=== PATIENT | female | born 1935 | race Caucasian/White ===

== ENCOUNTER 2020-07-17 10:09 | Day surgery (SDC) | payer MEDICARE, SELFPAY ==
[2020-07-10 16:19] VITALS: BMI 30.5
--- NOTE | 2020-07-13 10:30 | MHC.SHP ---
Pre-Procedural Eval Section A The patient is an INPATIENT: No The History & Physical has been completed within 30 days and I have reviewed it.: Yes Section B Chief Complaint: Cataract Left Eye Allergies: Allergies Allergy/AdvReac Type Severity Reaction Status Date / Time No Known Allergies Allergy Verified 07/10/20 16:11 Plan Diagnosis/Plan: Unchanged I have reviewed the history and physical and performed a pertinent physical examination on my patient. No changes have occurred unless specified.
--- NOTE | 2020-07-14 09:07 | P.CONAN_ITS ---
Documented by User: Sophy Velazquez 07/14/20 09:09 HPI - Anesthesia Eval Consult details Narrative: 84yo F for Cataract Extraction IOL Insertion PCP cleared No prev cataract on record [facility] Past Medical History Medical History Diabetes mellitus Hx of breast cancer Hx of cardiac murmur Hypertension Hypothyroidism Numbness and tingling of both feet Osteoarthritis Surgical History Surgical History History of knee replacement Hx of colonoscopy Hx of hemorrhoidectomy S/P lumpectomy, right breast Social History Social History Alcohol intake: never Smoking Status: Former smoker Advance Directives: No Advance Directives Information Provided: No Advance Directives on File: No Meds Allergies Allergy/AdvReac Type Severity Reaction Status Date / Time No Known Allergies Allergy Verified 07/17/20 12:10 Home Medications Medication Instructions Recorded Confirmed Type anastrozole 1 mg PO DAILY 07/10/20 07/10/20 History levothyroxine 112 mcg PO DAILY 07/10/20 07/10/20 History losartan-hydrochlorothiazide 1 tab PO DAILY 07/10/20 07/10/20 History metformin 500 mg PO DAILY 07/10/20 07/10/20 History Exam Exam Date and Time: July 14, 2020 0907 Height,Weight and Vital Signs: Height 5 ft 2 in Weight 75.75 kg Assessment and Plan Assessment Anesthesia Assessment: Chart Reviewed Documented by User: Alize [place] 07/17/20 12:21 [facility] Past Medical History Medical History Diabetes mellitus Hx of breast cancer Hx of cardiac murmur Hypertension Hypothyroidism Numbness and tingling of both feet Osteoarthritis Surgical History Surgical History History of knee replacement Hx of colonoscopy Hx of hemorrhoidectomy S/P lumpectomy, right breast Social History Social History Alcohol intake: never Smoking Status: Former smoker Advance Directives: No Advance Directives Information Provided: No Advance Directives on File: No Meds Allergies Allergy/AdvReac Type Severity Reaction Status Date / Time No Known Allergies Allergy Verified 07/17/20 12:10 Home Medications Medication Instructions Recorded Confirmed Type anastrozole 1 mg PO DAILY 07/10/20 07/10/20 History levothyroxine 112 mcg PO DAILY 07/10/20 07/10/20 History losartan-hydrochlorothiazide 1 tab PO DAILY 07/10/20 07/10/20 History metformin 500 mg PO DAILY 07/10/20 07/10/20 History Exam Airway Mallampati Class: II TM Dist: >3cm Neck ROM: Full Heart: RRR Lungs: CTA Assessment and Plan Assessment Anesthesia Assessment: Anesthesia Plan Discussed and Chart Reviewed Final Anesthetic Review NPO: Yes ASA Class: II Final Preanesthetic Review: Meds/Allgs Chart Reviewed, Consent Obtained/Reviewed and Anes Risks/Benef Reviewed Patient Risk: Intermediate Procedure Risk: Low Anesthetic Plan Anesthetic Plan: MAC: Disposition: Standard PACU
[2020-07-17 12:13] VITALS: BP 182/82; PULSE 73; RESP 16; TEMP 36.3; O2SAT 97
[2020-07-17 12:13] LABS: Glucose, Whole Blood 117 mg/dL (60-115)
[2020-07-17] MEDS: Lactated Ringers 500 ML 50 ML IV (12:36)
[2020-07-17] MEDS: Tetracaine HCl/PF 0.5% Oph Sol 4 ML DROPS 1 DROP EYE-LEFT (12:36)
[2020-07-17] MEDS: Phenylephrine HCL 2.5% Oph SoL 2 ML BOTTLE 1 DROP EYE-LEFT ×3 (12:39→12:46)
[2020-07-17] MEDS: Tropicamide 1 % Ophth Sol 3 ML BTL 1 DROP EYE-LEFT ×3 (12:40→12:47)
--- NOTE | 2020-07-17 12:49 | HO.POSTANES ---
Post Anesthesia Evaluation Post Anesthesia Evaluation Vital Signs: Vital Signs Temp Pulse Resp BP Pulse Ox 07/17/20 12:13 97.3 F 73 16 182/82 H 97 Anesthesia: Monitored Mental Status: Awake Pain Control: Satisfactory Nausea/Vomiting: None Hydration: Adequate Anesthesia-Related Issues: No Anes. Related Issues
--- NOTE | 2020-07-17 12:49 | HO.PNOPHT ---
Ophthalmology Procedure Procedure Date of Service: 07/17/20 Ophthalmology Viscoelastic: Healon Duet Dual Pack Pro Ophthalmology Lenses: TECNIS [id number] (22.5) Procedure Notes: PREOPERATIVE DIAGNOSIS: Decreased visual acuity left eye secondary to cataract POSTOPERATIVE DIAGNOSIS: Same PROCEDURE: Left cataract extraction with intraocular lens insertion SURGEON: Madhu Miles M.D. ANESTHESIA: Topical/MAC ESTIMATED BLOOD LOSS: None COMPLICATIONS: None After obtaining informed consent, the patient was brought to the operation room suite and placed in the supine position. After adequate sedation per anesthesia, topical drops of Tetracaine were given to the left eye. The eye was then prepped and draped in the usual sterile fashion. The operating room microscope was then positioned over the operative eye and a lid speculum placed. A paracentesis was created. Viscoelastic was then instilled into the anterior chamber. A three plane incision was then created temporally, utilizing a 2.85 mm keratome. Capsulotomy forceps were then utilized to create a circular tear capsulotomy. Hydrodissection and hydrodelineation were carried out until adequate mobilization of the nucleus occurred. Phacoemulsification was then utilized to remove the dense central nucleus followed by removal of the cortical material utilizing the automated aspiration irrigation unit. Viscoat elastic was instilled into the posterior capsular bag followed by placement of a posterior chamber intraocular lens without difficulty. The residual Viscoat elastic was then removed utilizing the automated IA machine. The wound was check and found to be watertight. The patient tolerated the procedure well and the lid speculum was removed. Intracameral injection of Vigamox 0.1 mL followed by a subtenon injection of Kenalog-40 0.2 mL were administered. The patient will be seen in the a.m.
[2020-07-17 13:19] VITALS: BP 169/83; PULSE 69; RESP 16; TEMP 36.5; O2SAT 100
== END 2020-07-17 13:28 | disposition home or self-care (01) ==
PROVIDERS: PCP Internal Medicine; Visit Provider Ophthalmology
PROC: (CPT 66985; principal; 2020-07-17 13:40)
DX: H25.12 Age-related nuclear cataract, left eye (principal); H54.7 Unspecified visual loss; I10 Essential (primary) hypertension; E11.9 Type 2 diabetes mellitus without complications; E03.9 Hypothyroidism, unspecified; I49.1 Atrial premature depolarization; J45.909 Unspecified asthma, uncomplicated; C50.911 Malignant neoplasm of unspecified site of right female breast; Z79.811 Long term (current) use of aromatase inhibitors; Z79.84 Long term (current) use of oral hypoglycemic drugs; Z79.899 Other long term (current) drug therapy; Z87.891 Personal history of nicotine dependence
CPT/HCPCS: 66984; 82947; J2250; J3010; J3300; V2632

== ENCOUNTER 2020-07-31 08:53 | Day surgery (SDC) | payer MEDICARE, SELFPAY ==
[2020-07-10 16:21] VITALS: BMI 30.5
--- NOTE | 2020-07-27 14:49 | MHC.SHP ---
Pre-Procedural Eval Section A The patient is an INPATIENT: No The History & Physical has been completed within 30 days and I have reviewed it.: Yes Section B Chief Complaint: cataract Right Eye Allergies: Allergies Allergy/AdvReac Type Severity Reaction Status Date / Time No Known Allergies Allergy Verified 07/17/20 12:10 Plan Diagnosis/Plan: Unchanged I have reviewed the history and physical and performed a pertinent physical examination on my patient. No changes have occurred unless specified.
--- NOTE | 2020-07-28 08:39 | HO.ANESPROP2 ---
Documented by User: Sophy Velazquez 07/28/20 08:50 HPI - Anesthesia Eval Consult details Narrative: 84yo F for Cataract Extraction IOL Insertion, Right Left eye 07/17/20 with MAC: Neena 25, Midaz PCP cleared [facility] Past Medical History Medical History Diabetes mellitus Hx of breast cancer Hx of cardiac murmur Hypertension Hypothyroidism Numbness and tingling of both feet Osteoarthritis Surgical History Surgical History History of knee replacement Hx of colonoscopy Hx of hemorrhoidectomy S/P lumpectomy, right breast Social History Social History Alcohol intake: never Smoking Status: Former smoker Smoking Quit Date: 1983 Use of substances other than those prescribed or required for medical reasons: No Advance Directives: No Advance Directives Information Provided: No Advance Directives on File: No Meds Allergies Allergy/AdvReac Type Severity Reaction Status Date / Time No Known Allergies Allergy Verified 07/17/20 12:10 Home Medications Medication Instructions Recorded Confirmed Type anastrozole 1 mg PO DAILY 07/10/20 07/10/20 History levothyroxine 112 mcg PO DAILY 07/10/20 07/10/20 History losartan-hydrochlorothiazide 1 tab PO DAILY 07/10/20 07/10/20 History metformin 500 mg PO DAILY 07/10/20 07/10/20 History Exam Exam Date and Time: July 28, 2020 0839 Height,Weight and Vital Signs: Height 5 ft 2 in Weight 75.75 kg Assessment and Plan Assessment Anesthesia Assessment: Chart Reviewed Documented by User: Alize [place] 07/31/20 10:02 [facility] Past Medical History Medical History Diabetes mellitus Hx of breast cancer Hx of cardiac murmur Hypertension Hypothyroidism Numbness and tingling of both feet Osteoarthritis Surgical History Surgical History History of knee replacement Hx of colonoscopy Hx of hemorrhoidectomy S/P lumpectomy, right breast Social History Social History Alcohol intake: never Smoking Status: Former smoker Smoking Quit Date: 1983 Use of substances other than those prescribed or required for medical reasons: No Advance Directives: No Advance Directives Information Provided: No Advance Directives on File: No Meds Allergies Allergy/AdvReac Type Severity Reaction Status Date / Time No Known Allergies Allergy Verified 07/17/20 12:10 Home Medications Medication Instructions Recorded Confirmed Type anastrozole 1 mg PO DAILY 07/10/20 07/10/20 History levothyroxine 112 mcg PO DAILY 07/10/20 07/10/20 History losartan-hydrochlorothiazide 1 tab PO DAILY 07/10/20 07/10/20 History metformin 500 mg PO DAILY 07/10/20 07/10/20 History Exam Airway Mallampati Class: I TM Dist: >3cm Neck ROM: Full Loose/Missing/Broken Teeth: No Heart: RRR Lungs: CTA Assessment and Plan Assessment Anesthesia Assessment: Anesthesia Plan Discussed and Chart Reviewed Final Anesthetic Review NPO: Yes ASA Class: II Final Preanesthetic Review: Meds/Allgs Chart Reviewed, Consent Obtained/Reviewed and Anes Risks/Benef Reviewed Patient Risk: Intermediate Procedure Risk: Low Anesthetic Plan Anesthetic Plan: MAC: Disposition: Standard PACU
[2020-07-31] MEDS: Tropicamide 1 % Ophth Sol 3 ML BTL 1 DROP EYE-RIGHT ×3 (09:30→09:51)
[2020-07-31] MEDS: Phenylephrine HCL 2.5% Oph SoL 2 ML BOTTLE 1 DROP EYE-RIGHT ×3 (09:36→09:51)
[2020-07-31 09:40] LABS: Glucose, Whole Blood 116 mg/dL (60-115)
[2020-07-31 09:43] VITALS: BP 154/88; PULSE 74; RESP 18; TEMP 36.6; O2SAT 98
[2020-07-31] MEDS: Tetracaine HCl/PF 0.5% Oph Sol 4 ML DROPS 1 DROP EYE-RIGHT (09:44)
[2020-07-31] MEDS: Lactated Ringers 500 ML 50 ML IV (09:44)
[2020-07-31 10:40] VITALS: BP 174/88; PULSE 62; RESP 16; TEMP 36.4; O2SAT 99
--- NOTE | 2020-07-31 10:40 | HO.PNOPHT ---
Ophthalmology Procedure Procedure Date of Service: 07/31/20 Ophthalmology Viscoelastic: Healon Duet Dual Pack Pro Ophthalmology Lenses: TECNIS [id number] (22.5) Procedure Notes: PREOPERATIVE DIAGNOSIS: Decreased visual acuity right eye secondary to cataract POSTOPERATIVE DIAGNOSIS: Same PROCEDURE: Right cataract extraction with intraocular lens insertion SURGEON: Madhu Miles M.D. ANESTHESIA: Topical/MAC ESTIMATED BLOOD LOSS: None COMPLICATIONS: None After obtaining informed consent, the patient was brought to the operating room suite and placed in the supine position. After adequate sedation per anesthesia, topical drops of Tetracaine were given to the right eye. The eye was then prepped and draped in the usual sterile fashion. The operating room microscope was then positioned over the operative eye and a lid speculum placed. A paracentesis was created. Viscoelastic was then instilled into the anterior chamber. A three plane incision was then created temporally, utilizing a 2.85 mm keratome. Capsulotomy forceps were then utilized to create a circular tear capsulotomy. Hydrodissection and hydrodelineation were carried out until adequate mobilization of the nucleus occurred. Phacoemulsification was then utilized to remove the dense central nucleus followed by removal of the cortical material utilizing the automated aspiration irrigation unit. Viscoelastic was instilled into the posterior capsular bag followed by placement of a posterior chamber intraocular lens without difficulty. The residual Viscoelastic was then removed utilizing the automated IA machine. The wound was checked and found to be watertight. The patient tolerated the procedure well and the lid speculum was removed. Intracameral injection of Vigamox 0.1 mL followed by a subtenon injection of Kenalog-40 0.2 mL were administered. The patient will be seen in the a.m.
--- NOTE | 2020-07-31 10:42 | HO.POSTANES ---
Post Anesthesia Evaluation Post Anesthesia Evaluation Vital Signs: Vital Signs Temp Pulse Resp BP Pulse Ox 07/31/20 09:43 98 F 74 18 154/88 H 98 Anesthesia: Monitored Mental Status: Awake Pain Control: Satisfactory Nausea/Vomiting: None Hydration: Adequate Anesthesia-Related Issues: No Anes. Related Issues
[2020-07-31] MEDS: Acetaminophen 325 MG TABLET 650 MG PO (10:45)
== END 2020-07-31 11:39 | disposition home or self-care (01) ==
PROVIDERS: PCP Internal Medicine; Visit Provider Ophthalmology
PROC: (CPT 66985; principal; 2020-07-31 11:10)
DX: H25.11 Age-related nuclear cataract, right eye (principal); I10 Essential (primary) hypertension; E11.9 Type 2 diabetes mellitus without complications; Z79.84 Long term (current) use of oral hypoglycemic drugs
CPT/HCPCS: 66984; 82947; J2250; J3010; J3300; V2632

== ENCOUNTER 2025-02-18 15:04 | Inpatient (IN) | payer OTHER, SELFPAY ==
[2025-02-18] VITALS (10 sets, daily range): BP systolic 95–129; BP diastolic 41–79; PULSE 75–95; RESP 13–20; TEMP 36.1–37.2; O2SAT 92–100; BMI 30.2
--- NOTE | ~2025-02-18 | CT_ITS ---
CLINICAL HISTORY: fall CT CERVICAL SPINE WITHOUT CONTRAST Comparison: None provided Findings: Likely degenerative minimal grade 1 spondylolisthesis C4-5. Satisfactory alignment of the remaining vertebral bodies. Moderate disc degenerative changes. Advanced facet degenerative changes. No acute fractures or dislocations. Bilateral cervical ribs. Visualized intracranial contents are unremarkable. Unenhanced soft tissues of the neck appear unremarkable.. No apical pneumothorax. IMPRESSION: 1. Motion affected study. 2. No acute fracture in the cervical spine. This document has been electronically signed by: Maritza Sam DO on 02/18/2025 18:48:02
--- NOTE | ~2025-02-18 | XR_ITS ---
EXAMINATION: XR CHEST CLINICAL INFORMATION: fall COMPARISON: None available. TECHNIQUE: Frontal view of the chest was obtained. FINDINGS: Lungs are clear. There are low lung volumes. Aorta is tortuous. A subtle prominence is likely due to AP projection. There is a fracture of the right humerus at the surgical neck, see dictation of right humerus. XR/XR chest 1V IMPRESSION: Right humeral fracture. No acute disease in the chest. Electronically signed by: Giovanni Aguilar MD 02/18/2025 05:03 PM EDT
--- NOTE | ~2025-02-18 | CT_ITS ---
CLINICAL HISTORY: fall CT HEAD WITHOUT CONTRAST Comparison: None provided Findings: There is motion artifact. No acute intracranial hemorrhage, extra-axial fluid collection, hydrocephalus or midline shift. Age appropriate generalized parenchymal atrophy. There are periventricular and subcortical white matter hypodensities which are most likely related to microangiopathic gliosis. Intracranial arteriosclerosis. No sinus or mastoid fluid. Probable retention cyst in the left maxillary sinus. Mild mucosal thickening in the left sphenoid sinus. Visualized orbits: Bilateral aphakia. No skull fracture. IMPRESSION: 1. Motion affected study. 2. No acute intracranial hemorrhage. This document has been electronically signed by: Maritza Sam DO on 02/18/2025 18:42:59
--- NOTE | ~2025-02-18 | XR_ITS ---
EXAMINATION: XR CHEST CLINICAL INFORMATION: dyspnoea COMPARISON: 02/18/2025 TECHNIQUE: Frontal view of the chest was obtained. FINDINGS: The cardiac, hilar, and mediastinal contours are normal. Aortic mural calcification. The lungs are clear bilaterally. No pneumothorax or effusion. Comminuted displaced fracture of the surgical neck of the right proximal humerus. XR/XR chest 1V IMPRESSION: 1. No active pulmonary disease. 2. Comminuted displaced fracture of the surgical neck of the right proximal humerus. Electronically signed by: Daniel Engel MD 02/22/2025 01:45 PM EDT
--- NOTE | ~2025-02-18 | XR_ITS ---
EXAMINATION: XR HUMERUS, RIGHT CLINICAL INFORMATION: fall COMPARISON: None available. TECHNIQUE: AP and lateral views of the right humerus. FINDINGS: There is a displaced fracture of the surgical neck of the humerus with full shaft width medial displacement of the humerus. There is diffuse osteopenia. AC joint is intact. Humeral head does not appear grossly dislocated. XR/XR humerus RT IMPRESSION: There is a transverse fracture through the surgical neck of the humerus with full shaft width medial displacement of the humerus. Electronically signed by: Giovanni Aguilar MD 02/18/2025 05:01 PM EDT
--- NOTE | ~2025-02-18 | XR_ITS ---
EXAMINATION: XR PELVIS CLINICAL INFORMATION: fall COMPARISON: None available. TECHNIQUE: AP view of the pelvis. FINDINGS: Metallic wire lead terminates in the midline of the lower pelvis. No deformity or fracture is identified. There is degenerative sclerosis and osteophytes involving pubic symphysis joint. XR/XR pelvis 1-2V IMPRESSION: No acute abnormality of the pelvis. Electronically signed by: Giovanni Aguilar MD 02/18/2025 04:59 PM EDT
--- NOTE | ~2025-02-18 | XR_ITS ---
EXAMINATION: XR KNEE, RIGHT CLINICAL INFORMATION: fall COMPARISON: None available. TECHNIQUE: Four views of the right knee. FINDINGS: Total knee arthroplasty is noted. There is diffuse osteopenia. There is periprosthetic fracture in the distal femur with half shaft width lateral displacement and impaction. No other abnormalities noted. XR/XR knee RT 4V IMPRESSION: Low bone mineral density. Periprosthetic fracture involving the distal femur adjacent to the femoral component. There is half shaft width lateral displacement of the femoral condyles and impaction of the femur Electronically signed by: Giovanni Aguilar MD 02/18/2025 05:02 PM EDT
--- NOTE | ~2025-02-18 | FL_ITS ---
EXAMINATION: XR FLUOROSCOPY WITH IMAGES CLINICAL INFORMATION: Right knee ORIF of periprosthetic fracture. COMPARISON: 02/18/2025 TECHNIQUE: Fluoroscopy provided to: Dr. Lomeli Fluoroscopy time: 1.7 minutes DAP: 0.164 mGycm2 Images: 7 FINDINGS: 7 fluoroscopic spot images of the right knee obtained during ORIF. Please refer to the full operative report for details. FL/FL guidance in OR IMPRESSION: Fluoroscopic guidance. Electronically signed by: Daniel Engel MD 02/22/2025 12:31 PM EDT
--- NOTE | 2025-02-18 15:27 | ECG_ITS ---
Test Reason : FALL Blood Pressure : */* mmHG Vent. Rate : 81 BPM Atrial Rate : 81 BPM P-R Int : 174 ms QRS Dur : 76 ms QT Int : 430 ms P-R-T Axes : 60 -31 20 degrees QTcB Int : 499 ms Sinus rhythm with Premature atrial complexes Left axis deviation Low voltage QRS Nonspecific ST abnormality Abnormal ECG No previous ECGs available Referred By: Palak Ruiz Electronically Signed By: MAIKOL ALVARADO
--- NOTE | 2025-02-18 15:30 | PC.NURSE ---
Patient is a 89 yo female with a history of DM, HTn and thyroid disorder who presents from home after losing her balance and falling. Patient was on the ground from 7am to 2pm when she was able to reach her daughter. Placed on quality assurance monitor body and NSR noted. Rectal probe inserted and normothermic. Lungs clear bilat. Respirations even and non-labored. Abdomen soft, non-tender, distended with positive bowel sounds. Positive pedal pulses with trace edema. Swelling, ecchymosis and deformity noted to right upper arm with goo CSM. c/o right knee pain, s/p TKR in 2020 and patient unable to straighten leg. Provider at this bedside.
[2025-02-18 15:34] LABS: Hematocrit 31.9 % (37.0-47.0); Hemoglobin 10.3 g/dl (12.0-16.0); Imm Gran Abs Auto 0.16 X10*3/uL (0.00-0.03); Imm Gran Pct Auto 0.7 % (0.0-0.4); Lymphocytes Absolute Auto 0.9 X10*3/uL (1.2-4.9); MANUAL DIFF FLAG SCAN; Mean Corpuscular HGB Conc 32.3 g/dl (31.0-35.0); Mean Corpuscular Hemoglobin 27.8 pg (27.0-33.0); Mean Corpuscular Volume 86.2 fL (80.0-98.0); NRBC Abs Auto 0.000 X10*3/uL (0.0-0.012); NRBC Pct Auto 0.0 /100WBC (0.0-0.2); Platelet Count 395 X10*3/uL (160-400); Red Blood Count 3.70 X10*6/uL (4.20-5.50); SCAN SMEAR FLAG 1; White Blood Count 23.7 X10*3/uL (4.8-10.8)
--- OUTSIDE RECORDS SUMMARY | 2025-02-18 15:44 | XMS_ITS | Clinical Summary ---
Author Organization [facility], Address [address] [place] [address] Phone Care Team Providers Care Gm Mobile Name Role Phone Lizette Lovelace Primary Care Provider [phone] Allergies Active Allergy Reactions Criticality Noted Date Comments Oxycodone Nausea 11/11/2022 Medications amLODIPine (NORVASC) 5 MG tablet Take 5 mg by mouth 1 (one) time each day Active anastrozole (ARIMIDEX) 1 MG chemo tablet Take 1 mg by mouth 1 (one) time each day Swallow whole with a drink of water. Active Ashwagandha 500 MG capsule Take by mouth Active diphenhydrAMINE (Benadryl Allergy) 25 MG capsule Take 25 mg by mouth every 6 (six) hours if needed for itching Active Biotin 5000 MCG chewable tablet Chew Acti ve Cinnamon 500 MG tablet Take by mouth Active levothyroxine sodium (TIROSINT) 112 MCG capsule Take 112 mcg by mouth 1 (one) time each day Active losartan-hydroC HLOROthiazide (HYZAAR) 100-12.5 MG per tablet Take 1 tablet by mouth 1 (one) time each day Active Lutein 40 MG capsule Take by mouth Active Magnesium Oxide 500 MG capsule Take by mouth Active Cholecalciferol (Vitamin D-3) 125 MCG (5000 UT) tablet Take by mouth Active gabapentin (NEURONTIN) 300 MG capsule Take 300 mg by mouth at bed time 12/18/2022 Active Active Problems Problem Noted Date Diagnosed Date Diabetes mellitus 11/11/2022 Hypertension 11/11/2022 Social History Tobacco Use Types Packs/Day Years Used Date Smoking Tobacco: Never Assessed Comments Unknown Sex and Gender Information Value Date Recorded Sex Assigned at Not on file Legal Sex Female 12:00 PM EDT Gender Identity Not on file Sexual Orientation Not on file Plan of Treatment Health Maintenance Due Date Last Done Comments Pneumococcal Vaccine: 50+ Ye ars (1 of 2 - PCV) 11/19/1954 Diabetes: Ophthalmology Exam 10/16/2022 Diabetes: Pedal Pulse Checked 10/16/2022 Diabetes: Sensory Foot Exam 10/16/2022 Diabetes: Visual Foot Exam 10/16/2022 Diabetes: Hemoglobin A1C 02/11/2023 11/11/2022 Influenza Vaccine (#1) 2025 Hepatitis B Vaccine Aged Out No longe r eligible based on patient's age to complete this topic Procedures Procedure Name Priority Date/Time Associated Diagnosis Comments HEMOGLOBIN A1C Routine 11/11/2022 3:54 PM EDT 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 DIAGNOSTIC USE: The [place] Diabetes Association (ADA) and the World Health Organization (WHO) recommend the use of HbA1c to diagnose diabetes using a threshold of 6.5%. Patients who have an HbA1c between 5.7% and 6.4% are considered at increased risk for developing diabetes in the future. CAUTION: Falsely low HbA1c results may be observed in patients with hemolytic anemia, homozygous forms of abnormal hemoglobin (e.g. SS, CC, SC), , recent blood loss or hemoglobin F greater than 7%. Fructosamine may be used as an alternate test in these cases. REFERENCE: ADA: Standards of Medical Care in Diabetes 2020, The Journal of Clinical and Applied Research and Education Volume 43, Supplement 1 Testing performed or reported by [facility], a Service of [facility], [address] [place] [id number] Gabriel Albrecht MD, Independent Trader [facility]# [id number] Blood specimen (specimen) Venous blood / Unknown 11/11/2022 3:54 PM EDT 11/11/2022 3:58 PM EDT us Panda Moe MD LAB BLOOD ORDERABLES Final Res ult [facility] from Last 3 Months or Most Recently Relevant to Health Maintenance Insurance [facility] Medicare [facility] Medicaid [place] Care Teams Gm Mobile Relationship Specialty Start Date End Date Lizette Lovelace PA [address] [place], [place] PCP - General Physician Orthopaedic Nurse 10/16/22
--- OUTSIDE RECORDS SUMMARY | 2025-02-18 15:44 | XMS_ITS | Encounter Summary ---
Author Organization [facility] Address [address] [place] [address] Phone Care Team Providers Care State Inspector Name Role Phone Lizette Lovelace Primary Care Provider [phone] Encounter Details Date Type Department Care Team (Late st Contact Info) Description 10/30/2022 Documentation Only [facility] [place], [address] [place] [address] Lizette Lovelace PA [address] [place] [id number] Social History Tobacco Use Types Packs/Day Years Used Date Smoking Tobacco: Never Assessed Comments Unknown Sex and Gender Information Value Date Recorded Sex Assigned at Not on file Legal Sex Female 12:00 PM EDT Gender Identity Not on file Sexual Orientation Not on file documented as of this encounter Plan of Treatment Not on file documented as of this encounter Visit Diagnoses Not on filedocumented in this encounter Care Teams State Inspector Relationship Specialty Start Date End Date Lizette Lovelace PA [address] [facility] [address] [place], [place] PCP - General Physician Leasing Representative 10/16/22 documented as of this encounter
--- OUTSIDE RECORDS SUMMARY | 2025-02-18 15:44 | XMS_ITS | Encounter Summary ---
Author Organization [facility] Address [address] [place] [address] Phone Care Team Providers Care Seed Technician Name Role Phone Lizette Lovelace Primary Care Provider [phone] Encounter Details Date Type Department Care Team (Late st Contact Info) Description 10/30/2022 Documentation Only [facility] [place], [address] [place] [address] Lizette Lovelace PA [address] [place] [phone] Social History Tobacco Use Types Packs/Day Years [...] on filedocumented in this encounter Care Teams Seed Technician Relationship Specialty Start Date End Date Lizette Lovelace PA [address] [facility] [address] [place], [place] PCP - General Physician Agriculture Engineer 10/16/22 documented as of this encounter
[2025-02-18 15:48] LABS: Alanine Aminotransferase 9 U/L (0-31); Albumin Level 3.0 g/dL (3.5-5.0); Alkaline Phosphatase 62 U/L (39-117); Anion Gap 16 (12-20); Aspartate Amino Transferase 30 U/L (5-31); Blood Urea Nitrogen 20 mg/dL (9-16); Calcium 8.0 mg/dL (8.4-10.2); Carbon Dioxide 22 mmol/L (22-29); Chloride 109 mmol/L (96-108); Creatinine Clr Calc Pharmacy 31.6; Estimated Glomerular Filt Rate 45; Potassium 3.5 mmol/L (3.3-5.1); Sodium 143 mmol/L (135-145); Total Protein 5.2 g/dL (6.5-8.0)
[2025-02-18 15:54] LABS: Troponin-I High Sensitivity 22.1 ng/L (<3.5-17.0)
[2025-02-18] MEDS: Lactated Ringers 1,000 ML 999 ML IV ×2 (16:20→17:55)
--- NOTE | 2025-02-18 16:25 | ED_ITS ---
HPI - Fall General Chief Complaint: Fall Stated Complaint: fall Time Seen by Provider: 02/18/25 15:20 Source: patient, family, EMS and old records reviewed Mode of arrival: EMS Limitations: no limitations History of Present Illness ED Provider: ELZBIETA GARCIA Narrative: 89 yo female with PMH of hypothyroidism, breast cancer on oral medications, HTN, DM, bilateral knee replacements, arthritis, not on thinners here with c/o trying to bend down to pet her cat will and falling landing on R arm and R knee around 7am. She was not able to get off the floor and was finally able to call her daughter at 2pm. She denies LOC. She states she just lost her balance. She denies any recent CP/SOB, GIB symptoms, n/v/d, infections prior to todays episode. She was given IV fentanyl by EMS for her R arm and R knee pain. She denies any other injuries. Daughter is at bedside and we both note how pale she is but she adamantly denies any anemia or recent black or bloody stools. She has no abdominal pain (has nontender chronic hernia). MD complaint: fall Onset (ago): hour(s) (7am today) Fall from: standing Fall witnessed: no Place fall occurred: home Loss of consciousness: none Prolonged down time: yes and hour(s) (7) Symptoms prior to fall: none Context: tripped/slipped Location of injury - extremities: right: arm and knee Severity: severe Quality: throbbing Associated symptoms (after fall): unable to walk Related Data Home Medications ?Medication ?Instructions ?Recorded ?Confirmed amlodipine 5 mg tablet 5 mg PO DAILY 02/18/25 anastrozole 1 mg tablet 1 mg PO DAILY 02/18/25 empagliflozin 25 mg tablet 25 mg PO QAM 02/18/25 (Jardiance) levothyroxine 112 mcg tablet 112 mcg PO DAILY 02/18/25 losartan 100 1 tab PO DAILY 02/18/25 mg-hydrochlorothiazide 12.5 mg tablet metformin 500 mg tablet,extended 500 mg PO DAILY 02/18 release 24 hr Allergies Allergy/AdvReac Type Severity Reaction Status Date / Time No Known Allergies Allergy Verified 02/18/25 15:15 Review of Systems 2 Review of Systems: Constitutional : No Fever, No Chills Eyes: No Eye Pain, No Swelling, No Redness, No Foreign Body Cardiovascular : No Chest Pain, No SOB Respiratory : No Cough, No Dyspnea Gastrointestinal : No Nausea, No Vomiting, No Diarrhea, No abdominal Pain Genitourinary : No Dysuria, No Hematuria Musculoskeletal : positive joint pain, No Myalgias, No Joint Swelling Skin : No Skin lacerations, No rash Neuro : No Weakness, No Numbness, No Loss of Consciousness, No Dizziness, No Headache All other systems reviewed and are negative [facility] Past Medical History Attestation statement: The following information was validated with the patient. Source: old records reviewed Medical History Osteoarthritis Numbness and tingling of both feet Hx of cardiac murmur Hypothyroidism Hypertension Diabetes mellitus Hx of breast cancer Surgical History Hx of hemorrhoidectomy History of knee replacement S/P lumpectomy, right breast Hx of colonoscopy Social History Social History Alcohol intake: never Comment: Tylenol 650 mg PO given at 10:45 Smoked in Last 30 Days: No Use of substances other than those prescribed or required for medical reasons: No Advance Directives: No Advance Directives Information Provided: No Physical Exam 2 Vital Signs: Vital Signs: Last Vital Signs Temp 98.1 F 02/18/25 19:33 Pulse 78 02/18/25 19:33 Resp 13 02/18/25 19:33 BP 126/51 L 02/18/25 19:33 Pulse Ox 99 02/18/25 19:33 O2 Del Method Nasal Cannula 02/18/25 19:33 O2 Flow Rate 4 02/18/25 19:33 BMI result Body Mass Index 30.2 Appearance: Alert. Oriented X3. in pain acute distress. Eyes: Pupils equal, round and reactive to light. ENT: Pharynx normal. atraumatic Neck: Normal inspection. Neck supple. CVS: Normal heart rate and rhythm. Pulses normal. Respiratory: No respiratory distress. Breath sounds normal. Abdomen: Soft and nontender. has soft hernia but no ttp Skin: Skin warm and dry. Normal skin color. Normal skin turgor. Extremities: No lower extremity edema. R knee joint effusion and leg is ext rotated some swelling at distal femur as well, NV intact, R arm hematoma around bicep but no pain on elbow, shoulder, wrist - distal NV intact, all compartments are soft and compressible. Neuro: Oriented X 3. No motor deficit. No sensory deficit. CN2-12 intact Course Course Course Narrative: recheck after IV narcotics her O2 drops I did reassess her RUE and RLE no expanding hematoma and compartments are soft and compressible still plan to obtain repeat CBC at 530pm Palak Ruiz, 02/18/25 1651 given wbc count 1620 - cultures lactic acid IV ceftriaxone ordered, infection suspected 1620 02/18/25 Reevaluation(s) Reevaluation #1: no obvious source of infection at this time she did have SIRS criteria and hypotension focused exam for sepsis performed at 755pm Medications Administered Discontinued Medications Generic Name Dose Route Start Last Admin Trade Name Freq PRN Reason Stop Dose Admin Ceftriaxone Sodium 1 gm 02/18/25 15:57 02/18/25 16:20 Ceftriaxone Sodium 1 Gm Vial IVPUSH 02/18/25 15:58 1 gm ONCE ONE Administration Hydromorphone HCl 0.5 mg 02/18/25 15:38 02/18/25 16:25 Hydromorphone Hcl 0.5 Mg/0.5 Ml Syringe IVPUSH 02/18/25 15:39 0.5 mg ONCE ONE Administration Protocol Acetaminophen 1,000 mg in 100 mls @ 400 mls/hr 02/18/25 15:38 02/18/25 16:25 Ofirmev IV 02/18/25 15:52 Infused ONCE ONE Infusion Lactated Ringer's 1,000 mls @ 999 mls/hr 02/18/25 15:57 02/18/25 17:15 Lr IV 02/18/25 16:57 Infused .Q1H1M ONE Infusion Lactated Ringer's 1,000 mls @ 999 mls/hr 02/18/25 16:45 02/18/25 19:00 Lr IV 02/18/25 17:45 Infused .Q1H1M ONE Infusion Lactated Ringer's 500 mls @ 500 mls/hr 02/18/25 16:46 02/18/25 17:53 Lr IV 02/18/25 17:45 Infused .Q1H ONE Infusion Ondansetron HCl 4 mg 02/18/25 15:38 02/18/25 15:51 Ondansetron Hcl 4 Mg/2 Ml Vial IVPUSH 02/18/25 15:39 4 mg ONCE ONE Administration Procedures Orthopedic Splinting/Casting Injury #1: Side: right Upper Extremity Injury Location: upper arm Upper Extremity Immobilizer: sling/shoulder immobilizer Additional Comments: NV intact Injury #2: Side: right Lower Extremity Injury Location: knee Lower Extremity Immobilizer: knee immobilizer Additional Comments: NV intact Medical Decision Making Medical Decision Making [facility] Narrative: 89yo female with PMH of hypothyroidism, breast cancer on oral medications, HTN, DM, bilateral knee replacements, arthritis, not on thinners here with c/o trip and fall after petting cat she is very pale on exam so I have done repeat checks of arm and R thigh but no sig swelling occuring while here. I am going to obtain gonzalez labs and start of fluids for likely rhabdo she will need xrays along with CT scans for trauma. She denies being ill prior to event. I have ordered IV dilaudid for pain as well. Differential Diagnosis Differential Diagnoses: The differential diagnosis associated with the presentation includes anemia, fracture, head injury contusion, rhabdo Admission/Observation Consideration of admission/observation: Escalation of care including admission/observation considered needs admission unlikely surgery until Friday daughter has been aware Consult Healthcare Provider Management of the patient was discussed with: Hospitalist (will admit) and Senior Loss Control Specialist ortho aware surgery likely Friday unless she can be cleared by tomorrow - sling and knee immobilizer Lab Data [facility] Lab Attestation statement: I reviewed the patient's lab results. 02/18/25 17:42 02/18/25 15:26 Labs: Lab Results 02/18/25 02/18/25 02/18/25 Range/Units 15:26 15:45 16:14 WBC 23.7 H (4.8-10.8) X10*3/uL RBC 3.70 L (4.20-5.50) X10*6/uL Hgb 10.3 L (12.0-16.0) g/dl Hct 31.9 L (37.0-47.0) % MCV 86.2 (80.0-98.0) fL MCH 27.8 (27.0-33.0) pg MCHC 32.3 (31.0-35.0) g/dl RDW 15.8 (11.0-16.0) % Plt Count 395 (160-400) X10*3/uL MPV 9.6 (9.4-12.3) fL Immature Gran % (Auto) 0.7 H (0.0-0.4) % Neut % (Auto) 87.3 H (45-73) % Lymph % (Auto) 3.6 L (20-40) % [place] % (Auto) 8.2 (2-11) % Eos % (Auto) 0.0 (0-4) % Baso % (Auto) 0.2 (0-2) % Lymph # (Auto) 0.9 L (1.2-4.9) X10*3/uL [facility] # (Auto) 2.0 H (0.1-1.2) X10*3/uL Eos # (Auto) 0.0 (0.0-0.4) X10*3/uL Baso # (Auto) 0.1 (0.0-0.2) X10*3/uL Abs Immat Gran (auto) 0.16 H (0.00-0.03) X10*3/uL Absolute Neuts (auto) 20.7 H (2.0-8.3) x10*3/uL Absolute Nucleated RBC 0.000 (0.0-0.012) X10*3/uL Nucleated RBC % (auto) 0.0 (0.0-0.2) /100WBC Smear Tech's Comments VERIFIED Sodium 143 (135-145) mmol/L Potassium 3.5 (3.3-5.1) mmol/L Chloride 109 H (96-108) mmol/L Carbon Dioxide 22 (22-29) mmol/L Anion Gap 16 (12-20) BUN 20 H (9-16) mg/dL Creatinine 1.14 (0.5-1.4) mg/dL Estim Creat Clear Calc 31.6 Estimated GFR 45 Random Glucose 287 H (60-115) mg/dL Lactic Acid 4.2 H* (0.5-2.0) mmol/L Lactic Acid F/U @ 2Hr (0.5-2.0) mmol/L Calcium 8.0 L (8.4-10.2) mg/dL Total Bilirubin 0.8 (0.0-1.0) mg/dL AST 30 (5-31) U/L ALT 9 (0-31) U/L Alkaline Phosphatase 62 (39-117) U/L Total Creatine Kinase 793 H 924 H (26-140) U/L Troponin I High Sens 22.1 H (<3.5-17.0) ng/L B-Natriuretic Peptide 87 (<100) pg/mL Total Protein 5.2 L (6.5-8.0) g/dL Albumin 3.0 L (3.5-5.0) g/dL Urine Color Urine Appearance Urine pH (5.0-9.0) Ur Specific [place] (1.005-1.025) Urine Protein (Neg-Trace) mg/dL Urine Glucose (UA) (Negative) mg/dL Urine Ketones (Negative) mg/dL Urine Blood (Negative) Urine Nitrite (Negative) Ur Leukocyte Esterase (Negative) Urine RBC (0-2) /HPF Urine WBC (0-5) /HPF Ur Squamous Epith Cells (0-2) /HPF Urine Bacteria (None Seen) Hyaline Casts (0-2) /LPF Blood Type O Positive Antibody Screen NEGATIVE 02/18/25 02/18/25 02/18/25 Range/Units 17:23 17:42 18:35 WBC 20.8 H (4.8-10.8) X10*3/uL RBC 3.37 L (4.20-5.50) X10*6/uL Hgb 9.5 L (12.0-16.0) g/dl Hct 29.1 L (37.0-47.0) % MCV 86.4 (80.0-98.0) fL MCH 28.2 (27.0-33.0) pg MCHC 32.6 (31.0-35.0) g/dl RDW 15.8 (11.0-16.0) % Plt Count 360 (160-400) X10*3/uL MPV 9.8 (9.4-12.3) fL Immature Gran % (Auto) 0.5 H (0.0-0.4) % Neut % (Auto) 85.7 H (45-73) % Lymph % (Auto) 3.8 L (20-40) % [facility] % (Auto) 9.8 (2-11) % Eos % (Auto) 0.0 (0-4) % Baso % (Auto) 0.2 (0-2) % Lymph # (Auto) 0.8 L (1.2-4.9) X10*3/uL [facility] # (Auto) 2.0 H (0.1-1.2) X10*3/uL Eos # (Auto) 0.0 (0.0-0.4) X10*3/uL Baso # (Auto) 0.0 (0.0-0.2) X10*3/uL Abs Immat Gran (auto) 0.11 H (0.00-0.03) X10*3/uL Absolute Neuts (auto) 17.8 H (2.0-8.3) x10*3/uL Absolute Nucleated RBC 0.000 (0.0-0.012) X10*3/uL Nucleated RBC % (auto) 0.0 (0.0-0.2) /100WBC Smear Tech's Comments Sodium (135-145) mmol/L Potassium (3.3-5.1) mmol/L Chloride (96-108) mmol/L Carbon Dioxide (22-29) mmol/L Anion Gap (12-20) BUN (9-16) mg/dL Creatinine (0.5-1.4) mg/dL Estim Creat Clear Calc Estimated GFR Random Glucose (60-115) mg/dL Lactic Acid (0.5-2.0) mmol/L Lactic Acid F/U @ 2Hr 3.9 H* (0.5-2.0) mmol/L Calcium (8.4-10.2) mg/dL Total Bilirubin (0.0-1.0) mg/dL AST (5-31) U/L ALT (0-31) U/L Alkaline Phosphatase (39-117) U/L Total Creatine Kinase (26-140) U/L Troponin I High Sens 24.0 H (<3.5-17.0) ng/L B-Natriuretic Peptide (<100) pg/mL Total Protein (6.5-8.0) g/dL Albumin (3.5-5.0) g/dL Urine Color Yellow Urine Appearance Clear Urine pH 6.5 (5.0-9.0) Ur Specific [place] 1.010 (1.005-1.025) Urine Protein Negative (Neg-Trace) mg/dL Urine Glucose (UA) >=1000 H (Negative) mg/dL Urine Ketones Negative (Negative) mg/dL Urine Blood Negative (Negative) Urine Nitrite Negative (Negative) Ur Leukocyte Esterase Negative (Negative) Urine RBC 0-2 (0-2) /HPF Urine WBC 0-5 (0-5) /HPF Ur Squamous Epith Cells 0-2 (0-2) /HPF Urine Bacteria None Seen (None Seen) Hyaline Casts 0-2 (0-2) /LPF Blood Type Antibody Screen Independent Interpretation I performed an independent interpretation of an: EKG, Plain X-Ray (R humerus and R periprosthetic fracture) and CT Scan Interpretation: Rate: 81 Rhythm: NSR [place]: left Normal P waves. Normal ELOISA. Normal QRS complex. Low voltage ST T wave : no ARA, flat t waves inf lead qTC: 499 prior studies: no prior The study has been interpreted contemporaneously by me. . Radiology Impression Discussion of test interpretation with radiology: I have reviewed the radiologist's reading. Independent Historian Clinical information obtained from an independent historian. History obtained from or confirmed by: EMS and Other (daughter) External Record Review External record reviewed: Outpatient record Critical Care Time Critical Care Time Critical Care Time: Yes Total Critical Care Time: 45 Attestation: Time is exclusive of separately billable procedures. Time includes: direct patient care, patient reassessment, coordination of patient care, interpretation of data (laboratory data, pulse oximetry, chest xrays), review of patient's medical records, medical consultation and documentation of patient care. IVF resuscitation, repeat IV pain medications with good effect, family discussions. Procedures excluded from critical care time: central intravenous line placement and electrocardiography. I attest to this time spent taking care of the patient Discharge Plan Discharge Clinical Impression: Acidosis, lactic, Periprosthetic fracture around internal prosthetic knee joint Fall from slip, trip, or stumble Qualifiers: Encounter type: initial encounter Qualified Code(s): W01.0XXA - Fall on same level from slipping, tripping and stumbling without subsequent striking against object, initial encounter Elevated WBC count Qualifiers: Leukocytosis type: unspecified Qualified Code(s): D72.829 - Elevated white blood cell count, unspecified Rhabdomyolysis Qualifiers: Rhabdomyolysis type: non-traumatic Qualified Code(s): M62.82 - Rhabdomyolysis Fracture, humerus Qualifiers: Encounter type: initial encounter Humerus Location: surgical neck Fracture type: closed Fracture morphology: unspecified fracture morphology Fracture alignment: displaced Laterality: right Qualified Code(s): S42.211A - Unspecified displaced fracture of surgical neck of right humerus, initial encounter for closed fracture Patient Disposition: Admitted As Inpatient
[2025-02-18 16:30] LABS: B Type Natriuretic Peptide 87 pg/mL (<100)
[2025-02-18] MEDS: Lactated Ringers 500 ML IV (17:14)
[2025-02-18 17:48] LABS: Appearance Urine Clear; Glucose Urine UA >=1000 mg/dL (Negative); PH 6.5 (5.0-9.0); Specific Gravity - Urine 1.010 (1.005-1.025); UMIC TRIGGER UACC YES
[2025-02-18 18:09] LABS: Troponin-I High Sensitivity 24.0 ng/L (<3.5-17.0)
[2025-02-18 18:18] LABS: Hematocrit 29.1 % (37.0-47.0); Hemoglobin 9.5 g/dl (12.0-16.0); Imm Gran Abs Auto 0.11 X10*3/uL (0.00-0.03); Imm Gran Pct Auto 0.5 % (0.0-0.4); Lymphocytes Absolute Auto 0.8 X10*3/uL (1.2-4.9); MANUAL DIFF FLAG SCAN; Mean Corpuscular HGB Conc 32.6 g/dl (31.0-35.0); Mean Corpuscular Hemoglobin 28.2 pg (27.0-33.0); Mean Corpuscular Volume 86.4 fL (80.0-98.0); NRBC Abs Auto 0.000 X10*3/uL (0.0-0.012); NRBC Pct Auto 0.0 /100WBC (0.0-0.2); Platelet Count 360 X10*3/uL (160-400); Red Blood Count 3.37 X10*6/uL (4.20-5.50); SCAN SMEAR FLAG 1; White Blood Count 20.8 X10*3/uL (4.8-10.8)
[2025-02-18 18:20] LABS: Reflex Lactate? Lactic Acid Added
[2025-02-18 19:06] LABS: ~Lactic Acid-LAB USE ONLY 3.9 mmol/L (0.5-2.0)
--- NOTE | 2025-02-18 19:16 | MHC.EDTECH ---
pt transferred to hospital bed
--- NOTE | 2025-02-18 19:19 | PC.NURSE ---
pt is axox4. transferred to hospital bed with ease. pt states she prefers to lay supine. vitals as documented. warm blankets given. ivf infused. daughter at bedside. mario draining dark yellow urine. call jansen within reach.
--- NOTE | 2025-02-18 19:34 | MHC.EDTECH ---
knee immobilizer applied to right knee with orders from DO Ruiz
--- NOTE | 2025-02-18 20:08 | PC.NURSE ---
pt medicated per mar with prn for pain. daughter was at bedside at time of completing med rec with daughter pt and med list they provided. daughter left to home at this time. med rec completed and md notified. awaiting bed assignment call jansen within reach.
--- NOTE | 2025-02-18 20:10 | PHA.MEDREC ---
Pharmacy Consult ? Medication Reconciliation Pharmacy has completed the medication reconciliation. MED REC DONE BY NURSING CHECKED WITH CLAIM HISTORY
--- NOTE | 2025-02-18 20:11 | P.HPHOSP_ITS ---
History of Present Illness Date of Service: 02/18/25 Attending physician on admission: Silvino Wynn Chief Complaint: fall Patient is a 89-year-old female with a past medical history significant for hypothyroidism, breast cancer on anastrozole, HTN, type 2 diabetes, history of bilateral TKR, class 1 obesity and arthritis, who presented to the ED due to a fall earlier today. The patient reports that she fell around 07:00 onto her right arm and right hip after bending over trying to grab her cat. She was unable to call her daughter until around 14:00 and ultimately called EMS. She denies any head strike or loss of consciousness. This was a mechanical fall and she denies any symptoms prior including chest pain, shortness of breath or dizziness. She denies any hematochezia or melena. No urinary symptoms including frequency, urgency or dysuria. Review of Systems 2 Constitutional: Constitutional: Denies chills, Denies fatigue, Denies fever(s) and Denies headache(s) Eyes: Eyes: Denies change in vision ENT: Denies headache(s), Denies nasal discharge and Denies sore throat Cardiovascular: Cardiovascular: Denies chest pain, Denies rapid heart rate, Denies lightheadedness and Denies dyspnea Respiratory: Respiratory: Denies chest congestion, Denies cough, Denies dyspnea and Denies wheezing Gastrointestinal: Gastrointestinal: Denies abdominal pain, Denies nausea and Denies vomiting Genitourinary: Genitourinary: Denies dysuria and Denies urinary urgency Musculoskeletal: Musculoskeletal: Reports as per HPI Integumentary/Breasts: Skin/Breast: Denies rash Neurologic: Denies confusion and Denies headache(s) Psychiatric: Psychiatric: Denies confusion Endocrine: Endocrine: Denies fatigue Hematologic/Lymphatic: Hematologic/Lymphatic: Denies easy bleeding and Denies easy bruising Allergic/Immunologic: Allergic/Immunologic: Denies wheezing [facility] Medical History Osteoarthritis Numbness and tingling of both feet Hx of cardiac murmur Hypothyroidism Hypertension Diabetes mellitus Hx of breast cancer Functional capacity: independent ambulation Surgical History Hx of hemorrhoidectomy History of knee replacement S/P lumpectomy, right breast Hx of colonoscopy Social History Alcohol intake: never Comment: Tylenol 650 mg PO given at 10:45 Patient Tobacco Use Status: Never used Tobacco Smoked in Last 30 Days: No Use of substances other than those prescribed or required for medical reasons: No Advance Directives: No Advance Directives Information Provided: No Nutrition Risks: No Nutritional Risk Narrative: No smoking, alcohol or drug use Meds Allergies Allergy/AdvReac Type Severity Reaction Status Date / Time No Known Allergies Allergy Verified 02/18/25 15:15 Active Medications: Current Medications Acetaminophen (Acetaminophen 325 Mg Tablet) 650 mg PO Q6H PRN PRN Reason: Pain, Mild 1-3,fever,headache Calcium Carbonate (Calcium Carbonate 750 Mg Tab.Chew) 750 mg PO Q4H PRN PRN Reason: Heartburn Dextrose (Dextrose 50 % 25 Gm/50 Ml Syringe) 25 gm IVPUSH Q15M PRN; Protocol PRN Reason: per Hypoglycemia Standing Ord. Glucose (Glucose Gel 15 Gm Gel..Gram.) 15 gm PO Q15M PRN; Protocol PRN Reason: per Hypoglycemia Standing Ord. Magnesium Hydroxide (Milk Of Magnesia 30 Ml Oral.Susp) 30 ml PO DAILY PRN PRN Reason: Constipation Melatonin (Melatonin 3 Mg Tablet) 6 mg PO BEDTIME PRN PRN Reason: Insomnia Morphine Sulfate (Morphine Sulfate 4 Mg/Ml Cartridge) 2 mg IVPUSH Q4H PRN; Protocol PRN Reason: Pain, Severe (Pain Scale 7-10) Last Admin: 02/18/25 19:56 Dose: 2 mg Ondansetron HCl (Ondansetron Hcl 4 Mg/2 Ml Vial) 4 mg IVPUSH Q8H PRN PRN Reason: Nausea and Vomiting Sodium Chloride (0.9 % Sodium Chloride Flush 3 Ml Syringe) [facility] Medications ?Medication ?Instructions ?Recorded ?Confirmed ?Last Taken ?Type anastrozole 1 mg tablet 1 mg PO DAILY 02/18/2502/18 Unknown History empagliflozin 25 mg tablet 25 mg PO QAM 02/18/2502/18 Unknown History (Jardiance) levothyroxine 112 mcg tablet 112 mcg PO DAILY 02/18/25 02/18/25 Unknown History losartan 100 1 tab PO DAILY 02/18/2501/22 Unknown History mg-hydrochlorothiazide 12.5 mg tablet Physical Exam 2 Vital Signs and Narrative: Vital Signs: Last Vital Signs Temp 98.1 F 02/18/25 19:33 Pulse 78 02/18/25 19:33 Resp 13 02/18/25 19:33 BP 126/51 L 02/18/25 19:33 Pulse Ox 99 02/18/25 19:33 O2 Del Method Nasal Cannula 02/18/25 19:33 O2 Flow Rate 4 02/18/25 19:33 BMI result Body Mass Index 30.2 General: AOx3, no acute distress Resp: CTA bilaterally CVS: S1, S2, RRR GI: +BS, NT, no distention Skin: Warm, dry Neuro: Cranial nerves II-XII grossly intact bilaterally. Motor grossly intact bilaterally Extremities: No pitting edema. edema and mild ecchymosis R knee immobilizer in place. unable to visualize RUE as it is in cast but capillary refill, motor and sensation are intact in hand. compartments soft. Psych: Appropriate affect Const: General: No confusion Orientation/consciousness: No confusion Neuro: General: No confusion Results Labs 02/18/25 17:42 02/18/25 15:26 Labs: Laboratory Results - last 24 hr 02/18/25 02/18/25 02/18/25 15:26 15:45 16:14 MCV 86.2 MCH 27.8 MCHC 32.3 RDW 15.8 Plt Count 395 MPV 9.6 Immature Gran % (Auto) 0.7 H Neut % (Auto) 87.3 H Lymph % (Auto) 3.6 L [place] % (Auto) 8.2 Eos % (Auto) 0.0 Baso % (Auto) 0.2 Lymph # (Auto) 0.9 L [place] # (Auto) 2.0 H Eos # (Auto) 0.0 Baso # (Auto) 0.1 Abs Immat Gran (auto) 0.16 H Absolute Neuts (auto) 20.7 H Absolute Nucleated RBC 0.000 Nucleated RBC % (auto) 0.0 Smear Tech's Comments VERIFIED Anion Gap 16 Estim Creat Clear Calc 31.6 Estimated GFR 45 Random Glucose 287 H Lactic Acid 4.2 H* Lactic Acid F/U @ 2Hr Calcium 8.0 L Total Bilirubin 0.8 AST 30 ALT 9 Alkaline Phosphatase 62 Total Creatine Kinase 793 H 924 H B-Natriuretic Peptide 87 Total Protein 5.2 L Albumin 3.0 L Urine Color Urine Appearance Urine pH Ur Specific [place] Urine Protein Urine Glucose (UA) Urine Ketones Urine Blood Urine Nitrite Ur Leukocyte Esterase Urine RBC Urine WBC Ur Squamous Epith Cells Urine Bacteria Hyaline Casts Blood Type O Positive Antibody Screen NEGATIVE 02/18/25 02/18/25 02/18/25 17:23 17:42 18:35 MCV 86.4 MCH 28.2 MCHC 32.6 RDW 15.8 Plt Count 360 MPV 9.8 Immature Gran % (Auto) 0.5 H Neut % (Auto) 85.7 H Lymph % (Auto) 3.8 L [place] % (Auto) 9.8 Eos % (Auto) 0.0 Baso % (Auto) 0.2 Lymph # (Auto) 0.8 L [place] # (Auto) 2.0 H Eos # (Auto) 0.0 Baso # (Auto) 0.0 Abs Immat Gran (auto) 0.11 H Absolute Neuts (auto) 17.8 H Absolute Nucleated RBC 0.000 Nucleated RBC % (auto) 0.0 Smear Tech's Comments Anion Gap Estim Creat Clear Calc Estimated GFR Random Glucose Lactic Acid Lactic Acid F/U @ 2Hr 3.9 H* Calcium Total Bilirubin AST ALT Alkaline Phosphatase Total Creatine Kinase B-Natriuretic Peptide Total Protein Albumin Urine Color Yellow Urine Appearance Clear Urine pH 6.5 Ur Specific [place] 1.010 Urine Protein Negative Urine Glucose (UA) >=1000 H Urine Ketones Negative Urine Blood Negative Urine Nitrite Negative Ur Leukocyte Esterase Negative Urine RBC 0-2 Urine WBC 0-5 Ur Squamous Epith Cells 0-2 Urine Bacteria None Seen Hyaline Casts 0-2 Blood Type Antibody Screen Imaging Radiologist's Impressions: Impressions Chest X-Ray 02/18/25 15:46 IMPRESSION: Right humeral fracture. No acute disease in the chest. Electronically signed by: Giovanni Aguilar MD 02/18/2025 05:03 PM EDT RP Pelvis X-Ray 02/18/25 15:49 IMPRESSION: No acute abnormality of the pelvis. Electronically signed by: Giovanni Aguilar MD 02/18/2025 04:59 PM EDT RP Knee X-Ray 02/18/25 15:51 IMPRESSION: Low bone mineral density. Periprosthetic fracture involving the distal femur adjacent to the femoral component. There is half shaft width lateral displacement of the femoral condyles and impaction of the femur Electronically signed by: Giovanni Aguilar MD 02/18/2025 05:02 PM EDT RP Humerus X-Ray 02/18/25 15:55 IMPRESSION: There is a transverse fracture through the surgical neck of the humerus with full shaft width medial displacement of the humerus. Electronically signed by: Giovanni Aguilar MD 02/18/2025 05:01 PM EDT RP Assessment and Plan (1) Fall from slip, trip, or stumble: Qualifiers: Encounter type: initial encounter Qualified Code(s): W01.0XXA - Fall on same level from slipping, tripping and stumbling without subsequent striking against object, initial encounter Status: Acute (2) Periprosthetic fracture around internal prosthetic knee joint: Status: Acute (3) Fracture, humerus: Qualifiers: Encounter type: initial encounter Fracture alignment: displaced F racture morphology: unspecified fracture morphology Fracture type: closed H umerus Location: surgical neck Laterality: right Qualified Code(s): S42.211A - Unspecified displaced fracture of surgical neck of right humerus, initial encounter for closed fracture Status: Acute (4) Rhabdomyolysis: Qualifiers: Rhabdomyolysis type: non-traumatic Qualified Code(s): M62.82 - Rhabdomyolysis Status: Acute (5) Acidosis, lactic: Status: Acute (6) Elevated WBC count: Qualifiers: Leukocytosis type: unspecified Qualified Code(s): D72.829 - Elevated white blood cell count, unspecified Status: Acute (7) CKD stage 3a, GFR 45-59 ml/min: Status: Acute (8) Prolonged QT interval: Status: Acute Plan Patient is a 89-year-old female with a past medical history significant for hypothyroidism, breast cancer on anastrozole, HTN, type 2 diabetes, history of bilateral TKR, class 1 obesity and arthritis, who presented to the ED due to a fall earlier today. Fall with subsequent periprosthetic fracture right knee and humerus fracture - mechanical fall earlier today - head CT/C-spine CT negative - right knee x-ray: Periprosthetic fracture involving the distal femur adjacent to the femoral component. There is half shaft width lateral displacement of the femoral condyles and impaction of the femur - pelvis x-ray negative - right humerus x-ray: There is a transverse fracture through the surgical neck of the humerus with full shaft width medial displacement of the humerus. - chest x-ray: Right humeral fracture - ortho aware, plan for possible surgery tomorrow - cardiology consult for clearance due to prolonged QTc on EKG, lytes normal, no previous hx - patient placed in sling and immobilizer - pain management - pulse checks and compartment checks Q4H - Vicente catheter placed Rhabdo secondary to fall - CPK elevated at 924 - patient received 2.5 L LR - gentle maintence fluids - follow CPK Acute lactic acidosis secondary to rhabdo - leukocytosis on CBC however likely reactive. No tachycardia, tachypnea or fever, no infection identified. - lactic acid initially 4.2, 3.9 on repeat - patient received 2.5 L LR - blood pressure stable - UA/chest x-ray negative - follow CBC anemia - hgb 10.3,9.5 on repeat - no obvious bleeding sources - no significant bruising on exam - iron levels ok - check B12, folate, FOBT - monitor CBC prolonged QTc - lytes ok, mag 2.3 - tele - cardiology consult - avoid QT prolonging medications CKD 3A - no baseline creatinine to compare however likely at baseline - follow BMP elevated troponin - trop 22.1, 24.0 on repeat - EKG nonischemic - patient not experiencing chest pain - likely elevated due to rhabdo Hypothyroid - continue levothyroxine Breast cancer - continue anastrozole Hypertension - hold losartan/hydrochlorothiazide due to low normal blood pressures, resume when appropriate Type 2 diabetes - currently NPO, POC q.6h - sliding scale insulin as needed - hold Jardiance Class 1 obesity - BMI 30.2 - weight loss encouraged DNR/DNI VTE prophylaxis: Pneumoboots Patient with fall with subsequent periprosthetic fracture of right knee and right humerus as well as rhabdomyolysis, requiring admission for at least 2 midnight stay for orthopedic consultation, likely surgery and monitoring. Quality Stroke Does the patient have a stroke diagnosis?: No VTE Prior VTE?: No VTE Risk Level:: Medical - moderate - high VTE Device Contraindication: N/A - Device Ordered VTE Drug Contraindication: Treatment Not Indicated
[2025-02-18 20:23] LABS: Glucose, Whole Blood 190 mg/dL (60-115)
[2025-02-18 20:39] LABS: Reflex Lactate? 2 Y
[2025-02-18 20:57] LABS: Iron 52 mcg/dL (30-160); Percent Iron Saturation 20 % (15-50); Total Iron Binding Capacity 265 mcg/dL (228-428); Unsaturated Iron Binding 213 ug/dL
[2025-02-18 21:23] LABS: ~Lactic Acid-LAB USE ONLY 2.6 mmol/L (0.5-2.0)
[2025-02-18 21:30] LABS: Magnesium 2.3 mg/dL (1.6-2.6)
[2025-02-19] VITALS (12 sets, daily range): BP systolic 114–159; BP diastolic 42–69; PULSE 69–83; RESP 11–20; TEMP 36.3–37.7; O2SAT 95–97; BMI 33.2
--- NOTE | 2025-02-19 | ECG_ITS ---
Test Reason : stat Blood Pressure : */* mmHG Vent. Rate : 84 BPM Atrial Rate : 84 BPM P-R Int : 176 ms QRS Dur : 80 ms QT Int : 412 ms P-R-T Axes : 31 -21 4 degrees QTcB Int : 486 ms Normal sinus rhythm Low voltage QRS Borderline ECG When compared with ECG of 18-Feb-2025 15:34, No significant changes seen Referred By: [facility] Electronically Signed By: MAIKOL ALVARADO
--- NOTE | 2025-02-19 00:43 | PC.NURSE ---
pt was 98% on RA. after receiving iv morphine for 7/10 pain sats noted to be 89-91% on RA. pt currently on 1L NC with sats 95-96%. + pulses BUE & BLE.
[2025-02-19 02:10] LABS: Glucose, Whole Blood 181 mg/dL (60-115)
--- NOTE | 2025-02-19 07:15 | P.PNIM_ITS ---
Subjective Subjective Date of Service: 02/19/25 Interval History: f/u on fall with periprosthetic fracture right knee and humerus fracture c/o pain Physical Exam 2 Vital Signs: Vital Signs: Last Vital Signs Temp 97.4 F 02/19/25 03:18 Pulse 74 02/19/25 03:18 Resp 18 02/19/25 03:18 BP 127/57 L 02/19/25 03:18 Pulse Ox 95 02/19/25 03:18 O2 Del Method Nasal Cannula 02/19/25 03:18 O2 Flow Rate 2 02/19/25 03:18 BMI result Body Mass Index 33.2 Const: Other: General: AOx3, no acute distress Resp: CTA bilaterally CVS: S1, S2, RRR GI: +BS, NT, no distention Skin: Warm, dry Neuro: Cranial nerves II-XII grossly intact bilaterally. Motor grossly intact bilaterally Extremities: No pitting edema. edema and mild ecchymosis R knee immobilizer in place. unable to visualize RUE as it is in cast but capillary refill, motor and sensation are intact in hand. compartments soft. Psych: Appropriate affect Objective Data Active Medications Acetaminophen (Acetaminophen 325 Mg Tablet) 650 mg PO Q6H PRN PRN Reason: Pain, Mild 1-3,fever,headache Anastrozole (Anastrozole 1 Mg Tablet) 1 mg PO DAILY MANPREET Calcium Carbonate (Calcium Carbonate 750 Mg Tab.Chew) 750 mg PO Q4H PRN PRN Reason: Heartburn Dextrose (Dextrose 50 % 25 Gm/50 Ml Syringe) 25 gm IVPUSH Q15M PRN; Protocol PRN Reason: per Hypoglycemia Standing Ord. Glucose (Glucose Gel 15 Gm Gel..Gram.) 15 gm PO Q15M PRN; Protocol PRN Reason: per Hypoglycemia Standing Ord. Levothyroxine Sodium (Levothyroxine Sodium 112 Mcg Tablet) 112 mcg PO DAILY MANPREET Magnesium Hydroxide (Milk Of Magnesia 30 Ml Oral.Susp) 30 ml PO DAILY PRN PRN Reason: Constipation Melatonin (Melatonin 3 Mg Tablet) 6 mg PO BEDTIME PRN PRN Reason: Insomnia Morphine Sulfate (Morphine Sulfate 4 Mg/Ml Cartridge) 2 mg IVPUSH Q4H PRN; Protocol PRN Reason: Pain, Severe (Pain Scale 7-10) Last Admin: 02/19/25 00:42 Dose: 2 mg Documented By: HO.KARAARI Ondansetron HCl (Ondansetron Hcl 4 Mg/2 Ml Vial) 4 mg IVPUSH Q8H PRN On Hold: 02/18/25 20:32 PRN Reason: Nausea and Vomiting Sodium Chloride (0.9 % Sodium Chloride Flush 3 Ml Syringe) 3 ml IVFLUSH QSHIFT [facility] Last Admin: 02/19/25 01:27 Dose: Not Given Documented By: MICKY Non-Admin Reason: Off unit ED Labs 02/18/25 17:42 02/19/25 06:15 Labs: Laboratory Results - last 24 hr 02/18/25 02/18/25 02/18/25 15:26 15:45 16:14 MCV 86.2 MCH 27.8 MCHC 32.3 RDW 15.8 Plt Count 395 MPV 9.6 Immature Gran % (Auto) 0.7 H Neut % (Auto) 87.3 H Lymph % (Auto) 3.6 L Gordon % (Auto) 8.2 Eos % (Auto) 0.0 Baso % (Auto) 0.2 Lymph # (Auto) 0.9 L Gordon # (Auto) 2.0 H Eos # (Auto) 0.0 Baso # (Auto) 0.1 Abs Immat Gran (auto) 0.16 H Absolute Neuts (auto) 20.7 H Absolute Nucleated RBC 0.000 Nucleated RBC % (auto) 0.0 Smear Tech's Comments VERIFIED Hold Purple Top Anion Gap 16 Estim Creat Clear Calc 31.6 Estimated GFR 45 POC Glucose Random Glucose 287 H Lactic Acid 4.2 H* Lactic Acid F/U @ 2Hr Lactic Acid F/U @ 4Hr Calcium 8.0 L Magnesium 2.3 Iron 52 TIBC 265 % Saturation 20 Unsat Iron Binding 213 Total Bilirubin 0.8 AST 30 ALT 9 Alkaline Phosphatase 62 Total Creatine Kinase 793 H 924 H B-Natriuretic Peptide 87 Total Protein 5.2 L Albumin 3.0 L Urine Color Urine Appearance Urine pH Ur Specific [place] Urine Protein Urine Glucose (UA) Urine Ketones Urine Blood Urine Nitrite Ur Leukocyte Esterase Urine RBC Urine WBC Ur Squamous Epith Cells Urine Bacteria Hyaline Casts Blood Type O Positive Antibody Screen NEGATIVE 02/18/25 02/18/25 02/18/25 17:23 17:42 18:35 MCV 86.4 MCH 28.2 MCHC 32.6 RDW 15.8 Plt Count 360 MPV 9.8 Immature Gran % (Auto) 0.5 H Neut % (Auto) 85.7 H Lymph % (Auto) 3.8 L Gordon % (Auto) 9.8 Eos % (Auto) 0.0 Baso % (Auto) 0.2 Lymph # (Auto) 0.8 L Gordon # (Auto) 2.0 H Eos # (Auto) 0.0 Baso # (Auto) 0.0 Abs Immat Gran (auto) 0.11 H Absolute Neuts (auto) 17.8 H Absolute Nucleated RBC 0.000 Nucleated RBC % (auto) 0.0 Smear Tech's Comments Hold Purple Top Anion Gap Estim Creat Clear Calc Estimated GFR POC Glucose Random Glucose Lactic Acid Lactic Acid F/U @ 2Hr 3.9 H* Lactic Acid F/U @ 4Hr Calcium Magnesium Iron TIBC % Saturation Unsat Iron Binding Total Bilirubin AST ALT Alkaline Phosphatase Total Creatine Kinase B-Natriuretic Peptide Total Protein Albumin Urine Color Yellow Urine Appearance Clear Urine pH 6.5 Ur Specific [place] 1.010 Urine Protein Negative Urine Glucose (UA) >=1000 H Urine Ketones Negative Urine Blood Negative Urine Nitrite Negative Ur Leukocyte Esterase Negative Urine RBC 0-2 Urine WBC 0-5 Ur Squamous Epith Cells 0-2 Urine Bacteria None Seen Hyaline Casts 0-2 Blood Type Antibody Screen 02/18/25 02/18/25 02/19/25 20:20 21:00 02:06 MCV MCH MCHC RDW Plt Count MPV Immature Gran % (Auto) Neut % (Auto) Lymph % (Auto) Gordon % (Auto) Eos % (Auto) Baso % (Auto) Lymph # (Auto) Gordon # (Auto) Eos # (Auto) Baso # (Auto) Abs Immat Gran (auto) Absolute Neuts (auto) Absolute Nucleated RBC Nucleated RBC % (auto) Smear Tech's Comments Hold Purple Top Anion Gap Estim Creat Clear Calc Estimated GFR POC Glucose 190 H 181 H Random Glucose Lactic Acid Lactic Acid F/U @ 2Hr Lactic Acid F/U @ 4Hr 2.6 H* Calcium Magnesium Iron TIBC % Saturation Unsat Iron Binding Total Bilirubin AST ALT Alkaline Phosphatase Total Creatine Kinase B-Natriuretic Peptide Total Protein Albumin Urine Color Urine Appearance Urine pH Ur Specific [place] Urine Protein Urine Glucose (UA) Urine Ketones Urine Blood Urine Nitrite Ur Leukocyte Esterase Urine RBC Urine WBC Ur Squamous Epith Cells Urine Bacteria Hyaline Casts Blood Type Antibody Screen 02/19/25 06:15 MCV MCH MCHC RDW Plt Count MPV Immature Gran % (Auto) Neut % (Auto) Lymph % (Auto) Gordon % (Auto) Eos % (Auto) Baso % (Auto) Lymph # (Auto) Gordon # (Auto) Eos # (Auto) Baso # (Auto) Abs Immat Gran (auto) Absolute Neuts (auto) Absolute Nucleated RBC Nucleated RBC % (auto) Smear Tech's Comments Hold Purple Top SEE NOTE Anion Gap Estim Creat Clear Calc Estimated GFR POC Glucose Random Glucose Lactic Acid Lactic Acid F/U @ 2Hr Lactic Acid F/U @ 4Hr Calcium Magnesium Iron TIBC % Saturation Unsat Iron Binding Total Bilirubin AST ALT Alkaline Phosphatase Total Creatine Kinase B-Natriuretic Peptide Total Protein Albumin Urine Color Urine Appearance Urine pH Ur Specific [place] Urine Protein Urine Glucose (UA) Urine Ketones Urine Blood Urine Nitrite Ur Leukocyte Esterase Urine RBC Urine WBC Ur Squamous Epith Cells Urine Bacteria Hyaline Casts Blood Type Antibody Screen Assessment and Plan (1) Prolonged QT interval: Status: Acute (2) Periprosthetic fracture around internal prosthetic knee joint: Status: Acute (3) Fracture, humerus: Status: Acute Plan Patient is a 89-year-old female with a past medical history significant for hypothyroidism, breast cancer on anastrozole, HTN, type 2 diabetes, history of bilateral TKR, class 1 obesity and arthritis, who presented to the ED due to a a mechanical fall resulting in fracture as below periprosthetic fracture right knee and humerus fracture Ortho consult for repair pain control with morphine cardiology ask to assess pt for surgery in light of prolonged Qtc, most recent QTc is 467, K and mag ok, I don't believe additional testing is indicated at this time, avoid Qt prolonging agents other can proceed with surgery and will discuss with cardiology Early Rhabdo secondary to fall CPK elevated at 924, repat 871 Acute lactic acidosis secondary to rhabdo, not sepsis LA has trended down with IVF, no repeat indicated at this time anemia hgb 10.3,9.5 on repeat Iron nl B12 and folate pending Leukocytosis, likely reactive no evidence of infection, UA is negative, monitor, trending down CKD 3A no baseline creatinine to compare however likely at baseline follow BMP elevated troponin trop 22.1, 24.0 on repeat EKG nonischemic patient not experiencing chest pain likely elevated due to rhabdo Hypothyroid continue levothyroxine Breast cancer continue anastrozole Hypertension hold losartan/hydrochlorothiazide due to low normal blood pressures, resume when appropriate Type 2 diabetes currently NPO, POC q.6h sliding scale insulin as needed hold Jardiance Class 1 obesity BMI 30.2 weight loss encouraged DNR/DNI VTE prophylaxis: Pneumoboots for now, probably lovenox after surgery Patient with fall with subsequent periprosthetic fracture of right knee and right humerus as well as rhabdomyolysis, requiring admission for at least 2 midnight stay for orthopedic consultation, likely surgery and monitoring. Quality Stroke Does the patient have a stroke diagnosis?: No VTE Prior VTE?: No VTE Risk Level:: Medical - moderate - high VTE Device Contraindication: N/A - Device Ordered VTE Drug Contraindication: Treatment Not Indicated
[2025-02-19 07:27] LABS: Glucose, Whole Blood 163 mg/dL (60-115)
[2025-02-19 07:31] LABS: Alanine Aminotransferase 15 U/L (0-31); Albumin Level 2.8 g/dL (3.5-5.0); Alkaline Phosphatase 58 U/L (39-117); Aspartate Amino Transferase 42 U/L (5-31); Blood Urea Nitrogen 26 mg/dL (9-16); Calcium 8.3 mg/dL (8.4-10.2); Creatinine Clr Calc Pharmacy 29.6; Estimated Glomerular Filt Rate 39; Total Protein 5.0 g/dL (6.5-8.0)
[2025-02-19] MEDS: 0.9 % Sodium Chloride Flush 3 ML SYRINGE IVFLUSH ×2 (07:35→16:28)
[2025-02-19 07:41] LABS: Anion Gap 12 (12-20); Carbon Dioxide 26 mmol/L (22-29); Chloride 109 mmol/L (96-108); Potassium 4.4 mmol/L (3.3-5.1); Sodium 143 mmol/L (135-145)
--- NOTE | 2025-02-19 07:46 | PM.CNOR ---
History of Present Illness HPI Consult date: 02/19/25 <Peng Haskins PA-C - Last Filed: 02/19/25 11:31> Chief complaint: broken r humrus and r femur fracture <Peng Haskins PA-C - Last Filed: 02/19/25 11:31> Narrative: 89 yo female with PMH of hypothyroidism, breast cancer on oral medications, HTN, DM, bilateral knee replacements, arthritis admitted to the medical service after a fall at home. She was trying to bend down to pet her cat when she fell landing on R arm and R knee around 7am yesterday. She was not able to get off the floor and was finally able to call her daughter at 2pm. While in the ED her Lactic acid was 4.2. Xrays revealed a right periprosthetic fx and a right prox humerus fx. Orthopedics was consulted for surgical recommendations. Patients lives alone at home. <Peng Haskins PA-C - Last Filed: 02/19/25 11:31> Review of Systems Constitutional: Constitutional: Reports as per HPI <Peng Haskins PA-C - Last Filed: 02/19/25 11:31> PMFSH Past Medical History Medical History: Medical History Osteoarthritis Numbness and tingling of both feet Hx of cardiac murmur Hypothyroidism Hypertension Diabetes mellitus Hx of breast cancer <Peng Haskins PA-C - Last Filed: 02/19/25 11:31> Surgical History Surgical History: Surgical History Hx of hemorrhoidectomy History of knee replacement S/P lumpectomy, right breast Hx of colonoscopy <Peng Haskins PA-C - Last Filed: 02/19/25 11:31> Social History Social History: Social History Household Members: None Housing: House Do you presently have visiting nurse or other home services: No Alcohol intake: never Comment: Tylenol 650 mg PO given at 10:45 Patient Tobacco Use Status: Never used Tobacco Smoked in Last 30 Days: No Use of substances other than those prescribed or required for medical reasons: No Currently Displaying Signs/Symptoms of Drug Intoxication Withdrawal: No Have you been hit, kicked, punched, or otherwise hurt by someone within the past year? If so, by whom?: No Do you feel safe in your current relationship?: No Current Relationship Is there a partner from a previous relationship who is making you feel unsafe now?: No Are you made to feel afraid or neglected: No Advance Directives: No Advance Directives Information Provided: No Do you have a plan to hurt others: No Plan Recently lost weight without trying: No How much weight loss: Not applicable Eating poorly because of decreased appetite: No Nutrition screen score: 0 Nutrition Risks: No Nutritional Risk Patient : No <Peng Haskins PA-C - Last Filed: 02/19/25 11:31> Meds Allergies/Adverse reactions: Allergies Allergy/AdvReac Type Severity Reaction Status Date / Time No Known Allergies Allergy Verified 02/18/25 15:15 <CHELSIE Roger Last Filed: 02/19/25 11:31> Active Medications: Current Medications Acetaminophen (Acetaminophen 325 Mg Tablet) 650 mg PO Q6H PRN PRN Reason: Pain, Mild 1-3,fever,headache Anastrozole (Anastrozole 1 Mg Tablet) 1 mg PO DAILY MANPREET Calcium Carbonate (Calcium Carbonate 750 Mg Tab.Chew) 750 mg PO Q4H PRN PRN Reason: Heartburn Dextrose (Dextrose 50 % 25 Gm/50 Ml Syringe) 25 gm IVPUSH Q15M PRN; Protocol PRN Reason: per Hypoglycemia Standing Ord. Glucose (Glucose Gel 15 Gm Gel..Gram.) 15 gm PO Q15M PRN; Protocol PRN Reason: per Hypoglycemia Standing Ord. Levothyroxine Sodium (Levothyroxine Sodium 112 Mcg Tablet) 112 mcg PO DAILY MANPREET Magnesium Hydroxide (Milk Of Magnesia 30 Ml Oral.Susp) 30 ml PO DAILY PRN PRN Reason: Constipation Melatonin (Melatonin 3 Mg Tablet) 6 mg PO BEDTIME PRN PRN Reason: Insomnia Morphine Sulfate (Morphine Sulfate 4 Mg/Ml Cartridge) 2 mg IVPUSH Q4H PRN; Protocol PRN Reason: Pain, Severe (Pain Scale 7-10) Last Admin: 02/19/25 07:33 Dose: 2 mg Ondansetron HCl (Ondansetron Hcl 4 Mg/2 Ml Vial) 4 mg IVPUSH Q8H PRN On Hold: 02/18/25 20:32 PRN Reason: Nausea and Vomiting Sodium Chloride (0.9 % Sodium Chloride Flush 3 Ml Syringe) 3 ml IVFLUSH QSHIFT [facility] Last Admin: 02/19/25 07:35 Dose: 3 ml <CHELSIE Roger Last Filed: 02/19/25 11:31> Home medications: Home Medications ?Medication ?Instructions ?Recorded ?Confirmed ?Last Taken ?Type anastrozole 1 mg tablet 1 mg PO DAILY 02/18/25 02/18/25 Unknown History empagliflozin 25 mg tablet 25 mg PO QAM 02/18/25 02/18/25 Unknown History (Jardiance) levothyroxine 112 mcg tablet 112 mcg PO DAILY 02/18/25 02/18/25 Unknown History losartan 100 1 tab PO DAILY 02/18/25 02/18/25 Unknown History mg-hydrochlorothiazide 12.5 mg tablet <CHELSIE Roger Last Filed: 02/19/25 11:31> Physical Exam Vital Signs: Vital Signs: Last Vital Signs Temp 97.4 F 02/19/25 03:18 Pulse 74 02/19/25 03:18 Resp 18 02/19/25 03:18 BP 127/57 L 02/19/25 03:18 Pulse Ox 95 02/19/25 03:18 O2 Del Method Nasal Cannula 02/19/25 03:18 O2 Flow Rate 2 02/19/25 03:18 BMI result Body Mass Index 33.2 <CHELSIE Roger Last Filed: 02/19/25 11:31> Const: General: cooperative, healthy appearing, comfortable and no acute distress <CHELSIE Roger Last Filed: 02/19/25 11:31> Extrem: Other: Right shoulder swelling with ecchymosis, pain over the prox humerus. Elbow ROm intact. NVI. Right femur: knee immobilizer intact, no open wounds. Surgical scar present. Knee effusion present. NVi. <CHELSIE Roger Last Filed: 02/19/25 11:31> Results Labs Result Diagrams: 02/18/25 17:42 02/19/25 06:15 <Ta-Darlene Haskins PA-C - Last Filed: 02/19/25 11:31> Labs: Abnormal lab results 02/18/25 02/18/25 02/18/25 Range/Units 15:26 15:45 16:14 WBC 23.7 H (4.8-10.8) X10*3/uL RBC 3.70 L (4.20-5.50) X10*6/uL Hgb 10.3 L (12.0-16.0) g/dl Hct 31.9 L (37.0-47.0) % Immature Gran % (Auto) 0.7 H (0.0-0.4) % Neut % (Auto) 87.3 H (45-73) % Lymph % (Auto) 3.6 L (20-40) % Lymph # (Auto) 0.9 L (1.2-4.9) X10*3/uL Marinette # (Auto) 2.0 H (0.1-1.2) X10*3/uL Abs Immat Gran (auto) 0.16 H (0.00-0.03) X10*3/uL Absolute Neuts (auto) 20.7 H (2.0-8.3) x10*3/uL Chloride 109 H (96-108) mmol/L BUN 20 H (9-16) mg/dL POC Glucose (60-115) mg/dL Random Glucose 287 H (60-115) mg/dL Lactic Acid 4.2 H* (0.5-2.0) mmol/L Lactic Acid F/U @ 2Hr (0.5-2.0) mmol/L Lactic Acid F/U @ 4Hr (0.5-2.0) mmol/L Calcium 8.0 L (8.4-10.2) mg/dL AST (5-31) U/L Total Creatine Kinase 793 H 924 H (26-140) U/L Troponin I High Sens 22.1 H (<3.5-17.0) ng/L Total Protein 5.2 L (6.5-8.0) g/dL Albumin 3.0 L (3.5-5.0) g/dL Urine Glucose (UA) (Negative) mg/dL 02/18/25 02/18/25 02/18/25 Range/Units 17:23 17:42 18:35 WBC 20.8 H (4.8-10.8) X10*3/uL RBC 3.37 L (4.20-5.50) X10*6/uL Hgb 9.5 L (12.0-16.0) g/dl Hct 29.1 L (37.0-47.0) % Immature Gran % (Auto) 0.5 H (0.0-0.4) % Neut % (Auto) 85.7 H (45-73) % Lymph % (Auto) 3.8 L (20-40) % Lymph # (Auto) 0.8 L (1.2-4.9) X10*3/uL [place] # (Auto) 2.0 H (0.1-1.2) X10*3/uL Abs Immat Gran (auto) 0.11 H (0.00-0.03) X10*3/uL Absolute Neuts (auto) 17.8 H (2.0-8.3) x10*3/uL Chloride (96-108) mmol/L BUN (9-16) mg/dL POC Glucose (60-115) mg/dL Random Glucose (60-115) mg/dL Lactic Acid (0.5-2.0) mmol/L Lactic Acid F/U @ 2Hr 3.9 H* (0.5-2.0) mmol/L Lactic Acid F/U @ 4Hr (0.5-2.0) mmol/L Calcium (8.4-10.2) mg/dL AST (5-31) U/L Total Creatine Kinase (26-140) U/L Troponin I High Sens 24.0 H (<3.5-17.0) ng/L Total Protein (6.5-8.0) g/dL Albumin (3.5-5.0) g/dL Urine Glucose (UA) >=1000 H (Negative) mg/dL 02/18/25 02/18/25 02/19/25 Range/Units 20:20 21:00 02:06 WBC (4.8-10.8) X10*3/uL RBC (4.20-5.50) X10*6/uL Hgb (12.0-16.0) g/dl Hct (37.0-47.0) % Immature Gran % (Auto) (0.0-0.4) % Neut % (Auto) (45-73) % Lymph % (Auto) (20-40) % Lymph # (Auto) (1.2-4.9) X10*3/uL [place] # (Auto) (0.1-1.2) X10*3/uL Abs Immat Gran (auto) (0.00-0.03) X10*3/uL Absolute Neuts (auto) (2.0-8.3) x10*3/uL Chloride (96-108) mmol/L BUN (9-16) mg/dL POC Glucose 190 H 181 H (60-115) mg/dL Random Glucose (60-115) mg/dL Lactic Acid (0.5-2.0) mmol/L Lactic Acid F/U @ 2Hr (0.5-2.0) mmol/L Lactic Acid F/U @ 4Hr 2.6 H* (0.5-2.0) mmol/L Calcium (8.4-10.2) mg/dL AST (5-31) U/L Total Creatine Kinase (26-140) U/L Troponin I High Sens (<3.5-17.0) ng/L Total Protein (6.5-8.0) g/dL Albumin (3.5-5.0) g/dL Urine Glucose (UA) (Negative) mg/dL 02/19/25 02/19/25 Range/Units 06:15 07:24 WBC (4.8-10.8) X10*3/uL RBC (4.20-5.50) X10*6/uL Hgb (12.0-16.0) g/dl Hct (37.0-47.0) % Immature Gran % (Auto) (0.0-0.4) % Neut % (Auto) (45-73) % Lymph % (Auto) (20-40) % Lymph # (Auto) (1.2-4.9) X10*3/uL [place] # (Auto) (0.1-1.2) X10*3/uL Abs Immat Gran (auto) (0.00-0.03) X10*3/uL Absolute Neuts (auto) (2.0-8.3) x10*3/uL Chloride 109 H (96-108) mmol/L BUN 26 H (9-16) mg/dL POC Glucose 163 H (60-115) mg/dL Random Glucose 181 H (60-115) mg/dL Lactic Acid (0.5-2.0) mmol/L Lactic Acid F/U @ 2Hr (0.5-2.0) mmol/L Lactic Acid F/U @ 4Hr (0.5-2.0) mmol/L Calcium 8.3 L (8.4-10.2) mg/dL AST 42 H (5-31) U/L Total Creatine Kinase 871 H (26-140) U/L Troponin I High Sens (<3.5-17.0) ng/L Total Protein 5.0 L (6.5-8.0) g/dL Albumin 2.8 L (3.5-5.0) g/dL Urine Glucose (UA) (Negative) mg/dL H & H 02/18/25 02/18/25 Range/Units 15:26 17:42 Hgb 10.3 L 9.5 L (12.0-16.0) g/dl Hct 31.9 L 29.1 L (37.0-47.0) % All other labs normal. <Peng Haskins PA-C - Last Filed: 02/19/25 11:31> Assessment and Plan (1) Fracture, humerus: Qualifiers: Encounter type: initial encounter Fracture alignment: displaced Fracture morphology: unspecified fracture morphology Fracture type: closed Humerus Location: surgical neck Laterality: right Qualified Code(s): S42.211A - Unspecified displaced fracture of surgical neck of right humerus, initial encounter for closed fracture <Peng Haskins PA-C - Last Filed: 02/19/25 11:31> Status: Acute <Peng Haskins PA-C - Last Filed: 02/19/25 11:31> Non operative sling for comfort, elbow and wrist ROM non weight bearing <Peng Haskins PA-C - Last Filed: 02/19/25 11:31> (2) Periprosthetic fracture around internal prosthetic knee joint: Status: Acute <Peng Haskins PA-C - Last Filed: 02/19/25 11:31> I explained to the patient and her daughter at bedside the extent of his injury which would benefit from surgical intervention for optimal functioning. The patient does understand nonsurgical intervention would result in significantly limited function including bed bound for anywhere from 8-12 weeks at least. Given the patient's activity level and he is independent with ADL's, it would be recommended to pursue surgical intervention. We discussed the procedure in detail along with the risks benefits and alternatives. Risks including but not limited to infection, injury to surrounding nerves and tissue and bone, small and large vessels, stiffness,need for further surgery, DVT/PE along with intraoperative complications including but not limited to . We discussed postoperative recovery which includes Home with VNA vs STR along with potential WB status. The patient does express understanding and would like to proceed with Operative fixation of the right femur with Dr. Lomeli. The patient will be booked accordingly. NPO after 1200 , medical clearance obtained . <Peng Haskins PA-C - Last Filed: 02/19/25 11:31> Procedures Date of Service Date of Service: 02/19/25 <Peng Haskins PA-C - Last Filed: 02/19/25 11:31> 02/19/25 <Italo Lomeli MD - Last Filed: 02/19/25 20:34>
[2025-02-19 07:59] LABS: Folate 15.1 ng/mL (> or = 4.0); Vitamin B12 1950 pg/mL (200-900)
[2025-02-19 14:06] LABS: Glucose, Whole Blood 149 mg/dL (60-115)
--- NOTE | 2025-02-19 14:15 | P.CONAN_ITS ---
HPI - Anesthesia Eval Consult details Narrative: Periprosthetic femur fracture PMFSH Active Problems Active Problems: All Active Problems Prolonged QT interval (Acute) CKD stage 3a, GFR 45-59 ml/min (Acute) Periprosthetic fracture around internal prosthetic knee joint (Acute) Fracture, humerus (Acute) Acidosis, lactic (Acute) Rhabdomyolysis (Acute) Elevated WBC count (Acute) Fall from slip, trip, or stumble (Acute) Past Medical History Medical History Osteoarthritis Numbness and tingling of both feet Hx of cardiac murmur Hypothyroidism Hypertension Diabetes mellitus Hx of breast cancer Functional capacity: independent ambulation Family History Family history of problems with anesthesia: No Surgical History Surgical History Hx of hemorrhoidectomy History of knee replacement S/P lumpectomy, right breast Hx of colonoscopy History of Problems with Anesthesia: No Social History Social History Household Members: None Housing: House Do you presently have visiting nurse or other home services: No Alcohol intake: never Comment: Tylenol 650 mg PO given at 10:45 Patient Tobacco Use Status: Never used Tobacco Smoked in Last 30 Days: No Use of substances other than those prescribed or required for medical reasons: No Currently Displaying Signs/Symptoms of Drug Intoxication Withdrawal: No Have you been hit, kicked, punched, or otherwise hurt by someone within the past year? If so, by whom?: No Do you feel safe in your current relationship?: No Current Relationship Is there a partner from a previous relationship who is making you feel unsafe now?: No Are you made to feel afraid or neglected: No Advance Directives: No Advance Directives Information Provided: No Do you have a plan to hurt others: No Plan Recently lost weight without trying: No How much weight loss: Not applicable Eating poorly because of decreased appetite: No Nutrition screen score: 0 Nutrition Risks: No Nutritional Risk Patient : No Meds Allergies Allergy/AdvReac Type Severity Reaction Status Date / Time No Known Allergies Allergy Verified 02/18/25 15:15 Active Medications: Current Medications Acetaminophen (Acetaminophen 325 Mg Tablet) 650 mg PO Q6H PRN PRN Reason: Pain, Mild 1-3,fever,headache Anastrozole (Anastrozole 1 Mg Tablet) 1 mg PO DAILY [facility] Last Admin: 02/19/25 10:09 Dose: Not Given Calcium Carbonate (Calcium Carbonate 750 Mg Tab.Chew) 750 mg PO Q4H PRN PRN Reason: Heartburn Dextrose (Dextrose 50 % 25 Gm/50 Ml Syringe) 25 gm IVPUSH Q15M PRN; Protocol PRN Reason: per Hypoglycemia Standing Ord. Glucose (Glucose Gel 15 Gm Gel..Gram.) 15 gm PO Q15M PRN; Protocol PRN Reason: per Hypoglycemia Standing Ord. Cefazolin Sodium/Dextrose (Ancef) 2 gm in 50 mls @ 100 mls/hr IV PREOP ONE Stop: 02/19/25 21:29 Acetaminophen (Ofirmev) 1,000 mg in 100 mls @ 400 mls/hr IV Q6H [facility] Stop: 02/20/25 05:59 Last Infusion: 02/19/25 12:24 Dose: Infused Levothyroxine Sodium (Levothyroxine Sodium 112 Mcg Tablet) 112 mcg PO DAILY [facility] Last Admin: 02/19/25 08:31 Dose: 112 mcg Magnesium Hydroxide (Milk Of Magnesia 30 Ml Oral.Susp) 30 ml PO DAILY PRN PRN Reason: Constipation Melatonin (Melatonin 3 Mg Tablet) 6 mg PO BEDTIME PRN PRN Reason: Insomnia Morphine Sulfate (Morphine Sulfate 4 Mg/Ml Cartridge) 2 mg IVPUSH Q4H PRN; Protocol PRN Reason: Pain, Severe (Pain Scale 7-10) Last Admin: 02/19/25 11:35 Dose: 2 mg Ondansetron HCl (Ondansetron Hcl 4 Mg/2 Ml Vial) 4 mg IVPUSH Q8H PRN On Hold: 02/18/25 20:32 PRN Reason: Nausea and Vomiting Oxycodone HCl (Oxycodone Hcl Immed Release 5 Mg Tablet) 5 mg PO Q4H PRN PRN Reason: Pain, Moderate(Pain Scale 4-6) Promethazine HCl (Promethazine Hcl 25 Mg Tablet) 25 mg PO Q4H PRN PRN Reason: Nausea and Vomiting Sodium Chloride (0.9 % Sodium Chloride Flush 3 Ml Syringe) [facility] Admin: 02/19/25 07:35 Dose: 3 ml Home Medications ?Medication ?Instructions ?Recorded ?Confirmed ?Last Taken ?Type anastrozole 1 mg tablet 1 mg PO DAILY 02/18/2502/18 Unknown History empagliflozin 25 mg tablet 25 mg PO QAM 02/18/2502/18 Unknown History (Jardiance) levothyroxine 112 mcg tablet 112 mcg PO DAILY 02/18/25 02/18/25 Unknown History losartan 100 1 tab PO DAILY 02/18/2501/22 Unknown History mg-hydrochlorothiazide 12.5 mg tablet Exam Height,Weight and Vital Signs: Height 5 ft 2 in Weight 82.3 kg Last Vital Signs Temp 98.3 F 02/19/25 13:59 Pulse 79 02/19/25 07:49 Resp 16 02/19/25 07:49 BP 119/58 L 02/19/25 07:49 Pulse Ox 95 02/19/25 07:49 O2 Del Method Nasal Cannula 02/19/25 07:49 O2 Flow Rate 1 02/19/25 07:49 Pertinent Lab Results Pertinent Lab Results: Laboratory Tests 02/18/25 02/18/25 02/18/25 15:26 15:45 16:14 WBC 23.7 H RBC 3.70 L Hgb 10.3 L Hct 31.9 L MCV 86.2 MCH 27.8 MCHC 32.3 RDW 15.8 Plt Count 395 MPV 9.6 Immature Gran % (Auto) 0.7 H Neut % (Auto) 87.3 H Lymph % (Auto) 3.6 L [place] % (Auto) 8.2 Eos % (Auto) 0.0 Baso % (Auto) 0.2 Lymph # (Auto) 0.9 L [place] # (Auto) 2.0 H Eos # (Auto) 0.0 Baso # (Auto) 0.1 Abs Immat Gran (auto) 0.16 H Absolute Neuts (auto) 20.7 H Absolute Nucleated RBC 0.000 Nucleated RBC % (auto) 0.0 Smear Tech's Comments VERIFIED Hold Purple Top Sodium 143 Potassium 3.5 Chloride 109 H Carbon Dioxide 22 Anion Gap 16 BUN 20 H Creatinine 1.14 Estim Creat Clear Calc 31.6 Estimated GFR 45 POC Glucose Random Glucose 287 H Lactic Acid 4.2 H* Lactic Acid F/U @ 2Hr Lactic Acid F/U @ 4Hr Calcium 8.0 L Magnesium 2.3 Iron 52 TIBC 265 % Saturation 20 Unsat Iron Binding 213 Total Bilirubin 0.8 AST 30 ALT 9 Alkaline Phosphatase 62 Total Creatine Kinase 793 H 924 H Troponin I High Sens 22.1 H B-Natriuretic Peptide 87 Total Protein 5.2 L Albumin 3.0 L Vitamin B12 Folate Urine Color Urine Appearance Urine pH Ur Specific [place] Urine Protein Urine Glucose (UA) Urine Ketones Urine Blood Urine Nitrite Ur Leukocyte Esterase Urine RBC Urine WBC Ur Squamous Epith Cells Urine Bacteria Hyaline Casts Blood Type O Positive Antibody Screen NEGATIVE 02/18/25 02/18/25 02/18/25 17:23 17:42 18:35 WBC 20.8 H RBC 3.37 L Hgb 9.5 L Hct 29.1 L MCV 86.4 MCH 28.2 MCHC 32.6 RDW 15.8 Plt Count 360 MPV 9.8 Immature Gran % (Auto) 0.5 H Neut % (Auto) 85.7 H Lymph % (Auto) 3.8 L [place] % (Auto) 9.8 Eos % (Auto) 0.0 Baso % (Auto) 0.2 Lymph # (Auto) 0.8 L [place] # (Auto) 2.0 H Eos # (Auto) 0.0 Baso # (Auto) 0.0 Abs Immat Gran (auto) 0.11 H Absolute Neuts (auto) 17.8 H Absolute Nucleated RBC 0.000 Nucleated RBC % (auto) 0.0 Smear Tech's Comments Hold Purple Top Sodium Potassium Chloride Carbon Dioxide Anion Gap BUN Creatinine Estim Creat Clear Calc Estimated GFR POC Glucose Random Glucose Lactic Acid Lactic Acid F/U @ 2Hr 3.9 H* Lactic Acid F/U @ 4Hr Calcium Magnesium Iron TIBC % Saturation Unsat Iron Binding Total Bilirubin AST ALT Alkaline Phosphatase Total Creatine Kinase Troponin I High Sens 24.0 H B-Natriuretic Peptide Total Protein Albumin Vitamin B12 Folate Urine Color Yellow Urine Appearance Clear Urine pH 6.5 Ur Specific [place] 1.010 Urine Protein Negative Urine Glucose (UA) >=1000 H Urine Ketones Negative Urine Blood Negative Urine Nitrite Negative Ur Leukocyte Esterase Negative Urine RBC 0-2 Urine WBC 0-5 Ur Squamous Epith Cells 0-2 Urine Bacteria None Seen Hyaline Casts 0-2 Blood Type Antibody Screen 02/18/25 02/18/25 02/19/25 20:20 21:00 02:06 WBC RBC Hgb Hct MCV MCH MCHC RDW Plt Count MPV Immature Gran % (Auto) Neut % (Auto) Lymph % (Auto) [place] % (Auto) Eos % (Auto) Baso % (Auto) Lymph # (Auto) [place] # (Auto) Eos # (Auto) Baso # (Auto) Abs Immat Gran (auto) Absolute Neuts (auto) Absolute Nucleated RBC Nucleated RBC % (auto) Smear Tech's Comments Hold Purple Top Sodium Potassium Chloride Carbon Dioxide Anion Gap BUN Creatinine Estim Creat Clear Calc Estimated GFR POC Glucose 190 H 181 H Random Glucose Lactic Acid Lactic Acid F/U @ 2Hr Lactic Acid F/U @ 4Hr 2.6 H* Calcium Magnesium Iron TIBC % Saturation Unsat Iron Binding Total Bilirubin AST ALT Alkaline Phosphatase Total Creatine Kinase Troponin I High Sens B-Natriuretic Peptide Total Protein Albumin Vitamin B12 Folate Urine Color Urine Appearance Urine pH Ur Specific [place] Urine Protein Urine Glucose (UA) Urine Ketones Urine Blood Urine Nitrite Ur Leukocyte Esterase Urine RBC Urine WBC Ur Squamous Epith Cells Urine Bacteria Hyaline Casts Blood Type Antibody Screen 02/19/25 02/19/25 02/19/25 06:15 07:24 14:02 WBC RBC Hgb Hct MCV MCH MCHC RDW Plt Count MPV Immature Gran % (Auto) Neut % (Auto) Lymph % (Auto) [place] % (Auto) Eos % (Auto) Baso % (Auto) Lymph # (Auto) [place] # (Auto) Eos # (Auto) Baso # (Auto) Abs Immat Gran (auto) Absolute Neuts (auto) Absolute Nucleated RBC Nucleated RBC % (auto) Smear Tech's Comments Hold Purple Top SEE NOTE Sodium 143 Potassium 4.4 D Chloride 109 H Carbon Dioxide 26 Anion Gap 12 BUN 26 H Creatinine 1.28 Estim Creat Clear Calc 29.6 Estimated GFR 39 POC Glucose 163 H 149 H Random Glucose 181 H Lactic Acid Lactic Acid F/U @ 2Hr Lactic Acid F/U @ 4Hr Calcium 8.3 L Magnesium Iron TIBC % Saturation Unsat Iron Binding Total Bilirubin 0.6 AST 42 H ALT 15 Alkaline Phosphatase 58 Total Creatine Kinase 871 H Troponin I High Sens B-Natriuretic Peptide Total Protein 5.0 L Albumin 2.8 L Vitamin B12 1950 H Folate 15.1 Urine Color Urine Appearance Urine pH Ur Specific [place] Urine Protein Urine Glucose (UA) Urine Ketones Urine Blood Urine Nitrite Ur Leukocyte Esterase Urine RBC Urine WBC Ur Squamous Epith Cells Urine Bacteria Hyaline Casts Blood Type Antibody Screen Airway Mallampati Class: I TM Dist: >3cm Neck ROM: Full Loose/Missing/Broken Teeth: No Heart: RRR Lungs: CTA Assessment and Plan Assessment Anesthesia Assessment: Anesthesia Plan Discussed and Chart Reviewed Final Anesthetic Review Family History of Problems with Anesthesia: No History of Problems with Anesthesia: No NPO: Yes ASA Class: III and Emergency Final Preanesthetic Review: No Changes in Pt Med Stat, Meds/Allgs Chart Reviewed, Consent Obtained/Reviewed and Anes Risks/Benef Reviewed Patient Risk: High Procedure Risk: Intermediate Anesthetic Plan Anesthetic Plan: GA Disposition: Standard PACU
--- NOTE | 2025-02-19 16:39 | MHC.CM.PN ---
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
--- NOTE | 2025-02-19 20:33 | MHC.SHP ---
Pre-Procedural Eval Section A - 24 Hr Update-Section A only Date of Service: 02/19/25 The patient is an INPATIENT: Yes Changes since office visit: No Cold of Flu in the past 2 weeks, No New Medical Problems, No Changes in Medication and No Patient answered all questions The patient has been examined within 24 hours of the surgical procedure. The History & Physical has been completed within 30 days and I have reviewed it.: Yes Section B - Complete if H&P > 30 days Chief Complaint: broken r humrus and r femur fracture Allergies: Allergies Allergy/AdvReac Type Severity Reaction Status Date / Time No Known Allergies Allergy Verified 02/18/25 15:15 Plan I have reviewed the history and physical and performed a pertinent physical examination on my patient. No changes have occurred unless specified. Time Spent With Patient Time: Total time managing care of this patient today ____ minutes.
--- NOTE | 2025-02-19 22:07 | P.BOP_ITS ---
Brief Operative Note Date of Service: 02/19/25 Pre-op diagnosis: Right distal femoral periprosthetic fracture Post-op diagnosis: same Procedure: Right femur retrograde nail Implants: Alph 2 [place] [id number] retrograde femoral nail Surgeon: Italo Lomeli MD Anesthesia: GLMA and local Was an Special Collections Librarian used for this Procedure?: Yes Special Collections Librarian: Peng Haskins Estimated blood loss (mL): 150 IV fluids (mL): 200 Pathology: none sent Condition: stable Disposition: PACU
[2025-02-19 22:57] LABS: Glucose, Whole Blood 174 mg/dL (60-115)
[2025-02-20] VITALS (8 sets, daily range): BP systolic 124–159; BP diastolic 57–77; PULSE 76–89; RESP 14–18; TEMP 36.4–37.3; O2SAT 94–99
[2025-02-20] MEDS: 0.9 % Sodium Chloride Flush 3 ML SYRINGE IVFLUSH ×4 (00:03→20:33)
[2025-02-20 03:38] LABS: Glucose, Whole Blood 164 mg/dL (60-115)
[2025-02-20 06:41] LABS: Hematocrit 23.6 % (37.0-47.0); Hemoglobin 7.4 g/dl (12.0-16.0); Mean Corpuscular HGB Conc 31.4 g/dl (31.0-35.0); Mean Corpuscular Hemoglobin 27.7 pg (27.0-33.0); Mean Corpuscular Volume 88.4 fL (80.0-98.0); NRBC Abs Auto 0.000 X10*3/uL (0.0-0.012); NRBC Pct Auto 0.0 /100WBC (0.0-0.2); Platelet Count 262 X10*3/uL (160-400); Red Blood Count 2.67 X10*6/uL (4.20-5.50); White Blood Count 12.9 X10*3/uL (4.8-10.8)
[2025-02-20 06:55] LABS: Anion Gap 15 (12-20); Blood Urea Nitrogen 32 mg/dL (9-16); Calcium 8.1 mg/dL (8.4-10.2); Carbon Dioxide 23 mmol/L (22-29); Chloride 107 mmol/L (96-108); Creatinine Clr Calc Pharmacy 31.3; Estimated Glomerular Filt Rate 42; Potassium 4.2 mmol/L (3.3-5.1); Sodium 141 mmol/L (135-145)
[2025-02-20 07:30] LABS: Glucose, Whole Blood 135 mg/dL (60-115)
[2025-02-20] MEDS: oxyCODONE HCl Immed Release 5 MG TABLET PO ×3 (07:58→22:47)
--- NOTE | 2025-02-20 08:24 | HO.PM.IMPN ---
Subjective Subjective Date of Service: 02/20/25 Interval History: f/u on fall with periprosthetic fracture right knee and humerus fracture s/p Right femur retrograde nail on 02/19, has some ongoing pain Physical Exam Vital Signs: Vital Signs: Last Vital Signs Temp 97.5 F 02/20/25 07:25 Pulse 78 02/20/25 07:25 Resp 16 02/20/25 07:25 BP 124/59 L 02/20/25 07:25 Pulse Ox 99 02/20/25 07:25 O2 Del Method Nasal Cannula 02/20/25 07:25 O2 Flow Rate 2 02/20/25 07:25 BMI result Body Mass Index 33.2 Const: Other: General: AO X 2, no acute distress Resp: CTA bilateral CVS: S1,S2,RRR GI: +BS, NT, no distention Skin: No rash, surgical site d/c/ MSK; right arm sling in place Neuro: motor grossly intact Psych: appropriate affect Objective Data Active Medications Acetaminophen (Acetaminophen 325 Mg Tablet) 650 mg PO Q6H PRN PRN Reason: Pain, Mild 1-3,fever,headache Anastrozole (Anastrozole 1 Mg Tablet) 1 mg PO DAILY [facility] Last Admin: 02/20/25 07:59 Dose: 1 mg Documented By: KRYS Aspirin (Aspirin 325 Mg Tablet) 325 mg PO DAILY [facility] Calcium Carbonate (Calcium Carbonate 750 Mg Tab.Chew) 750 mg PO Q4H PRN PRN Reason: Heartburn Dextrose (Dextrose 50 % 25 Gm/50 Ml Syringe) 25 gm IVPUSH Q15M PRN; Protocol PRN Reason: per Hypoglycemia Standing Ord. Glucose (Glucose Gel 15 Gm Gel..Gram.) 15 gm PO Q15M PRN; Protocol PRN Reason: per Hypoglycemia Standing Ord. Cefazolin Sodium/Dextrose (Ancef) 2 gm in 50 mls @ 100 mls/hr IV POSTOP [facility] Levothyroxine Sodium (Levothyroxine Sodium 112 Mcg Tablet) 112 mcg PO DAILY [facility] Last Admin: 02/20/25 07:59 Dose: 112 mcg Documented By: KRYS Magnesium Hydroxide (Milk Of Magnesia 30 Ml Oral.Susp) 30 ml PO DAILY PRN PRN Reason: Constipation Melatonin (Melatonin 3 Mg Tablet) 6 mg PO BEDTIME PRN PRN Reason: Insomnia Morphine Sulfate (Morphine Sulfate 4 Mg/Ml Cartridge) 2 mg IVPUSH Q4H PRN; Protocol PRN Reason: Pain, Severe (Pain Scale 7-10) Last Admin: 02/20/25 04:11 Dose: 2 mg Documented By: CARLOS Ondansetron HCl (Ondansetron Hcl 4 Mg/2 Ml Vial) 4 mg IVPUSH Q8H PRN On Hold: 02/18/25 20:32 PRN Reason: Nausea and Vomiting Oxycodone HCl (Oxycodone Hcl Immed Release 5 Mg Tablet) 5 mg PO Q4H PRN PRN Reason: Pain, Moderate(Pain Scale 4-6) Last Admin: 02/20/25 07:58 Dose: 5 mg Documented By: LEFHEDY Promethazine HCl (Promethazine Hcl 25 Mg Tablet) 25 mg PO Q4H PRN PRN Reason: Nausea and Vomiting Last Admin: 02/20/25 07:58 Dose: 25 mg Documented By: KRYS Sodium Chloride (0.9 % Sodium Chloride Flush 3 Ml Syringe) 3 ml IVFLUSH [facility] Last Admin: 02/20/25 07:59 Dose: 3 ml Documented By: KRYS Labs 02/20/25 05:52 02/20/25 05:52 Labs: Laboratory Results - last 24 hr 02/19/25 02/19/25 02/20/25 14:02 22:53 03:33 MCV MCH MCHC RDW Plt Count MPV Absolute Nucleated RBC Nucleated RBC % (auto) Anion Gap Estim Creat Clear Calc Estimated GFR POC Glucose 149 H 174 H 164 H Random Glucose Calcium 02/20/25 02/20/25 05:52 07:23 MCV 88.4 MCH 27.7 MCHC 31.4 RDW 16.1 H Plt Count 262 D MPV 10.3 Absolute Nucleated RBC 0.000 Nucleated RBC % (auto) 0.0 Anion Gap 15 Estim Creat Clear Calc 31.3 Estimated GFR 42 POC Glucose 135 H Random Glucose 157 H Calcium 8.1 L Microbiology Microbiology Results: Microbiology 02/18/25 16:14 Blood Culture - Preliminary Blood - Venous No growth after 24 hours. 02/18/25 16:14 Blood Culture - Preliminary Blood - Venous No growth after 24 hours. Assessment and Plan (1) Prolonged QT interval: Status: Acute (2) Periprosthetic fracture around internal prosthetic knee joint: Status: Acute (3) Fracture, humerus: Status: Acute Plan Patient is a 89-year-old female with a past medical history significant for hypothyroidism, breast cancer on anastrozole, HTN, type 2 diabetes, history of bilateral TKR, class 1 obesity and arthritis, who presented to the ED due to a a mechanical fall resulting in fracture as below periprosthetic fracture right knee and humerus fracture s/p Right femur retrograde nail on 02/19 Post of care including PT/OT when available Pain control with morphine and oxycodone DVT prophylaxis with ASA Early Rhabdo secondary to fall CPK elevated at 924, repat 871 Acute lactic acidosis secondary to rhabdo, not sepsis LA has trended down with IVF, no repeat indicated at this time anemia, Hct down to 7.4 from 9.5 prior day, close monitorin, transfuse if Hct < 7 B12 > normal, [place] normal Leukocytosis, likely reactive no evidence of infection, UA is negative, monitor, trending down Renal failure, likely CKD 3, stable. elevated troponin trop 22.1, 24.0 on repeat EKG nonischemic patient not experiencing chest pain likely elevated due to rhabdo Hypothyroid continue levothyroxine h/o Breast cancer continue anastrozole Hypertension hold losartan/hydrochlorothiazide due to low norml bp Type 2 diabetes Sliding scale hold jardiance for now follow blood sugars Class 1 obesity BMI 30.2 weight loss encouraged DNR/DNI VTE prophylaxis: Pneumoboots for now, probably lovenox after surgery Patient with fall with subsequent periprosthetic fracture of right knee and right humerus as well as rhabdomyolysis, requiring admission for at least 2 midnight stay for orthopedic consultation, likely surgery and monitoring. Quality Stroke Does the patient have a stroke diagnosis?: No VTE Prior VTE?: No VTE Risk Level:: Medical - moderate - high VTE Device Contraindication: N/A - Device Ordered VTE Drug Contraindication: Treatment Not Indicated
--- NOTE | 2025-02-20 08:25 | PM.PNORT ---
Subjective Subjective Date of Service: 02/20/25 Interval history: POD 1 s/p Retrograde nail Right femur no overnight events resting in bed with immobilizer intact denies sob, cp, palpitations Physical Exam Vital Signs: Vital Signs: Last Vital Signs Temp 97.5 F 02/20/25 07:25 Pulse 78 02/20/25 07:25 Resp 16 02/20/25 07:25 BP 124/59 L 02/20/25 07:25 Pulse Ox 99 02/20/25 07:25 O2 Del Method Nasal Cannula 02/20/25 07:25 O2 Flow Rate 2 02/20/25 07:25 BMI result Body Mass Index 33.2 Const: General: cooperative, healthy appearing, comfortable and no acute distress Extrem: Other: Right shoulder swelling with ecchymosis, pain over the prox humerus. Elbow ROm intact. NVI. Right femur: knee immobilizer intact, bandage clean dry and intact. NVI Procedures Date of Service Date of Service: 02/20/25 Progress Note: A&P Assessment and plan (1) Periprosthetic fracture around internal prosthetic knee joint: Status: Acute Assessment and Plan: pain control begin ASA for dvt ppx begin PT/OT: TTWB RLE with walker for transfers only. Ok to perform NWB ROM of the right knee. dispo-pt eval and med clearance (2) Fracture, humerus: Status: Acute Assessment and Plan: Non operative sling for comfort, elbow and wrist ROM non weight bearing Time Spent With Patient Time: Total time managing care of this patient today ____ minutes. Quality Stroke Does the patient have a stroke diagnosis?: No VTE Prior VTE?: No VTE Risk Level:: Medical - moderate - high VTE Device Contraindication: N/A - Device Ordered VTE Drug Contraindication: Treatment Not Indicated
--- NOTE | 2025-02-20 09:29 | HO.POSTANES ---
Post Anesthesia Evaluation Post Anesthesia Evaluation Date of Service: 02/20/25 Vital Signs: Vital Signs Temp Pulse Resp BP Pulse Ox O2 Del Method O2 Flow Rate 02/20/25 07:25 97.5 F 78 16 124/59 L 99 Nasal Cannula 2 02/20/25 03:55 97.6 F 81 16 124/57 L 99 Nasal Cannula 2 02/20/25 00:19 97.8 F 80 16 137/64 99 Nasal Cannula 2 02/19/25 23:06 97.5 F 80 16 159/69 H 97 Nasal Cannula 2 02/19/25 22:40 98 F 81 14 144/58 H 96 Nasal Cannula 3 02/19/25 22:35 80 12 141/57 H 97 Nasal Cannula 3 02/19/25 22:30 79 11 L 143/56 H 95 Nasal Cannula 3 02/19/25 22:25 99.8 F 80 17 142/51 H 97 Simple Mask 6 Anesthesia: General LMA Mental Status: Awake Pain Control: Satisfactory Nausea/Vomiting: None Hydration: Adequate Anesthesia-Related Issues: No Anes. Related Issues
[2025-02-20 11:35] LABS: Glucose, Whole Blood 136 mg/dL (60-115)
[2025-02-20 16:42] LABS: Glucose, Whole Blood 141 mg/dL (60-115)
[2025-02-20 20:27] LABS: Glucose, Whole Blood 186 mg/dL (60-115)
[2025-02-21 03:53] VITALS: BP 135/62; PULSE 75; RESP 20; TEMP 36.9; O2SAT 98
[2025-02-21] MEDS: oxyCODONE HCl Immed Release 5 MG TABLET PO ×4 (05:02→19:25)
[2025-02-21 06:44] LABS: Hematocrit 27.6 % (37.0-47.0); Hemoglobin 8.9 g/dl (12.0-16.0); Mean Corpuscular HGB Conc 32.2 g/dl (31.0-35.0); Mean Corpuscular Hemoglobin 29.4 pg (27.0-33.0); Mean Corpuscular Volume 91.1 fL (80.0-98.0); NRBC Abs Auto 0.000 X10*3/uL (0.0-0.012); NRBC Pct Auto 0.0 /100WBC (0.0-0.2); Platelet Count 234 X10*3/uL (160-400); Red Blood Count 3.03 X10*6/uL (4.20-5.50); White Blood Count 11.8 X10*3/uL (4.8-10.8)
[2025-02-21 07:06] LABS: Anion Gap 15 (12-20); Blood Urea Nitrogen 26 mg/dL (9-16); Calcium 8.3 mg/dL (8.4-10.2); Carbon Dioxide 23 mmol/L (22-29); Chloride 107 mmol/L (96-108); Creatinine Clr Calc Pharmacy 49.2; Estimated Glomerular Filt Rate > 60; Potassium 3.8 mmol/L (3.3-5.1); Sodium 141 mmol/L (135-145)
[2025-02-21 07:59] LABS: Glucose, Whole Blood 125 mg/dL (60-115)
[2025-02-21 08:00] VITALS: BP 167/70; PULSE 82; RESP 16; TEMP 36.5; O2SAT 97
[2025-02-21] MEDS: 0.9 % Sodium Chloride Flush 3 ML SYRINGE IVFLUSH ×3 (08:02→23:07)
--- NOTE | 2025-02-21 08:33 | P.PNIM_ITS ---
Subjective Subjective Date of Service: 02/21/25 Interval History: f/u on fall with periprosthetic fracture right knee and humerus fracture s/p Right femur retrograde nail on 02/19, has some ongoing pain in the right should transfused 1 unit or RBC yesterday, H/H is better Physical Exam 2 Vital Signs: Vital Signs: Last Vital Signs Temp 97.7 F 02/21/25 08:00 Pulse 82 02/21/25 08:00 Resp 16 02/21/25 08:00 BP 167/70 H 02/21/25 08:00 Pulse Ox 97 02/21/25 08:00 O2 Del Method Nasal Cannula 02/21/25 08:00 O2 Flow Rate 2 02/21/25 08:00 BMI result Body Mass Index 33.2 Const: Other: General: AO X 2, no acute distress Resp: CTA bilateral CVS: S1,S2,RRR GI: +BS, NT, no distention Skin: No rash, surgical site d/c/ MSK; right arm sling in place Neuro: motor grossly intact Psych: appropriate affect Objective Data Active Medications Acetaminophen (Acetaminophen 325 Mg Tablet) 650 mg PO Q6H PRN PRN Reason: Pain, Mild 1-3,fever,headache Last Admin: 02/20/25 18:51 Dose: 650 mg Documented By: NANCY Anastrozole (Anastrozole 1 Mg Tablet) 1 mg PO DAILY [facility] Last Admin: 02/21/25 08:02 Dose: 1 mg Documented By: MAO Aspirin (Aspirin 325 Mg Tablet) 325 mg PO DAILY [facility] Last Admin: 02/21/25 08:01 Dose: 325 mg Documented By: MAO Calcium Carbonate (Calcium Carbonate 750 Mg Tab.Chew) 750 mg PO Q4H PRN PRN Reason: Heartburn Dextrose (Dextrose 50 % 25 Gm/50 Ml Syringe) 25 gm IVPUSH Q15M PRN; Protocol PRN Reason: per Hypoglycemia Standing Ord. Glucose (Glucose Gel 15 Gm Gel..Gram.) 15 gm PO Q15M PRN; Protocol PRN Reason: per Hypoglycemia Standing Ord. Cefazolin Sodium/Dextrose (Ancef) 2 gm in 50 mls @ 100 mls/hr IV POSTOP [facility] Insulin Human Lispro (Insulin Lispro 100 Unit/Ml 3 Ml Vial) 0 unit SUBCUT QIDACHS [facility]; Protocol Last Admin: 02/21/25 08:02 Dose: Not Given Documented By: MAO Non-Admin Reason: No Insulin Coverage Levothyroxine Sodium (Levothyroxine Sodium 112 Mcg Tablet) 112 mcg PO DAILY [facility] Last Admin: 02/21/25 08:01 Dose: 112 mcg Documented By: MAO Magnesium Hydroxide (Milk Of Magnesia 30 Ml Oral.Susp) 30 ml PO DAILY PRN PRN Reason: Constipation Melatonin (Melatonin 3 Mg Tablet) 6 mg PO BEDTIME PRN PRN Reason: Insomnia Last Admin: 02/20/25 20:33 Dose: 6 mg Documented By: MARY Morphine Sulfate (Morphine Sulfate 4 Mg/Ml Cartridge) 2 mg IVPUSH Q4H PRN; Protocol PRN Reason: Pain, Severe (Pain Scale 7-10) Last Admin: 02/21/25 07:56 Dose: 2 mg Documented By: MAO Ondansetron HCl (Ondansetron Hcl 4 Mg/2 Ml Vial) 4 mg IVPUSH Q8H PRN On Hold: 02/18/25 20:32 PRN Reason: Nausea and Vomiting Oxycodone HCl (Oxycodone Hcl Immed Release 5 Mg Tablet) 5 mg PO Q4H PRN PRN Reason: Pain, Moderate(Pain Scale 4-6) Last Admin: 02/21/25 05:02 Dose: 5 mg Documented By: NANCY Promethazine HCl (Promethazine Hcl 25 Mg Tablet) 25 mg PO Q4H PRN PRN Reason: Nausea and Vomiting Last Admin: 02/21/25 08:01 Dose: 25 mg Documented By: MAO Sodium Chloride (0.9 % Sodium Chloride Flush 3 Ml Syringe) [facility] Last Admin: 02/21/25 08:02 Dose: 3 ml Documented By: MAO Labs 02/21/25 06:02 02/21/25 06:02 Labs: Laboratory Results - last 24 hr 02/18/25 02/20/25 02/20/25 15:45 11:31 16:34 MCV MCH MCHC RDW Plt Count MPV Absolute Nucleated RBC Nucleated RBC % (auto) Anion Gap Estim Creat Clear Calc Estimated GFR POC Glucose 136 H 141 H Random Glucose Calcium Blood Type O Positive Antibody Screen NEGATIVE Crossmatch See Detail 08/3102/21/25 02/21/25 20:19 06:02 07:52 MCV 91.1 MCH 29.4 MCHC 32.2 RDW 16.2 H Plt Count 234 MPV 9.8 Absolute Nucleated RBC 0.000 Nucleated RBC % (auto) 0.0 Anion Gap 15 Estim Creat Clear Calc 49.2 Estimated GFR > 60 POC Glucose 186 H 125 H Random Glucose 129 H Calcium 8.3 L Blood Type Antibody Screen Crossmatch Microbiology Microbiology Results: Microbiology 02/18/25 16:14 Blood Culture - Preliminary Blood - Venous No growth after 48 hours. 02/18/25 16:14 Blood Culture - Preliminary Blood - Venous No growth after 48 hours. Assessment and Plan (1) Prolonged QT interval: Status: Acute (2) Periprosthetic fracture around internal prosthetic knee joint: Status: Acute (3) Fracture, humerus: Status: Acute Plan Patient is a 89-year-old female with a past medical history significant for hypothyroidism, breast cancer on anastrozole, HTN, type 2 diabetes, history of bilateral TKR, class 1 obesity and arthritis, who presented to the ED due to a a mechanical fall resulting in fracture as below periprosthetic fracture right knee and humerus fracture s/p Right femur retrograde nail on 02/19 Post of care including PT/OT Pain control with morphine and oxycodone DVT prophylaxis with ASA STR when bed available Early Rhabdo secondary to fall CPK elevated at 924, repat 871 Acute lactic acidosis secondary to rhabdo, not sepsis LA has trended down with IVF, no repeat indicated at this time anemia, Hct down to 7.4 from 9.5 s/p 1 unit or RBC on 02/20, Hgb now 8.9. Transfuse if Hgb <7.5 B12 > normal, Foalte normal Leukocytosis, likely reactive no evidence of infection, UA is negative, monitor, trending down Renal failure, likely CKD 3, stable. elevated troponin trop 22.1, 24.0 on repeat EKG nonischemic patient not experiencing chest pain likely elevated due to rhabdo and stress Hypothyroid continue levothyroxine h/o Breast cancer continue anastrozole Hypertension hold losartan/hydrochlorothiazide due to low norml bp Type 2 diabetes Sliding scale hold jardiance for now follow blood sugars QTc prolongation on initial presentation, has normalized..K and mag ok Class 1 obesity BMI 30.2 weight loss encouraged DNR/DNI VTE prophylaxis: Pneumoboots, ASA per Ortho Dispo: STR when bed available. Quality Stroke Does the patient have a stroke diagnosis?: No VTE Prior VTE?: No VTE Risk Level:: Medical - moderate - high VTE Device Contraindication: N/A - Device Ordered VTE Drug Contraindication: Treatment Not Indicated
--- NOTE | 2025-02-21 10:41 | PM.PNORT ---
Subjective Subjective Date of Service: 02/21/25 Interval history: Patient postop day 2 status post right retrograde femoral IM nail for periprosthetic fracture about the knee. Nurses say that she is requiring oxycodone and some morphine for pain control Patient says that she has trouble getting comfortable, but feels she is a little bit better than yesterday. Physical Exam Vital Signs: Vital Signs: Last Vital Signs Temp 97.7 F 02/21/25 08:00 Pulse 82 02/21/25 08:00 Resp 16 02/21/25 08:00 BP 167/70 H 02/21/25 08:00 Pulse Ox 97 02/21/25 08:00 O2 Del Method Nasal Cannula 02/21/25 08:00 O2 Flow Rate 2 02/21/25 08:00 BMI result Body Mass Index 33.2 Extrem: Other: Patient alert oriented and in no acute distress She has an ice pack on her right proximal humerus which is in a sling. She can make a fist and extend all of her digits and says she has normal sensation to the right hand She is in a right knee immobilizer and had me adjust her position for improved comfort in her bed. The immobilizer and dressing are all clean dry and intact. She can actively flex and extend her toes and her ankle without pain. Sensation intact to the foot. Procedures Date of Service Date of Service: 02/21/25 Progress Note: A&P Assessment and plan (1) Periprosthetic fracture around internal prosthetic knee joint: Status: Acute (2) Fracture, humerus: Status: Acute Plan Assessment and plan She appears to be doing well today (1) Periprosthetic fracture around internal prosthetic knee joint: Status: Acute Assessment and Plan: pain control begin ASA for dvt ppx begin PT/OT: TTWB RLE with walker for transfers only. Ok to perform NWB ROM of the right knee. dispo-pt eval and med clearance (2) Fracture, humerus: Status: Acute Assessment and Plan: Non operative sling for comfort, elbow and wrist ROM non weight bearing Time Spent With Patient Time: Total time managing care of this patient today ____ minutes. Quality Stroke Does the patient have a stroke diagnosis?: No VTE Prior VTE?: No VTE Risk Level:: Medical - moderate - high VTE Device Contraindication: N/A - Device Ordered VTE Drug Contraindication: Treatment Not Indicated
[2025-02-21 12:01] LABS: Glucose, Whole Blood 137 mg/dL (60-115)
[2025-02-21 15:08] VITALS: BP 153/67; PULSE 87; RESP 18; TEMP 36.2; O2SAT 98
[2025-02-21 15:36] LABS: Glucose, Whole Blood 129 mg/dL (60-115)
[2025-02-21 19:44] VITALS: BP 145/64; PULSE 89; RESP 20; TEMP 36.9; O2SAT 97
[2025-02-21 20:24] LABS: Glucose, Whole Blood 141 mg/dL (60-115)
[2025-02-22] VITALS (7 sets, daily range): BP systolic 88–166; BP diastolic 44–74; PULSE 73–137; RESP 16; TEMP 36.2–36.7; O2SAT 91–98
--- NOTE | 2025-02-22 | ECG_ITS ---
Test Reason : Tachycardia Blood Pressure : */* mmHG Vent. Rate : 146 BPM Atrial Rate : * BPM P-R Int : * ms QRS Dur : 122 ms QT Int : 330 ms P-R-T Axes : * -21 -28 degrees QTcB Int : 514 ms Atrial flutter with rapid ventricular response Right bundle branch block Abnormal ECG When compared with ECG of 19-Feb-2025 08:04, Atrial flutter present Vent. rate has increased by 62 bpm Referred By: Cheryl Huerta Electronically Signed By: Hi Larson
--- NOTE | 2025-02-22 03:41 | PC.NURSE ---
Pt's HR was at 150, manual BP 100/52, oral temp 98.1, O2 93%, RR 18. Pt denied chest pain, SOB. MD Trinh notified. EKG ordered: Afib w/ rapid ventricular response. ordered IV Metoprolol & tele.
--- NOTE | 2025-02-22 03:48 | PM.EVENT ---
Event Note Date of Service: 02/22/25 Event Note: 3:51 pm - Patient has developed rapid a-fib with RVR, new onset. Other VS are stable. Patient asymptomatic. ECG showed heart rate of 146 beats per minute and right bundle branch block. Will start therapy with metoprolol 5 mg IV. Patient already on full-dose aspirin for DVT prophylaxis after orthopedic procedure. I hesitated to start anticoagulation due to recent history of falls and surgery. We will obtain routine labs to assess for electrolyte imbalances, acidosis, anemia or ischemia; as well as TTE; and telemetry. We will also obtain consultation with Cardiology. Time Spent With Patient Time: Total time managing care of this patient today ____ minutes.
[2025-02-22] MEDS: oxyCODONE HCl Immed Release 5 MG TABLET PO ×4 (04:16→22:48)
[2025-02-22] MEDS: Metoprolol Tartrate 12.5 MG HALFTAB PO ×2 (04:16→15:18)
--- NOTE | 2025-02-22 04:20 | PC.NURSE ---
Continuos cardiac monitoring initiated. Pt's HR decreased to <105 bpm. Per MD, IV Metoprolol held, changed to PO.
[2025-02-22 04:45] LABS: MANUAL DIFF FLAG NO
[2025-02-22 04:46] LABS: Hematocrit 28.8 % (37.0-47.0); Hemoglobin 9.1 g/dl (12.0-16.0); Imm Gran Abs Auto 0.28 X10*3/uL (0.00-0.03); Imm Gran Pct Auto 2.3 % (0.0-0.4); Lymphocytes Absolute Auto 1.1 X10*3/uL (1.2-4.9); Mean Corpuscular HGB Conc 31.6 g/dl (31.0-35.0); Mean Corpuscular Hemoglobin 28.3 pg (27.0-33.0); Mean Corpuscular Volume 89.7 fL (80.0-98.0); NRBC Abs Auto 0.000 X10*3/uL (0.0-0.012); NRBC Pct Auto 0.0 /100WBC (0.0-0.2); Platelet Count 281 X10*3/uL (160-400); Red Blood Count 3.21 X10*6/uL (4.20-5.50); White Blood Count 11.9 X10*3/uL (4.8-10.8)
[2025-02-22 05:02] LABS: Anion Gap 17 (12-20); Blood Urea Nitrogen 22 mg/dL (9-16); Calcium 8.3 mg/dL (8.4-10.2); Carbon Dioxide 22 mmol/L (22-29); Chloride 105 mmol/L (96-108); Creatinine Clr Calc Pharmacy 49.2; Estimated Glomerular Filt Rate > 60; Magnesium 1.9 mg/dL (1.6-2.6); Potassium 4.0 mmol/L (3.3-5.1); Sodium 140 mmol/L (135-145)
[2025-02-22 05:10] LABS: Troponin-I High Sensitivity 9.0 ng/L (<3.5-17.0)
--- NOTE | 2025-02-22 05:24 | PC.NURSE ---
Pt's HR improved, 76 bpm, but BP recheck was 88/44 manually. Pt says I feel fine, asymptomatic. MD Trinh notified, LR bolus ordered.
[2025-02-22] MEDS: Lactated Ringers 1,000 ML 999 ML IV (05:49)
--- NOTE | 2025-02-22 07:00 | CA_ITS ---
Transthoracic Echocardiogram Patient (Last, First, Middle): Mavis Wilder V Gender: F Date of : 1935 Age: 89 Procedure Date: 02/22/2025 Procedure Type: Transthoracic Echocardiogram Location: S3E Height: 157.48 cm Weight: 82.1 kg BSA: 1.83 m2 Heart Rate: 80 bpm BP: 110 / 50 mmHg Bird Trapper: GRACIELA Referring MD: Cheryl Huerta MD Symptoms: rapid a-fb, new onset Study Quality: Fair. Limited/couldn't tolerate ECG Rhythm: Sinus Conclusions: - Normal left ventricular size, thickness, and systolic function. The visually estimated ejection fraction is between 60-65%. - E - Normal right ventricular cavity size and systolic function. Findings Procedure Information The study quality is limited by the patients inability to tolerate the test. Left Ventricle Normal left ventricular size, thickness, and systolic function. The visually estimated ejection fraction is between 60-65%. Regional wall motion abnormalities can not be excluded due to suboptimal endocardial definition. Abnormal diastolic function is noted. Spectral Doppler is indicative of an impaired relaxation filling pattern. E/E prime ratio is >15, consistent with elevated filling pressures. Right Ventricle Normal right ventricular cavity size and systolic function. Atria The left atrium is normal in size. The right atrium was not well visualized. Aortic Valve There is a normal trileaflet aortic valve. There is no aortic valve stenosis. There is no aortic valve regurgitation. Mitral Valve Normal mitral valve structure and function. There is no mitral valve regurgitation. There is no mitral valve stenosis. Pulmonic Valve The pulmonic valve is likely normal. Tricuspid Valve Normal tricuspid valve structure. There is no tricuspid valve regurgitation. Tricuspid regurgitation envelope is inadequate for calculation of right ventricular systolic pressure. Normal right atrial pressure. Great Vessels All visible segments of the aorta are normal in size. Venous The inferior vena cava is normal in size and collapses greater than 50% with inspiration. Pericardium/Pleural There is no evidence of pericardial effusion. Prior Study Comparison No prior study available for comparison. Measurements 2D Linear Measurements IVSd: 0.81 0.6-0.9/0.6-1.0 cm LVIDd: 4.45 3.9-5.3/4.2-5.9 cm LVIDd Index: 2.43 2.4-3.2/2.2-3.1 cm/m2 LVIDs: 2.73 2.0-3.6 cm LVPWd: 0.86 0.7-1.1 cm LA Diam: 3.70 2.7-3.8/3.0-4.0 cm LAIDs Index: 2.02 1.5-2.3 cm/m2 LV Mass: 146.63 67-162/88-224 g LV Mass Index: 80.12 43-95/49-115 g/m2 LVOT Diam: 2.20 3.0+(-)1.3 cm Mitral Valve MV Pk E: 1.08 MV PK A: 1.29 MV Decel Time: 193.00 E/A: 0.80 E'Lateral: 6.74 E'Medial: 6.20 E/E' Med: 17.40 E/E' Lat: 16.00 PHT: 57.00 MVA PHT: 3.86 Decel Hopkins: 5.58 Aortic Valve AoV Pk Puneet: 1.93 AoV Mn Puneet: 1.19 AoV VTI: 0.34 AoV Pk Grad: 15.00 Aov Mn Grad: 7.00 LITO Cont.VTI: 2.60 LVOT LVOT Pk Puneet: 1.33 LVOT Mn Puneet: 0.80 LVOT VTI: 0.23 LVOT Pk Grad: 7.00 LVOT Mn Grad: 3.00 LVOT Diam: 2.20 LVOT Area: 3.80 Diastolic Function MV Pk E: 1.08 MV Pk A: 1.29 E/A: 0.80 E'Medial: 6.20 E/E' Med: 17.40 E' Laterial: 6.74 E/E' Lat: 16.00 Right Ventricle TAPSE (mm): 21.90 TVS' Puneet: 16.60 Great Vessels Aorta Sinus of Valsalva: 3.70 2.0-3.5 cm Ao Asc: 3.20 2.1-3.4 cm Ao Arch: 2.90 Pulmonary Valve PV Pk Puneet: 1.06 Peak PV Grad: 4.00 Updated in Other Vendor System with Status of Final Hi Larson MD electronically signed on 02/22/2025 7:58:38 PM with status of Final
[2025-02-22 07:47] LABS: Glucose, Whole Blood 129 mg/dL (60-115)
--- NOTE | 2025-02-22 07:54 | PM.PNORT ---
Subjective Subjective Date of Service: 02/22/25 Interval history: POD 3 s/p Retrograde nail Right femur no overnight events resting in recliner with immobilizer intact sling intact for rt shoulder denies sob, cp, palpitations Physical Exam Vital Signs: Vital Signs: Last Vital Signs Temp 97.8 F 02/22/25 07:35 Pulse 80 02/22/25 07:35 Resp 16 02/22/25 07:35 BP 126/61 02/22/25 07:35 Pulse Ox 91 L 02/22/25 07:35 O2 Del Method Nasal Cannula 02/22/25 07:35 O2 Flow Rate 2 02/22/25 07:35 BMI result Body Mass Index 33.2 Const: General: cooperative, healthy appearing, comfortable and no acute distress Extrem: Other: Right shoulder swelling with ecchymosis, pain over the prox humerus. Elbow ROm intact. NVI. Right femur: knee immobilizer intact, bandage clean dry and intact. She can plantar and dorsi flex the foot and ankle. NVI Procedures Date of Service Date of Service: 02/22/25 Progress Note: A&P Assessment and plan (1) Periprosthetic fracture around internal prosthetic knee joint: Status: Acute Assessment and Plan: pain control ASA for dvt ppx PT/OT: TTWB RLE with walker for transfers only. Ok to perform NWB ROM of the right knee. dispo-rehab placement (2) Fracture, humerus: Status: Acute Assessment and Plan: Non operative sling for comfort, elbow and wrist ROM non weight bearing Time Spent With Patient Time: Total time managing care of this patient today ____ minutes. Quality Stroke Does the patient have a stroke diagnosis?: No VTE Prior VTE?: No VTE Risk Level:: Medical - moderate - high VTE Device Contraindication: N/A - Device Ordered VTE Drug Contraindication: Treatment Not Indicated
[2025-02-22] MEDS: Milk of Magnesia 30 ML ORAL.SUSP PO (08:39)
[2025-02-22 11:02] LABS: Glucose, Whole Blood 167 mg/dL (60-115)
--- NOTE | 2025-02-22 11:12 | MHC.CM.PN ---
PER MD ROUNDS, PT WILL REMAIN 1-2 MORE DAYS DUE TO AFIB W/RVR DCP: STR, PT HAD NO SNF PREFERENCES, REFERRALS BASED ON INSURANCE
--- NOTE | 2025-02-22 12:26 | P.PNIM_ITS ---
Subjective Subjective Date of Service: 02/22/25 Interval History: Events from last night reviewed. Patient in AFib RVR requiring LR 1 L bolus and IV metoprolol. The patient appears uncomfortable on evaluation, complaining of pain around the right humerus. She reports some tachypnea as well. Review of Systems Review of Systems: Yes all other systems are reviewed and are negative Physical Exam 2 Exam: Exam: General: A&O x3, oriented to time place person and situation. Appears uncomfortable and in pain. Cardiac: S1, S2 auscultated with no S3/4, no MRG. Well perfused. Irregularly irregular, normal rate. Respiratory: Normal breath sounds auscultated throughout all lung zones, without wheezing, rales. Mild tachypnea, and shallow breathing. GI/ : No abdominal pain on palpation, no masses or distentions. MSK: Right humeral fracture in sling; ecchymosis noted. Right lower extremity in brace; ecchymosis noted. Neurological: Normal neurological examination on overview, without obvious CN II-XII abnormalities. Vital Signs: Vital Signs: Last Vital Signs Temp 97.8 F 02/22/25 07:35 Pulse 80 02/22/25 07:35 Resp 16 02/22/25 07:35 BP 126/61 02/22/25 07:35 Pulse Ox 91 L 02/22/25 07:35 O2 Del Method Nasal Cannula 02/22/25 07:35 O2 Flow Rate 2 02/22/25 07:35 BMI result Body Mass Index 33.2 Objective Data Active Medications Acetaminophen (Acetaminophen 325 Mg Tablet) 650 mg PO Q6H PRN PRN Reason: Pain, Mild 1-3,fever,headache Last Admin: 02/22/25 08:23 Dose: 650 mg Documented By: CLINTON Anastrozole (Anastrozole 1 Mg Tablet) 1 mg PO DAILY [facility] Last Admin: 02/22/25 08:23 Dose: 1 mg Documented By: CLINTON Aspirin (Aspirin 325 Mg Tablet) 325 mg PO DAILY [facility] Last Admin: 02/22/25 08:23 Dose: 325 mg Documented By: CLINTON Calcium Carbonate (Calcium Carbonate 750 Mg Tab.Chew) 750 mg PO Q4H PRN PRN Reason: Heartburn Dextrose (Dextrose 50 % 25 Gm/50 Ml Syringe) 25 gm IVPUSH Q15M PRN; Protocol PRN Reason: per Hypoglycemia Standing Ord. Docusate Sodium (Docusate Sodium 100 Mg Capsule) 100 mg PO BEDTIME [facility] Glucose (Glucose Gel 15 Gm Gel..Gram.) 15 gm PO Q15M PRN; Protocol PRN Reason: per Hypoglycemia Standing Ord. Cefazolin Sodium/Dextrose (Ancef) 2 gm in 50 mls @ 100 mls/hr IV POSTOP [facility] Insulin Human Lispro (Insulin Lispro 100 Unit/Ml 3 Ml Vial) 0 unit SUBCUT QIDACHS [facility]; Protocol Last Admin: 02/22/25 11:11 Dose: 2 unit Documented By: CLINTON Levothyroxine Sodium (Levothyroxine Sodium 112 Mcg Tablet) 112 mcg PO DAILY@0600 [facility] Magnesium Hydroxide (Milk Of Magnesia 30 Ml Oral.Susp) 30 ml PO DAILY PRN PRN Reason: Constipation Last Admin: 02/22/25 08:39 Dose: 30 ml Documented By: CLINTON Melatonin (Melatonin 3 Mg Tablet) 6 mg PO BEDTIME PRN PRN Reason: Insomnia Last Admin: 02/20/25 20:33 Dose: 6 mg Documented By: MARY Metoprolol Tartrate (Metoprolol Tartrate 5 Mg/5 Ml Vial) 5 mg IVPUSH Q15M PRN; Protocol PRN Reason: HR > 105 bpm Metoprolol Tartrate (Metoprolol Tartrate 12.5 Mg Halftab) 12.5 mg PO Q12H [facility]; Protocol Last Admin: 02/22/25 04:16 Dose: 12.5 mg Documented By: MATT Morphine Sulfate (Morphine Sulfate 4 Mg/Ml Cartridge) 2 mg IVPUSH Q4H PRN; Protocol PRN Reason: Pain, Severe (Pain Scale 7-10) Last Admin: 02/22/25 09:44 Dose: 2 mg Documented By: CLINTON Ondansetron HCl (Ondansetron Hcl 4 Mg/2 Ml Vial) 4 mg IVPUSH Q8H PRN On Hold: 02/18/25 20:32 PRN Reason: Nausea and Vomiting Oxycodone HCl (Oxycodone Hcl Immed Release 5 Mg Tablet) 5 mg PO Q4H PRN PRN Reason: Pain, Moderate(Pain Scale 4-6) Last Admin: 02/22/25 08:23 Dose: 5 mg Documented By: CLINTON Polyethylene Glycol (Polyethylene Glycol 3350 17 Gm Powd.Pack) 17 gm PO DAILY [facility] Last Admin: 02/22/25 10:21 Dose: 17 gm Documented By: CLINTON Promethazine HCl (Promethazine Hcl 25 Mg Tablet) 25 mg PO Q4H PRN PRN Reason: Nausea and Vomiting Last Admin: 02/21/25 19:25 Dose: 25 mg Documented By: MATT Sodium Chloride (0.9 % Sodium Chloride Flush 3 Ml Syringe) 3 ml IVFLUSH QSHIFT [facility] Last Admin: 02/22/25 07:12 Dose: Not Given Documented By: CLINTON Non-Admin Reason: Previously Administered Labs 02/22/25 04:28 02/22/25 04:28 Labs: Laboratory Results - last 24 hr 02/18/25 02/21/25 02/21/25 15:45 15:33 20:02 MCV MCH MCHC RDW Plt Count MPV Immature Gran % (Auto) Neut % (Auto) Lymph % (Auto) [place] % (Auto) Eos % (Auto) Baso % (Auto) Lymph # (Auto) [place] # (Auto) Eos # (Auto) Baso # (Auto) Abs Immat Gran (auto) Absolute Neuts (auto) Absolute Nucleated RBC Nucleated RBC % (auto) Anion Gap Estim Creat Clear Calc Estimated GFR POC Glucose 129 H 141 H Random Glucose Calcium Magnesium Crossmatch See Detail 02/22/25 02/22/25 02/22/25 04:28 07:40 10:59 MCV 89.7 MCH 28.3 MCHC 31.6 RDW 15.9 Plt Count 281 MPV 9.5 Immature Gran % (Auto) 2.3 H Neut % (Auto) 79.3 H Lymph % (Auto) 9.1 L [place] % (Auto) 8.0 Eos % (Auto) 0.9 Baso % (Auto) 0.4 Lymph # (Auto) 1.1 L [place] # (Auto) 1.0 Eos # (Auto) 0.1 Baso # (Auto) 0.1 Abs Immat Gran (auto) 0.28 H Absolute Neuts (auto) 9.4 H Absolute Nucleated RBC 0.000 Nucleated RBC % (auto) 0.0 Anion Gap 17 Estim Creat Clear Calc 49.2 Estimated GFR > 60 POC Glucose 129 H 167 H Random Glucose 147 H Calcium 8.3 L Magnesium 1.9 Crossmatch Assessment and Plan (1) CKD stage 3a, GFR 45-59 ml/min: Status: Acute (2) Acidosis, lactic: Status: Acute (3) Elevated WBC count: Status: Acute (4) Fracture, humerus: Status: Acute (5) Periprosthetic fracture around internal prosthetic knee joint: Status: Acute (6) Rhabdomyolysis: Status: Acute (7) Atrial fibrillation with RVR: Status: Acute Plan Patient is a 89-year-old female with a past medical history significant for hypothyroidism, breast cancer on anastrozole, HTN, type 2 diabetes, history of bilateral TKR, class 1 obesity and arthritis, who presented to the ED due to a mechanical fall, admitted for a right humeral fracture and right knee fracture, c/b traumatic rhabdomyolysis, s/p right femoral retrograde nail 02/19. Admission complicated by acute blood loss anemia s/p 1u PRBC & atrial fibrillation with RVR. Afib RVR Episode of AFib RVR with hypotension 02/21/2025. Likely secondary to hypovolemia. Received 1 L LR and IV metoprolol - with resolution of RVR. [id number] Score: 4 - needs AC once cleared by ortho. Continue metoprolol Pending ECHO Periprosthetic fracture right femoral and right humeral fracture s/p Right femur retrograde nail on 02/19 Post of care including PT/OT Pain control with morphine and oxycodone DVT prophylaxis with ASA STR when bed available Traumatic rhabdomyolysis 2/2 fall CK trending downward. Resolved with IVF. Blood loss anemia S/p 1 unit PRBC 02/20 Hemoglobin stable >8mg/dl Reactive leukocytosis No evidence of infectious nidus. Likely secondary to fractures Type 2 demand NSTEMI Mildly elevated troponin 22.1 and 24 on repeat. ECG is nonischemic Asymptomatic patient Likely secondary to rhabdomyolysis and lactic acidosis. Gerontology Aide of underlying perfusion defect Acute lactic acidosis Secondary to rhabdomyolysis. No evidence of sepsis Type 2 diabetes mellitus Insulin sliding scale hold jardiance for now follow blood sugars CHRONIC MEDICAL ISSUES CKD stage 3a: Stable monitor Hypertension: Hold losartan/hydrochlorothiazide Breast cancer: Continue anastrozole [employer]ALITY [employer] - VTE: Pneumo boots & aspirin as per Orthopedics - CODE STATUS: DNR/DNI - DIET: Regular Total time managing care of this patient today: 35 minutes. Quality Stroke Does the patient have a stroke diagnosis?: No VTE Prior VTE?: No VTE Risk Level:: Medical - moderate - high VTE Device Contraindication: N/A - Device Ordered VTE Drug Contraindication: Treatment Not Indicated
--- NOTE | 2025-02-22 12:35 | P.CONCA_ITS ---
History of Present Illness History of Present Illness Date of Service: 02/22/25 Requesting physician: Micheline Castillo Chief complaint: broken r humrus and r femur fracture Narrative: [age] year female presenting with mechanical fall and periprosthetic fracture of the knee and humerus fracture. She is status post surgical management at this point. She had EKG performed which showed atrial flutter with variable block and QT interval was prolonged more than 500 milliseconds. She has no symptoms currently. In particular no shortness of breath or chest discomfort. Blood pressure is stable currently. Telemetry showing sinus rhythm and her QT interval measured on telemetry is normal. As mentioned she is not in atrial flutter anymore. [facility] Past Medical History Medical History Osteoarthritis Numbness and tingling of both feet Hx of cardiac murmur Hypothyroidism Hypertension Diabetes mellitus Hx of breast cancer Surgical History Surgical History Hx of hemorrhoidectomy History of knee replacement S/P lumpectomy, right breast Hx of colonoscopy Social History Social History Household Members: None Housing: House Do you presently have visiting nurse or other home services: No Alcohol intake: never Comment: Tylenol 650 mg PO given at 10:45 Patient Tobacco Use Status: Never used Tobacco service: No Meds Allergies Allergy/AdvReac Type Severity Reaction Status Date / Time No Known Allergies Allergy Verified 02/18/25 15:15 Active Medications: Current Medications Acetaminophen (Acetaminophen 325 Mg Tablet) 650 mg PO Q6H PRN PRN Reason: Pain, Mild 1-3,fever,headache Last Admin: 02/22/25 08:23 Dose: 650 mg Anastrozole (Anastrozole 1 Mg Tablet) 1 mg PO DAILY [facility] Last Admin: 02/22/25 08:23 Dose: 1 mg Aspirin (Aspirin 325 Mg Tablet) 325 mg PO DAILY [facility] Last Admin: 02/22/25 08:23 Dose: 325 mg Calcium Carbonate (Calcium Carbonate 750 Mg Tab.Chew) 750 mg PO Q4H PRN PRN Reason: Heartburn Dextrose (Dextrose 50 % 25 Gm/50 Ml Syringe) 25 gm IVPUSH Q15M PRN; Protocol PRN Reason: per Hypoglycemia Standing Ord. Docusate Sodium (Docusate Sodium 100 Mg Capsule) 100 mg PO BEDTIME [facility] Glucose (Glucose Gel 15 Gm Gel..Gram.) 15 gm PO Q15M PRN; Protocol PRN Reason: per Hypoglycemia Standing Ord. Cefazolin Sodium/Dextrose (Ancef) 2 gm in 50 mls @ 100 mls/hr IV POSTOP [facility] Insulin Human Lispro (Insulin Lispro 100 Unit/Ml 3 Ml Vial) 0 unit SUBCUT QIDACHS [facility]; Protocol Last Admin: 02/22/25 11:11 Dose: 2 unit Levothyroxine Sodium (Levothyroxine Sodium 112 Mcg Tablet) 112 mcg PO DAILY@0600 [facility] Magnesium Hydroxide (Milk Of Magnesia 30 Ml Oral.Susp) 30 ml PO DAILY PRN PRN Reason: Constipation Last Admin: 02/22/25 08:39 Dose: 30 ml Melatonin (Melatonin 3 Mg Tablet) 6 mg PO BEDTIME PRN PRN Reason: Insomnia Last Admin: 02/20/25 20:33 Dose: 6 mg Metoprolol Tartrate (Metoprolol Tartrate 5 Mg/5 Ml Vial) 5 mg IVPUSH Q15M PRN; Protocol PRN Reason: HR > 105 bpm Metoprolol Tartrate (Metoprolol Tartrate 12.5 Mg Halftab) 12.5 mg PO Q12H [facility]; Protocol Last Admin: 02/22/25 04:16 Dose: 12.5 mg Morphine Sulfate (Morphine Sulfate 4 Mg/Ml Cartridge) 2 mg IVPUSH Q4H PRN; Protocol PRN Reason: Pain, Severe (Pain Scale 7-10) Last Admin: 02/22/25 09:44 Dose: 2 mg Ondansetron HCl (Ondansetron Hcl 4 Mg/2 Ml Vial) 4 mg IVPUSH Q8H PRN On Hold: 02/18/25 20:32 PRN Reason: Nausea and Vomiting Oxycodone HCl (Oxycodone Hcl Immed Release 5 Mg Tablet) 5 mg PO Q4H PRN PRN Reason: Pain, Moderate(Pain Scale 4-6) Last Admin: 02/22/25 08:23 Dose: 5 mg Polyethylene Glycol (Polyethylene Glycol 3350 17 Gm Powd.Pack) 17 gm PO DAILY [facility] Last Admin: 02/22/25 10:21 Dose: 17 gm Promethazine HCl (Promethazine Hcl 25 Mg Tablet) 25 mg PO Q4H PRN PRN Reason: Nausea and Vomiting Last Admin: 02/21/25 19:25 Dose: 25 mg Sodium Chloride (0.9 % Sodium Chloride Flush 3 Ml Syringe) 3 ml IVFLUSH QSHIFT [facility] Last Admin: 02/22/25 07:12 Dose: Not Given Home Medications ?Medication ?Instructions ?Recorded ?Confirmed ?Last Taken ?Type anastrozole 1 mg tablet 1 mg PO DAILY 02/18/2502/18 Unknown History empagliflozin 25 mg tablet 25 mg PO QAM 02/18/2502/18 Unknown History (Jardiance) levothyroxine 112 mcg tablet 112 mcg PO DAILY 02/18/25 02/18/25 Unknown History losartan 100 1 tab PO DAILY 02/18/2501/22 Unknown History mg-hydrochlorothiazide 12.5 mg tablet Physical Exam 2 Vital Signs: Vital Signs: Last Vital Signs Temp 97.8 F 02/22/25 07:35 Pulse 80 02/22/25 07:35 Resp 16 02/22/25 07:35 BP 126/61 02/22/25 07:35 Pulse Ox 91 L 02/22/25 07:35 O2 Del Method Nasal Cannula 02/22/25 07:35 O2 Flow Rate 2 02/22/25 07:35 BMI result Body Mass Index 33.2 GENERAL APPEARANCE: in no acute distress, pleasant. NECK: no carotid bruit, no jugular venous distention. SKIN: no suspicious lesions, warm and dry. HEART: no murmurs, regular rate and rhythm. LUNGS: clear to auscultation bilaterally. ABDOMEN: soft, nontender. EXTREMITIES: no edema. Right arm in sling. PERIPHERAL PULSES: equal. NEUROLOGIC: No gross deficits, AAO X 3 Objective Labs and Meds 02/22/25 04:28 02/22/25 04:28 Lab results: Laboratory Results - last 24 hr 02/18/25 02/21/25 02/21/25 15:45 15:33 20:02 WBC RBC Hgb Hct MCV MCH MCHC RDW Plt Count MPV Immature Gran % (Auto) Neut % (Auto) Lymph % (Auto) [place] % (Auto) Eos % (Auto) Baso % (Auto) Lymph # (Auto) [place] # (Auto) Eos # (Auto) Baso # (Auto) Abs Immat Gran (auto) Absolute Neuts (auto) Absolute Nucleated RBC Nucleated RBC % (auto) Sodium Potassium Chloride Carbon Dioxide Anion Gap BUN Creatinine Estim Creat Clear Calc Estimated GFR POC Glucose 129 H 141 H Random Glucose Calcium Magnesium Troponin I High Sens Crossmatch See Detail 02/22/25 02/22/25 02/22/25 04:28 04:29 07:40 WBC 11.9 H RBC 3.21 L Hgb 9.1 L Hct 28.8 L MCV 89.7 MCH 28.3 MCHC 31.6 RDW 15.9 Plt Count 281 MPV 9.5 Immature Gran % (Auto) 2.3 H Neut % (Auto) 79.3 H Lymph % (Auto) 9.1 L [place] % (Auto) 8.0 Eos % (Auto) 0.9 Baso % (Auto) 0.4 Lymph # (Auto) 1.1 L [place] # (Auto) 1.0 Eos # (Auto) 0.1 Baso # (Auto) 0.1 Abs Immat Gran (auto) 0.28 H Absolute Neuts (auto) 9.4 H Absolute Nucleated RBC 0.000 Nucleated RBC % (auto) 0.0 Sodium 140 Potassium 4.0 Chloride 105 Carbon Dioxide 22 Anion Gap 17 BUN 22 H Creatinine 0.77 Estim Creat Clear Calc 49.2 Estimated GFR > 60 POC Glucose 129 H Random Glucose 147 H Calcium 8.3 L Magnesium 1.9 Troponin I High Sens 9.0 D Crossmatch 02/22/25 10:59 WBC RBC Hgb Hct MCV MCH MCHC RDW Plt Count MPV Immature Gran % (Auto) Neut % (Auto) Lymph % (Auto) [place] % (Auto) Eos % (Auto) Baso % (Auto) Lymph # (Auto) [place] # (Auto) Eos # (Auto) Baso # (Auto) Abs Immat Gran (auto) Absolute Neuts (auto) Absolute Nucleated RBC Nucleated RBC % (auto) Sodium Potassium Chloride Carbon Dioxide Anion Gap BUN Creatinine Estim Creat Clear Calc Estimated GFR POC Glucose 167 H Random Glucose Calcium Magnesium Troponin I High Sens Crossmatch Imaging Radiologist's impression: Impressions Guidance Fluoroscopy 02/19/25 20:30 IMPRESSION: Fluoroscopic guidance. Electronically signed by: Daniel Engel MD 02/22/2025 12:31 PM EDT Assessment and Plan (1) Prolonged QT interval: Status: Acute Plan Pleasant 89 year female presenting with mechanical fall and humerus and knee fracture. She is status post surgery at this point. She was getting Zofran. She had atrial flutter on 1 of the EKGs and QT interval was prolonged. He is back in sinus rhythm at this point and QT interval appear to be stable. If she is nauseous and needs Zofran then monitor QT interval with daily EKGs. Monitor potassium and magnesium and replete as needed. Overall does not appear to be a significant issue currently. She had episode of atrial flutter on 1 of the EKGs difficult to say how long she was in atrial flutter. In any case she is currently in sinus rhythm. We will monitor her closely and see if she has recurrent episodes and we will discuss about anticoagulation. Thank you for allowing me to participate in the care of your patient. Please feel free to contact me if you have any questions. Procedures Date of Service Date of Service: 02/22/25
[2025-02-22 16:18] LABS: Glucose, Whole Blood 142 mg/dL (60-115)
[2025-02-22] MEDS: 0.9 % Sodium Chloride Flush 3 ML SYRINGE IVFLUSH (19:40)
[2025-02-22 20:17] LABS: Glucose, Whole Blood 161 mg/dL (60-115)
[2025-02-23 03:32] VITALS: BP 146/67; PULSE 83; RESP 16; TEMP 36.2; O2SAT 91
[2025-02-23] MEDS: Metoprolol Tartrate 12.5 MG HALFTAB PO ×2 (03:41→16:20)
[2025-02-23] MEDS: oxyCODONE HCl Immed Release 5 MG TABLET PO ×3 (07:06→16:20)
[2025-02-23 07:45] VITALS: BP 140/63; PULSE 81; RESP 16; TEMP 36.1; O2SAT 96
[2025-02-23 07:59] LABS: Glucose, Whole Blood 143 mg/dL (60-115)
--- NOTE | 2025-02-23 08:29 | PM.PNORT ---
Subjective Subjective Date of Service: 02/23/25 Interval history: POD 4 s/p Retrograde nail Right femur no overnight events resting inbed with immobilizer intact sling intact for rt shoulder denies sob, cp, palpitations Physical Exam Vital Signs: Vital Signs: Last Vital Signs Temp 97.0 F 02/23/25 07:45 Pulse 81 02/23/25 07:45 Resp 16 02/23/25 07:45 BP 140/63 H 02/23/25 07:45 Pulse Ox 96 02/23/25 07:45 O2 Del Method Nasal Cannula 02/23/25 07:45 O2 Flow Rate 2 02/23/25 07:45 BMI result Body Mass Index 33.2 Const: General: cooperative, healthy appearing, comfortable and no acute distress Extrem: Other: Right shoulder swelling with ecchymosis, pain over the prox humerus. Elbow ROm intact. NVI. Right femur: knee immobilizer intact, bandage clean dry and intact. She can plantar and dorsi flex the foot and ankle. NVI Procedures Date of Service Date of Service: 02/23/25 Progress Note: A&P Assessment and plan (1) Periprosthetic fracture around internal prosthetic knee joint: Status: Acute Assessment and Plan: pain control ASA for dvt ppx PT/OT: TTWB RLE with walker for transfers only. Ok to perform NWB ROM of the right knee. dispo-rehab placement (2) Fracture, humerus: Status: Acute Assessment and Plan: Non operative sling for comfort, elbow and wrist ROM non weight bearing Time Spent With Patient Time: Total time managing care of this patient today ____ minutes. Quality Stroke Does the patient have a stroke diagnosis?: No VTE Prior VTE?: No VTE Risk Level:: Medical - moderate - high VTE Device Contraindication: N/A - Device Ordered VTE Drug Contraindication: Treatment Not Indicated
[2025-02-23 10:45] LABS: OBS Int Ctl Valid YES; OBS1 NEGATIVE (NEGATIVE)
--- NOTE | 2025-02-23 11:01 | PC.NURSE ---
Addendum entered by Richardson Allen RN 02/23/25 14:56: pt bladder scanned for 174ml Original Note: informed MD of pt's pain. informed PA of pt's dressing and immobilizer being soiled with stool. per PA ok for RN to perform dressing change and immobilizer does not need to be in place while pt in bed. PA will attempt to locate new immobilizer for pt.
[2025-02-23 11:32] LABS: Glucose, Whole Blood 182 mg/dL (60-115)
--- NOTE | 2025-02-23 13:20 | HO.PM.IMPN ---
Subjective Subjective Date of Service: 02/23/25 Interval History: Patient is in significant pain around the right shoulder, not so much at the right leg. No significant swelling at the right shoulder, able to move her fingers. Able to move elbow. No episodes of RVR overnight Review of Systems Review of Systems: Yes all other systems are reviewed and are negative Physical Exam Exam: Exam: General: A&O x3, oriented to time place person and situation. Appears uncomfortable and in pain. Cardiac: S1, S2 auscultated with no S3/4, no MRG. Well perfused. Irregularly irregular, normal rate. Respiratory: Normal breath sounds auscultated throughout all lung zones, without wheezing, rales. Mild tachypnea, and shallow breathing. GI/ : No abdominal pain on palpation, no masses or distentions. MSK: Right humeral fracture in sling; ecchymosis noted. Right lower extremity in brace; ecchymosis noted. Neurological: Normal neurological examination on overview, without obvious CN II-XII abnormalities. Vital Signs: Vital Signs: Last Vital Signs Temp 97.0 F 02/23/25 07:45 Pulse 81 02/23/25 07:45 Resp 16 02/23/25 07:45 BP 140/63 H 02/23/25 07:45 Pulse Ox 96 02/23/25 07:45 O2 Del Method Nasal Cannula 02/23/25 07:45 O2 Flow Rate 2 02/23/25 07:45 BMI result Body Mass Index 33.2 Objective Data Active Medications Acetaminophen (Acetaminophen 325 Mg Tablet) 650 mg PO Q6H PRN PRN Reason: Pain, Mild 1-3,fever,headache Last Admin: 02/23/25 09:32 Dose: 650 mg Documented By: [facility] Anastrozole (Anastrozole 1 Mg Tablet) 1 mg PO DAILY [facility] Last Admin: 02/23/25 07:06 Dose: 1 mg Documented By: NANCY Aspirin (Aspirin 325 Mg Tablet) 325 mg PO DAILY [facility] Last Admin: 02/23/25 07:06 Dose: 325 mg Documented By: NANCY Calcium Carbonate (Calcium Carbonate 750 Mg Tab.Chew) 750 mg PO Q4H PRN PRN Reason: Heartburn Dextrose (Dextrose 50 % 25 Gm/50 Ml Syringe) 25 gm IVPUSH Q15M PRN; Protocol PRN Reason: per Hypoglycemia Standing Ord. Docusate Sodium (Docusate Sodium 100 Mg Capsule) 100 mg PO BEDTIME [facility] Last Admin: 02/22/25 20:26 Dose: Not Given Documented By: MATT Non-Admin Reason: loose stool Glucose (Glucose Gel 15 Gm Gel..Gram.) 15 gm PO Q15M PRN; Protocol PRN Reason: per Hypoglycemia Standing Ord. Hydromorphone HCl (Hydromorphone Hcl 0.5 Mg/0.5 Ml Syringe) 0.5 mg IVPUSH Q2H PRN; Protocol PRN Reason: Pain, Severe (Pain Scale 7-10) Last Admin: 02/23/25 13:15 Dose: 0.5 mg Documented By: [facility] Cefazolin Sodium/Dextrose (Ancef) 2 gm in 50 mls @ 100 mls/hr IV POSTOP [facility] Insulin Human Lispro (Insulin Lispro 100 Unit/Ml 3 Ml Vial) 0 unit SUBCUT QIDACHS [facility]; Protocol Last Admin: 02/23/25 11:38 Dose: 5 unit Documented By: [facility] Levothyroxine Sodium (Levothyroxine Sodium 112 Mcg Tablet) 112 mcg PO DAILY@0600 [facility] Last Admin: 02/23/25 05:21 Dose: 112 mcg Documented By: MATT Magnesium Hydroxide (Milk Of Magnesia 30 Ml Oral.Susp) 30 ml PO DAILY PRN PRN Reason: Constipation Last Admin: 02/22/25 08:39 Dose: 30 ml Documented By: [facility] Melatonin (Melatonin 3 Mg Tablet) 6 mg PO BEDTIME PRN PRN Reason: Insomnia Last Admin: 02/20/25 20:33 Dose: 6 mg Documented By: MARY Metoprolol Tartrate (Metoprolol Tartrate 5 Mg/5 Ml Vial) 5 mg IVPUSH Q15M PRN; Protocol PRN Reason: HR > 105 bpm Metoprolol Tartrate (Metoprolol Tartrate 12.5 Mg Halftab) 12.5 mg PO Q12H [facility]; Protocol Last Admin: 02/23/25 03:41 Dose: 12.5 mg Documented By: MATT Morphine Sulfate (Morphine Sulfate 4 Mg/Ml Cartridge) 2 mg IVPUSH Q4H PRN; Protocol PRN Reason: Pain, Severe (Pain Scale 7-10) Last Admin: 02/23/25 09:32 Dose: 2 mg Documented By: [facility] Ondansetron HCl (Ondansetron Hcl 4 Mg/2 Ml Vial) 4 mg IVPUSH Q8H PRN On Hold: 02/18/25 20:32 PRN Reason: Nausea and Vomiting Oxycodone HCl (Oxycodone Hcl Immed Release 5 Mg Tablet) 5 mg PO Q4H PRN PRN Reason: Pain, Moderate(Pain Scale 4-6) Last Admin: 02/23/25 11:38 Dose: 5 mg Documented By: [facility] Polyethylene Glycol (Polyethylene Glycol 3350 17 Gm Powd.Pack) 17 gm PO DAILY [facility] Last Admin: 02/23/25 07:14 Dose: Not Given Documented By: CL[place]ON Non-Admin Reason: Patient Refused Promethazine HCl (Promethazine Hcl 25 Mg Tablet) 25 mg PO Q4H PRN PRN Reason: Nausea and Vomiting Last Admin: 02/21/25 19:25 Dose: 25 mg Documented By: MATT Sodium Chloride (0.9 % Sodium Chloride Flush 3 Ml Syringe) 3 ml IVFLUSH QSHIFT [facility] Last Admin: 02/23/25 12:13 Dose: Not Given Documented By: CL[place] Non-Admin Reason: Previously Administered Labs 02/22/25 04:28 02/22/25 04:28 Labs: Laboratory Results - last 24 hr 02/22/25 02/22/25 02/23/25 16:14 20:14 07:56 POC Glucose 142 H 161 H 143 H Stool Occult Blood 02/23/25 02/23/25 08:15 11:28 POC Glucose 182 H Stool Occult Blood NEGATIVE Assessment and Plan (1) Prolonged QT interval: Status: Acute (2) Atrial fibrillation with RVR: Status: Acute (3) CKD stage 3a, GFR 45-59 ml/min: Status: Acute (4) Acidosis, lactic: Status: Acute (5) Rhabdomyolysis: Status: Acute (6) Fall from slip, trip, or stumble: Status: Acute (7) Fracture, humerus: Status: Acute (8) Periprosthetic fracture around internal prosthetic knee joint: Status: Acute Plan Patient is a 89-year-old female with a past medical history significant for hypothyroidism, breast cancer on anastrozole, HTN, type 2 diabetes, history of bilateral TKR, class 1 obesity and arthritis, who presented to the ED due to a mechanical fall, admitted for a right humeral fracture and right knee fracture, c/b traumatic rhabdomyolysis, s/p right femoral retrograde nail 02/19. Admission complicated by acute blood loss anemia s/p 1u PRBC & atrial fibrillation with RVR. Periprosthetic fracture right femoral and right humeral fracture s/p Right femur retrograde nail on 02/19 Post of care including PT/OT Pain control with morphine and oxycodone DVT prophylaxis with ASA STR when bed available Pain management has been at forefront of issues; currently tylenol, morphine. oxycodone & dilaudid. bowel regimen prescribed Afib RVR Episode of AFib RVR with hypotension 02/21/2025. Likely secondary to hypovolemia. Received 1 L LR and IV metoprolol - with resolution of RVR. [id number] Score: 4 - needs AC once cleared by ortho. Continue metoprolol Pending ECHO Traumatic rhabdomyolysis 2/2 fall CK trending downward. Resolved with IVF. Blood loss anemia S/p 1 unit PRBC 02/20 Hemoglobin stable >8mg/dl Reactive leukocytosis No evidence of infectious nidus. Likely secondary to fractures Type 2 demand NSTEMI Mildly elevated troponin 22.1 and 24 on repeat. ECG is nonischemic Asymptomatic patient Likely secondary to rhabdomyolysis and lactic acidosis. Environmental Coordinator of underlying perfusion defect Acute lactic acidosis Secondary to rhabdomyolysis. No evidence of sepsis Type 2 diabetes mellitus Insulin sliding scale hold jardiance for now follow blood sugars CHRONIC MEDICAL ISSUES CKD stage 3a: Stable monitor Hypertension: Hold losartan/hydrochlorothiazide Breast cancer: Continue anastrozole [employer] - VTE: Pneumo boots & aspirin as per Orthopedics - CODE STATUS: DNR/DNI - DIET: Regular Total time managing care of this patient today: 35 minutes. Quality Stroke Does the patient have a stroke diagnosis?: No VTE Prior VTE?: No VTE Risk Level:: Medical - moderate - high VTE Device Contraindication: N/A - Device Ordered VTE Drug Contraindication: Treatment Not Indicated
[2025-02-23 15:44] VITALS: BP 140/68; PULSE 90; RESP 18; TEMP 36.3; O2SAT 93
[2025-02-23 16:05] LABS: Glucose, Whole Blood 123 mg/dL (60-115)
[2025-02-23 19:47] VITALS: BP 160/70; PULSE 86; RESP 16; TEMP 36.4; O2SAT 94
[2025-02-23 20:02] LABS: Glucose, Whole Blood 187 mg/dL (60-115)
[2025-02-23] MEDS: 0.9 % Sodium Chloride Flush 3 ML SYRINGE IVFLUSH (21:06)
[2025-02-24 03:23] VITALS: BP 159/72; PULSE 87; RESP 14; TEMP 36; O2SAT 93
[2025-02-24] MEDS: Metoprolol Tartrate 12.5 MG HALFTAB PO ×2 (04:23→17:15)
--- NOTE | 2025-02-24 04:34 | PC.NURSE ---
Pt's bladder scan at 23:00 was 374ml. Pt was unable to void prior to being bladder scan. Pt's Vicente was discontinued on 02/23 at 11:00. MD Trinh was notified of the situation. Per MD to allow more time for pt to void on her own. At 03:35, pt was bladder scan again for 608ml. MD Trinh was updated with the bladder scan amount. Straight cath was ordered per . Pt was straight cath for 500ml of straw color urine at 04:00. Pt is due to void at 10:00. Will continue to monitor pt's output.
[2025-02-24 07:12] VITALS: BP 161/72; PULSE 76; RESP 16; TEMP 36.4; O2SAT 95
[2025-02-24 07:17] LABS: Glucose, Whole Blood 148 mg/dL (60-115)
--- NOTE | 2025-02-24 07:29 | PM.PNORT ---
Subjective Subjective Date of Service: 02/24/25 Interval history: POD 5 s/p Retrograde nail Right femur no overnight events resting inbed with immobilizer intact sling intact for rt shoulder Patient reportspain in the right shoulder, minimal discomfort in the right knee denies sob, cp, palpitations Physical Exam Vital Signs: Vital Signs: Last Vital Signs Temp 97.6 F 02/24/25 07:12 Pulse 76 02/24/25 07:12 Resp 16 02/24/25 07:12 BP 161/72 H 02/24/25 07:12 Pulse Ox 95 02/24/25 07:12 O2 Del Method Room Air 02/24/25 07:12 O2 Flow Rate 2 02/23/25 07:45 BMI result Body Mass Index 33.2 Const: General: cooperative, healthy appearing, comfortable and no acute distress Extrem: Other: Right shoulder swelling with ecchymosis, pain over the prox humerus. Elbow ROm intact. NVI. Right femur: knee brace intact, bandage clean dry and intact. She can plantar and dorsi flex the foot and ankle. NVI Procedures Date of Service Date of Service: 02/24/25 Progress Note: A&P Assessment and plan (1) Periprosthetic fracture around internal prosthetic knee joint: Status: Acute Assessment and Plan: pain control Patient states she would like to leave the brace on at this time ASA for dvt ppx PT/OT: TTWB RLE with walker for transfers only. Ok to perform NWB ROM of the right knee. dispo-rehab placement (2) Fracture, humerus: Status: Acute Assessment and Plan: Non operative sling for comfort, elbow and wrist ROM non weight bearing Time Spent With Patient Time: Total time managing care of this patient today ____ minutes. Quality Stroke Does the patient have a stroke diagnosis?: No VTE Prior VTE?: No VTE Risk Level:: Medical - moderate - high VTE Device Contraindication: N/A - Device Ordered VTE Drug Contraindication: Treatment Not Indicated
[2025-02-24] MEDS: 0.9 % Sodium Chloride Flush 3 ML SYRINGE IVFLUSH ×3 (07:45→21:43)
[2025-02-24] MEDS: oxyCODONE HCl Immed Release 5 MG TABLET PO (09:18)
[2025-02-24 11:21] LABS: Glucose, Whole Blood 160 mg/dL (60-115)
[2025-02-24 16:00] VITALS: BP 169/80; PULSE 74; RESP 16; TEMP 36.6; O2SAT 95
--- NOTE | 2025-02-24 16:37 | HO.PM.IMPN ---
Subjective Subjective Date of Service: 02/24/25 Interval History: So suffering with significant pain around the right shoulder. No evidence of swelling or the right shoulder, able to mobilize fingers and elbows at the joint. No reports of neuropathy at the fingertips. The patient has been passing stool, urinating well, eating and drinking well. Pain control still an active issue and attempting to control Review of Systems Review of Systems: Yes all other systems are reviewed and are negative Physical Exam Exam: Exam: General: A&O x3, oriented to time place person and situation. Appears uncomfortable and in pain. Cardiac: S1, S2 auscultated with no S3/4, no MRG. Well perfused. Irregularly irregular, normal rate. Respiratory: Normal breath sounds auscultated throughout all lung zones, without wheezing, rales. Mild tachypnea, and shallow breathing. GI/ : No abdominal pain on palpation, no masses or distentions. MSK: Right humeral fracture in sling; ecchymosis noted. Right lower extremity in brace; ecchymosis noted. Neurological: Normal neurological examination on overview, without obvious CN II-XII abnormalities. Vital Signs: Vital Signs: Last Vital Signs Temp 97.8 F 02/24/25 16:00 Pulse 74 02/24/25 16:00 Resp 16 02/24/25 16:00 BP 169/80 H 02/24/25 16:00 Pulse Ox 95 02/24/25 16:00 O2 Del Method Room Air 02/24/25 16:00 O2 Flow Rate 2 02/23/25 07:45 BMI result Body Mass Index 33.2 Objective Data Active Medications Acetaminophen (Acetaminophen 325 Mg Tablet) 650 mg PO Q6H PRN PRN Reason: Pain, Mild 1-3,fever,headache Last Admin: 02/24/25 09:18 Dose: 650 mg Documented By: JACK Anastrozole (Anastrozole 1 Mg Tablet) 1 mg PO DAILY [facility] Last Admin: 02/24/25 07:45 Dose: 1 mg Documented By: JACK Aspirin (Aspirin 325 Mg Tablet) 325 mg PO DAILY [facility] Last Admin: 02/24/25 07:45 Dose: 325 mg Documented By: JACK Calcium Carbonate (Calcium Carbonate 750 Mg Tab.Chew) 750 mg PO Q4H PRN PRN Reason: Heartburn Dextrose (Dextrose 50 % 25 Gm/50 Ml Syringe) 25 gm IVPUSH Q15M PRN; Protocol PRN Reason: per Hypoglycemia Standing Ord. Docusate Sodium (Docusate Sodium 100 Mg Capsule) 100 mg PO BEDTIME [facility] Last Admin: 02/23/25 20:57 Dose: Not Given Documented By: NIRAJ Non-Admin Reason: loose stool Glucose (Glucose Gel 15 Gm Gel..Gram.) 15 gm PO Q15M PRN; Protocol PRN Reason: per Hypoglycemia Standing Ord. Hydromorphone HCl (Hydromorphone Hcl 0.5 Mg/0.5 Ml Syringe) 0.5 mg IVPUSH Q2H PRN; Protocol PRN Reason: Pain, Severe (Pain Scale 7-10) Last Admin: 02/24/25 16:06 Dose: 0.5 mg Documented By: JACK Cefazolin Sodium/Dextrose (Ancef) 2 gm in 50 mls @ 100 mls/hr IV POSTOP [facility] Insulin Human Lispro (Insulin Lispro 100 Unit/Ml 3 Ml Vial) 0 unit SUBCUT QIDACHS [facility]; Protocol Last Admin: 02/24/25 12:00 Dose: 2 unit Documented By: JACK Levothyroxine Sodium (Levothyroxine Sodium 112 Mcg Tablet) 112 mcg PO DAILY@0600 [facility] Last Admin: 02/24/25 04:23 Dose: 112 mcg Documented By: NIRAJ Lidocaine (Lidocaine 5 % Ointment 35 Gm) 1 appl TOPICAL Q6H PRN; Protocol PRN Reason: Pain, Mild 1-3,fever,headache Magnesium Hydroxide (Milk Of Magnesia 30 Ml Oral.Susp) 30 ml PO DAILY PRN PRN Reason: Constipation Last Admin: 02/22/25 08:39 Dose: 30 ml Documented By: CLINTON Melatonin (Melatonin 3 Mg Tablet) 6 mg PO BEDTIME PRN PRN Reason: Insomnia Last Admin: 02/20/25 20:33 Dose: 6 mg Documented By: MARY Metoprolol Tartrate (Metoprolol Tartrate 5 Mg/5 Ml Vial) 5 mg IVPUSH Q15M PRN; Protocol PRN Reason: HR > 105 bpm Metoprolol Tartrate (Metoprolol Tartrate 12.5 Mg Halftab) 12.5 mg PO Q12H [facility]; Protocol Last Admin: 02/24/25 04:23 Dose: 12.5 mg Documented By: NIRAJ Ondansetron HCl (Ondansetron Hcl 4 Mg/2 Ml Vial) 4 mg IVPUSH Q8H PRN On Hold: 02/18/25 20:32 PRN Reason: Nausea and Vomiting Polyethylene Glycol (Polyethylene Glycol 3350 17 Gm Powd.Pack) 17 gm PO DAILY [facility] Last Admin: 02/24/25 07:45 Dose: 17 gm Documented By: JACK Promethazine HCl (Promethazine Hcl 25 Mg Tablet) 25 mg PO Q4H PRN PRN Reason: Nausea and Vomiting Last Admin: 02/21/25 19:25 Dose: 25 mg Documented By: MATT Sodium Chloride (0.9 % Sodium Chloride Flush 3 Ml Syringe) 3 ml IVFLUSH QSHIFT [facility] Last Admin: 02/24/25 16:06 Dose: 3 ml Documented By: JACK Labs 02/22/25 04:28 02/22/25 04:28 Labs: Laboratory Results - last 24 hr 02/23/25 02/24/25 02/24/25 19:58 07:11 11:17 POC Glucose 187 H 148 H 160 H Microbiology Microbiology Results: Microbiology 02/18/25 16:14 Blood Culture - Final Blood - Venous No growth after 5 days. 02/18/25 16:14 Blood Culture - Final Blood - Venous No growth after 5 days. Assessment and Plan (1) Atrial fibrillation with RVR: Status: Acute (2) CKD stage 3a, GFR 45-59 ml/min: Status: Acute (3) Fracture, humerus: Status: Acute (4) Periprosthetic fracture around internal prosthetic knee joint: Status: Acute (5) Rhabdomyolysis: Status: Acute (6) Fall from slip, trip, or stumble: Status: Acute Plan Patient is a 89-year-old female with a past medical history significant for hypothyroidism, breast cancer on anastrozole, HTN, type 2 diabetes, history of bilateral TKR, class 1 obesity and arthritis, who presented to the ED due to a mechanical fall, admitted for a right humeral fracture and right knee fracture, c/b traumatic rhabdomyolysis, s/p right femoral retrograde nail 02/19. Admission complicated by acute blood loss anemia s/p 1u PRBC & atrial fibrillation with RVR. Periprosthetic fracture right femoral and right humeral fracture s/p Right femur retrograde nail on 02/19 Post of care including PT/OT Pain control with morphine and oxycodone DVT prophylaxis with ASA STR when bed available Pain management has been at forefront of issues; currently tylenol, morphine. oxycodone & dilaudid. bowel regimen prescribed Afib RVR Episode of AFib RVR with hypotension 02/21/2025. Likely secondary to hypovolemia. Received 1 L LR and IV metoprolol - with resolution of RVR. [id number] Score: 4 - needs AC once cleared by ortho. Continue metoprolol Pending ECHO Traumatic rhabdomyolysis / fall CK trending downward. Resolved with IVF. Blood loss anemia S/p 1 unit PRBC 02/20 Hemoglobin stable >8mg/dl Reactive leukocytosis No evidence of infectious nidus. Likely secondary to fractures Type 2 demand NSTEMI Mildly elevated troponin 22.1 and 24 on repeat. ECG is nonischemic Asymptomatic patient Likely secondary to rhabdomyolysis and lactic acidosis. [place] Supervisor of underlying perfusion defect Acute lactic acidosis Secondary to rhabdomyolysis. No evidence of sepsis Type 2 diabetes mellitus Insulin sliding scale hold jardiance for now follow blood sugars CHRONIC MEDICAL ISSUES CKD stage 3a: Stable monitor Hypertension: Hold losartan/hydrochlorothiazide Breast cancer: Continue anastrozole QUALITY METRICS - VTE: Pneumo boots & aspirin as per Orthopedics - CODE STATUS: DNR/DNI - DIET: Regular Total time managing care of this patient today: 35 minutes. Quality Stroke Does the patient have a stroke diagnosis?: No VTE Prior VTE?: No VTE Risk Level:: Medical - moderate - high VTE Device Contraindication: N/A - Device Ordered VTE Drug Contraindication: Treatment Not Indicated
[2025-02-24 16:42] LABS: Glucose, Whole Blood 164 mg/dL (60-115)
[2025-02-24 20:00] VITALS: BP 174/74; PULSE 87; RESP 16; TEMP 36.6; O2SAT 97
[2025-02-24 21:05] LABS: Glucose, Whole Blood 160 mg/dL (60-115)
[2025-02-25] MEDS: oxyCODONE HCl Immed Release 5 MG TABLET PO ×3 (01:36→08:46)
--- NOTE | 2025-02-25 02:53 | PM.EVENT ---
Event Note Date of Service: 02/25/25 Event Note: Contacted by nursing and multiple occasion over the last few nights to notify the patient has been having ongoing urinary retention. She had had multiple straight caths. As this issue has been ongoing we will place of indwelling urinary catheter. Time Spent With Patient Time: Total time managing care of this patient today ____ minutes.
[2025-02-25 03:46] VITALS: BP 141/67; PULSE 85; RESP 18; TEMP 36.4; O2SAT 94
[2025-02-25] MEDS: Metoprolol Tartrate 12.5 MG HALFTAB PO ×2 (04:58→16:44)
--- NOTE | 2025-02-25 06:09 | PC.NURSE ---
Pt was bladder scan throughout the shift, difficultly w/ voiding, had a few episodes of incontinence of urine. Pt last bladder scan was for 740mls. Pt has been straight cath twice in the last two nights, pt had previous Vicente cath d/t R femur repair. MD Trinh was notified and placed an order for Vicente cath for urinary retention. 16g American Vicente cath was inserted at 03;15, pt tolerated it well. Will continue to monitor p[t's output.
[2025-02-25 07:54] LABS: Glucose, Whole Blood 157 mg/dL (60-115)
[2025-02-25 08:00] VITALS: BP 153/70; PULSE 84; RESP 16; TEMP 36.6; O2SAT 94
[2025-02-25] MEDS: 0.9 % Sodium Chloride Flush 3 ML SYRINGE IVFLUSH ×2 (08:07→15:34)
[2025-02-25 08:49] VITALS: BP 153/70; PULSE 84; O2SAT 94
--- NOTE | 2025-02-25 10:50 | MHC.CM.PN ---
Per MD rounds patient is not medically clear to discharge today. Pain Management continues. [facility] has offered a bed. They will initiate insurance authorization today. The facility is aware that the patient may be ready to discharge over the weekend. The liason stated that she would send notification once auth has been received. DP to [facility] once medically clear. Transport will be arranged by CM via BLS.
[2025-02-25 11:39] LABS: Glucose, Whole Blood 164 mg/dL (60-115)
--- NOTE | 2025-02-25 12:24 | P.PNIM_ITS ---
Subjective Subjective Date of Service: 02/25/25 Interval History: The patient reports that her pain levels have improved since surgery but are still significant. She rates her current pain as 7-8 out of 10, down from an initial post-surgical level of 10 out of 10. The shoulder pain is described as persistent, while the right leg pain comes in waves and spasms. Cold seems to help alleviate the leg pain. Urinary retention has become a significant issue, with bladder scans showing volumes over 600-700 ml. The patient has had episodes of urinary incontinence, making it difficult to measure output accurately. A catheter has been placed to manage this problem. The patient's pain management regimen includes oxycodone, which she reports as possibly being the most helpful medication. She is also receiving Dilaudid. Morphine was part of her treatment but may have been discontinued. Xylocaine was ordered but not yet administered. She denies any adverse reactions to the oxycodone. These ongoing pain and urinary issues are currently the main barriers to the patient's discharge from the hospital. The medical team is actively adjusting her medication regimen to optimize pain control while managing side effects. Review of Systems General: Positive for pain. Genitourinary: Positive for urinary retention and incontinence. Musculoskeletal: Positive for right leg pain described as spasms and waves. Positive for shoulder pain described as persistent. Review of Systems: Yes all other systems are reviewed and are negative Physical Exam 2 Exam: Exam: General: A&O x3, oriented to time place person and situation. Appears uncomfortable and in pain. Cardiac: S1, S2 auscultated with no S3/4, no MRG. Well perfused. Irregularly irregular, normal rate. Respiratory: Normal breath sounds auscultated throughout all lung zones, without wheezing, rales. Mild tachypnea, and shallow breathing. GI/ : No abdominal pain on palpation, no masses or distentions. MSK: Right humeral fracture in sling; ecchymosis noted. Right lower extremity in brace; ecchymosis noted. Neurological: Normal neurological examination on overview, without obvious CN II-XII abnormalities. Vital Signs: Vital Signs: Last Vital Signs Temp 98 F 02/25/25 08:00 Pulse 84 02/25/25 08:49 Resp 16 02/25/25 08:00 BP 153/70 H 02/25/25 08:49 Pulse Ox 94 02/25/25 08:49 O2 Del Method Room Air 02/25/25 08:00 O2 Flow Rate 2 02/23/25 07:45 BMI result Body Mass Index 33.2 Objective Data Active Medications Acetaminophen (Acetaminophen 325 Mg Tablet) 650 mg PO Q6H PRN PRN Reason: Pain, Mild 1-3,fever,headache Last Admin: 02/24/25 21:41 Dose: 650 mg Documented By: MARY Anastrozole (Anastrozole 1 Mg Tablet) 1 mg PO DAILY [facility] Last Admin: 02/25/25 08:07 Dose: 1 mg Documented By: JACK Aspirin (Aspirin 325 Mg Tablet) 325 mg PO DAILY [facility] Last Admin: 02/25/25 08:07 Dose: 325 mg Documented By: JACK Calcium Carbonate (Calcium Carbonate 750 Mg Tab.Chew) 750 mg PO Q4H PRN PRN Reason: Heartburn Dextrose (Dextrose 50 % 25 Gm/50 Ml Syringe) 25 gm IVPUSH Q15M PRN; Protocol PRN Reason: per Hypoglycemia Standing Ord. Docusate Sodium (Docusate Sodium 100 Mg Capsule) 100 mg PO BEDTIME [facility] Last Admin: 02/24/25 21:43 Dose: 100 mg Documented By: MARY Glucose (Glucose Gel 15 Gm Gel..Gram.) 15 gm PO Q15M PRN; Protocol PRN Reason: per Hypoglycemia Standing Ord. Hydromorphone HCl (Hydromorphone Hcl 0.5 Mg/0.5 Ml Syringe) 0.5 mg IVPUSH Q2H PRN; Protocol PRN Reason: Pain, Severe (Pain Scale 7-10) Last Admin: 02/25/25 05:08 Dose: 0.5 mg Documented By: NIRAJ Cefazolin Sodium/Dextrose (Ancef) 2 gm in 50 mls @ 100 mls/hr IV POSTOP [facility] Insulin Human Lispro (Insulin Lispro 100 Unit/Ml 3 Ml Vial) 0 unit SUBCUT QIDACHS [facility]; Protocol Last Admin: 02/25/25 12:04 Dose: 2 unit Documented By: JACK Levothyroxine Sodium (Levothyroxine Sodium 112 Mcg Tablet) 112 mcg PO DAILY@0600 [facility] Last Admin: 02/25/25 04:58 Dose: 112 mcg Documented By: NIRAJ Lidocaine (Lidocaine 5 % Ointment 35 Gm) 1 appl TOPICAL Q6H PRN; Protocol PRN Reason: Pain, Mild 1-3,fever,headache Last Admin: 02/25/25 12:04 Dose: 1 appl Documented By: JACK Magnesium Hydroxide (Milk Of Magnesia 30 Ml Oral.Susp) 30 ml PO DAILY PRN PRN Reason: Constipation Last Admin: 02/22/25 08:39 Dose: 30 ml Documented By: CLINTON Melatonin (Melatonin 3 Mg Tablet) 6 mg PO BEDTIME PRN PRN Reason: Insomnia Last Admin: 02/24/25 21:42 Dose: 6 mg Documented By: MARY Metoprolol Tartrate (Metoprolol Tartrate 5 Mg/5 Ml Vial) 5 mg IVPUSH Q15M PRN; Protocol PRN Reason: HR > 105 bpm Metoprolol Tartrate (Metoprolol Tartrate 12.5 Mg Halftab) 12.5 mg PO Q12H [facility]; Protocol Last Admin: 02/25/25 04:58 Dose: 12.5 mg Documented By: NIRAJ Ondansetron HCl (Ondansetron Hcl 4 Mg/2 Ml Vial) 4 mg IVPUSH Q8H PRN On Hold: 02/18/25 20:32 PRN Reason: Nausea and Vomiting Oxycodone HCl (Oxycodone Hcl Immed Release 5 Mg Tablet) 5 mg PO Q6H PRN PRN Reason: Pain, Moderate(Pain Scale 4-6) Last Admin: 02/25/25 07:13 Dose: 5 mg Documented By: NANCY Polyethylene Glycol (Polyethylene Glycol 3350 17 Gm Powd.Pack) 17 gm PO DAILY [facility] Last Admin: 02/25/25 08:07 Dose: 17 gm Documented By: JACK Promethazine HCl (Promethazine Hcl 25 Mg Tablet) 25 mg PO Q4H PRN PRN Reason: Nausea and Vomiting Last Admin: 02/21/25 19:25 Dose: 25 mg Documented By: MATT Sodium Chloride (0.9 % Sodium Chloride Flush 3 Ml Syringe) 3 ml IVFLUSH QSHIFT [facility] Last Admin: 02/25/25 08:07 Dose: 3 ml Documented By: JACK Labs 02/22/25 04:28 02/22/25 04:28 Labs: Laboratory Results - last 24 hr 02/24/25 02/24/25 02/25/25 16:25 20:58 07:47 POC Glucose 164 H 160 H 157 H 02/25/25 11:34 POC Glucose 164 H Assessment and Plan (1) Atrial fibrillation with RVR: Status: Acute (2) CKD stage 3a, GFR 45-59 ml/min: Status: Acute (3) Periprosthetic fracture around internal prosthetic knee joint: Status: Acute (4) Rhabdomyolysis: Status: Acute (5) Fall from slip, trip, or stumble: Status: Acute (6) Fracture, humerus: Status: Acute Plan Patient is a 89-year-old female with a past medical history significant for hypothyroidism, breast cancer on anastrozole, HTN, type 2 diabetes, history of bilateral TKR, class 1 obesity and arthritis, who presented to the ED due to a mechanical fall, admitted for a right humeral fracture and right knee fracture, c/b traumatic rhabdomyolysis, s/p right femoral retrograde nail 02/19. Admission complicated by acute blood loss anemia s/p 1u PRBC & atrial fibrillation with RVR. Post-operative pain management Assessment: Patient reports pain levels of 7-8/10, improved from 10/10 immediately post-surgery. Pain is described as persistent in the shoulder and spasmodic in the right leg. Oxycodone has been identified as the most helpful medication. Current pain management regimen includes oxycodone 5 mg every 6 hours, Dilaudid 0.5 mg, and potentially morphine 2 mg (though there is uncertainty about whether morphine has been discontinued). Cold therapy appears to provide some relief for leg pain. Plan: - Increase oxycodone from 5 mg to 10 mg every 6 hours - Consider increasing Dilaudid to 1 mg - Potentially decrease morphine to 1 mg (if still active) - Apply Xylocaine (topical anesthetic) as ordered - Consider adding ibuprofen or diclofenac cream for additional pain relief - Monitor for side effects, particularly nausea and vomiting with oxycodone - Continue to assess pain levels and adjust medications as needed - Apply cold therapy to right leg as needed for pain relief Urinary retention Assessment: Patient experiencing urinary retention, likely secondary to opioid medications. Bladder scans showed volumes over 600 mL and 700 mL. Patient has had episodes of urinary incontinence, making accurate measurement of output challenging. A catheter has been placed to manage retention. Plan: - Continue catheter management - Monitor urine output - Reassess need for catheter as pain medication regimen is adjusted - Voiding trial tomorrow Periprosthetic fracture right femoral and right humeral fracture s/p Right femur retrograde nail on 02/19 Post of care including PT/OT Pain control with morphine and oxycodone DVT prophylaxis with ASA STR when bed available Pain management has been at forefront of issues; currently tylenol, morphine. oxycodone & dilaudid. bowel regimen prescribed Afib RVR Episode of AFib RVR with hypotension 02/21/2025. Likely secondary to hypovolemia. Received 1 L LR and IV metoprolol - with resolution of RVR. [id number] Score: 4 - needs AC once cleared by ortho. Continue metoprolol Pending ECHO Traumatic rhabdomyolysis / fall CK trending downward. Resolved with IVF. Blood loss anemia S/p 1 unit PRBC 02/20 Hemoglobin stable >8mg/dl Reactive leukocytosis No evidence of infectious nidus. Likely secondary to fractures Type 2 demand NSTEMI Mildly elevated troponin 22.1 and 24 on repeat. ECG is nonischemic Asymptomatic patient Likely secondary to rhabdomyolysis and lactic acidosis. Med Specialist of underlying perfusion defect Acute lactic acidosis Secondary to rhabdomyolysis. No evidence of sepsis Type 2 diabetes mellitus Insulin sliding scale hold jardiance for now follow blood sugars CHRONIC MEDICAL ISSUES CKD stage 3a: Stable monitor Hypertension: Hold losartan/hydrochlorothiazide Breast cancer: Continue anastrozole QUALITY METRICS - VTE: Pneumo boots & aspirin as per Orthopedics - CODE STATUS: DNR/DNI - DIET: Regular Total time managing care of this patient today: 45 minutes. Quality Stroke Does the patient have a stroke diagnosis?: No VTE Prior VTE?: No VTE Risk Level:: Medical - moderate - high VTE Device Contraindication: N/A - Device Ordered VTE Drug Contraindication: Treatment Not Indicated
[2025-02-25] MEDS: oxyCODONE HCl Immed Release 5 MG TABLET 10 MG PO ×2 (12:51→20:40)
[2025-02-25 15:31] VITALS: BP 171/74; PULSE 85; RESP 20; TEMP 36.9; O2SAT 95
[2025-02-25 16:24] LABS: Glucose, Whole Blood 161 mg/dL (60-115)
[2025-02-25 18:20] VITALS: BP 142/67
[2025-02-25 19:55] VITALS: BP 144/68; PULSE 82; RESP 18; TEMP 37.4; O2SAT 95
[2025-02-25 20:05] LABS: Glucose, Whole Blood 170 mg/dL (60-115)
[2025-02-26] MEDS: 0.9 % Sodium Chloride Flush 3 ML SYRINGE IVFLUSH ×4 (01:40→20:14)
[2025-02-26] MEDS: oxyCODONE HCl Immed Release 5 MG TABLET 10 MG PO ×3 (02:54→20:11)
[2025-02-26 03:38] VITALS: BP 116/58; PULSE 76; RESP 18; TEMP 36.3; O2SAT 95
[2025-02-26] MEDS: Metoprolol Tartrate 12.5 MG HALFTAB PO ×2 (05:15→17:02)
[2025-02-26 07:40] LABS: Glucose, Whole Blood 130 mg/dL (60-115)
[2025-02-26 07:49] VITALS: BP 173/77; PULSE 65; RESP 18; TEMP 36; O2SAT 98
--- NOTE | 2025-02-26 09:44 | PM.PNORT ---
Subjective Subjective Date of Service: 02/26/25 Interval history: POD 7 s/p Retrograde nail Right femur no overnight events resting inbed with immobilizer intact sling intact for rt shoulder Patient reportspain in the right shoulder, minimal discomfort in the right knee Brace is in place at this time in the right knee denies sob, cp, palpitations Physical Exam Vital Signs: Vital Signs: Last Vital Signs Temp 96.8 F 02/26/25 07:49 Pulse 65 02/26/25 07:49 Resp 18 02/26/25 07:49 BP 173/77 H 02/26/25 07:49 Pulse Ox 98 02/26/25 07:49 O2 Del Method Room Air 02/26/25 07:49 O2 Flow Rate 2 02/23/25 07:45 BMI result Body Mass Index 33.2 Const: General: cooperative, healthy appearing, comfortable and no acute distress Extrem: Other: Right shoulder swelling with ecchymosis, pain over the prox humerus. Elbow ROm intact. NVI. Right femur: knee brace intact, bandage clean dry and intact. She can plantar and dorsi flex the foot and ankle. NVI Procedures Date of Service Date of Service: 02/26/25 Progress Note: A&P Assessment and plan (1) Periprosthetic fracture around internal prosthetic knee joint: Status: Acute Assessment and Plan: pain control Brace should only be on for transfers, can remove while resting in bed to work on nonweightbearing range of motion ASA for dvt ppx PT/OT: TTWB RLE with walker for transfers only. Ok to perform NWB ROM of the right knee. dispo-rehab placement (2) Fracture, humerus: Status: Acute Assessment and Plan: Non operative sling for comfort, elbow and wrist ROM non weight bearing Time Spent With Patient Time: Total time managing care of this patient today ____ minutes. Quality Stroke Does the patient have a stroke diagnosis?: No VTE Prior VTE?: No VTE Risk Level:: Medical - moderate - high VTE Device Contraindication: N/A - Device Ordered VTE Drug Contraindication: Treatment Not Indicated
--- NOTE | 2025-02-26 10:32 | HO.PM.IMPN ---
Subjective Subjective Date of Service: 02/26/25 Interval History: Still has Vicente catheter in place. We will attempt voiding trial today. Continues complaining of pain around the right shoulder primarily. Updated analgesic regimen has given her more respite, however still complains of significant pain around the shoulder. No concerning or red flag features on evaluation of the shoulder, or joints below/digits of the right arm. Review of Systems Review of Systems: Yes all other systems are reviewed and are negative Physical Exam Exam: Exam: General: A&O x3, oriented to time place person and situation. Appears uncomfortable and in pain. Cardiac: S1, S2 auscultated with no S3/4, no MRG. Well perfused. Irregularly irregular, normal rate. Respiratory: Normal breath sounds auscultated throughout all lung zones, without wheezing, rales. Mild tachypnea, and shallow breathing. GI/ : No abdominal pain on palpation, no masses or distentions. MSK: Right humeral fracture in sling; ecchymosis noted. Right lower extremity in brace; ecchymosis noted. ABLE TO MOBILIZE DIGITS OF THE RIGHT HAND. No evidence of neuropathy, lost sensation, discoloration. ROM of the wrist, digits and elbow are within normal limits. No significant swelling at the right shoulder or arm. Neurological: Normal neurological examination on overview, without obvious CN II-XII abnormalities. Vital Signs: Vital Signs: Last Vital Signs Temp 96.8 F 02/26/25 07:49 Pulse 65 02/26/25 07:49 Resp 18 02/26/25 07:49 BP 173/77 H 02/26/25 07:49 Pulse Ox 98 02/26/25 07:49 O2 Del Method Room Air 02/26/25 07:49 O2 Flow Rate 2 02/23/25 07:45 BMI result Body Mass Index 33.2 Objective Data Active Medications Acetaminophen (Acetaminophen 325 Mg Tablet) 650 mg PO Q6H PRN PRN Reason: Pain, Mild 1-3,fever,headache Last Admin: 02/26/25 02:55 Dose: 650 mg Documented By: SOLA Comments: per pt request to take tylenol with oxycodone for 6/10 pain Anastrozole (Anastrozole 1 Mg Tablet) 1 mg PO DAILY [facility] Last Admin: 02/26/25 08:34 Dose: 1 mg Documented By: MARIN Aspirin (Aspirin 325 Mg Tablet) 325 mg PO DAILY [facility] Last Admin: 02/26/25 08:33 Dose: 325 mg Documented By: MARIN Calcium Carbonate (Calcium Carbonate 750 Mg Tab.Chew) 750 mg PO Q4H PRN PRN Reason: Heartburn Dextrose (Dextrose 50 % 25 Gm/50 Ml Syringe) 25 gm IVPUSH Q15M PRN; Protocol PRN Reason: per Hypoglycemia Standing Ord. Docusate Sodium (Docusate Sodium 100 Mg Capsule) 100 mg PO BEDTIME [facility] Last Admin: 02/25/25 20:41 Dose: 100 mg Documented By: ARUN Glucose (Glucose Gel 15 Gm Gel..Gram.) 15 gm PO Q15M PRN; Protocol PRN Reason: per Hypoglycemia Standing Ord. Hydromorphone HCl (Hydromorphone Hcl 0.5 Mg/0.5 Ml Syringe) 1 mg IVPUSH Q2H PRN; Protocol PRN Reason: Pain, Severe (Pain Scale 7-10) Last Admin: 02/26/25 08:44 Dose: 1 mg Documented By: MARIN Cefazolin Sodium/Dextrose (Ancef) 2 gm in 50 mls @ 100 mls/hr IV POSTOP [facility] Insulin Human Lispro (Insulin Lispro 100 Unit/Ml 3 Ml Vial) 0 unit SUBCUT QIDACHS [facility]; Protocol Last Admin: 02/26/25 07:53 Dose: Not Given Documented By: MARIN Non-Admin Reason: No Insulin Coverage Levothyroxine Sodium (Levothyroxine Sodium 112 Mcg Tablet) 112 mcg PO DAILY@0600 [facility] Last Admin: 02/26/25 05:40 Dose: 112 mcg Documented By: SOLA Lidocaine (Lidocaine 5 % Ointment 35 Gm) 1 appl TOPICAL Q6H PRN; Protocol PRN Reason: Pain, Mild 1-3,fever,headache Last Admin: 02/25/25 12:04 Dose: 1 appl Documented By: JACK Magnesium Hydroxide (Milk Of Magnesia 30 Ml Oral.Susp) 30 ml PO DAILY PRN PRN Reason: Constipation Last Admin: 02/22/25 08:39 Dose: 30 ml Documented By: CLINTON Melatonin (Melatonin 3 Mg Tablet) 6 mg PO BEDTIME PRN PRN Reason: Insomnia Last Admin: 02/25/25 20:51 Dose: 6 mg Documented By: ARUN Metoprolol Tartrate (Metoprolol Tartrate 5 Mg/5 Ml Vial) 5 mg IVPUSH Q15M PRN; Protocol PRN Reason: HR > 105 bpm Metoprolol Tartrate (Metoprolol Tartrate 12.5 Mg Halftab) 12.5 mg PO Q12H [facility]; Protocol Last Admin: 02/26/25 05:15 Dose: 12.5 mg Documented By: SOLA Ondansetron HCl (Ondansetron Hcl 4 Mg/2 Ml Vial) 4 mg IVPUSH Q8H PRN On Hold: 02/18/25 20:32 PRN Reason: Nausea and Vomiting Oxycodone HCl (Oxycodone Hcl Immed Release 5 Mg Tablet) 10 mg PO Q6H PRN PRN Reason: Pain, Moderate(Pain Scale 4-6) Last Admin: 02/26/25 02:54 Dose: 10 mg Documented By: SOLA Polyethylene Glycol (Polyethylene Glycol 3350 17 Gm Powd.Pack) 17 gm PO DAILY [facility] Last Admin: 02/26/25 08:34 Dose: 17 gm Documented By: MARIN Promethazine HCl (Promethazine Hcl 25 Mg Tablet) 25 mg PO Q4H PRN PRN Reason: Nausea and Vomiting Last Admin: 02/21/25 19:25 Dose: 25 mg Documented By: MATT Sodium Chloride (0.9 % Sodium Chloride Flush 3 Ml Syringe) [facility] Last Admin: 02/26/25 08:34 Dose: 3 ml Documented By: MARIN Labs 02/22/25 04:28 02/22/25 04:28 Labs: Laboratory Results - last 24 hr 02/25/25 02/25/25 02/25/25 11:34 15:59 20:01 POC Glucose 164 H 161 H 170 H 02/26/25 07:29 POC Glucose 130 H Assessment and Plan (1) Fall from slip, trip, or stumble: Status: Acute (2) Rhabdomyolysis: Status: Acute (3) Periprosthetic fracture around internal prosthetic knee joint: Status: Acute (4) Fracture, humerus: Status: Acute (5) CKD stage 3a, GFR 45-59 ml/min: Status: Acute (6) Atrial fibrillation with RVR: Status: Acute (7) Urinary retention: Status: Acute Plan Patient is a 89-year-old female with a past medical history significant for hypothyroidism, breast cancer on anastrozole, HTN, type 2 diabetes, history of bilateral TKR, class 1 obesity and arthritis, who presented to the ED due to a mechanical fall, admitted for a right humeral fracture and right knee fracture, c/b traumatic rhabdomyolysis, s/p right femoral retrograde nail 02/19. Admission complicated by acute blood loss anemia s/p 1u PRBC & atrial fibrillation with RVR. Post-operative pain management Assessment: Patient reports pain levels of 7-8/10, improved from 10/10 immediately post-surgery. Pain is described as persistent in the shoulder and spasmodic in the right leg. Oxycodone has been identified as the most helpful medication. Current pain management regimen includes oxycodone 5 mg every 6 hours, Dilaudid 0.5 mg, and potentially morphine 2 mg (though there is uncertainty about whether morphine has been discontinued). Cold therapy appears to provide some relief for leg pain. Plan: - continue oxycodone 10 mg q.6 hourly - Utilize acetaminophen 650 q.6 hourly with oxycodone - continue Dilaudid to 1 mg - Apply Xylocaine (topical anesthetic) as ordered - Consider adding ibuprofen or diclofenac cream for additional pain relief - Monitor for side effects, particularly nausea and vomiting with oxycodone - Continue to assess pain levels and adjust medications as needed - Apply cold therapy to right leg as needed for pain relief Urinary retention 02/25: Patient experiencing urinary retention, likely secondary to opioid medications. Bladder scans showed volumes over 600 mL and 700 mL. Patient has had episodes of urinary incontinence, making accurate measurement of output challenging. A catheter has been placed to manage retention. 02/26: Voiding trial today Plan: - Voiding trial - Remove Vicente catheter - Monitor urine output Periprosthetic fracture right femoral and right humeral fracture s/p Right femur retrograde nail on 02/19 Post of care including PT/OT Pain control with morphine and oxycodone DVT prophylaxis with ASA STR when bed available Pain management has been at forefront of issues; currently tylenol, morphine. oxycodone & dilaudid. bowel regimen prescribed Afib RVR Episode of AFib RVR with hypotension 02/21/2025. Likely secondary to hypovolemia. Received 1 L LR and IV metoprolol - with resolution of RVR. [id number] Score: 4 - needs AC once cleared by ortho. Continue metoprolol Pending ECHO Traumatic rhabdomyolysis 2/2 fall CK trending downward. Resolved with IVF. Blood loss anemia S/p 1 unit PRBC 02/20 Hemoglobin stable >8mg/dl Reactive leukocytosis No evidence of infectious nidus. Likely secondary to fractures Type 2 demand NSTEMI Mildly elevated troponin 22.1 and 24 on repeat. ECG is nonischemic Asymptomatic patient Likely secondary to rhabdomyolysis and lactic acidosis. 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 No evidence of sepsis Type 2 diabetes mellitus Insulin sliding scale hold jardiance for now follow blood sugars CHRONIC MEDICAL ISSUES CKD stage 3a: Stable monitor Hypertension: Hold losartan/hydrochlorothiazide Breast cancer: Continue anastrozole QUALITY METRICS - VTE: Pneumo boots & aspirin as per Orthopedics - CODE STATUS: DNR/DNI - DIET: Regular Quality Stroke Does the patient have a stroke diagnosis?: No VTE Prior VTE?: No VTE Risk Level:: Medical - moderate - high VTE Device Contraindication: N/A - Device Ordered VTE Drug Contraindication: Treatment Not Indicated
[2025-02-26 11:40] LABS: Glucose, Whole Blood 250 mg/dL (60-115)
[2025-02-26 11:41] LABS: Glucose, Whole Blood 223 mg/dL (60-115)
[2025-02-26 15:18] VITALS: RESP 18
[2025-02-26 15:20] VITALS: BP 168/69; PULSE 78; RESP 16; TEMP 36.2; O2SAT 96
[2025-02-26 16:08] LABS: Glucose, Whole Blood 140 mg/dL (60-115)
[2025-02-26 19:21] VITALS: BP 164/72; PULSE 77; RESP 18; TEMP 37; O2SAT 95
[2025-02-26 20:03] LABS: Glucose, Whole Blood 171 mg/dL (60-115)
[2025-02-27 03:06] VITALS: BP 145/62; PULSE 72; RESP 18; TEMP 36.9; O2SAT 96
[2025-02-27] MEDS: Metoprolol Tartrate 12.5 MG HALFTAB PO ×2 (04:37→15:42)
[2025-02-27 07:37] LABS: Glucose, Whole Blood 152 mg/dL (60-115)
[2025-02-27 07:42] VITALS: BP 150/66; PULSE 67; RESP 18; TEMP 36.4; O2SAT 97
[2025-02-27] MEDS: oxyCODONE HCl Immed Release 5 MG TABLET 10 MG PO ×3 (07:53→22:12)
[2025-02-27] MEDS: 0.9 % Sodium Chloride Flush 3 ML SYRINGE IVFLUSH ×3 (07:54→21:22)
[2025-02-27 11:57] LABS: Glucose, Whole Blood 162 mg/dL (60-115)
--- NOTE | 2025-02-27 15:05 | P.PNIM_ITS ---
Subjective Subjective Date of Service: 02/27/25 Interval History: Patient drowsy and sleepy for majority of visit and evaluation; attempted to return, but asleep once more. No collaborative reports or changes in status Seems more comfortable with analgesic regimen prescribed. Still having urinary retention; straight cath performed. Review of Systems Review of Systems: Yes all other systems are reviewed and are negative Physical Exam 2 Exam: Exam: General: A&O x3, oriented to time place person and situation. Appears comfortable. Cardiac: S1, S2 auscultated with no S3/4, no MRG. Well perfused. Irregularly irregular, normal rate. Respiratory: Normal breath sounds auscultated throughout all lung zones, without wheezing, rales. Mild tachypnea, and shallow breathing. GI/ : No abdominal pain on palpation, no masses or distentions. MSK: Right humeral fracture in sling; ecchymosis noted. Right lower extremity in brace; ecchymosis noted. ABLE TO MOBILIZE DIGITS OF THE RIGHT HAND. No evidence of neuropathy, lost sensation, discoloration. ROM of the wrist, digits and elbow are within normal limits. No significant swelling at the right shoulder or arm. Neurological: Normal neurological examination on overview, without obvious CN II-XII abnormalities. Vital Signs: Vital Signs: Last Vital Signs Temp 97.5 F 02/27/25 07:42 Pulse 67 02/27/25 07:42 Resp 18 02/27/25 07:42 BP 150/66 H 02/27/25 07:42 Pulse Ox 97 02/27/25 07:42 O2 Del Method Room Air 02/27/25 07:42 O2 Flow Rate 2 02/23/25 07:45 BMI result Body Mass Index 33.2 Objective Data Active Medications Acetaminophen (Acetaminophen 325 Mg Tablet) 650 mg PO Q6H PRN PRN Reason: Pain, Mild 1-3,fever,headache Last Admin: 02/27/25 07:53 Dose: 650 mg Documented By: MARIN Anastrozole (Anastrozole 1 Mg Tablet) 1 mg PO DAILY [facility] Last Admin: 02/27/25 07:53 Dose: 1 mg Documented By: MARIN Aspirin (Aspirin 325 Mg Tablet) 325 mg PO DAILY [facility] Last Admin: 02/27/25 07:53 Dose: 325 mg Documented By: MARIN Calcium Carbonate (Calcium Carbonate 750 Mg Tab.Chew) 750 mg PO Q4H PRN PRN Reason: Heartburn Dextrose (Dextrose 50 % 25 Gm/50 Ml Syringe) 25 gm IVPUSH Q15M PRN; Protocol PRN Reason: per Hypoglycemia Standing Ord. Docusate Sodium (Docusate Sodium 100 Mg Capsule) 100 mg PO BEDTIME [facility] Last Admin: 02/26/25 20:13 Dose: 100 mg Documented By: SOLA Glucose (Glucose Gel 15 Gm Gel..Gram.) 15 gm PO Q15M PRN; Protocol PRN Reason: per Hypoglycemia Standing Ord. Hydromorphone HCl (Hydromorphone Hcl 0.5 Mg/0.5 Ml Syringe) 1 mg IVPUSH Q2H PRN; Protocol PRN Reason: Pain, Severe (Pain Scale 7-10) Last Admin: 02/27/25 09:37 Dose: 1 mg Documented By: MARIN Cefazolin Sodium/Dextrose (Ancef) 2 gm in 50 mls @ 100 mls/hr IV POSTOP [facility] Insulin Human Lispro (Insulin Lispro 100 Unit/Ml 3 Ml Vial) 0 unit SUBCUT QIDACHS ON [facility] OF [facility]; Protocol Last Admin: 02/27/25 12:43 Dose: 2 unit Documented By: MARIN Levothyroxine Sodium (Levothyroxine Sodium 112 Mcg Tablet) 112 mcg PO DAILY@0600 [facility] Last Admin: 02/27/25 06:26 Dose: 112 mcg Documented By: SOLA Lidocaine (Lidocaine 5 % Ointment 35 Gm) 1 appl TOPICAL Q6H PRN; Protocol PRN Reason: Pain, Mild 1-3,fever,headache Last Admin: 02/25/25 12:04 Dose: 1 appl Documented By: JACK Magnesium Hydroxide (Milk Of Magnesia 30 Ml Oral.Susp) 30 ml PO DAILY PRN PRN Reason: Constipation Last Admin: 02/22/25 08:39 Dose: 30 ml Documented By: CLINTON Melatonin (Melatonin 3 Mg Tablet) 6 mg PO BEDTIME PRN PRN Reason: Insomnia Last Admin: 02/25/25 20:51 Dose: 6 mg Documented By: ARUN Metoprolol Tartrate (Metoprolol Tartrate 5 Mg/5 Ml Vial) 5 mg IVPUSH Q15M PRN; Protocol PRN Reason: HR > 105 bpm Metoprolol Tartrate (Metoprolol Tartrate 12.5 Mg Halftab) 12.5 mg PO Q12H [facility]; Protocol Last Admin: 02/27/25 04:37 Dose: 12.5 mg Documented By: MICKY Ondansetron HCl (Ondansetron Hcl 4 Mg/2 Ml Vial) 4 mg IVPUSH Q8H PRN On Hold: 02/18/25 20:32 PRN Reason: Nausea and Vomiting Oxycodone HCl (Oxycodone Hcl Immed Release 5 Mg Tablet) 10 mg PO Q6H PRN PRN Reason: Pain, Moderate(Pain Scale 4-6) Last Admin: 02/27/25 07:53 Dose: 10 mg Documented By: MARIN Polyethylene Glycol (Polyethylene Glycol 3350 17 Gm Powd.Pack) 17 gm PO DAILY [facility] Last Admin: 02/27/25 07:53 Dose: 17 gm Documented By: MARIN Promethazine HCl (Promethazine Hcl 25 Mg Tablet) 25 mg PO Q4H PRN PRN Reason: Nausea and Vomiting Last Admin: 02/21/25 19:25 Dose: 25 mg Documented By: MATT Sodium Chloride (0.9 % Sodium Chloride Flush 3 Ml Syringe) [facility] Last Admin: 02/27/25 07:54 Dose: 3 ml Documented By: MARIN Labs 02/22/25 04:28 02/22/25 04:28 Labs: Laboratory Results - last 24 hr 02/26/25 02/26/25 02/27/25 16:05 19:36 07:33 POC Glucose 140 H 171 H 152 H 02/27/25 11:54 POC Glucose 162 H Assessment and Plan (1) Atrial fibrillation with RVR: Status: Acute (2) CKD stage 3a, GFR 45-59 ml/min: Status: Acute (3) Fracture, humerus: Status: Acute (4) Periprosthetic fracture around internal prosthetic knee joint: Status: Acute (5) Rhabdomyolysis: Status: Acute (6) Fall from slip, trip, or stumble: Status: Acute (7) Urinary retention: Status: Acute Plan Patient is a 89-year-old female with a past medical history significant for hypothyroidism, breast cancer on anastrozole, HTN, type 2 diabetes, history of bilateral TKR, class 1 obesity and arthritis, who presented to the ED due to a mechanical fall, admitted for a right humeral fracture and right knee fracture, c/b traumatic rhabdomyolysis, s/p right femoral retrograde nail 02/19. Admission complicated by acute blood loss anemia s/p 1u PRBC & atrial fibrillation with RVR. Post-operative pain management Assessment: Patient reports pain levels of 7-8/10, improved from 10/10 immediately post-surgery. Pain is described as persistent in the shoulder and spasmodic in the right leg. Oxycodone has been identified as the most helpful medication. Current pain management regimen includes oxycodone 5 mg every 6 hours, Dilaudid 0.5 mg, and potentially morphine 2 mg (though there is uncertainty about whether morphine has been discontinued). Cold therapy appears to provide some relief for leg pain. Plan: - continue oxycodone 10 mg q.6 hourly - administer acetaminophen 650 q.6 hourly with oxycodone - continue Dilaudid to 1 mg - Apply Xylocaine (topical anesthetic) as ordered - Consider adding ibuprofen or diclofenac cream for additional pain relief - Monitor for side effects, particularly nausea and vomiting with oxycodone - Continue to assess pain levels and adjust medications as needed - Apply cold therapy to right leg as needed for pain relief Urinary retention 02/25: Patient experiencing urinary retention, likely secondary to opioid medications. Bladder scans showed volumes over 600 mL and 700 mL. Patient has had episodes of urinary incontinence, making accurate measurement of output challenging. A catheter has been placed to manage retention. 02/26: Voiding trial today Plan: - Voiding trial - Remove Vicente catheter - Monitor urine output Periprosthetic fracture right femoral and right humeral fracture s/p Right femur retrograde nail on 02/19 Post of care including PT/OT Pain control with morphine and oxycodone DVT prophylaxis with ASA STR when bed available Pain management has been at forefront of issues; currently tylenol, morphine. oxycodone & dilaudid. bowel regimen prescribed Afib RVR Episode of AFib RVR with hypotension 02/21/2025. Likely secondary to hypovolemia. Received 1 L LR and IV metoprolol - with resolution of RVR. [id number] Score: 4 - needs AC once cleared by ortho. Continue metoprolol Pending ECHO Traumatic rhabdomyolysis 2/2 fall CK trending downward. Resolved with IVF. Blood loss anemia S/p 1 unit PRBC 02/20 Hemoglobin stable >8mg/dl Reactive leukocytosis No evidence of infectious nidus. Likely secondary to fractures Type 2 demand NSTEMI Mildly elevated troponin 22.1 and 24 on repeat. ECG is nonischemic Asymptomatic patient Likely secondary to rhabdomyolysis and lactic acidosis. 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 No evidence of sepsis Type 2 diabetes mellitus Insulin sliding scale hold jardiance for now follow blood sugars CHRONIC MEDICAL ISSUES CKD stage 3a: Stable monitor Hypertension: Hold losartan/hydrochlorothiazide Breast cancer: Continue anastrozole QUALITY METRICS - VTE: Pneumo boots & aspirin as per Orthopedics - CODE STATUS: DNR/DNI - DIET: Regular Quality Stroke Does the patient have a stroke diagnosis?: No VTE Prior VTE?: No VTE Risk Level:: Medical - moderate - high VTE Device Contraindication: N/A - Device Ordered VTE Drug Contraindication: Treatment Not Indicated
[2025-02-27 15:15] VITALS: BP 132/61; PULSE 74; RESP 18; TEMP 36.4; O2SAT 94
[2025-02-27 15:57] LABS: Glucose, Whole Blood 159 mg/dL (60-115)
[2025-02-27] MEDS: Milk of Magnesia 30 ML ORAL.SUSP PO (16:43)
--- NOTE | 2025-02-27 17:24 | PC.NURSE ---
patient with no void since straight cath at 1045. Bladder scanned for 358cc. Dr. Castillo notified. Order to straight cath q6h prn bladder scan >350, but hold off on straight cath now and give pt more time to void. Straight cath if bladder scan >500. Pt has no urge to void and has no pelvic discomfort at present.
[2025-02-27 18:54] VITALS: BP 141/67; PULSE 73; RESP 18; TEMP 36.3; O2SAT 99
[2025-02-27 20:23] LABS: Glucose, Whole Blood 193 mg/dL (60-115)
[2025-02-28 04:00] VITALS: BP 142/60; PULSE 83; RESP 18; TEMP 36.2; O2SAT 92
[2025-02-28] MEDS: Metoprolol Tartrate 12.5 MG HALFTAB PO ×2 (04:12→16:08)
[2025-02-28 07:39] LABS: Glucose, Whole Blood 153 mg/dL (60-115)
[2025-02-28] MEDS: 0.9 % Sodium Chloride Flush 3 ML SYRINGE IVFLUSH ×3 (07:42→21:19)
[2025-02-28] MEDS: oxyCODONE HCl Immed Release 5 MG TABLET 10 MG PO ×2 (07:42→14:19)
[2025-02-28 07:54] VITALS: BP 148/70; PULSE 75; RESP 18; TEMP 36.8; O2SAT 95
[2025-02-28 11:33] LABS: Glucose, Whole Blood 184 mg/dL (60-115)
--- NOTE | 2025-02-28 13:32 | MHC.CM.PN ---
pt to be dcd tomorrow at 11 to [facility] [id number]
--- NOTE | 2025-02-28 13:57 | HO.PM.IMPN ---
Subjective Subjective Date of Service: 02/28/25 Interval History: Still has persistent pain around the right shoulder, however seems to be significantly improved as compared to prior. She is able to sleep comfortably. She has had no episodes of urinary retention for the past 12 hours. Patient reports that she is urinating normally and reliably-this is reassuring. She has been stooling eating and drinking well Review of Systems Review of Systems: Yes all other systems are reviewed and are negative Physical Exam Exam: Exam: General: A&O x3, oriented to time place person and situation. Appears comfortable. Cardiac: S1, S2 auscultated with no S3/4, no MRG. Well perfused. Irregularly irregular, normal rate. Respiratory: Normal breath sounds auscultated throughout all lung zones, without wheezing, rales. Mild tachypnea, and shallow breathing. GI/ : No abdominal pain on palpation, no masses or distentions. MSK: Right humeral fracture in sling; ecchymosis noted. Right lower extremity in brace; ecchymosis noted. ABLE TO MOBILIZE DIGITS OF THE RIGHT HAND. No evidence of neuropathy, lost sensation, discoloration. ROM of the wrist, digits and elbow are within normal limits. No significant swelling at the right shoulder or arm. Neurological: Normal neurological examination on overview, without obvious CN II-XII abnormalities. Vital Signs: Vital Signs: Last Vital Signs Temp 98.2 F 02/28/25 07:54 Pulse 75 02/28/25 07:54 Resp 18 02/28/25 07:54 BP 148/70 H 02/28/25 07:54 Pulse Ox 95 02/28/25 07:54 O2 Del Method Room Air 02/28/25 07:54 O2 Flow Rate 2 02/23/25 07:45 BMI result Body Mass Index 33.2 Objective Data Active Medications Acetaminophen (Acetaminophen 325 Mg Tablet) 650 mg PO Q6H PRN PRN Reason: Pain, Mild 1-3,fever,headache Last Admin: 02/28/25 07:42 Dose: 650 mg Documented By: NANCY Anastrozole (Anastrozole 1 Mg Tablet) 1 mg PO DAILY FORMERLY [facility], [facility] Last Admin: 02/28/25 07:43 Dose: 1 mg Documented By: NANCY Aspirin (Aspirin 325 Mg Tablet) 325 mg PO DAILY FOR[facility]LY [facility], [facility]1983 Last Admin: 02/28/25 07:42 Dose: 325 mg Documented By: NANCY Calcium Carbonate (Calcium Carbonate 750 Mg Tab.Chew) 750 mg PO Q4H PRN PRN Reason: Heartburn Dextrose (Dextrose 50 % 25 Gm/50 Ml Syringe) 25 gm IVPUSH Q15M PRN; Protocol PRN Reason: per Hypoglycemia Standing Ord. Docusate Sodium (Docusate Sodium 100 Mg Capsule) 100 mg PO BEDTIME FOR[facility]LY [facility], [facility] Last Admin: 02/27/25 21:22 Dose: 100 mg Documented By: MATT Glucose (Glucose Gel 15 Gm Gel..Gram.) 15 gm PO Q15M PRN; Protocol PRN Reason: per Hypoglycemia Standing Ord. Hydromorphone HCl (Hydromorphone Hcl 0.5 Mg/0.5 Ml Syringe) 1 mg IVPUSH Q2H PRN; Protocol PRN Reason: Pain, Severe (Pain Scale 7-10) Last Admin: 02/28/25 12:29 Dose: 1 mg Documented By: RIAZ Cefazolin Sodium/Dextrose (Ancef) 2 gm in 50 mls @ 100 mls/hr IV POSTOP FOR[facility], [facility]–1983 Insulin Human Lispro (Insulin Lispro 100 Unit/Ml 3 Ml Vial) 0 unit SUBCUT QIDACHS FOR[facility]LY [facility], [facility]; Protocol Last Admin: 02/28/25 11:47 Dose: 2 unit Documented By: RIAZ Comments: Levothyroxine Sodium (Levothyroxine Sodium 112 Mcg Tablet) 112 mcg PO DAILY@0600 [facility], [facility] Last Admin: 02/28/25 05:12 Dose: 112 mcg Documented By: MATT Lidocaine (Lidocaine 5 % Ointment 35 Gm) 1 appl TOPICAL Q6H PRN; Protocol PRN Reason: Pain, Mild 1-3,fever,headache Last Admin: 02/25/25 12:04 Dose: 1 appl Documented By: JACK Magnesium Hydroxide (Milk Of Magnesia 30 Ml Oral.Susp) 30 ml PO DAILY PRN PRN Reason: Constipation Last Admin: 02/27/25 16:43 Dose: 30 ml Documented By: MARIN Melatonin (Melatonin 3 Mg Tablet) 6 mg PO BEDTIME PRN PRN Reason: Insomnia Last Admin: 02/25/25 20:51 Dose: 6 mg Documented By: ARUN Metoprolol Tartrate (Metoprolol Tartrate 5 Mg/5 Ml Vial) 5 mg IVPUSH Q15M PRN; Protocol PRN Reason: HR > 105 bpm Metoprolol Tartrate (Metoprolol Tartrate 12.5 Mg Halftab) 12.5 mg PO Q12H MANPREET; Protocol Last Admin: 02/28/25 04:12 Dose: 12.5 mg Documented By: MATT Ondansetron HCl (Ondansetron Hcl 4 Mg/2 Ml Vial) 4 mg IVPUSH Q8H PRN On Hold: 02/18/25 20:32 PRN Reason: Nausea and Vomiting Oxycodone HCl (Oxycodone Hcl Immed Release 5 Mg Tablet) 10 mg PO Q6H PRN PRN Reason: Pain, Moderate(Pain Scale 4-6) Last Admin: 02/28/25 07:42 Dose: 10 mg Documented By: NANCY Polyethylene Glycol (Polyethylene Glycol 3350 17 Gm Powd.Pack) 17 gm PO DAILY FOR[facility]LY [facility], [facility] Last Admin: 02/28/25 07:43 Dose: 17 gm Documented By: NANCY Promethazine HCl (Promethazine Hcl 25 Mg Tablet) 25 mg PO Q4H PRN PRN Reason: Nausea and Vomiting Last Admin: 02/21/25 19:25 Dose: 25 mg Documented By: MATT Sodium Chloride (0.9 % Sodium Chloride Flush 3 Ml Syringe) 3 ml IVFLUSH QSHIFT [facility], [facility] Last Admin: 02/28/25 07:42 Dose: 3 ml Documented By: NANCY Labs 02/22/25 04:28 02/22/25 04:28 Labs: Laboratory Results - last 24 hr 02/27/25 02/27/25 02/28/25 15:49 20:10 07:29 POC Glucose 159 H 193 H 153 H 02/28/25 11:29 POC Glucose 184 H Assessment and Plan (1) Atrial fibrillation with RVR: Status: Acute (2) CKD stage 3a, GFR 45-59 ml/min: Status: Acute (3) Urinary retention: Status: Acute (4) Fracture, humerus: Status: Acute (5) 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 Admission complicated by acute blood loss anemia s/p 1u PRBC & atrial fibrillation with RVR. Ongoing admission for postoperative analgesia; pending placement to STR. Post-operative pain management Assessment: Patient reports pain levels of 7-8/10, improved from 10/10 immediately post-surgery. Pain is described as persistent in the shoulder and spasmodic in the right leg. Oxycodone has been identified as the most helpful medication. Current pain management regimen includes oxycodone 5 mg every 6 hours, Dilaudid 0.5 mg, and potentially morphine 2 mg (though there is uncertainty about whether morphine has been discontinued). Cold therapy appears to provide some relief for leg pain. Plan: - continue oxycodone 10 mg q.6 hourly - administer acetaminophen 650 q.6 hourly with oxycodone - continue Dilaudid to 1 mg - Apply Xylocaine (topical anesthetic) as ordered - Consider adding ibuprofen or diclofenac cream for additional pain relief - Monitor for side effects, particularly nausea and vomiting with oxycodone - Continue to assess pain levels and adjust medications as needed - Apply cold therapy to right leg as needed for pain relief Urinary retention 02/25: Patient experiencing urinary retention, likely secondary to opioid medications. Bladder scans showed volumes over 600 mL and 700 mL. Patient has had episodes of urinary incontinence, making accurate measurement of output challenging. A catheter has been placed to manage retention. 02/26: Voiding trial today Plan: - Voiding trial - Remove Vicente catheter - Monitor urine output Periprosthetic fracture right femoral and right humeral fracture s/p Right femur retrograde nail on 02/19 Post of care including PT/OT Pain control with morphine and oxycodone DVT prophylaxis with ASA STR when bed available Pain management has been at forefront of issues; currently tylenol, morphine. oxycodone & dilaudid. bowel regimen prescribed Afib RVR Episode of AFib RVR with hypotension 02/21/2025. Likely secondary to hypovolemia. Received 1 L LR and IV metoprolol - with resolution of RVR. [id number] Score: 4 - needs AC once cleared by ortho. Continue metoprolol Pending ECHO Traumatic rhabdomyolysis 2/2 fall CK trending downward. Resolved with IVF. Blood loss anemia S/p 1 unit PRBC 02/20 Hemoglobin stable >8mg/dl Reactive leukocytosis No evidence of infectious nidus. Likely secondary to fractures Type 2 demand NSTEMI Mildly elevated troponin 22.1 and 24 on repeat. ECG is nonischemic Asymptomatic patient Likely secondary to rhabdomyolysis and lactic acidosis. 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 No evidence of sepsis Type 2 diabetes mellitus Insulin sliding scale hold jardiance for now follow blood sugars CHRONIC MEDICAL ISSUES CKD stage 3a: Stable monitor Hypertension: Hold losartan/hydrochlorothiazide Breast cancer: Continue anastrozole QUALITY METRICS - VTE: Pneumo boots & aspirin as per Orthopedics - CODE STATUS: DNR/DNI - DIET: Regular Total time managing care of this patient today: 35 minutes. Quality Stroke Does the patient have a stroke diagnosis?: No VTE Prior VTE?: No VTE Risk Level:: Medical - moderate - high VTE Device Contraindication: N/A - Device Ordered VTE Drug Contraindication: Treatment Not Indicated
[2025-02-28 15:30] VITALS: BP 127/59; PULSE 82; RESP 18; TEMP 36.3; O2SAT 99
[2025-02-28 16:31] LABS: Glucose, Whole Blood 153 mg/dL (60-115)
[2025-02-28 19:55] VITALS: BP 126/59; PULSE 84; RESP 18; TEMP 36.9; O2SAT 96
[2025-02-28 20:34] LABS: Glucose, Whole Blood 192 mg/dL (60-115)
[2025-03-01] MEDS: oxyCODONE HCl Immed Release 5 MG TABLET 10 MG PO ×3 (00:26→13:38)
[2025-03-01 03:15] VITALS: BP 135/63; PULSE 87; RESP 14; TEMP 37; O2SAT 96
[2025-03-01 05:00] VITALS: BP 132/60; PULSE 95
[2025-03-01] MEDS: Metoprolol Tartrate 12.5 MG HALFTAB PO ×2 (05:34→15:55)
[2025-03-01 07:39] LABS: Glucose, Whole Blood 177 mg/dL (60-115)
[2025-03-01 07:48] VITALS: BP 115/56; PULSE 85; RESP 12; TEMP 36.9; O2SAT 94
[2025-03-01] MEDS: 0.9 % Sodium Chloride Flush 3 ML SYRINGE IVFLUSH (08:03)
--- NOTE | 2025-03-01 10:17 | P.DS_ITS ---
DS: Providers Provider Date of Service: 03/01/25 Date of admission: 02/18/25 19:02 Date of discharge: 03/01/25 Primary care physician: Yoseph Villa NP Consults: 02/18/25 19:04 Consult to Orthopedics Routine Consulting Provider: [facility] Reason for consultation: broken R humerus and R femur fracture 02/22/25 03:46 Consult to Cardiology Routine Consulting Provider: [facility] Reason for consultation: new onset rapid a-fib Has provider been notified: No DS: Diagnosis Discharge Diagnosis (1) Atrial fibrillation with RVR: Status: Acute (2) CKD stage 3a, GFR 45-59 ml/min: Status: Acute (3) Urinary retention: Status: Acute (4) Fracture, humerus: Status: Acute (5) 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 The patient reports that she fell around 07:00 onto her right arm and right hip after bending over trying to grab her cat. She was unable to call her daughter until around 14:00 and ultimately called EMS. She denies any head strike or loss of consciousness. This was a mechanical fall and she denies any symptoms prior including chest pain, shortness of breath or dizziness. She denies any hematochezia or melena. No urinary symptoms including frequency, urgency or dysuria. Hospital course: Patient is a 89-year-old female with a past medical history significant for hypothyroidism, breast cancer on anastrozole, HTN, type 2 diabetes, history of bilateral TKR, class 1 obesity and arthritis, who presented to the ED due to a mechanical fall, admitted for a right humeral fracture and right knee fracture, c/b traumatic rhabdomyolysis, s/p right femoral retrograde nail 02/19. Admission complicated by acute blood loss anemia s/p 1u PRBC & atrial fibrillation with RVR. Ongoing admission for postoperative analgesia; pending placement to STR. Periprosthetic fracture right femoral and right humeral fracture complicated by traumatic rhabdomyolysis, s/p right femoral retrograde nail 02/19. Post operative pain now managed with oxycodone and Tylenol, xylocain. PT and OT. Ortho recommend ASA 325 bid for 6 week for DVT prophylaxis. Acute blood loss anemia post op s/p 1 unit of RBC transfusion as stated above, H/H has been ok. Urinary retention 02/25: Patient experiencing urinary retention, likely secondary to opioid medications. Bladder scans showed volumes over 600 mL and 700 mL. Patient has had episodes of urinary incontinence, making accurate measurement of output challenging. A catheter has been placed to manage retention. She has had sucesful voiding trial with mario removed. Aflutter with RVR, new Episode of AFib RVR with hypotension 02/21/2025. Likely secondary to hypovolemia. Received 1 L LR and IV metoprolol - with resolution of RVR. [id number] Score: 4 - Seen by cardiology and advises discussing anticoagulation with recurance, so far no recurance and will continue ASA as above Echo Traumatic rhabdomyolysis 2/ fall, CPK was less than Resolved with IVF. Reactive leukocytosis No evidence of infectious nidus. Likely secondary to fractures, resolved Type 2 demand NSTEMI Mildly elevated troponin 22.1 and 24 on repeat. ECG is nonischemic Asymptomatic patient Likely secondary to rhabdomyolysis and lactic acidosis. 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 No evidence of sepsis Type 2 diabetes mellitus Insulin sliding scale changing from 25 to 10 mg daily follow blood sugars CHRONIC MEDICAL ISSUES CKD stage 3a: Stable monitor Hypertension: Hold losartan/hydrochlorothiazide, on metoprolol.. Hypothyroidism--continue Levothyroxin4 Breast cancer: Continue anastrozole Time Attestation Discharge Coordination Time (in mins): 45 Quality: Safe Use of Opioids Does Pt have an Active Cancer Diagnosis on the Problem List?: No Quality: Stroke Does the patient have a stroke diagnosis?: No Physical Exam Vital Signs: Vital Signs: Last Vital Signs Temp 98.5 F 03/01/25 07:48 Pulse 85 03/01/25 07:48 Resp 12 03/01/25 07:48 BP 115/56 L 03/01/25 07:48 Pulse Ox 94 03/01/25 07:48 O2 Del Method Room Air 03/01/25 07:48 O2 Flow Rate 2 02/23/25 07:45 BMI result Body Mass Index 33.2 DS: Data Data Completed and Pending Labs on day of discharge: Laboratory Results - last 24 hr 02/28/25 02/28/25 02/28/25 11:29 16:26 20:31 POC Glucose 184 H 153 H 192 H 03/01/25 07:22 POC Glucose 177 H Discharge Plan Discharge Anticipated Discharge Date/Time: 03/01/25 10:23 Patient Disposition: Xfer SNF Discharge Diagnosis: Periprosthetic fracture right femoral and right humeral fracture, acute blood loss anemia Referrals: [facility] [Other] - 1 Week Sowmya Parker PA-C [Physician Electric[employer], Orthopedics] - 1 Week Referral Note: 03/10/25 11:30 [facility] Sowmya Parker PA-C Leger, Andrea, NP [Primary Care Provider, Medical] - 1 Week Discharge Medications: New oxycodone 5 mg Tablet 10 mg PO Q6H PRN (Reason: Pain, Moderate(Pain Scale 4-6)) Qty: 30 0RF Rx Instructions: Partial Fill upon patient request. magnesium hydroxide [Milk of Magnesia] 400 mg/5 mL Suspension 30 ml PO DAILY PRN (Reason: Constipation) Qty: 355 0RF aspirin 325 mg Tablet 325 mg PO DAILY Qty: 33 0RF polyethylene glycol 3350 17 gram Powder In Packet 17 g PO DAILY Qty: 30 0RF lidocaine 5 % Ointment 1 appl topical Q6H PRN (Reason: Pain, Mild 1-3,Fever,Headache) Qty: 30 0RF Protocol: Apply to: Apply to: RIGHT SHOULDER Jardiance 10 mg tablet 10 mg PO DAILY Qty: 30 0RF acetaminophen 325 mg Tablet 650 mg PO Q6H PRN (Reason: Pain, Mild 1-3,Fever,Headache) Qty: 20 0RF insulin lispro [Admelog U-100 Insulin lispro] 100 unit/mL Solution See Protocol subcut QIDACHS Qty: 10 0RF Protocol: Insulin Correction Scale Less than or equal to 110 ---- Give (units): 0 111 to 150 Give (units): 0 151 to 200 Give (units): 2 201 to 250 Give (units): 4 251 to 300 Give (units): 6 301 to 350 Give (units): 8 Greater than 350 Give (units): 10 Call MD if Blood Glucose > : 350 Rx Instructions: BG <111 0 units, 111-150 - 0 units, 151-200 2 units, 201-250 4 units, 251-300 6 units, 301-350 8 units, >350 10 units metoprolol tartrate 25 mg tablet 12.5 mg PO Q12H Qty: 30 0RF metoprolol tartrate 25 mg tablet 12.5 mg PO Q12H Qty: 30 0RF Continued anastrozole 1 mg tablet 1 mg PO DAILY levothyroxine 112 mcg tablet 112 mcg PO DAILY Discontinued losartan-hydrochlorothiazide 100-12.5 mg tablet 1 tab PO DAILY Jardiance 25 mg tablet 25 mg PO QAM Discharge Orders: Discharge Order (Routine); Ordered 03/01/25 Ordered By: Jatinder Quintanilla Diet: Advance to usual diet Activity on Discharge: As tolerated Stand Alone Forms: Patient Portal Discharge page Print Language: Maori Activity Restrictions/Additional Instructions: (1) 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 Ok to perform NWB ROM of the right knee. -Ok to remove brace while in bed and sitting in chair-ok to bend knee (2) Fracture, humerus: Non operative sling for comfort, elbow and wrist ROM non weight bearing Care Plan Goals: recovery from Periprosthetic fracture right femoral and right humeral fracture Health Concerns: Periprosthetic fracture right femoral and right humeral fracture acute blood loss anemia, AFIB with RVR Plan of Treatment: To short term rehab ASA for DVT prophylaxis Take metoprolol instead of losartan and hydrocholothiazide Follow up with cardiology for afib with RVR Assessment: See above
[2025-03-01 11:43] LABS: Glucose, Whole Blood 153 mg/dL (60-115)
--- NOTE | 2025-03-01 11:45 | MHC.CM.PN ---
DP: PT HAS BEEN MEDICALLY CLEARED FOR DC TO STR AT [facility] BLS TRANSPORT RE-BOOKED FOR 5 PM [facility] UNABLE TO ACCEPT UNTIL THEN DUE TO BED MANAGEMENT. RN/PROVIDER AWARE. DAUGHTER TG UPDATED.
[2025-03-01 15:37] VITALS: BP 138/60; PULSE 82; RESP 18; TEMP 36.8; O2SAT 94
--- NOTE | 2025-03-01 16:22 | PC.NURSE ---
late entry - gave pt 5 mg oxycodone on 02/25/25 at 0136 for 10 pain, she requested oxycodone for pain at this time.
[2025-03-01 16:24] LABS: Glucose, Whole Blood 148 mg/dL (60-115)
[2025-03-01 18:41] VITALS: BP 130/59; PULSE 84; RESP 18; TEMP 36.9; O2SAT 94
--- NOTE | 2025-03-07 08:30 | W.PM.OPN ---
Operative Note Operative Note Date of Service: 02/19/25 Narrative: Date of Service: 02/19/25 Pre-op diagnosis: Right distal femoral periprosthetic fracture Post-op diagnosis: same Procedure: Right femur retrograde nail Implants: Alph 2 [place] [id number] retrograde femoral nail Surgeon: Italo Lomeli MD Anesthesia: GLMA and local Was an Service Member used for this Procedure?: Yes Service Member: Peng Haskins Estimated blood loss (mL): 150 IV fluids (mL): 200 Pathology: none sent Condition: stable Disposition: PACU Patient was brought to the operating room and placed supine on the fracture table. She was prepped and draped in standard sterile fashion and a time out was called to identify proper site, proper procedure and IV antibiotics per weight were administered. I began by flexing the knee up and making a small 1 cm incision between the distal pole of the patella and the tibial tubercle directly midline. Using lateral and AP fluoro I placed the guidewire into the femur through the open box of the femoral prosthesis. I then made a larger incision transpatellar tendon. A tissue retractor was placed and I over-reamed with a 12.5 opening reamer. A ball tipped guidewire was ten placed across the fracture. This was a distal comminuted and impacted fracture and his bone quality was extremely poor. With the fracture in a reduced position, I was able to pass a 13 reamer up the femoral canal to the level of the lesser without resistance. I then measured and placed a 320x10 mm nail. The nail was inserted. Using the targeting guide, 3 screws in the distal metaphysis and one proximal into the distal shaft were placed using standard AO technique. Using perfect asa'[place] technique 2 proximal interlocking screws were placed. Final radiographs showed acceptable positioning of the hardware and fracture alignement. I irrigated copiously and then closed with absorbable sutures and skin luis e. Patient was then placed in sterile dressing and extubated. He was brought to the recovery room in stable condition. There were no known complications.
== END 2025-03-01 18:53 | disposition skilled nursing facility (03) | DRG 956 ==
LOC: HO.ED 19:01 → HO.EDOVER 19:11 → HO.S3 23:45
PROVIDERS: Hospitalist; Internal Medicine; Orthopaedic Surgery; Physician Assistant; Admitting Provider Internal Medicine; Emergency Provider Emergency Medicine; PCP Nurse Practitioner; Visit Provider Internal Medicine
PROC: 0QSB36Z Reposition Right Lower Femur with Intramedullary Internal Fixation Device, Percutaneous Approach (ICD-10-PCS; principal; 2025-02-19 20:00)
DX: S72.411A Displaced unspecified condyle fracture of lower end of right femur, initial encounter for closed fracture (principal); T79.6XXA Traumatic ischemia of muscle, initial encounter; I21.A1 Myocardial infarction type 2; E87.21 Acute metabolic acidosis; S42.211A Unspecified displaced fracture of surgical neck of right humerus, initial encounter for closed fracture; M97.11XA Periprosthetic fracture around internal prosthetic right knee joint, initial encounter; I48.92 Unspecified atrial flutter; D62 Acute posthemorrhagic anemia; I12.9 Hypertensive chronic kidney disease with stage 1 through stage 4 chronic kidney disease, or unspecified chronic kidney disease; Z66 Do not resuscitate; N18.31 Chronic kidney disease, stage 3a; E11.22 Type 2 diabetes mellitus with diabetic chronic kidney disease; R94.31 Abnormal electrocardiogram [ECG] [EKG]; E66.811 Obesity, class 1; I95.2 Hypotension due to drugs; T40.2X5A Adverse effect of other opioids, initial encounter; T44.7X5A Adverse effect of beta-adrenoreceptor antagonists, initial encounter; I45.10 Unspecified right bundle-branch block; E86.0 Dehydration; E86.1 Hypovolemia; R33.9 Retention of urine, unspecified; C50.919 Malignant neoplasm of unspecified site of unspecified female breast; Z71.3 Dietary counseling and surveillance; Z68.33 Body mass index [BMI] 33.0-33.9, adult; W19.XXXA Unspecified fall, initial encounter; E03.9 Hypothyroidism, unspecified; Z79.4 Long term (current) use of insulin; Z79.82 Long term (current) use of aspirin; Z79.811 Long term (current) use of aromatase inhibitors; Z79.890 Hormone replacement therapy; Z79.899 Other long term (current) drug therapy
CPT/HCPCS: 36415; 70450; 71045; 72125; 72170; 73060; 73564; 80048; 80053; 81001; 82272; 82550; 82607; 82746; 82947; 83540; 83605; 83735; 83880; 84484; 85025; 85027; 86850; 86900; 86901; 86923; 87040; 93005; 93306; 97110; 97162; 97166; 97530; 99285; C1713; J0131; J0690; J0696; J1171; J2003; J2270; J2405; J2704; J2795; J3010; J7120; P9016; Q9957

== ENCOUNTER → 2025-02-18 15:27 | Outpatient (BNV) | payer MEDICARE, OTHER, SELFPAY | PROVIDERS: Admitting Provider Internal Medicine; Emergency Provider Emergency Medicine; PCP Nurse Practitioner; Visit Provider Internal Medicine | DX: I49.1 Atrial premature depolarization (principal) | CPT/HCPCS: 93010 ==

== ENCOUNTER → 2025-02-18 15:27 | Outpatient (BNV) | payer MEDICARE, OTHER, SELFPAY | PROVIDERS: Emergency Provider Emergency Medicine; PCP Nurse Practitioner; Visit Provider Radiology Diagnostic Radiology | DX: M47.812 Spondylosis without myelopathy or radiculopathy, cervical region (principal); R90.82 White matter disease, unspecified | CPT/HCPCS: 70450; 72125 ==

== ENCOUNTER 2025-02-18 19:02 | Outpatient (BNV) | payer OTHER, SELFPAY | END 2025-02-22 03:36 | PROVIDERS: Admitting Provider Internal Medicine; Emergency Provider Emergency Medicine; PCP Nurse Practitioner; Visit Provider Internal Medicine Cardiovascular Disease | DX: I48.92 Unspecified atrial flutter (principal); I45.10 Unspecified right bundle-branch block; I48.91 Unspecified atrial fibrillation | CPT/HCPCS: 93010; 93306 ==

== ENCOUNTER 2025-02-18 19:02 | Outpatient (BNV) | payer MEDICARE, OTHER, SELFPAY | END 2025-02-19 08:04 | PROVIDERS: Admitting Provider Internal Medicine; Emergency Provider Emergency Medicine; PCP Nurse Practitioner; Visit Provider Internal Medicine | DX: Z13.6 Encounter for screening for cardiovascular disorders (principal) | CPT/HCPCS: 93010 ==

== ENCOUNTER 2025-02-18 19:02 | Outpatient (BNV) | payer OTHER, SELFPAY | END 2025-02-22 11:52 | PROVIDERS: Admitting Provider Internal Medicine; Emergency Provider Emergency Medicine; PCP Nurse Practitioner; Visit Provider Radiology Diagnostic Radiology | DX: R06.00 Dyspnea, unspecified (principal); S42.211A Unspecified displaced fracture of surgical neck of right humerus, initial encounter for closed fracture | CPT/HCPCS: 71045 ==

== ENCOUNTER → 2025-02-18 19:02 | Outpatient (BNV) | payer MEDICARE, OTHER, SELFPAY | PROVIDERS: Admitting Provider Internal Medicine; Emergency Provider Emergency Medicine; PCP Nurse Practitioner; Visit Provider Internal Medicine | DX: I48.91 Unspecified atrial fibrillation (principal); N18.31 Chronic kidney disease, stage 3a; R33.9 Retention of urine, unspecified; S42.211A Unspecified displaced fracture of surgical neck of right humerus, initial encounter for closed fracture; M97.8XXA Periprosthetic fracture around other internal prosthetic joint, initial encounter; Z96.659 Presence of unspecified artificial knee joint; M62.82 Rhabdomyolysis; W01.0XXA Fall on same level from slipping, tripping and stumbling without subsequent striking against object, initial encounter | CPT/HCPCS: 99223; 99232; 99239 ==

== ENCOUNTER → 2025-02-18 19:02 | Outpatient (BNV) | payer MEDICARE, OTHER, SELFPAY | PROVIDERS: Admitting Provider Internal Medicine; Emergency Provider Emergency Medicine; PCP Nurse Practitioner; Visit Provider Orthopaedic Surgery | DX: M97.8XXA Periprosthetic fracture around other internal prosthetic joint, initial encounter (principal); Z96.659 Presence of unspecified artificial knee joint; S42.211A Unspecified displaced fracture of surgical neck of right humerus, initial encounter for closed fracture | CPT/HCPCS: 27506; 99024; 99223 ==

== ENCOUNTER → 2025-02-18 19:02 | Outpatient (BNV) | payer OTHER, SELFPAY | PROVIDERS: Admitting Provider Internal Medicine; Emergency Provider Emergency Medicine; PCP Nurse Practitioner; Visit Provider Internal Medicine Cardiovascular Disease | DX: R94.31 Abnormal electrocardiogram [ECG] [EKG] (principal) | CPT/HCPCS: 99223 ==

== ENCOUNTER 2025-03-10 11:00 | Outpatient (AMB) | payer OTHER, SELFPAY ==
--- NOTE | 2025-03-10 12:35 | MHC.OFFVIS ---
Intake Visit Reasons: PO - right femur retrograde nail 02/19/25 NE Intake Note: Mavis is a 89 year old female who presents today for a post op appointment status post right femur retrograde nail 02/19/25 NE. Patient reports she is in a lot of pain in her shoulder and her right knee. Allergies No Known Allergies Allergy (Verified 03/10/25 12:35) HPI HPI PO - right femur retrograde nail 02/19/25 NE: Details: Ms. Wilder is an 89-year-old female who presents to the office today status post right femur retrograde IM nail performed on 02/19/[address] Lomeli and a follow up of a right proximal humerus fracture in which she sustained a both injuries on 02/18/2025. Patient has been in a rehab facility recovering. She reports she has significant pain in the right lower extremity as well as a right upper extremity. She has been nonweightbearing on the right lower and upper extremities. She was instructed that she could TT WB for transfers only. [facility] Medical History Osteoarthritis Numbness and tingling of both feet Hx of cardiac murmur Hypothyroidism Hypertension Diabetes mellitus Hx of breast cancer Surgical History Hx of hemorrhoidectomy History of knee replacement S/P lumpectomy, right breast Hx of colonoscopy Social History Household Members: None Housing: House Do you presently have visiting nurse or other home services: No Alcohol intake: never Comment: Tylenol 650 mg PO given at 10:45 Patient Tobacco Use Status: Never used Tobacco service: No Review of Systems Const All systems reviewed & are unremarkable except as noted in HPI and below Physical Exam Const General: cooperative, healthy appearing and no acute distress Resp Effort & Inspection: normal respiratory effort and able to speak in complete sentences Extrem Other: Right upper extremity in a sling. Able to flex and extend at the wrist. Sensation intact. Radial pulse intact. Right lower extremity luis e intact no surrounding erythema or drainage. No signs of infection. Able to perform passive range of motion 0-20 degrees. To dorsiflex and plantar flex. NVI. Psych Appearance: grossly normal Mental Status: mental status grossly normal Attitude: cooperative Assessment & Plan Assessment & Plan (1) Periprosthetic fracture around internal prosthetic knee joint: Code(s): M97.8XXA - Periprosthetic fracture around other internal prosthetic joint, initial encounter; Z96.659 - Presence of unspecified artificial knee joint Category: Medical (2) Fracture, humerus: Code(s): S42.309A - Unspecified fracture of shaft of humerus, unspecified arm, initial encounter for closed fracture Category: Medical Qualifiers: Encounter type: initial encounter Fracture alignment: displaced Fracture morphology: unspecified fracture morphology Fracture type: closed Humerus Location: surgical neck Laterality: right Qualified Code(s): S42.211A - Unspecified displaced fracture of surgical neck of right humerus, initial encounter for closed fracture Plan Ms. Wilder is an 89-year-old female who presents to the office today status post right femur retrograde IM nail performed on 02/19/[address] Lomeli and a follow up of a right proximal humerus fracture in which she sustained a both injuries on 02/18/2025. Patient has been in a rehab facility recovering. She reports she has significant pain in the right lower extremity as well as a right upper extremity. She has been nonweightbearing on the right lower and upper extremities. She was instructed that she could TTWB for transfers only. While in the office today, Dr. Lomeli was available to see the patient with me in a collaborative treatment plan was created. For the right upper extremity proximal humerus fracture patient will use a sling for comfort only. Encouraged the patient to come out to work on elbow hand and wrist range of motion and to let the arm hang. This was also placed in the consult form for the physical therapist at the rehab facility. In regards to the right lower extremity. She will wear the brace at all times. She will continue TTWB for transfers only otherwise she will remain nonweightbearing. Physical therapy may work on gentle knee 0 to 30 degrees. She will follow up in 2 weeks with repeat x-rays, sooner if needed. X-rays of the right femur which were obtained while in the office today and were reviewed by me, Sowmya Parker PA-C, revealed redemonstration comminuted distal femur fracture with orthopedic hardware in place. Orders: Orders XR femur RT 2V Today M97.8XXA - Periprosthetic fracture around other internal prosthetic joint, initial encounter, Z96.659 - Presence of unspecified artificial knee joint Coding Level of Care Code Global (48283) Diagnoses Periprosthetic fracture around internal prosthetic knee joint M97.8XXA; Z96.659 Fracture, humerus S42.211A Encounter type: initial encounter Fracture alignment: displaced Fracture morphology: unspecified fracture morphology Fracture type: closed Humerus Location: surgical neck Laterality: right
--- OUTSIDE RECORDS SUMMARY | 2025-03-10 13:09 | XMS_ITS | Encounter Summary ---
Author Organization [facility] Address [address] [place] [address] Care Team Providers Care Software Educator Name Role Phone Tomer Jackson MD Primary Care Provider [phone] [phone] Encounter Details Date Type Department Care Team (Late st Contact Info) Description 03/02/2025 Lab Requisition [facility] - Main Lab [address] [facility] [place] [address] Paula Sanches MD [address] [id number] Essential (primary) hypertension; Hypothyroidism, unspecified; Type 2 diabetes mellitus without complications (CMS/HCC V24, CMS/HCC V28) Social History Tobacco Use Types Packs/Day Years Used Date Smoking Tobacco: Never Assessed Comments Unknown Sex and Gender Information Value Date Recorded Sex Assigned at Not on file Legal Sex Female 11:59 AM EST Gender Identity Not on file Sexual Orientation Not on file documented as of this encounter Plan of Treatment Not on file documented as of this encounter Procedures Procedure Name Priority Date/Time Associated Diagnosis Comments COMPLETE BLOOD COUNT Routine 03/02/2025 5:09 AM EDT Essential (primary) hypertension Hypothyroidism, unspecified Type 2 diabetes mellitus without complications (CMS/HCC V24, CMS/HCC V28) THYROID STIMULATING HORMONE Routine 03/02/2025 5:09 AM EDT Essential (primary) hypertension Hypothyroidism, unspecified Type 2 diabetes mellitus without complications (CMS/HCC V24, CMS/HCC V28) HEMOGLOBIN A1C Routine 03/02/2025 5:09 AM EDT Essential (primary) hypertension Hypothyroidism, unspecified Type 2 diabetes mellitus without complications (CMS/HCC V24, CMS/HCC V28) BASIC METABOLIC PANEL Routine 03/02/2025 5:09 AM EDT Essential (primary) hypertension Hypothyroidism, unspecified Type 2 diabetes mellitus without complications ([facility] V24, [facility] V28) documented in this encounter Results * (ABNORMAL) Thyroid stimulating hormone (03/02/2025 5:09 AM EDT) [facility] TSH 15.76(H) 0.40 - 4.00 mcIU/mL LAB CHEMISTRY METHOD 03/02/2025 9:11 AM EDT [facility] Blood Venous blood specimen / Unknown Venipuncture / Unknown 03/02/2025 5:09 AM EDT 03/02/2025 7:30 AM EDT Paula Sanches MD LAB BLOOD ORDERABLES Fin al Result Performing Organization Address [facility]/ZIP Co de Phone Number [facility] [address] [place] [address], [place] [phone] * Hemoglobin A1c (03/02/2025 5:09 AM EDT) [facility] Hemoglobin A1C 6.2 <6.5 % LAB CHEMISTRY METHOD 03/02/2025 2:03 PM EDT [facility] Mean Bld Glu Estim. 131 mg/dL LAB CHEMISTRY METHOD 03/02/2025 2:03 PM EDT [facility] Blood Venous blood specimen / Unknown Venipuncture / Unknown 03/02/2025 5:09 AM EDT 03/02/2025 7:30 AM EDT Paula Sanches MD LAB BLOOD ORDERABLES Fin al Result Performing Organization Address City/[facility]/ZIP Co de Phone Number [facility] [address] [place] [address], [place] [phone] * (ABNORMAL) Basic metabolic panel (03/02/2025 5:09 AM EDT) Sodium 135 133 - 145 mmol/L LAB CHEMISTRY METHOD 03/02/2025 8:27 AM [facility] Potassium 4.5 3.5 - 5.5 mmol/L LAB CHEMISTRY METHOD 03/02/2025 8:27 AM [facility] Chloride 99 96 - 110 mmol/L LAB CHEMISTRY METHOD 03/02/2025 8:27 AM [facility] CO2 30 21 - 32 mmol/L LAB CHEMISTRY METHOD 03/02/2025 8:27 AM [facility] Anion Gap 6 3 - 11 LAB CHEMISTRY METHOD 03/02/2025 8:27 AM [facility] Glucose 146(H) 70 - 100 mg/dL LAB CHEMISTRY METHOD 03/02/2025 8:27 AM [facility] BUN 19 5 - 25 mg/dL LAB CHEMISTRY METHOD 03/02/2025 8:27 AM [facility] Creatinine 0.81 0.50 - 1.10 mg/dL LAB CHEMISTRY METHOD 03/02/2025 8:27 AM [facility] eGFR 69 >=60 mL/min/1. 73m2 LAB CHEMISTRY METHOD 03/02/2025 8:27 AM [facility] Comment:Calculation based on the Chronic Kidney Disease Epidemiology Collaboration (CKD-EPI) equation refit without adjustment for race. BUN/Creatinine Ratio 23.5 LAB CHEMISTRY METHOD 03/02/2025 8:27 AM [facility] Calcium 8.7 8.5 - 10.5 mg/dL LAB CHEMISTRY METHOD 03/02/2025 8:27 AM [facility] Blood Venous blood specimen / Unknown Venipuncture / Unknown 03/02/2025 5:09 AM EDT 03/02/2025 7:30 AM EDT Paula Sanches MD LAB BLOOD ORDERABLES Fin al Result [facility] [address] [place] [address], * (ABNORMAL) Complete blood count (03/02/2025 5:09 AM EDT) WBC 16.1(H) 4.8 - 10.8 K/mcL LAB HEMETOLOGY METHOD 03/02/2025 7:51 AM EDT [facility] RBC 3.20(L) 3.80 - 4.80 M/mcL LAB HEMETOLOGY METHOD 03/02/2025 7[facility] Hemoglobin 9.4(L) 11.5 - 16.0 g/dL LAB HEMETOLOGY METHOD 03/02/2025 7:51 AM [facility] Hematocrit 30.6(L) 35.0 - 47.0 % LAB HEMETOLOGY METHOD 03/02/2025 7:51 AM [facility] MCV 96.8 79.0 - 98.0 FL LAB HEMETOLOGY METHOD 03/02/2025 7:51 AM [facility] MCH 29.7 27.0 - 32.0 pcg LAB HEMETOLOGY METHOD 03/02/2025 7:51 AM [facility] MCHC 30.7(L) 32.0 - 37.0 g/dL LAB HEMETOLOGY METHOD 03/02/2025 7:51 AM [facility] RDW 20.6(H) 11.0 - 15.0 % LAB HEMETOLOGY METHOD 03/02/2025 7:51 AM [facility] Platelets 406(H) 130 - 400 K/mcL LAB HEMETOLOGY METHOD 03/02/2025 7:51 AM [facility] MPV 9.6 7.0 - 11.0 FL LAB HEMETOLOGY METHOD 03/02/2025 7:51 AM EDT [facility] NRBC 0.0 <1.0 % LAB HEMETOLOGY METHOD 03/02/2025 7:51 AM EDT [facility] NRBC Absolute 0.00 <0.10 K/mcL LAB HEMETOLOGY METHOD 03/02/2025 7:51 AM EDT [facility] Blood Venous blood specimen / Unknown Venipuncture / Unknown 03/02/2025 5:09 AM EDT 03/02/2025 7:30 AM EDT us Paula Sanches MD LAB BLOOD ORDERABLES Fin al Result [facility] [address] [place] [address], documented in this encounter Visit Diagnoses Diagnosis Essential (primary) hypertension Unspecified essential hypertension Hypothyroidism, unspecified Type 2 diabetes mellitus without complications (CMS/HCC V24, CMS/HCC V28) documented in this encounter Care Teams Software Educator Relationship Specialty Start Date End Date Tomer Jackson MD [address] [place] [address] PCP - General 02/18/23 documented as of this encounter
--- OUTSIDE RECORDS SUMMARY | 2025-03-10 13:09 | XMS_ITS | Encounter Summary ---
Author Organization [facility] Address [address] [place] [address] Care Team Providers Care Customer Care Coordinator Name Role Phone Tomer Jackson MD Primary Care Provider [phone] [phone] Encounter Details Date Type Department Care Team (Late st Contact Info) Description 03/08/2025 Lab Requisition [facility] - Main Lab 299 [facility] [place] [address] Paula Sanches MD [address] [phone] Hyperkalemia Social History Tobacco Use Types Packs/Day Years [...] Procedure Name Priority Date/Time Associated Diagnosis Comments BASIC METABOLIC PANEL Routine 03/09/2025 6:52 AM EDT Hyperkalemia documented in this encounter Results * (ABNORMAL) Basic metabolic panel (03/09/2025 6:52 AM EDT) Sodium 128(L) 133 - 145 mmol/L LAB CHEMISTRY METHOD 03/09/2025 11:05 AM EDT [facility] Potassium 6.2(HH) 3.5 - 5.5 mmol/L LAB CHEMISTRY METHOD 03/09/2025 11:05 AM T [facility] Chloride 93(L) 96 - 110 mmol/L LAB CHEMISTRY METHOD 03/09/2025 11:05 AM [facility] CO2 27 21 - 32 mmol/L LAB CHEMISTRY METHOD 03/09/2025 11:05 AM [facility] Anion Gap 8 3 - 11 LAB CHEMISTRY METHOD 03/09/2025 11:05 AM [facility] Glucose 105(H) 70 - 100 mg/dL LAB CHEMISTRY METHOD 03/09/2025 11:05 AM [facility] BUN 61(H) 5 - 25 mg/dL LAB CHEMISTRY METHOD 03/09/2025 11:05 AM [facility] Creatinine 2.01(H) 0.50 - 1.10 mg/dL LAB CHEMISTRY METHOD 03/09/2025 11:05 AM [facility] eGFR 23(L) >=60 mL/min/1. 73m2 LAB CHEMISTRY METHOD 03/09/2025 11:05 AM [facility] Comment:Calculation based on the Chronic Kidney Disease Epidemiology Collaboration (CKD-EPI) equation refit without adjustment for race. BUN/Creatinine Ratio 30.3 LAB CHEMISTRY METHOD 03/09/2025 11:05 AM [facility] Calcium 8.4(L) 8.5 - 10.5 mg/dL LAB CHEMISTRY METHOD 03/09/2025 11:05 AM [facility] Blood Venous blood specimen / Unknown Venipuncture / Unknown 03/09/2025 6:52 AM EDT 03/09/2025 9:14 AM EDT us Paula Sanches MD LAB BLOOD ORDERABLES Fin al Result [facility] [address] [place] [address], documented in this encounter Visit Diagnoses Diagnosis Hyperkalemia Hyperpotassemia documented in this encounter Care Teams Customer Care Coordinator Relationship Specialty Start Date End Date Tomer Jackson MD [facility] [address] [place] [address] PCP - General 02/18/23 documented as of this encounter
--- OUTSIDE RECORDS SUMMARY | 2025-03-10 13:09 | XMS_ITS | Encounter Summary ---
Author Organization [facility] Address [address] [place] [address] Care Team Providers Care Development Planner Name Role Phone Tomer Jackson MD Primary Care Provider [phone] [phone] Encounter Details Date Type Department Care Team (Late st Contact Info) Description 03/04/2025 Lab Requisition [facility] - Main Lab [address] [facility] [place] [address] Paula Sanches MD [address] [phone] Essential (primary) hypertension Social History Tobacco Use Types Packs/Day Years [...] Associated Diagnosis Comments COMPLETE BLOOD COUNT Routine 03/07/2025 5:28 AM EDT Essential (primary) hypertension BASIC METABOLIC PANEL Routine 03/07/2025 5:28 AM EDT Essential (primary) hypertension documented in this encounter Results * (ABNORMAL) Basic metabolic panel (03/07/2025 5:28 AM EDT) Sodium 130(L) 133 - 145 mmol/L LAB CHEMISTRY METHOD 03/07/2025 11:08 AM EDT [facility] Potassium 5.9(H) 3.5 - 5.5 mmol/L LAB CHEMISTRY METHOD 03/07/2025 11:08 AM [facility] Chloride 93(L) 96 - 110 mmol/L LAB CHEMISTRY METHOD 03/07/2025 11:08 AM [facility] CO2 29 21 - 32 mmol/L LAB CHEMISTRY METHOD 03/07/2025 11:08 AM [facility] Anion Gap 8 3 - 11 LAB CHEMISTRY METHOD 03/07/2025 11:08 AM [facility] Glucose 105(H) 70 - 100 mg/dL LAB CHEMISTRY METHOD 03/07/2025 11:08 AM [facility] BUN 54(H) 5 - 25 mg/dL LAB CHEMISTRY METHOD 03/07/2025 11:08 AM [facility] Comment:Results verified by repeat testing Creatinine 1.63(H) 0.50 - 1.10 mg/dL LAB CHEMISTRY METHOD 03/07/2025 11:08 AM [facility] Comment:Results verified by repeat testing eGFR 30(L) >=60 mL/min/1. 73m2 LAB CHEMISTRY METHOD 03/07/2025 11:08 AM [facility] Comment:Calculation based on the Chronic Kidney Disease Epidemiology Collaboration (CKD-EPI) equation refit without adjustment for race. BUN/Creatinine Ratio 33.1 LAB CHEMISTRY METHOD 03/07/2025 11:08 AM [facility] Calcium 9.0 8.5 - 10.5 mg/dL LAB CHEMISTRY METHOD 03/07/2025 11:08 AM [facility] Blood Venous blood specimen / Unknown Venipuncture / Unknown 03/07/2025 5:28 AM EDT 03/07/2025 9:49 AM EDT us Paula Sanches MD LAB BLOOD ORDERABLES Fin al Result [facility] [address] [place] [address], * (ABNORMAL) Complete blood count (03/07/2025 5:28 AM EDT) [facility] WBC 14.5(H) 4.8 - 10.8 K/mcL LAB HEMETOLOGY METHOD 03/07/2025 10:26 AM [facility] RBC 3.30(L) 3.80 - 4.80 M/mcL LAB HEMETOLOGY METHOD 03/07/2025 10:26 AM [facility] Hemoglobin 9.7(L) 11.5 - 16.0 g/dL LAB HEMETOLOGY METHOD 03/07/2025 10:26 AM [facility] Hematocrit 31.9(L) 35.0 - 47.0 % LAB HEMETOLOGY METHOD 03/07/2025 10:26 AM [facility] MCV 97.0 79.0 - 98.0 FL LAB HEMETOLOGY METHOD 03/07/2025 10:26 AM [facility] MCH 29.5 27.0 - 32.0 pcg LAB HEMETOLOGY METHOD 03/07/2025 10:26 AM [facility] MCHC 30.4(L) 32.0 - 37.0 g/dL LAB HEMETOLOGY METHOD 03/07/2025 10:26 AM [facility] RDW 19.1(H) 11.0 - 15.0 % LAB HEMETOLOGY METHOD 03/07/2025 10:26 AM [facility] Platelets 587(H) 130 - 400 K/mcL LAB HEMETOLOGY METHOD 03/07/2025 10:26 AM [facility] MPV 9.4 7.0 - 11.0 FL LAB HEMETOLOGY METHOD 03/07/2025 10:26 AM [facility] NRBC 0.0 <1.0 % LAB HEMETOLOGY METHOD 03/07/2025 10:26 AM EDT [facility] NRBC Absolute 0.00 <0.10 K/mcL LAB HEMETOLOGY METHOD 03/07/2025 10:26 AM EDT [facility] Blood Venous blood specimen / Unknown Venipuncture / Unknown 03/07/2025 5:28 AM EDT 03/07/2025 9:49 AM EDT us Paula Sanches MD LAB BLOOD ORDERABLES Fin al Result [facility] [address] [place] [address], documented in this encounter Visit Diagnoses Diagnosis Essential (primary) hypertension Unspecified essential hypertension documented in this encounter Care Teams Development Planner Relationship Specialty Start Date End Date Tomer Jackson MD [address] [place] [address] PCP - General 02/18/23 documented as of this encounter
--- OUTSIDE RECORDS SUMMARY | 2025-03-10 13:09 | XMS_ITS | Clinical Summary ---
Author Organization [facility], Address [address] [place] [address] Phone Care Team Providers Care Workforce Specialist Name Role Phone Lizette Lovelace Primary Care Provider +1 [phone] Allergies Active Allergy Reactions Criticality Noted Date [...] PM EDT) Hemoglobin A1C 6.7(H) (4.0-5.6) % [facility] Comment: MONITORING: In known diabetic patients, hemoglobin A1c targets should be discussed with health care provider. DIAGNOSTIC USE: The [place] Diabetes Association (ADA) and the World Health [...] Supplement 1 Testing performed or reported by [facility], a Service of [facility], [address] [place] [address] Gabriel Albrecht MD, Orthopedic Physician Assistant [facility]# [id number] Blood specimen (specimen) Venous blood / Unknown 11/11/2022 3:54 PM EDT 11/11/2022 3:58 PM EDT us Panda Moe MD LAB BLOOD ORDERABLES Final Res ult [facility] from Last 3 Months or Most Recently Relevant to Health Maintenance Insurance [facility] Medicare [facility] Medicaid [place] Care Teams Workforce Specialist Relationship Specialty Start Date End Date Lizette Lovelace PA [address] [place], [place] PCP - General Physician Rn Disease Management 10/16/22
--- OUTSIDE RECORDS SUMMARY | 2025-03-10 13:09 | XMS_ITS | Encounter Summary ---
Author Organization [facility] [employer] Address [address] [place] [address] Phone Care Team Providers Care Head Mixer Name Role Phone Lizette Lovelace Primary Care Provider +1 -[phone] Encounter Details Date Type Department Care Team (Late st Contact Info) Description 10/30/2022 Documentation Only [facility], [address] [place] [address] Lizette Lovelace PA [address] [place] [phone] Social History Tobacco Use Types Packs/Day Years [...] on filedocumented in this encounter Care Teams Head Mixer Relationship Specialty Start Date End Date Lizette Lovelace PA [address] [facility] [address] [place], [place] PCP - General Physician Django Developer 10/16/22 documented as of this encounter
--- OUTSIDE RECORDS SUMMARY | 2025-03-10 13:09 | XMS_ITS | Encounter Summary ---
Author Organization [facility] Address [address] [place] [address] Care Team Providers Care Salon Sales Consultant Name Role Phone Tomer Jackson MD Primary Care Provider [phone] [phone] Encounter Details Date Type Department Care Team (Late st Contact Info) Description 03/03/[address] [facility] - Main Lab [address] [place] [address] Paula Sanches MD [address] [phone] Elevated white blood cell count, unspecified Social History Tobacco Use Types Packs/Day Years [...] Procedure Name Priority Date/Time Associated Diagnosis Comments CULTURE BLOOD Routine 03/03/2025 5:12 AM EDT Elevated white blood cell count, unspecified documented in this encounter Results * Culture blood (03/03/2025 5:12 AM EDT) Culture, Blood No growth at 5 days LAB MICROBIOLOGY METHOD 03/08/2025 11:[address] [facility] Blood Venipuncture / Unknown 03/03/2025 5:12 AM EDT 03/03/2025 9:00 AM EDT us Paula Sanches MD LAB MICROBIOLOGY - GENER AL ORDERABLES Final Result [facility] [address] [place] [address], documented in this encounter Visit Diagnoses Diagnosis Elevated white blood cell count, unspecified documented in this encounter Care Teams Salon Sales Consultant Relationship Specialty Start Date End Date Tomer Jackson MD [address] [place] [address] PCP - General 02/18/23 documented as of this encounter
--- OUTSIDE RECORDS SUMMARY | 2025-03-10 13:09 | XMS_ITS | Encounter Summary ---
Author Organization [facility] Address [address] [place] [address] Care Team Providers Care Link Machine Operator Name Role Phone Tomer Jackson MD Primary Care Provider [phone] [phone] Encounter Details Date Type Department Care Team (Late st Contact Info) Description 03/03/2025 Lab Requisition [facility] - Main Lab 299 [facility] [place] [address] Paula Sanches MD [address] [phone] Elevated white blood cell count, unspecified; Urinary tract infection, site not specified Social History Tobacco Use Types Packs/Day Years [...] Procedure Name Priority Date/Time Associated Diagnosis Comments URINALYSIS WITH REFLEX MICROSCOPIC Routine 03/02/2025 2:02 PM EDT Elevated white blood cell count, unspecified Urinary tract infection, site not specified URINALYSIS WITH REFLEX MICROSCOPIC Routine 03/02/2025 2:02 PM EDT Elevated white blood cell count, unspecified Urinary tract infection, site not specified CULTURE URINE Routine 03/02/2025 2:02 PM EDT Elevated white blood cell count, unspecified Urinary tract infection, site not specified documented in this encounter Results * (ABNORMAL) Urinalysis with reflex microscopic (03/02/2025 2:02 PM EDT) [facility] Specific [place] Urine 1.013 1.003 - 1.030 LAB URINALYSIS - AUTOMATED METHOD 03/03/2025 10:36 AM [facility] pH, Urine 6.0 5.0 - 8.0 pH LAB URINALYSIS - AUTOMATED METHOD 03/03/2025 10:36 AM [facility] Leukocytes, Urine Large(A) Negative LAB URINALYSIS - AUTOMATED METHOD 03/03/2025 10:36 AM [facility] Nitrite, Urine Negative Negative LAB URINALYSIS - AUTOMATED METHOD 03/03/2025 10:36 AM [facility] Protein, Urine 100(A) <=Trace mg/dL LAB URINALYSIS - AUTOMATED METHOD 03/03/2025 10:36 AM [facility] Glucose, Urine 100(A) Negative mg/dL LAB URINALYSIS - AUTOMATED METHOD 03/03/2025 10:36 AM [facility] Ketones, Urine Trace(A) Negative mg/dL LAB URINALYSIS - AUTOMATED METHOD 03/03/2025 10:36 AM [facility] Urobilinogen , Urine 0.2 0.2 - 1.0 mg/dL LAB URINALYSIS - AUTOMATED METHOD 03/03/2025 10:36 AM [facility] Bilirubin, Urine Negative Negative LAB URINALYSIS - AUTOMATED METHOD 03/03/2025 10:36 AM [facility] Blood, Urine Large(A) Negative LAB URINALYSIS - AUTOMATED METHOD 03/03/2025 10:36 AM [facility] RBC, Urine 5(H) 0 - 4 /HPF LAB URINALYSIS - AUTOMATED METHOD 03/03/2025 10:36 AM [facility] WBC, Urine >4,000(H) 0 - 4 /HPF LAB URINALYSIS - AUTOMATED METHOD 03/03/2025 10:36 AM [facility] Squamous Epithelial, Urine 73(H) 0 - 60 /LPF LAB URINALYSIS - AUTOMATED METHOD 03/03/2025 10:36 AM EDT [facility] Bacteria, Urine Many(A) Negative /HPF LAB URINALYSIS - AUTOMATED METHOD 03/03/2025 10:36 AM EDT [facility] Hyaline Casts, Urine 0.0 0 - 3 /LPF LAB URINALYSIS - AUTOMATED METHOD 03/03/2025 10:36 AM EDT [facility] Urine Urine specimen obtained by clean catch procedure / Unknown Non-blood Collection / Unknown 03/02/2025 2:02 PM EDT 03/03/2025 9:05 AM EDT us Paula Sanches MD LAB URINE ORDERABLES Fin al Result [facility] [address] [place] [address], * (ABNORMAL) Culture urine (03/02/2025 2:02 PM EDT) Culture, Urine >=100,000 CFU/mL Citrobacter werkmanii(A) MIRIAM 03/05/2025 10:20 AM EDT [facility] Comment: This is an edited result. Previous organism was Gram negative bacilli on 03/04/2025 at 0804 EDT. Urine Urine specimen obtained by clean catch procedure / Unknown Non-blood Collection / Unknown 03/02/2025 2:02 PM EDT 03/03/2025 9:05 AM EDT Narrative [facility] - 03/05/2025 10:20 AM EDT Additional colony types present in insignificant amounts. Organism Antibiotic Method Susceptibility Citrobacter werkmanii Amoxicillin/Clavulanate MIRIAM >=32 ug/ml: Resistant Citrobacter werkmanii Cefoxitin MIRIAM >=64 ug/ml: Resistant Citrobacter werkmanii Ceftazidime MIRIAM >=32 ug/ml: Resistant Citrobacter werkmanii Ceftriaxone MIRIAM >=64 ug/ml: Resistant Citrobacter werkmanii Cefepime MIRIAM <=0.12 ug/ml: Susceptible Citrobacter werkmanii Meropenem MIRIAM <=0.25 ug/ml: Susceptible Citrobacter werkmanii Amikacin MIRIAM 4 ug/ml: Susceptible Citrobacter werkmanii Gentamicin MIRIAM <=1 ug/ml: Susceptible Citrobacter werkmanii Ciprofloxacin MIRIAM 0.12 ug/ml: Susceptible Citrobacter werkmanii Levofloxacin MIRIAM 0.5 ug/ml: Susceptible Citrobacter werkmanii Nitrofurantoin MIRIAM <=16 ug/ml: Susceptible Citrobacter werkmanii Trimethoprim/Sulfa methoxazol e MIRIAM <=20 ug/ml: Susceptible Paula Sanches MD LAB MICROBIOLOGY - GENER AL ORDERABLES Final Result [facility] [address] [place] [address], documented in this encounter Visit Diagnoses Diagnosis Elevated white blood cell count, unspecified Urinary tract infection, site not specified documented in this encounter Care Teams Link Machine Operator Relationship Specialty Start Date End Date Tomer Jackson MD [address] [place] [address] PCP - General 02/18/23 documented as of this encounter
--- OUTSIDE RECORDS SUMMARY | 2025-03-10 13:09 | XMS_ITS | Encounter Summary ---
Author Organization [facility] Address [address] [place] [address] Care Team Providers Care Smoking Tobacco Packing Machine Hand Name Role Phone Tomer Jackson MD Primary Care Provider [phone] Encounter Details Date Type Department Care Team (Late st Contact Info) Description 03/10/2025 Lab Requisition [facility] - Main Lab 299 [facility] [place] [address] Paula Sanches MD [address] [phone] Urinary tract infection, site not specified Social History Tobacco Use Types Packs/Day Years Used Date Smoking Tobacco: Never Assessed Comments Unknown Sex and Gender Information Value Date Recorded Sex Assigned at Not on file Legal Sex Female 11:59 AM EST Gender Identity Not on file Sexual Orientation Not on file documented as of this encounter Plan of Treatment Pending Results Name Type Priority Associated Diagnoses Date /Time Culture urine Microbiology Routine Urinary tract infection, site not specified 03/10/2025 5:00 AM EDT documented as of this encounter Procedures Procedure Name Priority Date/Time Associated Diagnosis Comments URINALYSIS WITH REFLEX MICROSCOPIC AND CULTURE Routine 03/10/2025 5:00 AM EDT Urinary tract infection, site not specified [facility] URINE CULTURE TUBE Routine 03/10/2025 5:00 AM EDT Urinary tract infection, site not specified URINALYSIS WITH REFLEX MICROSCOPIC AND CULTURE Routine 03/10/2025 5:00 AM EDT Urinary tract infection, site not specified documented in this encounter Results * (ABNORMAL) Urinalysis with reflex microscopic and culture (03/10/2025 5:00 AM EDT) Specific [place] Urine 1.020 1.003 - 1.030 LAB URINALYSIS - AUTOMATED METHOD 03/10/2025 7:56 AM [facility] pH, Urine 5.5 5.0 - 8.0 pH LAB URINALYSIS - AUTOMATED METHOD 03/10/2025 7:56 AM [facility] Leukocytes, Urine Moderate(A) Negative LAB URINALYSIS - AUTOMATED METHOD 03/10/2025 7:56 AM [facility] Nitrite, Urine Negative Negative LAB URINALYSIS - AUTOMATED METHOD 03/10/2025 7:56 AM [facility] Protein, Urine Negative <=Trace mg/dL LAB URINALYSIS - AUTOMATED METHOD 03/10/2025 7:56 AM [facility] Glucose, Urine 500(A) Negative mg/dL LAB URINALYSIS - AUTOMATED METHOD 03/10/2025 7:56 AM [facility] Ketones, Urine Negative Negative mg/dL LAB URINALYSIS - AUTOMATED METHOD 03/10/2025 7:56 AM [facility] Urobilinogen , Urine 0.2 0.2 - 1.0 mg/dL LAB URINALYSIS - AUTOMATED METHOD 03/10/2025 7:56 AM [facility] Bilirubin, Urine Negative Negative LAB URINALYSIS - AUTOMATED METHOD 03/10/2025 7:56 AM [facility] Blood, Urine Negative Negative LAB URINALYSIS - AUTOMATED METHOD 03/10/2025 7:56 AM [facility] RBC, Urine 1.3 0 - 4 /HPF LAB URINALYSIS - AUTOMATED METHOD 03/10/2025 7:56 AM [facility] WBC, Urine 60.1(H) 0 - 4 /HPF LAB URINALYSIS - AUTOMATED METHOD 03/10/2025 7:56 AM [facility] Squamous Epithelial, Urine 18 0 - 60 /LPF LAB URINALYSIS - AUTOMATED METHOD 03/10/2025 7:56 AM EDT [facility] Bacteria, Urine Few(A) Negative /HPF LAB URINALYSIS - AUTOMATED METHOD 03/10/2025 7:56 AM EDT [facility] Hyaline Casts, Urine 0.0 0 - 3 /LPF LAB URINALYSIS - AUTOMATED METHOD 03/10/2025 7:56 AM EDT [facility] Urine Urine specimen obtained by clean catch procedure / Unknown Non-blood Collection / Unknown 03/10/2025 5:00 AM EDT 03/10/2025 7:08 AM EDT Paula Sanches MD LAB URINE ORDERABLES Fin al Result Performing Organization Address City/[facility]/ZIP Co de Phone Number [facility] [address] [place] [address], [place] [phone] * Manriquez urine culture tube (03/10/2025 5:00 AM EDT) Extra Tube Hold for add-ons. 03/10/2025 9:01 AM EDT [facility] Comment:Auto resulted. Urine Urine specimen obtained by clean catch procedure / Unknown Non-blood Collection / Unknown 03/10/2025 5:00 AM EDT 03/10/2025 7:08 AM EDT Paula Sanches MD LAB URINE ORDERABLES Fin al Result [facility] [address] [place] [address], [place] [phone] documented in this encounter Visit Diagnoses Diagnosis Urinary tract infection, site not specified documented in this encounter Care Teams Smoking Tobacco Packing Machine Hand Relationship Specialty Start Date End Date Tomer Jackson MD [facility] [place] [address] PCP - General 02/18/23 documented as of this encounter
--- OUTSIDE RECORDS SUMMARY | 2025-03-10 13:09 | XMS_ITS | Encounter Summary ---
Author Organization [facility] Address [address] [place] [address] Care Team Providers Care Doweler Name Role Phone Tomer Jackson MD Primary Care Provider [phone] Encounter Details Date Type Department Care Team (Late st Contact Info) Description 03/03/2025 Lab Requisition [facility] - Main Lab 299 [facility] [place] [address] Paula Sanches MD [address] [phone] Elevated white blood cell count, unspecified Social [...] Procedure Name Priority Date/Time Associated Diagnosis Comments CBC WITH AUTO DIFFERENTIAL Routine 03/03/2025 5:07 AM EDT Elevated white blood cell count, unspecified CULTURE BLOOD Routine 03/03/2025 5:07 AM EDT Elevated white blood cell count, unspecified CBC AND DIFFERENTIAL Routine 03/03/2025 5:07 AM EDT Elevated white blood cell count, unspecified documented in this encounter Results * (ABNORMAL) CBC auto differential (03/03/2025 5:07 AM EDT) WBC 14.1(H) 4.8 - 10.8 K/[facility] LAB HEMETOLOGY METHOD 03/03/2025 9:48 AM [facility] RBC 3.10(L) 3.80 - 4.80 M/mcL LAB HEMETOLOGY METHOD 03/03/2025 9:48 AM [facility] Hemoglobin 9.1(L) 11.5 - 16.0 g/dL LAB HEMETOLOGY METHOD 03/03/2025 9:48 AM [facility] Hematocrit 30.2(L) 35.0 - 47.0 % LAB HEMETOLOGY METHOD 03/03/2025 9:48 AM [facility] MCV 97.1 79.0 - 98.0 FL LAB HEMETOLOGY METHOD 03/03/2025 9:48 AM [facility] MCH 29.3 27.0 - 32.0 pcg LAB HEMETOLOGY METHOD 03/03/2025 9:48 AM [facility] MCHC 30.1(L) 32.0 - 37.0 g/dL LAB HEMETOLOGY METHOD 03/03/2025 9:48 AM [facility] RDW 20.2(H) 11.0 - 15.0 % LAB HEMETOLOGY METHOD 03/03/2025 9:48 AM [facility] Platelets 452(H) 130 - 400 K/mcL LAB HEMETOLOGY METHOD 03/03/2025 9:48 AM [facility] MPV 9.6 7.0 - 11.0 FL LAB HEMETOLOGY METHOD 03/03/2025 9:48 AM [facility] NRBC 0.0 <1.0 % LAB HEMETOLOGY METHOD 03/03/2025 9:48 AM [facility] NRBC Absolute 0.00 <0.10 K/mcL LAB HEMETOLOGY METHOD 03/03/2025 9:48 AM [facility] Neutrophils Relative 81.6 % LAB HEMETOLOGY METHOD 03/03/2025 9:48 AM [facility] Lymphocytes Relative 9.5 % LAB HEMETOLOGY METHOD 03/03/2025 9:48 AM [facility] Monocytes Relative 5.1 % LAB HEMETOLOGY METHOD 03/03/2025 9:48 AM [facility] Eosinophils Relative 2.0 % LAB HEMETOLOGY METHOD 03/03/2025 9:48 AM [facility] Basophils Relative 0.4 % LAB HEMETOLOGY METHOD 03/03/2025 9:48 AM [facility] Immature Granulocytes Relative 1.4 % LAB HEMETOLOGY METHOD 03/03/2025 9:48 AM [facility] Neutrophils Absolute 11.49(H) 1.50 - 7.00 K/mcL LAB HEMETOLOGY METHOD 03/03/2025 9:48 AM [facility] Lymphocytes Absolute 1.33 1.00 - 5.00 K/mcL LAB HEMETOLOGY METHOD 03/03/2025 9:48 AM [facility] Monocytes Absolute 0.71 0.20 - 1.00 K/mcL LAB HEMETOLOGY METHOD 03/03/2025 9:48 AM [facility] Eosinophils Absolute 0.28 0.00 - 0.50 K/mcL LAB HEMETOLOGY METHOD 03/03/2025 9:48 AM [facility] Basophils Absolute 0.05 0.00 - 0.20 K/mcL LAB HEMETOLOGY METHOD 03/03/2025 9:48 AM [facility] Immature Granulocytes Absolute 0.19(H) 0.00 - 0.03 K/mcL LAB HEMETOLOGY METHOD 03/03/2025 9:48 AM [facility] Blood Venous blood specimen / Unknown Venipuncture / Unknown 03/03/2025 5:07 AM EDT 03/03/2025 8:59 AM EDT us Paula Sanches MD LAB BLOOD ORDERABLES Fin al Result Performing Organization Address [facility]/ZIP Co de Phone Number [facility] [address] [place] [address], [place] [phone] * Culture blood (03/03/2025 5:07 AM EDT) Culture, Blood No growth at 5 days LAB MICROBIOLOGY METHOD 03/08/2025 11:[address] [facility] Blood Venipuncture / Unknown 03/03/2025 5:07 AM EDT 03/03/2025 8:59 AM EDT Paula Sanches MD LAB MICROBIOLOGY - GENER AL ORDERABLES Final Result Performing Organization Address [facility] Co de Phone Number [facility] [address] [place] [address], [place] [phone] documented in this encounter Visit Diagnoses Diagnosis Elevated white blood cell count, unspecified documented in this encounter Care Teams Doweler Relationship Specialty Start Date End Date Tomer Jackson MD [address] [place] [address] PCP - General 02/18/23 documented as of this encounter
--- OUTSIDE RECORDS SUMMARY | 2025-03-10 13:09 | XMS_ITS | Encounter Summary ---
Author Organization [facility] Address [address] [place] [address] Phone Care Team Providers Care Finished Carpet Inspector Name Role Phone Lizette Lovelace Primary Care Provider [phone] [phone] Encounter Details Date Type Department Care Team (Late st Contact Info) Description 10/30/2022 Documentation Only [facility], [address] [place] [address] Lieztte Lovelace PA [address] [place] [id number] Social History Tobacco Use Types Packs/Day Years [...] on filedocumented in this encounter Care Teams Finished Carpet Inspector Relationship Specialty Start Date End Date Lizette Lovleace PA [address] [facility] [address] [place], [place] PCP - General Physician Conservation Educator 10/16/22 documented as of this encounter
--- OUTSIDE RECORDS SUMMARY | 2025-03-10 13:09 | XMS_ITS | Clinical Summary ---
Author Organization [address] Address [address] [place] [address] Phone Care Team Providers Care Diecast Machine Operator Name Role Phone Tomer Jackson MD Primary Care Provider [phone] Encounters Date Type Department Care Team Description 03/10/2025 Lab Requisition [facility] - Main Lab [address] [place] [address] Paula Sanches MD Chronic kidney disease, unspecified; Other specified abnormal findings of blood chemistry 03/10/2025 Lab Requisition [facility] - Main Lab [address] [place] [address] Paula Sanches MD Urinary tract infection, site not specified 03/08/[address] [facility] Lab [address] [place] [address] Paula Sanches MD Hyperkalemia 03/04/[address] [facility] Lab [address] [place] [address] Paula Sanches MD Essential (primary) hypertension 03/03/2025 Lab Requisition [facility] - Main Lab [address] [place] [address] Paula Sanches MD Elevated white blood cell count, unspecified 03/03/2025 Lab Requisition [facility] - Main Lab [address] [place] [address] Paula Sanches MD Elevated white blood cell count, unspecified 03/03/2025 Lab Requisition [facility] - Main Lab [address] [facility] [place] [address] Paula Sanches MD Elevated white blood cell count, unspecified; Urinary tract infection, site not specified 03/02/2025 Lab Requisition [facility] - Main Lab [address] [facility] [place] [address] Paula Sanches MD Essential (primary) hypertension; Hypothyroidism, unspecified; Type 2 diabetes mellitus without complications ([facility] V24, [facility] V28) from Last 3 Months Social History Tobacco Use Types Packs/Day Years Used Date Smoking Tobacco: Never Assessed Comments Unknown Sex and Gender Information Value Date Recorded Sex Assigned at Not on file Legal Sex Female 11:59 AM EST Gender Identity Not on file Sexual Orientation Not on file Obstetrics History Plan of Treatment Health Maintenance Due Date Last Done Comments COVID-19 Vaccine (#1) 11/19/1940 Diabetes: Annual Foot Exam 11/19/1945 Diabetes: Annual Retina Eye Exam 11/19/1945 DTaP,Tdap,and Td Vaccines (1 - Tdap) 11/19/1954 Pneumococcal Vaccine: 50+ Years (1 of 2 - PCV) 11/19/1954 Zoster Vaccines (1 of 2) 11/19/1985 RSV Immunization Adult Patients (1 - 1-dose 75+ series) 11/19/2010 Cholesterol Screening (Lipid Panel) 07/23/2023 Falls Risk Assessment 07/23/2023 Medicare Annual Wellness Visit 07/23/2023 Osteoporosis Screening (Bone Density Screening) 07/23/2023 Social Influencers of Health Screening 07/23/2023 Depression Screening 06/23/2024 Influenza Vaccine (#1) 2025 Diabetes: Blood Sugar Control Test (HGBA1C) 08/30/2025 03/02/2025, 11/11/2022 Hypertension/CHF/CAD Annual BMP Blood Test 03/10/2026 03/10/2025, 03/09/2025, 03/07/2025, Additional history exists HIB Vaccines Aged Out No longer eligi ble based on patient's age to complete this topic HPV Vaccines Aged Out No longer eligi ble based on patient's age to complete this topic Hepatitis A Vaccines Aged Out No long er eligible based on patient's age to complete this topic Hepatitis B Vaccines Aged Out No long er eligible based on patient's age to complete this topic IPV Vaccines Aged Out No longer eligi ble based on patient's age to complete this topic MMR Vaccines Aged Out No longer eligi ble based on patient's age to complete this topic Meningococcal ACWY Vaccine Aged Out N o longer eligible based on patient's age to complete this topic Meningococcal B Vaccine Aged Out No l onger eligible based on patient's age to complete this topic RSV Immunization Patients Under 20 months Aged Out No longer eligible based on patient's age to complete this topic Varicella Vaccines Aged Out No longer eligible based on patient's age to complete this topic Procedures Procedure Name Priority Date/Time Associated Diagnosis Comments BASIC METABOLIC PANEL Routine 03/10/2025 5:29 AM EDT Chronic kidney disease, unspecified Other specified abnormal findings of blood chemistry URINALYSIS WITH REFLEX MICROSCOPIC AND CULTURE Routine 03/10/2025 5:00 AM EDT Urinary tract infection, site not specified MANRIQUEZ URINE CULTURE TUBE Routine 03/10/2025 5:00 AM EDT Urinary tract infection, site not specified URINALYSIS WITH REFLEX MICROSCOPIC AND CULTURE Routine 03/10/2025 5:00 AM EDT Urinary tract infection, site not specified BASIC METABOLIC PANEL Routine 03/09/2025 6:52 AM EDT Hyperkalemia BASIC METABOLIC PANEL Routine 03/07/2025 5:28 AM EDT Essential (primary) hypertension COMPLETE BLOOD COUNT Routine 03/07/2025 5:28 AM EDT Essential (primary) hypertension CULTURE BLOOD Routine 03/03/2025 5:12 AM EDT Elevated white blood cell count, unspecified CBC WITH AUTO DIFFERENTIAL Routine 03/03/2025 5:07 AM EDT Elevated white blood cell count, unspecified CBC AND DIFFERENTIAL Routine 03/03/2025 5:07 AM EDT Elevated white blood cell count, unspecified CULTURE BLOOD Routine 03/03/2025 5:07 AM EDT Elevated white blood cell count, unspecified URINALYSIS WITH REFLEX MICROSCOPIC Routine 03/02/2025 2:02 PM EDT Elevated white blood cell count, unspecified Urinary tract infection, site not specified URINALYSIS WITH REFLEX MICROSCOPIC Routine 03/02/2025 2:02 PM EDT Elevated white blood cell count, unspecified Urinary tract infection, site not specified CULTURE URINE Routine 03/02/2025 2:02 PM EDT Elevated white blood cell count, unspecified Urinary tract infection, site not specified THYROID STIMULATING HORMONE Routine 03/02/2025 5:09 AM EDT Essential (primary) hypertension Hypothyroidism, unspecified Type 2 diabetes mellitus without complications (CMS/HCC V24, [facility] V28) HEMOGLOBIN A1C Routine 03/02/2025 5:09 AM EDT Essential (primary) hypertension Hypothyroidism, unspecified Type 2 diabetes mellitus without complications (CMS/HCC V24, CMS/HCC V28) BASIC METABOLIC PANEL Routine 03/02/2025 5:09 AM EDT Essential (primary) hypertension Hypothyroidism, unspecified Type 2 diabetes mellitus without complications (CMS/HCC V24, CMS/HCC V28) COMPLETE BLOOD COUNT Routine 03/02/2025 5:09 AM EDT Essential (primary) hypertension Hypothyroidism, unspecified Type 2 diabetes mellitus without complications (CMS/HCC V24, CMS/HCC V28) from Last 3 Months Results * (ABNORMAL) Basic metabolic panel (03/10/2025 5:29 AM EDT) Only the most recent of4 resultswithin the time period is included. [facility] Sodium 130(L) 133 - 145 mmol/L LAB CHEMISTRY METHOD 03/10/2025 8:10 AM EDT [facility] Potassium 6.0(H) 3.5 - 5.5 mmol/L LAB CHEMISTRY METHOD 03/10/2025 8:10 AM [facility] Chloride 94(L) 96 - 110 mmol/L LAB CHEMISTRY METHOD 03/10/2025 8:10 AM [facility] CO2 28 21 - 32 mmol/L LAB CHEMISTRY METHOD 03/10/2025 8:10 AM [facility] Anion Gap 8 3 - 11 LAB CHEMISTRY METHOD 03/10/2025 8:10 AM [facility] Glucose 103(H) 70 - 100 mg/dL LAB CHEMISTRY METHOD 03/10/2025 8:10 AM [facility] BUN 63(H) 5 - 25 mg/dL LAB CHEMISTRY METHOD 03/10/2025 8:10 AM [facility] Creatinine 2.06(H) 0.50 - 1.10 mg/dL LAB CHEMISTRY METHOD 03/10/2025 8:10 AM [facility] eGFR 23(L) >=60 mL/min/1. 73m2 LAB CHEMISTRY METHOD 03/10/2025 8:10 AM [facility] Comment:Calculation based on the Chronic Kidney Disease Epidemiology Collaboration (CKD-EPI) equation refit without adjustment for race. BUN/Creatinine Ratio 30.6 LAB CHEMISTRY METHOD 03/10/2025 8:10 AM [facility] Calcium 8.4(L) 8.5 - 10.5 mg/dL LAB CHEMISTRY METHOD 03/10/2025 8:10 AM [facility] Blood Venous blood specimen / Unknown Venipuncture / Unknown 03/10/2025 5:29 AM EDT 03/10/2025 7:17 AM EDT us Paula Sanches MD LAB BLOOD ORDERABLES Fin al Result [facility] [address] [place] [address], [place] [phone] * (ABNORMAL) Urinalysis with reflex microscopic and culture (03/10/2025 5:00 AM EDT) Specific [place] Urine 1.020 1.003 - 1.030 LAB URINALYSIS - AUTOMATED METHOD 03/10/2025 7:56 AM [facility] pH, Urine 5.5 5.0 - 8.0 pH LAB URINALYSIS - AUTOMATED METHOD 03/10/2025 7:56 AM [facility] Leukocytes, Urine Moderate(A) Negative LAB URINALYSIS - AUTOMATED METHOD 03/10/2025 7:56 AM [facility] Nitrite, Urine Negative Negative LAB URINALYSIS - AUTOMATED METHOD 03/10/2025 7:56 AM [facility] Protein, Urine Negative <=Trace mg/dL LAB URINALYSIS - AUTOMATED METHOD 03/10/2025 7:56 AM [facility] Glucose, Urine 500(A) Negative mg/dL LAB URINALYSIS - AUTOMATED METHOD 03/10/2025 7:56 AM [facility] Ketones, Urine Negative Negative mg/dL LAB URINALYSIS - AUTOMATED METHOD 03/10/2025 7:56 AM [facility] Urobilinogen , Urine 0.2 0.2 - 1.0 mg/dL LAB URINALYSIS - AUTOMATED METHOD 03/10/2025 7:56 AM [facility] Bilirubin, Urine Negative Negative LAB URINALYSIS - AUTOMATED METHOD 03/10/2025 7:56 AM [facility] Blood, Urine Negative Negative LAB URINALYSIS - AUTOMATED METHOD 03/10/2025 7:56 AM [facility] RBC, Urine 1.3 0 - 4 /HPF LAB URINALYSIS - AUTOMATED METHOD 03/10/2025 7:56 AM [facility] WBC, Urine 60.1(H) 0 - 4 /HPF LAB URINALYSIS - AUTOMATED METHOD 03/10/2025 7:56 AM EDT [facility] Squamous Epithelial, Urine 18 0 - 60 /LPF LAB URINALYSIS - AUTOMATED METHOD 03/10/2025 7:56 AM EDT [facility] Bacteria, Urine Few(A) Negative /HPF LAB URINALYSIS - AUTOMATED METHOD 03/10/2025 7:56 AM EDT [facility] Hyaline Casts, Urine 0.0 0 - 3 /LPF LAB URINALYSIS - AUTOMATED METHOD 03/10/2025 7:56 AM EDT [facility] Urine Urine specimen obtained by clean catch procedure / Unknown Non-blood Collection / Unknown 03/10/2025 5:00 AM EDT 03/10/2025 7:08 AM EDT Paula Sanches MD LAB URINE ORDERABLES Fin al Result Performing Organization Address [facility]/ZIP Co de Phone Number [facility] [address] [place] [address], [place] [phone] * Manriquez urine culture tube (03/10/2025 5:00 AM EDT) Extra Tube Hold for add-ons. 03/10/2025 9:01 AM EDT [facility] Comment:Auto resulted. Urine Urine specimen obtained by clean catch procedure / Unknown Non-blood Collection / Unknown 03/10/2025 5:00 AM EDT 03/10/2025 7:08 AM EDT Paula Sanches MD LAB URINE ORDERABLES Fin al Result Performing Organization Address City/[facility]/ZIP Co de Phone Number [facility] [address] [place] [address], [place] [phone] * (ABNORMAL) Complete blood count (03/07/2025 5:28 AM EDT) Only the most recent of2 resultswithin the time period is included. [facility] Signature WBC 14.5(H) 4.8 - 10.8 K/mcL LAB HEMETOLOGY METHOD 03/07/2025 10:26 AM [facility] RBC 3.30(L) 3.80 - 4.80 M/mcL LAB HEMETOLOGY METHOD 03/07/2025 10:26 AM [facility] Hemoglobin 9.7(L) 11.5 - 16.0 g/dL LAB HEMETOLOGY METHOD 03/07/2025 10:26 AM [facility] Hematocrit 31.9(L) 35.0 - 47.0 % LAB HEMETOLOGY METHOD 03/07/2025 10:26 AM [facility] MCV 97.0 79.0 - 98.0 FL LAB HEMETOLOGY METHOD 03/07/2025 10:26 AM [facility] MCH 29.5 27.0 - 32.0 pcg LAB HEMETOLOGY METHOD 03/07/2025 10:26 AM [facility] MCHC 30.4(L) 32.0 - 37.0 g/dL LAB HEMETOLOGY METHOD 03/07/2025 10:26 AM [facility] RDW 19.1(H) 11.0 - 15.0 % LAB HEMETOLOGY METHOD 03/07/2025 10:26 AM [facility] Platelets 587(H) 130 - 400 K/mcL LAB HEMETOLOGY METHOD 03/07/2025 10:26 AM [facility] MPV 9.4 7.0 - 11.0 FL LAB HEMETOLOGY METHOD 03/07/2025 10:26 AM [facility] NRBC 0.0 <1.0 % LAB HEMETOLOGY METHOD 03/07/2025 10:26 AM EDT [facility] NRBC Absolute 0.00 <0.10 K/[facility] LAB HEMETOLOGY METHOD 03/07/2025 10:26 AM EDT [facility] Blood Venous blood specimen / Unknown Venipuncture / Unknown 03/07/2025 5:28 AM EDT 03/07/2025 9:49 AM EDT Paula Sanches MD LAB BLOOD ORDERABLES Fin al Result Performing Organization Address [facility]/ZIP Co de Phone Number [facility] [address] [place] [address], [place] [phone] * Culture blood (03/03/2025 5:12 AM EDT) Only the most recent of2 resultswithin the time period is included. Culture, Blood No growth at 5 days LAB MICROBIOLOGY METHOD 03/08/2025 11:01 AM EDT [facility] Blood Venipuncture / Unknown 03/03/2025 5:12 AM EDT 03/03/2025 9:00 AM EDT Paula Sanches MD LAB MICROBIOLOGY - GENER AL ORDERABLES Final Result Performing Organization Address [facility]/ZIP Co de Phone Number [facility] [address] [place] [address], [place] [phone] * (ABNORMAL) CBC auto differential (03/03/2025 5:07 AM EDT) WBC 14.1(H) 4.8 - 10.8 K/[facility] LAB HEMETOLOGY METHOD 03/03/2025 9:48 AM EDT [facility] RBC 3.10(L) 3.80 - 4.80 M/[facility] LAB HEMETOLOGY METHOD 03/03/2025 9:48 AM EDT [facility] Hemoglobin 9.1(L) 11.5 - 16.0 g/dL LAB HEMETOLOGY METHOD 03/03/2025 9:48 AM [facility] Hematocrit 30.2(L) 35.0 - 47.0 % LAB HEMETOLOGY METHOD 03/03/2025 9:48 AM [facility] MCV 97.1 79.0 - 98.0 FL LAB HEMETOLOGY METHOD 03/03/2025 9:48 AM [facility] MCH 29.3 27.0 - 32.0 pcg LAB HEMETOLOGY METHOD 03/03/2025 9:48 AM [facility] MCHC 30.1(L) 32.0 - 37.0 g/dL LAB HEMETOLOGY METHOD 03/03/2025 9:48 AM [facility] RDW 20.2(H) 11.0 - 15.0 % LAB HEMETOLOGY METHOD 03/03/2025 9:48 AM [facility] Platelets 452(H) 130 - 400 K/mcL LAB HEMETOLOGY METHOD 03/03/2025 9:48 AM [facility] MPV 9.6 7.0 - 11.0 FL LAB HEMETOLOGY METHOD 03/03/2025 9:48 AM [facility] NRBC 0.0 <1.0 % LAB HEMETOLOGY METHOD 03/03/2025 9:48 AM [facility] NRBC Absolute 0.00 <0.10 K/mcL LAB HEMETOLOGY METHOD 03/03/2025 9:48 AM [facility] Neutrophils Relative 81.6 % LAB HEMETOLOGY METHOD 03/03/2025 9:48 AM [facility] Lymphocytes Relative 9.5 % LAB HEMETOLOGY METHOD 03/03/2025 9:48 AM [facility] Monocytes Relative 5.1 % LAB HEMETOLOGY METHOD 03/03/2025 9:48 AM EDT [facility] Eosinophils Relative 2.0 % LAB HEMETOLOGY METHOD 03/03/2025 9:48 AM EDT [facility] Basophils Relative 0.4 % LAB HEMETOLOGY METHOD 03/03/2025 9:48 AM EDT [facility] Immature Granulocytes Relative 1.4 % LAB HEMETOLOGY METHOD 03/03/2025 9:48 AM EDT [facility] Neutrophils Absolute 11.49(H) 1.50 - 7.00 K/mcL LAB HEMETOLOGY METHOD 03/03/2025 9:48 AM EDT [facility] Lymphocytes Absolute 1.33 1.00 - 5.00 K/mcL LAB HEMETOLOGY METHOD 03/03/2025 9:48 AM EDT [facility] Monocytes Absolute 0.71 0.20 - 1.00 K/mcL LAB HEMETOLOGY METHOD 03/03/2025 9:48 AM EDT [facility] Eosinophils Absolute 0.28 0.00 - 0.50 K/mcL LAB HEMETOLOGY METHOD 03/03/2025 9:48 AM EDT [facility] Basophils Absolute 0.05 0.00 - 0.20 K/mcL LAB HEMETOLOGY METHOD 03/03/2025 9:48 AM EDT [facility] Immature Granulocytes Absolute 0.19(H) 0.00 - 0.03 K/mcL LAB HEMETOLOGY METHOD 03/03/2025 9:48 AM EDT [facility] Blood Venous blood specimen / Unknown Venipuncture / Unknown 03/03/2025 5:07 AM EDT 03/03/2025 8:59 AM EDT us Paula Sanches MD LAB BLOOD ORDERABLES Fin al Result [facility] [address] [place] [address], * (ABNORMAL) Urinalysis with reflex microscopic (03/02/2025 2:02 PM EDT) Specific [place] Urine 1.013 1.003 - 1.030 LAB URINALYSIS - AUTOMATED METHOD 03/03/2025 10:36 AM [facility] pH, Urine 6.0 5.0 - 8.0 pH LAB URINALYSIS - AUTOMATED METHOD 03/03/2025 10:36 AM [facility] Leukocytes, Urine Large(A) Negative LAB URINALYSIS - AUTOMATED METHOD 03/03/2025 10:36 AM [facility] Nitrite, Urine Negative Negative LAB URINALYSIS - AUTOMATED METHOD 03/03/2025 10:36 AM [facility] Protein, Urine 100(A) <=Trace mg/dL LAB URINALYSIS - AUTOMATED METHOD 03/03/2025 10:36 AM [facility] Glucose, Urine 100(A) Negative mg/dL LAB URINALYSIS - AUTOMATED METHOD 03/03/2025 10:36 AM [facility] Ketones, Urine Trace(A) Negative mg/dL LAB URINALYSIS - AUTOMATED METHOD 03/03/2025 10:36 AM [facility] Urobilinogen , Urine 0.2 0.2 - 1.0 mg/dL LAB URINALYSIS - AUTOMATED METHOD 03/03/2025 10:36 AM [facility] Bilirubin, Urine Negative Negative LAB URINALYSIS - AUTOMATED METHOD 03/03/2025 10:36 AM [facility] Blood, Urine Large(A) Negative LAB URINALYSIS - AUTOMATED METHOD 03/03/2025 10:36 AM [facility] RBC, Urine 5(H) 0 - 4 /HPF LAB URINALYSIS - AUTOMATED METHOD 03/03/2025 10:36 AM [facility] WBC, Urine >4,000(H) 0 - 4 /HPF LAB URINALYSIS - AUTOMATED METHOD 03/03/2025 10:36 AM EDT [facility] Squamous Epithelial, Urine 73(H) 0 - 60 /LPF LAB URINALYSIS - AUTOMATED METHOD 03/03/2025 10:36 AM EDT [facility] Bacteria, Urine Many(A) Negative /HPF LAB URINALYSIS - AUTOMATED METHOD 03/03/2025 10:36 AM EDT [facility] Hyaline Casts, Urine 0.0 0 - 3 /LPF LAB URINALYSIS - AUTOMATED METHOD 03/03/2025 10:36 AM EDT [facility] Urine Urine specimen obtained by clean catch procedure / Unknown Non-blood Collection / Unknown 03/02/2025 2:02 PM EDT 03/03/2025 9:05 AM EDT Paula Sanches MD LAB URINE ORDERABLES Fin al Result [facility] [address] [place] [address], * (ABNORMAL) Culture urine (03/02/2025 2:02 PM EDT) Culture, Urine >=100,000 CFU/mL Citrobacter werkmanii(A) MIRIAM 03/05/2025 10:20 AM EDT [facility] Comment: This is an edited result. Previous organism was Gram negative bacilli on 03/04/2025 at 0804 EDT. Urine Urine specimen obtained by clean catch procedure / Unknown Non-blood Collection / Unknown 03/02/2025 2:02 PM EDT 03/03/2025 9:05 AM EDT Narrative [facility] - 03/05/2025 10:20 AM EDT Additional colony types present in insignificant amounts. Organism Antibiotic Method Susceptibility Citrobacter werkmanii Amoxicillin/Clavulanate MIRIAM >=32 ug/ml: Resistant Citrobacter ayazanii Cefoxitin MIRIAM >=64 ug/ml: Resistant Citrobacter werkmanii Ceftazidime MIRIAM >=32 ug/ml: Resistant Citrobacter werkmanii Ceftriaxone MIRIAM >=64 ug/ml: Resistant Citrobacter werkmanii Cefepime MIRIAM <=0.12 ug/ml: Susceptible Citrobacter werkmanii Meropenem MIRIAM <=0.25 ug/ml: Susceptible Citrobacter werjaceyanii Amikacin MIRIAM 4 ug/ml: Susceptible Citrobacter werjaceyanii Gentamicin MIRIAM <=1 ug/ml: Susceptible Citrobacter ayazanii Ciprofloxacin MIRIAM 0.12 ug/ml: Susceptible Citrobacter werjaceyanii Levofloxacin MIRIAM 0.5 ug/ml: Susceptible Citrobacter werjaceyanii Nitrofurantoin MIRIAM <=16 ug/ml: Susceptible Citrobacter werjaceyanii Trimethoprim/Sulfa methoxazol e MIRIAM <=20 ug/ml: Susceptible Paula Sanches MD LAB MICROBIOLOGY - GENER AL ORDERABLES Final Result Performing Organization Address City/[facility]/ZIP Co de Phone Number [facility] [address] [place] [address], [place] [phone] * (ABNORMAL) Thyroid stimulating hormone (03/02/2025 5:09 AM EDT) [facility] TSH 15.76(H) 0.40 - 4.00 mcIU/mL LAB CHEMISTRY METHOD 03/02/2025 9:11 AM EDT [facility] Blood Venous blood specimen / Unknown Venipuncture / Unknown 03/02/2025 5:09 AM EDT 03/02/2025 7:30 AM EDT Paula Sanches MD LAB BLOOD ORDERABLES Fin al Result Performing Organization Address City/[facility]/ZIP Co de Phone Number [facility] [address] [place] [address], [place] [phone] * Hemoglobin A1c (03/02/2025 5:09 AM EDT) Hemoglobin A1C 6.2 <6.5 % LAB CHEMISTRY METHOD 03/02/2025 2:03 PM EDT [facility] Mean Bld Glu Estim. 131 mg/dL LAB CHEMISTRY METHOD 03/02/2025 2:03 PM EDT [facility] Blood Venous blood specimen / Unknown Venipuncture / Unknown 03/02/2025 5:09 AM EDT 03/02/2025 7:30 AM EDT us Paula Sanches MD LAB BLOOD ORDERABLES Fin al Result [facility] [address] [place] [address], from Last 3 Months Insurance MEDICAID - [place] [employer] MEDICARE Care Teams Diecast Machine Operator Relationship Specialty Start Date End Date Tomer Jackson MD [facility] [place] [address] [facility] - General 02/18/23
--- OUTSIDE RECORDS SUMMARY | 2025-03-10 13:09 | XMS_ITS | Encounter Summary ---
Author Organization [facility] Address [address] [place] [address] Care Team Providers Care Window Trimmer Apprentice Name Role Phone Tomer Jackson MD Primary Care Provider [phone] Encounter Details Date Type Department Care Team (Late st Contact Info) Description 03/10/2025 Lab Requisition [facility] - Main Lab [address] [facility] [place] [address] Paula Sanches MD [address] [phone] Chronic kidney disease, unspecified; Other specified abnormal findings of blood chemistry Social History Tobacco Use Types Packs/Day Years [...] Other specified abnormal findings of blood chemistry documented in this encounter Results * (ABNORMAL) Basic metabolic panel (03/10/2025 5:29 AM EDT) Sodium 130(L) 133 - 145 mmol/L LAB CHEMISTRY METHOD 03/10/2025 8:10 AM T [facility] Potassium 6.0(H) 3.5 - 5.5 mmol/L LAB CHEMISTRY METHOD 03/10/2025 8:10 AM T [facility] Chloride 94(L) 96 - 110 mmol/L LAB CHEMISTRY METHOD 03/10/2025 8:10 AM [facility] CO2 28 21 - 32 mmol/L LAB CHEMISTRY METHOD 03/10/2025 8:10 AM [facility] Anion Gap 8 3 - 11 LAB CHEMISTRY METHOD 03/10/2025 8:10 AM [facility] Glucose 103(H) 70 - 100 mg/dL LAB CHEMISTRY METHOD 03/10/2025 8:10 AM [facility] BUN 63(H) 5 - 25 mg/dL LAB CHEMISTRY METHOD 03/10/2025 8:10 AM [facility] Creatinine 2.06(H) 0.50 - 1.10 mg/dL LAB CHEMISTRY METHOD 03/10/2025 8:10 AM [facility] eGFR 23(L) >=60 mL/min/1. 73m2 LAB CHEMISTRY METHOD 03/10/2025 8:10 AM [facility] Comment:Calculation based on the Chronic Kidney Disease Epidemiology Collaboration (CKD-EPI) equation refit without adjustment for race. BUN/Creatinine Ratio 30.6 LAB CHEMISTRY METHOD 03/10/2025 8:10 AM [facility] Calcium 8.4(L) 8.5 - 10.5 mg/dL LAB CHEMISTRY METHOD 03/10/2025 8:10 AM [facility] Blood Venous blood specimen / Unknown Venipuncture / Unknown 03/10/2025 5:29 AM EDT 03/10/2025 7:17 AM EDT us Paula Sanches MD LAB BLOOD ORDERABLES Fin al Result [facility] [address] [place] [address], documented in this encounter Visit Diagnoses Diagnosis Chronic kidney disease, unspecified Other specified abnormal findings of blood chemistry documented in this encounter Care Teams Window Trimmer Apprentice Relationship Specialty Start Date End Date Tomer Jackson MD [address] [place] [address] PCP - General 02/18/23 documented as of this encounter
== END 2025-03-10 13:13 | disposition home or self-care (01) ==
LOC: HO.HOS 11:01
PROVIDERS: PCP Nurse Practitioner; Visit Provider Physician Assistant
DX: M97.8XXA Periprosthetic fracture around other internal prosthetic joint, initial encounter (principal); Z96.659 Presence of unspecified artificial knee joint; S42.211A Unspecified displaced fracture of surgical neck of right humerus, initial encounter for closed fracture
CPT/HCPCS: 99024

== ENCOUNTER 2025-03-10 11:47 | Outpatient (REF) | payer OTHER, SELFPAY ==
--- NOTE | ~2025-03-10 | XR_ITS ---
EXAMINATION: XR FEMUR, RIGHT CLINICAL INFORMATION: M97.8XXA - Periprosthetic fracture around other internal prosthetic join... COMPARISON: 02/18/2025. TECHNIQUE: AP and lateral views of the right femur were obtained. FINDINGS: There has been placement of an intramedullary heather in the right femur with proximal and distal transverse fixation screws. 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 The new hardware appears intact and well seated. Redemonstration of right distal femoral metaphyseal comminuted right periprosthetic fracture, currently moderately impacted by approximately 3.1 cm, and there is medial displacement of the distal fracture fragment by approximately 2.9 cm, as well as mild posterior displacement by 0.9 cm. There is no angulation. There is no proximal femoral fracture. The right hip joint is intact. There is a knee joint effusion. There is diffuse soft tissue swelling surrounding the fracture site. There are skin luis e in place from recent ORIF surgery. XR/XR femur RT 2V IMPRESSION: 1. Fixated right distal femoral metaphyseal periprosthetic fracture with current displacement and impaction as discussed. 2. No additional fracture or complication evident. Electronically signed by: Daniel Engel MD 03/10/2025 12:27 PM EDT
== END 2025-03-10 11:48 | disposition home or self-care (01) ==
LOC: HO.HOSX 11:47
PROVIDERS: PCP Nurse Practitioner; Visit Provider Physician Assistant
DX: Z47.89 Encounter for other orthopedic aftercare (principal); S42.211D Unspecified displaced fracture of surgical neck of right humerus, subsequent encounter for fracture with routine healing; M97.8XXD Periprosthetic fracture around other internal prosthetic joint, subsequent encounter; Z96.651 Presence of right artificial knee joint; X58.XXXD Exposure to other specified factors, subsequent encounter
CPT/HCPCS: 73552; 99212

== ENCOUNTER → 2025-03-10 11:51 | Outpatient (BNV) | payer OTHER, SELFPAY | PROVIDERS: PCP Nurse Practitioner; Visit Provider Radiology Diagnostic Radiology | DX: M97.11XA Periprosthetic fracture around internal prosthetic right knee joint, initial encounter (principal) | CPT/HCPCS: 73552 ==

== ENCOUNTER 2025-03-11 06:01 | Inpatient (IN) | payer MEDICARE, OTHER, SELFPAY ==
[2025-03-11] VITALS (16 sets, daily range): BP systolic 80–137; BP diastolic 42–69; PULSE 63–74; RESP 14–18; TEMP 36.2–36.8; O2SAT 95–100; BMI 30.2; BMI 37.0
--- NOTE | ~2025-03-11 | XR_ITS ---
EXAMINATION: XR CHEST 1 VIEW HISTORY: weakness, elevated WBC count COMPARISON: Comparison is made with the prior examination dated 02/22/2025. FINDINGS: A single AP portable view of the chest performed at 7:22 AM is submitted. The lungs are expanded and clear. There is no pleural effusion, pneumothorax, or pulmonary vascular congestion. The heart is normal in size. There is degenerative disc disease of the spine. Again seen is a fracture deformity of the right humeral neck. XR/XR chest 1V IMPRESSION: No acute cardiopulmonary abnormality. Electronically signed by: Quirino Nevarez MD 03/11/2025 08:13 AM EDT
--- NOTE | ~2025-03-11 | CT_ITS ---
EXAMINATION: CT ABDOMEN AND PELVIS WITHOUT CONTRAST CLINICAL INFORMATION: Firm mass felt in abdomen. 89-year-old female. COMPARISON: None available. TECHNIQUE: Multidetector volumetric imaging was performed from the superior aspect of the liver through the pubic symphysis. Sagittal and coronal reformatted images were obtained on the technologist's workstation. This CT examination was performed using dose optimization techniques as appropriate, variously including the following: *Automated exposure control *Adjustment of mA and/or kV according to patient size (this includes techniques or standardized protocols for targeted exams where dose is matched to indication/reason for exam; i.e. extremities or head) *Use of iterative reconstruction technique FINDINGS: LUNG BASES: Lung bases are essentially clear there is mild dependent atelectasis. There are no effusions. There is borderline cardiac enlargement. There is a small type I hiatus hernia at the GE junction. LIVER, GALLBLADDER, AND BILIARY TREE: The unenhanced liver is normal in size, shape, and attenuation. No suspicious focal hepatic lesion or biliary ductal dilatation is present. There is a segment 2 simple cyst measuring 2.5 cm in diameter. The gallbladder is surgically absent. PANCREAS: Moderate to severe atrophy. No lesion. SPLEEN: Normal. ADRENAL GLANDS: Unremarkable. KIDNEYS AND URETERS: There is a 6.6 cm simple cyst arising from the superior pole of the LEFT kidney. There are 2 small subcentimeter cysts in the inferior pole. There is no hydronephrosis, mass, or calculus. Extrarenal pelvis noted. The proximal ureter is not pathologically dilated. The RIGHT kidney images normally. The right ureter is nondilated. BLADDER: Collapsed around a Vicente catheter balloon. No gross abnormality. GASTROINTESTINAL TRACT: There is moderate fecal residue seen throughout the colon and rectum consistent with mild constipation. There is no rectal or colonic wall thickening or inflammation. There is no CT evidence of appendicitis. Appendix is normal. The stomach is decompressed. There is a type I hiatus hernia. The duodenum is normal. The small bowel is normal in caliber and course. There is no bowel obstruction or small bowel inflammation identified. No rectal abnormality evident. ABDOMINAL WALL: There is a ventral midline periumbilical hernia containing fat, with hernia sac measuring 7.4 x 8.9 cm. The rectus diastases measures approximately 3.2 cm in diameter. There is moderate anasarca noted. LYMPH NODES: There is no pathologic lymphadenopathy present. VASCULAR: There is moderate to heavy atheromatous calcification of the aorta and iliac arteries. There is no aneurysm. PELVIC VISCERA: Senescent uterus. No adnexal masses. OSSEOUS STRUCTURES: No suspicious lytic or blastic bone lesions. There are moderate to severe degenerative changes throughout the spine. There are mild to moderate degenerative hip joint changes. There is a partially imaged intramedullary heather in the right femur. CT/CT abdomen pelvis wo IV con IMPRESSION: 1. There is no acute finding in the abdomen or pelvis. There is no abdominal mass. There is a ventral midline periumbilical hernia containing fat measuring 7.4 x 3.9 cm. 2. There is moderate abdominal wall anasarca. 3. There is mild to moderate constipation. 4. The urinary bladder is collapsed around a Vicente balloon. 5. There are additional ancillary findings as discussed in the body of the report. Electronically signed by: Daniel Engel MD 03/11/2025 09:55 AM EDT
--- NOTE | 2025-03-11 06:23 | ECG_ITS ---
Test Reason : abnormal labs Blood Pressure : */* mmHG Vent. Rate : 73 BPM Atrial Rate : 73 BPM P-R Int : 184 ms QRS Dur : 80 ms QT Int : 452 ms P-R-T Axes : 61 -37 24 degrees QTcB Int : 497 ms Sinus rhythm with Premature atrial complexes Left axis deviation Low voltage QRS Nonspecific T wave abnormality Abnormal ECG When compared with ECG of 22-Feb-2025 03:36, Sinus rhythm has replaced Atrial fibrillation Vent. rate has decreased by 73 bpm Right bundle branch block is no longer Present Referred By: Palak Ruiz Electronically Signed By: MAIKOL ALVARADO
--- NOTE | 2025-03-11 06:24 | ED_ITS ---
HPI - General Adult General Chief complaint: General Medical Stated complaint: BROKEN SHOULDER Time Seen by Provider: 03/11/25 06:04 Source: patient, EMS and old records reviewed Mode of arrival: EMS Limitations: no limitations History of Present Illness ED Provider: ELZBIETA GARCIA narrative: 89 yo female with PMH of hypothyroidism, breast cancer on oral medications, HTN, DM, bilateral knee replacements, arthritis, afib not on thinners but 325mg aspirin, just had R femur IMN for periprosthetic fx and sling for R humerus fracture s/p fall on 02/19 - she was admitted here until 03/01 but only had labs 02/22 for CBC and BMP no labs other than glucose checks until her DC (she did have mario cath due to retention but it was removed) she comes back from SNF. She had labs yesterday 03/10 showing BUN 63 and Cr 2.0. They sent her today as she is not drinking well and labs are abnormal - she also notes her pain in R shoulder is not well controlled. She states she just can't drink enough fluids. During her most recent stay she had afib with RVR, transfused 1 UPBRC, rhabdo and NSTEMI. At [facility] and rehab her Cr was 1.63 on 03/09 and she was given 2L of IVF, 03/10 labs worse. She does not have a mario on arrival to our ED and her bladder scan > 800. complaint: abnormal labs Onset (ago): day(s) (2) Severity: moderate Quality: aching Pain Consistency: constant Relieving factors: immobilization Exacerbating factors: movement Associated symptoms: loss of appetite, malaise and weakness Treatments prior to arrival: none Related Data Home Medications ?Medication ?Instructions ?Recorded ?Confirmed anastrozole 1 mg tablet 1 mg PO DAILY 02/18/2502/18 levothyroxine 112 mcg tablet 112 mcg PO DAILY 02/18/25 02/18/25 Previous Rx's ?Medication ?Instructions ?Recorded acetaminophen 325 mg tablet 650 mg (2 x 325 mg) PO Q6H PRN 03/01/25 Pain, Mild 1-3,Fever,Headache #20 tabs aspirin 325 mg tablet 325 mg PO DAILY #33 tabs 03/17 empagliflozin 10 mg tablet 10 mg PO DAILY #30 tabs 03/17 (Jardiance) insulin lispro 100 unit/mL See Protocol subcut QIDACHS #10 mL 03/01/25 subcutaneous solution (Admelog U-100 Insulin lispro) lidocaine 5 % topical ointment 1 appl topical Q6H PRN Pain, Mild 03/01/25 1-3,Fever,Headache #30 grams magnesium hydroxide 400 mg/5 mL 30 ml PO DAILY PRN Con stipation 03/01/25 oral suspension (Milk of Magnesia) #355 mL metoprolol tartrate 25 mg tablet 12.5 mg (1/2 x 25 mg) PO Q12H #30 03/01/25 tabs oxycodone 5 mg tablet 10 mg (2 x 5 mg) PO Q6H PRN Pain, 03/01/25 Moderate(Pain Scale 4-6) #30 tabs polyethylene glycol 3350 17 gram 17 g PO DAILY #30 ea 03/01/25 oral powder packet Allergies Allergy/AdvReac Type Severity Reaction Status Date / Time No Known Allergies Allergy Verified 03/11/25 06:27 Review of Systems 2 Review of Systems: Constitutional : No Fever, No Chills, pos fatigue ENT/Mouth : No Ear Pain, No Hoarseness, No sore throat Eyes: No Eye Pain, No Swelling, No Redness, No Foreign Body Cardiovascular : No Chest Pain, No SOB Respiratory : No Cough, No Dyspnea Gastrointestinal : No Nausea, No Vomiting, No Diarrhea, No abdominal Pain Genitourinary : No Dysuria, No Hematuria Musculoskeletal : positive joint pain, No Myalgias, pos Joint Swelling Skin : No Skin lacerations, No rash Neuro : pos Weakness, No Numbness, No Loss of Consciousness, No Dizziness, No Headache All other systems reviewed and are negative [facility] Past Medical History Attestation statement: The following information was validated with the patient. Source: old records reviewed Medical History CKD stage 3a, GFR 45-59 ml/min Osteoarthritis Numbness and tingling of both feet Hx of cardiac murmur Hypothyroidism Hypertension Diabetes mellitus Hx of breast cancer Surgical History Hx of hemorrhoidectomy History of knee replacement S/P lumpectomy, right breast Hx of colonoscopy Social History Social History Household Members: None Housing: House Do you presently have visiting nurse or other home services: No Alcohol intake: never Comment: Tylenol 650 mg PO given at 10:45 Patient Tobacco Use Status: Never used Tobacco Advance Directives: Yes Advance Directives on File: Yes Advance Directives Date on File: 01/21/18 service: No Physical Exam ED Vital Signs: Vital Signs - 24 hr 03/11/25 06:20 03/11/25 07:38 03/11/25 08:00 Temperature 97.4 F 97.4 F Pulse Rate 73 67 67 Respiratory Rate 16 18 14 Blood Pressure 129/52 L 105/42 L Pulse Oximetry 95 95 97 Oxygen Delivery Method Room Air Room Air Room Air BMI result Body Mass Index 30.2 Appearance: Alert. Oriented X3. No acute distress. Eyes: Pupils equal, round and reactive to light. ENT: Pharynx very dry MM Neck: Normal inspection. Neck supple. CVS: irregular heart rate and rhythm. Pulses normal. Respiratory: No respiratory distress. Breath sounds normal. Abdomen: Soft but fullness to bladder noted Skin: Skin warm and dry. pale skin color. Normal skin turgor. Extremities: legs are bilaterally swollen but not pitting, her R leg surgical incision is c/d/i Neuro: Oriented X 3. No motor deficit. No sensory deficit. CN2-12 intact Course Course Course Narrative: unexplained leukocytosis at this time no UTI or pneumonia Medications Administered Generic Name Dose Route Start Last Admin Trade Name Freq PRN Reason Stop Dose Admin Calcium Gluconate 2 gm in 100 mls @ 50 mls/hr 03/11/25 07:05 03/11/25 07:42 Calcium Gluconate IV 03/11/25 09:04 50 mls/hr ONCE ONE Administration Discontinued Medications Generic Name Dose Route Start Last Admin Trade Name Freq PRN Reason Stop Dose Admin Lactated Ringer's 1,000 mls @ 999 mls/hr 03/11/25 06:23 03/11/25 07:44 Lr IV 03/11/25 07:23 999 mls/hr .Q1H1M ONE Administration Morphine Sulfate 4 mg 03/11/25 06:23 03/11/25 07:42 Morphine Sulfate 4 Mg/Ml Cartridge IVPUSH 03/11/25 06:24 4 mg ONCE ONE Administration Protocol Medical Decision Making Medical Decision Making MDM Narrative: 89 yo female with PMH of hypothyroidism, breast cancer on oral medications, HTN, DM, bilateral knee replacements, arthritis, afib not on thinners but 325mg aspirin, just had R femur IMN for periprosthetic fx and sling for R humerus fracture s/p fall on 02/19 now here with c/o weak, poor PO intake, worsening kidney function - she is very dry on exam but I suspect she also has a component of post obstructive causing the issue. Will obtain basic labs, UA, mario, treat her pain with IV morphine, type and screen. Admit planned. She denies CP/SOB. Differential Diagnosis Differential Diagnoses: The differential diagnosis associated with the presentation includes post obstruction, KYLER, FTT, anemia Admission/Observation Consideration of admission/observation: Escalation of care including admission/observation considered admit for IVF and monitoring of her labs Consult Healthcare Provider Management of the patient was discussed with: Hospitalist (will admit) Lab Data [facility] Lab Attestation statement: I reviewed the patient's lab results. 03/11/25 06:37 03/11/25 06:37 Labs: Lab Results 03/11/25 03/11/25 Range/Units 06:37 06:52 WBC 16.3 H (4.8-10.8) X10*3/uL RBC 3.27 L (4.20-5.50) X10*6/uL Hgb 9.5 L (12.0-16.0) g/dl Hct 29.1 L (37.0-47.0) % MCV 89.0 (80.0-98.0) fL MCH 29.1 (27.0-33.0) pg MCHC 32.6 (31.0-35.0) g/dl RDW 18.5 H (11.0-16.0) % Plt Count 460 H D (160-400) X10*3/uL MPV 8.6 L (9.4-12.3) fL Immature Gran % (Auto) 2.4 H (0.0-0.4) % Neut % (Auto) 82.6 H (45-73) % Lymph % (Auto) 7.8 L (20-40) % [place] % (Auto) 6.0 (2-11) % Eos % (Auto) 0.7 (0-4) % Baso % (Auto) 0.5 (0-2) % Lymph # (Auto) 1.3 (1.2-4.9) X10*3/uL [place] # (Auto) 1.0 (0.1-1.2) X10*3/uL Eos # (Auto) 0.1 (0.0-0.4) X10*3/uL Baso # (Auto) 0.1 (0.0-0.2) X10*3/uL Abs Immat Gran (auto) 0.39 H (0.00-0.03) X10*3/uL Absolute Neuts (auto) 13.5 H (2.0-8.3) x10*3/uL Absolute Nucleated RBC 0.000 (0.0-0.012) X10*3/uL Nucleated RBC % (auto) 0.0 (0.0-0.2) /100WBC Sodium 131 L (135-145) mmol/L Potassium 3.7 (3.3-5.1) mmol/L Chloride 94 L (96-108) mmol/L Carbon Dioxide 28 (22-29) mmol/L Anion Gap 13 (12-20) BUN 56 H (9-16) mg/dL Creatinine 1.69 H (0.5-1.4) mg/dL Estim Creat Clear Calc 21.3 Estimated GFR 28 Random Glucose 147 H (60-115) mg/dL Calcium 7.8 L D (8.4-10.2) mg/dL Magnesium 3.3 H (1.6-2.6) mg/dL Total Bilirubin 0.5 (0.0-1.0) mg/dL Direct Bilirubin 0.2 (0.0-0.5) mg/dL AST 31 (5-31) U/L ALT 11 (0-31) U/L Alkaline Phosphatase 160 H (39-117) U/L Total Creatine Kinase 54 (26-140) U/L Total Protein 5.5 L (6.5-8.0) g/dL Albumin 2.8 L (3.5-5.0) g/dL Urine Color Yellow Urine Appearance Clear Urine pH 5.5 (5.0-9.0) Ur Specific [place] 1.015 (1.005-1.025) Urine Protein Trace (Neg-Trace) mg/dL Urine Glucose (UA) 500 H (Negative) mg/dL Urine Ketones Negative (Negative) mg/dL Urine Blood Negative (Negative) Urine Nitrite Negative (Negative) Ur Leukocyte Esterase Trace H (Negative) Urine RBC 0-2 (0-2) /HPF Urine WBC 6-10 H (0-5) /HPF Ur Squamous Epith Cells 3-5 (0-2) /HPF Urine Bacteria None Seen (None Seen) Hyaline Casts 0-2 (0-2) /LPF Blood Type O Positive Antibody Screen NEGATIVE Independent Interpretation I performed an independent interpretation of an: EKG and Plain X-Ray (normal) Interpretation: Rate: 73 Rhythm: NSR with PACs I do see p waves in lead II rhythm strip portion but there are frequent PACs [place]: left Normal P waves. Normal ELOISA. decreased QRS complex. ST T wave : no ARA, flat t waves lateral and inf leads qTC: 497 prior studies: appears similar to 02/19 EKG The study has been interpreted contemporaneously by me. . Radiology Impression Discussion of test interpretation with radiology: I have reviewed the radiologist's reading. Independent Historian Clinical information obtained from an independent historian. History obtained from or confirmed by: EMS External Record Review External record reviewed: Inpatient record and Outpatient record Discharge Plan Discharge Clinical Impression: KYLER (acute kidney injury), Acute on chronic urinary retention Fracture, humerus Qualifiers: Encounter type: initial encounter Humerus Location: surgical neck Fracture type: closed Fracture morphology: unspecified fracture morphology Fracture alignment: displaced Laterality: right Qualified Code(s): S42.211A - Unspecified displaced fracture of surgical neck of right humerus, initial encounter for closed fracture Patient Disposition: Admitted As Inpatient Print Language: Divehi
--- OUTSIDE RECORDS SUMMARY | 2025-03-11 06:38 | XMS_ITS | Encounter Summary ---
Author Organization [facility] Address [address] [place] [address] Care Team Providers Care Walking Dragline Oiler Name Role Phone Tomer Jackson MD Primary Care Provider [phone] Encounter Details Date Type Department Care Team (Late st Contact Info) Description 03/08/2025 Lab Requisition [facility] - Main Lab [address] [facility] [place] [address] Paula Sanches MD [address] [id number] Hyperkalemia Social History Tobacco Use Types Packs/Day [...] LAB CHEMISTRY METHOD 03/09/2025 11:05 AM EDT [facility] Potassium 6.2(HH) 3.5 - 5.5 mmol/L LAB CHEMISTRY METHOD 03/09/2025 11:05 AM [facility] Chloride 93(L) 96 - 110 mmol/L LAB CHEMISTRY METHOD 03/09/2025 11:05 AM [facility] CO2 27 21 - 32 mmol/L LAB CHEMISTRY METHOD 03/09/2025 11:05 AM [facility] Anion Gap 8 3 - 11 LAB CHEMISTRY METHOD 03/09/2025 11:05 AM [facility] Glucose 105(H) 70 - 100 mg/dL LAB CHEMISTRY METHOD 03/09/2025 11:05 AM [facility] BUN 61(H) 5 - 25 mg/dL LAB CHEMISTRY METHOD 03/09/2025 11:05 AM [facility] Creatinine 2.01(H) 0.50 - 1.10 mg/dL LAB CHEMISTRY METHOD 03/09/2025 11:05 AM [facility] eGFR 23(L) >=60 mL/min/1. 73m2 LAB CHEMISTRY METHOD 03/09/2025 11:05 AM [facility] Comment:Calculation based on the Chronic Kidney Disease Epidemiology Collaboration (CKD-EPI) equation refit without adjustment for race. BUN/Creatinine Ratio 30.3 LAB CHEMISTRY METHOD 03/09/2025 11:05 AM [facility] Calcium 8.4(L) 8.5 - 10.5 mg/dL LAB CHEMISTRY METHOD 03/09/2025 11:05 AM [facility] Blood Venous blood specimen / Unknown Venipuncture / Unknown 03/09/2025 6:52 AM EDT 03/09/2025 9:14 AM EDT us Paula Sanches MD LAB BLOOD ORDERABLES Fin al Result [facility] [address] [place] [address], documented in this encounter Visit Diagnoses Diagnosis Hyperkalemia Hyperpotassemia documented in this encounter Care Teams Walking Dragline Oiler Relationship Specialty Start Date End Date Tomer Jackson MD [facility] [place] [address] PCP - General 02/18/23 documented as of this encounter
--- OUTSIDE RECORDS SUMMARY | 2025-03-11 06:38 | XMS_ITS | Encounter Summary ---
Author Organization [facility] Address [address] [place] [address] Phone Care Team Providers Care Thermospray Operator Name Role Phone Lizette Lovelace Primary Care Provider [phone] Encounter Details Date Type Department Care Team (Late st Contact Info) Description 10/30/2022 Documentation Only [facility] [place], [address] [place] [address] Lizette Lovelace PA [address] [place] [id number] Social History Tobacco Use Types Packs/Day Years [...] on filedocumented in this encounter Care Teams Thermospray Operator Relationship Specialty Start Date End Date Lizette Lovealce PA [address] [facility] [address] [place], [place] PCP - General Physician Retoucher 10/16/22 documented as of this encounter
--- OUTSIDE RECORDS SUMMARY | 2025-03-11 06:38 | XMS_ITS | Encounter Summary ---
Author Organization [facility] Address [address] [place] [address] Care Team Providers Care Pill Machine Operator Name Role Phone Tomer Jackson MD Primary Care Provider [phone] Encounter Details Date Type Department Care Team (Late st Contact Info) Description 03/03/2025 Lab Requisition [facility] - Main Lab [address] [facility] [email or web address] [address] Paula Sanches MD [address] [phone] Elevated white blood cell count, unspecified Social [...] AM EDT) WBC 14.1(H) 4.8 - 10.8 K/[facility] LAB HEMETOLOGY METHOD 03/03/2025 9:48 AM [facility] RBC 3.10(L) 3.80 - 4.80 M/mcL LAB HEMETOLOGY METHOD 03/03/2025 9:48 AM [facility] Hemoglobin 9.1(L) 11.5 - 16.0 g/dL LAB HEMETOLOGY METHOD 03/03/2025 9:48 AM [facility] Hematocrit 30.2(L) 35.0 - 47.0 % LAB HEMETOLOGY METHOD 03/03/2025 9:48 AM [facility] MCV 97.1 79.0 - 98.0 FL LAB HEMETOLOGY METHOD 03/03/2025 9:48 AM [facility] MCH 29.3 27.0 - 32.0 pcg LAB HEMETOLOGY METHOD 03/03/2025 9:48 AM [facility] MCHC 30.1(L) 32.0 - 37.0 g/dL LAB HEMETOLOGY METHOD 03/03/2025 9:48 AM [facility] RDW 20.2(H) 11.0 - 15.0 % LAB HEMETOLOGY METHOD 03/03/2025 9:48 AM [facility] Platelets 452(H) 130 - 400 K/mcL LAB HEMETOLOGY METHOD 03/03/2025 9:48 AM [facility] MPV 9.6 7.0 - 11.0 FL LAB HEMETOLOGY METHOD 03/03/2025 9:48 AM [facility] NRBC 0.0 <1.0 % LAB HEMETOLOGY METHOD 03/03/2025 9:48 AM [facility] NRBC Absolute 0.00 <0.10 K/mcL LAB HEMETOLOGY METHOD 03/03/2025 9:48 AM [facility] Neutrophils Relative 81.6 % LAB HEMETOLOGY METHOD 03/03/2025 9:48 AM [facility] Lymphocytes Relative 9.5 % LAB HEMETOLOGY METHOD 03/03/2025 9:48 AM [facility] Monocytes Relative 5.1 % LAB HEMETOLOGY METHOD 03/03/2025 9:48 AM [facility] Eosinophils Relative 2.0 % LAB HEMETOLOGY METHOD 03/03/2025 9:48 AM [facility] Basophils Relative 0.4 % LAB HEMETOLOGY METHOD 03/03/2025 9:48 AM [facility] Immature Granulocytes Relative 1.4 % LAB HEMETOLOGY METHOD 03/03/2025 9:48 AM [facility] Neutrophils Absolute 11.49(H) 1.50 - 7.00 K/mcL LAB HEMETOLOGY METHOD 03/03/2025 9:48 AM [facility] Lymphocytes Absolute 1.33 1.00 - 5.00 K/mcL LAB HEMETOLOGY METHOD 03/03/2025 9:48 AM [facility] Monocytes Absolute 0.71 0.20 - 1.00 K/mcL LAB HEMETOLOGY METHOD 03/03/2025 9:48 AM [facility] Eosinophils Absolute 0.28 0.00 - 0.50 K/mcL LAB HEMETOLOGY METHOD 03/03/2025 9:48 AM [facility] Basophils Absolute 0.05 0.00 - 0.20 K/mcL LAB HEMETOLOGY METHOD 03/03/2025 9:48 AM [facility] Immature Granulocytes Absolute 0.19(H) 0.00 - 0.03 K/mcL LAB HEMETOLOGY METHOD 03/03/2025 9:48 AM [facility] Blood Venous blood specimen / Unknown Venipuncture / Unknown 03/03/2025 5:07 AM EDT 03/03/2025 8:59 AM EDT us Paula Sanches MD LAB BLOOD ORDERABLES Fin al Result Performing Organization Address [facility]/ZIP Co de Phone Number [facility] [address] [place] [address], [place] [phone] * Culture blood (03/03/2025 5:07 AM EDT) Culture, Blood No growth at 5 days LAB MICROBIOLOGY METHOD 03/08/2025 11:01 AM EDT [facility] Blood Venipuncture / Unknown 03/03/2025 5:07 AM EDT 03/03/2025 8:59 AM EDT Paula Sanches MD LAB MICROBIOLOGY - GENER AL ORDERABLES Final Result Performing Organization Address [facility] Co de Phone Number [facility] [address] [place] [address], [place] [phone] documented in this encounter Visit Diagnoses Diagnosis Elevated white blood cell count, unspecified documented in this encounter Care Teams Pill Machine Operator Relationship Specialty Start Date End Date Tomer Jackson MD [address] [place] [address] PCP - General 02/18/23 documented as of this encounter
--- OUTSIDE RECORDS SUMMARY | 2025-03-11 06:38 | XMS_ITS | Encounter Summary ---
Author Organization [facility] Address [address] [place] [address] Phone Care Team Providers Care Memorial Counselor Name Role Phone Lizette Lovelace Primary Care Provider [phone] Encounter Details Date Type Department Care Team (Late st Contact Info) Description 10/30/2022 Documentation Only [facility] [place], [address] [place] [address] Lizette Lovelace PA [address] [place] [id number] Social History Tobacco Use Types Packs/Day Years [...] on filedocumented in this encounter Care Teams Memorial Counselor Relationship Specialty Start Date End Date Lizette Lovelace PA [address] [facility] [address] [place], [place] PCP - General Physician Electrical And Instrumentation Manager 10/16/22 documented as of this encounter
--- OUTSIDE RECORDS SUMMARY | 2025-03-11 06:38 | XMS_ITS | Clinical Summary ---
Author Organization [address] Address [address] [place] [address] Phone Care Team Providers Care Paperhanger Contractor Name Role Phone Tomer Jackson MD Primary Care Provider [phone] Encounters Date Type Department Care Team Description 03/10/2025 Lab Requisition [facility] - Main Lab [address] [place] [address] Paula Sanches MD Chronic kidney disease, unspecified; Other specified abnormal findings of blood chemistry 03/10/2025 Lab Requisition [facility] - Main Lab [address] [place] [address] Paula Sanches MD Urinary tract infection, site not specified 03/08/2025 Lab Requisition [facility] Lab [address] [place] [address] Paula Sanches MD Hyperkalemia 03/04/2025 Lab Requisition [facility] Lab [address] [place] [address] Paula Sanches MD Essential (primary) hypertension 03/03/2025 Lab Requisition [facility] - Main Lab [address] [place] [address] Paula Sanches MD Elevated white blood cell count, unspecified 03/03/2025 Lab Requisition [facility] - Main Lab [address] [place] [address] Paula Sanches MD Elevated white blood cell count, unspecified 03/03/2025 Lab Requisition [facility] - Main Lab [address] [facility] [employer] [place] [address] Paula Sanches MD Elevated white blood cell count, unspecified; Urinary tract infection, site not specified 03/02/2025 Lab Requisition [facility] - Main Lab [address] [facility] [place] [address] Paula Sanches MD Essential (primary) hypertension; Hypothyroidism, unspecified; Type 2 diabetes mellitus without complications ([facility] V24, [facility] V28) from Last 3 Months Social [...] 2 diabetes mellitus without complications (CMS/HCC V24, CMS/[facility] V28) HEMOGLOBIN A1C Routine 03/02/2025 5:09 [...] of4 resultswithin the time period is included. [facility] Sodium 130(L) 133 - 145 mmol/L LAB CHEMISTRY METHOD 03/10/2025 8:10 AM EDT [facility] Potassium 6.0(H) 3.5 - 5.5 mmol/L LAB CHEMISTRY METHOD 03/10/2025 8:10 AM [facility] Chloride 94(L) 96 - 110 mmol/L LAB CHEMISTRY METHOD 03/10/2025 8:10 AM [facility] CO2 28 21 - 32 mmol/L LAB CHEMISTRY METHOD 03/10/2025 8:10 AM [facility] Anion Gap 8 3 - 11 LAB CHEMISTRY METHOD 03/10/2025 8:10 AM [facility] Glucose 103(H) 70 - 100 mg/dL LAB CHEMISTRY METHOD 03/10/2025 8:10 AM [facility] BUN 63(H) 5 - 25 mg/dL LAB CHEMISTRY METHOD 03/10/2025 8:10 AM [facility] Creatinine 2.06(H) 0.50 - 1.10 mg/dL LAB CHEMISTRY METHOD 03/10/2025 8:10 AM [facility] eGFR 23(L) >=60 mL/min/1. 73m2 LAB CHEMISTRY METHOD 03/10/2025 8:10 AM [facility] Comment:Calculation based on the Chronic Kidney Disease Epidemiology Collaboration (CKD-EPI) equation refit without adjustment for race. BUN/Creatinine Ratio 30.6 LAB CHEMISTRY METHOD 03/10/2025 8:10 AM [facility] Calcium 8.4(L) 8.5 - 10.5 mg/dL LAB CHEMISTRY METHOD 03/10/2025 8:10 AM [facility] Blood Venous blood specimen / Unknown Venipuncture / Unknown 03/10/2025 5:29 AM EDT 03/10/2025 7:17 AM EDT us Paula Sanches MD LAB BLOOD ORDERABLES Fin al Result [facility] [address] [place] [address], [place] [phone] * (ABNORMAL) Urinalysis with reflex microscopic and culture (03/10/2025 5:00 AM EDT) Specific [place] Urine 1.020 1.003 - 1.030 LAB URINALYSIS - AUTOMATED METHOD 03/10/2025 7:56 AM [facility] pH, Urine 5.5 5.0 - 8.0 pH LAB URINALYSIS - AUTOMATED METHOD 03/10/2025 7:56 AM [facility] Leukocytes, Urine Moderate(A) Negative LAB URINALYSIS - AUTOMATED METHOD 03/10/2025 7:56 AM [facility] Nitrite, Urine Negative Negative LAB URINALYSIS - AUTOMATED METHOD 03/10/2025 7:56 AM [facility] Protein, Urine Negative <=Trace mg/dL LAB URINALYSIS - AUTOMATED METHOD 03/10/2025 7:56 AM [facility] Glucose, Urine 500(A) Negative mg/dL LAB URINALYSIS - AUTOMATED METHOD 03/10/2025 7:56 AM [facility] Ketones, Urine Negative Negative mg/dL LAB URINALYSIS - AUTOMATED METHOD 03/10/2025 7:56 AM [facility] Urobilinogen , Urine 0.2 0.2 - 1.0 mg/dL LAB URINALYSIS - AUTOMATED METHOD 03/10/2025 7:56 AM [facility] Bilirubin, Urine Negative Negative LAB URINALYSIS - AUTOMATED METHOD 03/10/2025 7:56 AM [facility] Blood, Urine Negative Negative LAB URINALYSIS - AUTOMATED METHOD 03/10/2025 7:56 AM [facility] RBC, Urine 1.3 0 - 4 /HPF LAB URINALYSIS - AUTOMATED METHOD 03/10/2025 7:56 AM [facility] WBC, Urine 60.1(H) 0 - 4 /HPF LAB URINALYSIS - AUTOMATED METHOD 03/10/2025 7:56 AM EDT [facility] Squamous Epithelial, Urine 18 0 - 60 /LPF LAB URINALYSIS - AUTOMATED METHOD 03/10/2025 7:56 AM EDT [facility] Bacteria, Urine Few(A) Negative /HPF LAB URINALYSIS - AUTOMATED METHOD 03/10/2025 7:56 AM EDT [facility] Hyaline Casts, Urine 0.0 0 - 3 /LPF LAB URINALYSIS - AUTOMATED METHOD 03/10/2025 7:56 AM EDT [facility] Urine Urine specimen obtained by clean catch procedure / Unknown Non-blood Collection / Unknown 03/10/2025 5:00 AM EDT 03/10/2025 7:08 AM EDT Paula Sanches MD LAB URINE ORDERABLES Fin al Result Performing Organization Address [facility]/ZIP Co de Phone Number [facility] [address] [place] [address], [place] [phone] * Manriquez urine culture tube (03/10/2025 5:00 AM EDT) Extra Tube Hold for add-ons. 03/10/2025 9:01 AM EDT [facility] Comment:Auto resulted. Urine Urine specimen obtained by clean catch procedure / Unknown Non-blood Collection / Unknown 03/10/2025 5:00 AM EDT 03/10/2025 7:08 AM EDT Paula Sanches MD LAB URINE ORDERABLES Fin al Result Performing Organization Address City/[facility]/ZIP Co de Phone Number [facility] [address] [place] [address], [place] [phone] * (ABNORMAL) Complete blood count (03/07/2025 5:28 AM EDT) Only the most recent of2 resultswithin the time period is included. [facility] Signature WBC 14.5(H) 4.8 - 10.8 K/mcL LAB HEMETOLOGY METHOD 03/07/2025 10:26 AM [facility] RBC 3.30(L) 3.80 - 4.80 M/mcL LAB HEMETOLOGY METHOD 03/07/2025 10:26 AM [facility] Hemoglobin 9.7(L) 11.5 - 16.0 g/dL LAB HEMETOLOGY METHOD 03/07/2025 10:26 AM [facility] Hematocrit 31.9(L) 35.0 - 47.0 % LAB HEMETOLOGY METHOD 03/07/2025 10:26 AM [facility] MCV 97.0 79.0 - 98.0 FL LAB HEMETOLOGY METHOD 03/07/2025 10:26 AM [facility] MCH 29.5 27.0 - 32.0 pcg LAB HEMETOLOGY METHOD 03/07/2025 10:26 AM [facility] MCHC 30.4(L) 32.0 - 37.0 g/dL LAB HEMETOLOGY METHOD 03/07/2025 10:26 AM [facility] RDW 19.1(H) 11.0 - 15.0 % LAB HEMETOLOGY METHOD 03/07/2025 10:26 AM [facility] Platelets 587(H) 130 - 400 K/mcL LAB HEMETOLOGY METHOD 03/07/2025 10:26 AM [facility] MPV 9.4 7.0 - 11.0 FL LAB HEMETOLOGY METHOD 03/07/2025 10:26 AM [facility] NRBC 0.0 <1.0 % LAB HEMETOLOGY METHOD 03/07/2025 10:26 AM EDT [facility] NRBC Absolute 0.00 <0.10 K/[facility] LAB HEMETOLOGY METHOD 03/07/2025 10:26 AM EDT [facility] Blood Venous blood specimen / Unknown Venipuncture / Unknown 03/07/2025 5:28 AM EDT 03/07/2025 9:49 AM EDT Paula Sanches MD LAB BLOOD ORDERABLES Fin al Result Performing Organization Address [facility]/ZIP Co de Phone Number [facility] [address] [place] [address], [place] [phone] * Culture blood (03/03/2025 5:12 AM EDT) Only the most recent of2 resultswithin the time period is included. Culture, Blood No growth at 5 days LAB MICROBIOLOGY METHOD 03/08/2025 11:01 AM EDT [facility] Blood Venipuncture / Unknown 03/03/2025 5:12 AM EDT 03/03/2025 9:00 AM EDT Paula Sanches MD LAB MICROBIOLOGY - GENER AL ORDERABLES Final Result Performing Organization Address [facility]/ZIP Co de Phone Number [facility] [address] [place] [address], [place] [phone] * (ABNORMAL) CBC auto differential (03/03/2025 5:07 AM EDT) WBC 14.1(H) 4.8 - 10.8 K/[facility] LAB HEMETOLOGY METHOD 03/03/2025 9:48 AM EDT [facility] RBC 3.10(L) 3.80 - 4.80 M/[facility] LAB HEMETOLOGY METHOD 03/03/2025 9:48 AM EDT [facility] Hemoglobin 9.1(L) 11.5 - 16.0 g/dL LAB HEMETOLOGY METHOD 03/03/2025 9:48 AM [facility] Hematocrit 30.2(L) 35.0 - 47.0 % LAB HEMETOLOGY METHOD 03/03/2025 9:48 AM [facility] MCV 97.1 79.0 - 98.0 FL LAB HEMETOLOGY METHOD 03/03/2025 9:48 AM [facility] MCH 29.3 27.0 - 32.0 pcg LAB HEMETOLOGY METHOD 03/03/2025 9:48 AM [facility] MCHC 30.1(L) 32.0 - 37.0 g/dL LAB HEMETOLOGY METHOD 03/03/2025 9:48 AM [facility] RDW 20.2(H) 11.0 - 15.0 % LAB HEMETOLOGY METHOD 03/03/2025 9:48 AM [facility] Platelets 452(H) 130 - 400 K/mcL LAB HEMETOLOGY METHOD 03/03/2025 9:48 AM [facility] MPV 9.6 7.0 - 11.0 FL LAB HEMETOLOGY METHOD 03/03/2025 9:48 AM [facility] NRBC 0.0 <1.0 % LAB HEMETOLOGY METHOD 03/03/2025 9:48 AM [facility] NRBC Absolute 0.00 <0.10 K/mcL LAB HEMETOLOGY METHOD 03/03/2025 9:48 AM [facility] Neutrophils Relative 81.6 % LAB HEMETOLOGY METHOD 03/03/2025 9:48 AM [facility] Lymphocytes Relative 9.5 % LAB HEMETOLOGY METHOD 03/03/2025 9:48 AM [facility] Monocytes Relative 5.1 % LAB HEMETOLOGY METHOD 03/03/2025 9:48 AM EDT [facility] Eosinophils Relative 2.0 % LAB HEMETOLOGY METHOD 03/03/2025 9:48 AM EDT [facility] Basophils Relative 0.4 % LAB HEMETOLOGY METHOD 03/03/2025 9:48 AM EDT [facility] Immature Granulocytes Relative 1.4 % LAB HEMETOLOGY METHOD 03/03/2025 9:48 AM EDT [facility] Neutrophils Absolute 11.49(H) 1.50 - 7.00 K/mcL LAB HEMETOLOGY METHOD 03/03/2025 9:48 AM EDT [facility] Lymphocytes Absolute 1.33 1.00 - 5.00 K/mcL LAB HEMETOLOGY METHOD 03/03/2025 9:48 AM EDT [facility] Monocytes Absolute 0.71 0.20 - 1.00 K/mcL LAB HEMETOLOGY METHOD 03/03/2025 9:48 AM EDT [facility] Eosinophils Absolute 0.28 0.00 - 0.50 K/mcL LAB HEMETOLOGY METHOD 03/03/2025 9:48 AM EDT [facility] Basophils Absolute 0.05 0.00 - 0.20 K/mcL LAB HEMETOLOGY METHOD 03/03/2025 9:48 AM EDT [facility] Immature Granulocytes Absolute 0.19(H) 0.00 - 0.03 K/mcL LAB HEMETOLOGY METHOD 03/03/2025 9:48 AM EDT [facility] Blood Venous blood specimen / Unknown Venipuncture / Unknown 03/03/2025 5:07 AM EDT 03/03/2025 8:59 AM EDT us Paula Sanches MD LAB BLOOD ORDERABLES Fin al Result [facility] [address] [place] [address], * (ABNORMAL) Urinalysis with reflex microscopic (03/02/2025 2:02 PM EDT) Specific [place] Urine 1.013 1.003 - 1.030 LAB URINALYSIS - AUTOMATED METHOD 03/03/2025 10:36 AM [facility] pH, Urine 6.0 5.0 - 8.0 pH LAB URINALYSIS - AUTOMATED METHOD 03/03/2025 10:36 AM [facility] Leukocytes, Urine Large(A) Negative LAB URINALYSIS - AUTOMATED METHOD 03/03/2025 10:36 AM [facility] Nitrite, Urine Negative Negative LAB URINALYSIS - AUTOMATED METHOD 03/03/2025 10:36 AM [facility] Protein, Urine 100(A) <=Trace mg/dL LAB URINALYSIS - AUTOMATED METHOD 03/03/2025 10:36 AM [facility] Glucose, Urine 100(A) Negative mg/dL LAB URINALYSIS - AUTOMATED METHOD 03/03/2025 10:36 AM [facility] Ketones, Urine Trace(A) Negative mg/dL LAB URINALYSIS - AUTOMATED METHOD 03/03/2025 10:36 AM [facility] Urobilinogen , Urine 0.2 0.2 - 1.0 mg/dL LAB URINALYSIS - AUTOMATED METHOD 03/03/2025 10:36 AM [facility] Bilirubin, Urine Negative Negative LAB URINALYSIS - AUTOMATED METHOD 03/03/2025 10:36 AM [facility] Blood, Urine Large(A) Negative LAB URINALYSIS - AUTOMATED METHOD 03/03/2025 10:36 AM [facility] RBC, Urine 5(H) 0 - 4 /HPF LAB URINALYSIS - AUTOMATED METHOD 03/03/2025 10:36 AM [facility] WBC, Urine >4,000(H) 0 - 4 /HPF LAB URINALYSIS - AUTOMATED METHOD 03/03/2025 10:36 AM EDT [facility] Squamous Epithelial, Urine 73(H) [...] 2:02 PM EDT 03/03/2025 9:05 AM EDT Paual Sanches MD LAB URINE ORDERABLES Fin al Result [facility] [address] [place] [address], * (ABNORMAL) Culture urine (03/02/2025 2:02 PM [...] AL ORDERABLES Final Result Performing Organization Address City/[facility]/ZIP Co de Phone Number [facility] [address] [place] [address], [place] [phone] * (ABNORMAL) Thyroid stimulating hormone (03/02/2025 5:09 AM EDT) [facility] TSH 15.76(H) 0.40 - 4.00 mcIU/mL LAB CHEMISTRY METHOD 03/02/2025 9:11 AM EDT [facility] Blood Venous blood specimen / Unknown Venipuncture / Unknown 03/02/2025 5:09 AM EDT 03/02/2025 7:30 AM EDT Paula Sanches MD LAB BLOOD ORDERABLES Fin al Result Performing Organization Address City/[facility]/ZIP Co de Phone Number [facility] [address] [place] [address], [place] [phone] * Hemoglobin A1c (03/02/2025 5:09 AM EDT) Hemoglobin A1C 6.2 <6.5 % LAB CHEMISTRY METHOD 03/02/2025 2:[address] [facility] Mean Bld Glu Estim. 131 mg/dL LAB CHEMISTRY METHOD 03/02/2025 2:03 PM EDT [facility] Blood Venous blood specimen / Unknown Venipuncture / Unknown 03/02/2025 5:09 AM EDT 03/02/2025 7:30 AM EDT us Paula Sanches MD LAB BLOOD ORDERABLES Fin al Result [facility] [address] [place] [address], from Last 3 Months Insurance MEDICAID - [place] [employer] MEDICARE Care Teams Paperhanger Contractor Relationship Specialty Start Date End Date Tomer Jackson MD [facility] [place] [address] [facility] - General 02/18/23
--- OUTSIDE RECORDS SUMMARY | 2025-03-11 06:38 | XMS_ITS | Encounter Summary ---
Author Organization [facility] Address [address] [place] [address] Care Team Providers Care Sales Order Specialist Name Role Phone Tomer Jackson MD Primary Care Provider [phone] Encounter Details Date Type Department Care Team (Late st Contact Info) Description 03/10/2025 Lab Requisition [facility] - Main Lab [address] [facility] [place] [address] Paula Sanches MD [address] [id number] Chronic kidney disease, unspecified; Other specified abnormal [...] LAB CHEMISTRY METHOD 03/10/2025 8:10 AM T [facility] Potassium 6.0(H) 3.5 - 5.5 mmol/L LAB CHEMISTRY METHOD 03/10/2025 8:10 AM T [facility] Chloride 94(L) 96 - 110 mmol/L LAB CHEMISTRY METHOD 03/10/2025 8:10 AM [facility] CO2 28 21 - 32 mmol/L LAB CHEMISTRY METHOD 03/10/2025 8:10 AM [facility] Anion Gap 8 3 - 11 LAB CHEMISTRY METHOD 03/10/2025 8:10 AM [facility] Glucose 103(H) 70 - 100 mg/dL LAB CHEMISTRY METHOD 03/10/2025 8:10 AM [facility] BUN 63(H) 5 - 25 mg/dL LAB CHEMISTRY METHOD 03/10/2025 8:10 AM [facility] Creatinine 2.06(H) 0.50 - 1.10 mg/dL LAB CHEMISTRY METHOD 03/10/2025 8:10 AM [facility] eGFR 23(L) >=60 mL/min/1. 73m2 LAB CHEMISTRY METHOD 03/10/2025 8:10 AM [facility] Comment:Calculation based on the Chronic Kidney Disease Epidemiology Collaboration (CKD-EPI) equation refit without adjustment for race. BUN/Creatinine Ratio 30.6 LAB CHEMISTRY METHOD 03/10/2025 8:10 AM [facility] Calcium 8.4(L) 8.5 - 10.5 mg/dL LAB CHEMISTRY METHOD 03/10/2025 8:10 AM [facility] Blood Venous blood specimen / Unknown Venipuncture / Unknown 03/10/2025 5:29 AM EDT 03/10/2025 7:17 AM EDT us Paula Sanches MD LAB BLOOD ORDERABLES Fin al Result [facility] [address] [place] [address], documented in this encounter Visit Diagnoses Diagnosis Chronic kidney disease, unspecified Other specified abnormal findings of blood chemistry documented in this encounter Care Teams Sales Order Specialist Relationship Specialty Start Date End Date Tomer Jackson MD [address] [place] [address] PCP - General 02/18/23 documented as of this encounter
--- OUTSIDE RECORDS SUMMARY | 2025-03-11 06:38 | XMS_ITS | Clinical Summary ---
Author Organization [facility], Address [address] [place] [address] Phone Care Team Providers Care Internet Media Planner Name Role Phone Lizette Lovelace Primary Care Provider [phone] [phone] Allergies Active Allergy Reactions Criticality Noted Date [...] PM EDT) Hemoglobin A1C 6.7(H) (4.0-5.6) % [facility] Comment: MONITORING: In known diabetic patients, hemoglobin A1c targets should be discussed with health care provider. DIAGNOSTIC USE: The [place] Diabetes Association (ADA) and the World Health [...] Supplement 1 Testing performed or reported by [facility], a Service of [facility], [address] [place] [id number] Gabriel Albrecht MD, Scrap Drop Operator [facility]# [id number] Blood specimen (specimen) Venous blood / Unknown 11/11/2022 3:54 PM EDT 11/11/2022 3:58 PM EDT us Panda Moe MD LAB BLOOD ORDERABLES Final Res ult [facility] from Last 3 Months or Most Recently Relevant to Health Maintenance Insurance [facility] Medicare [facility] Medicaid [place] Care Teams Internet Media Planner Relationship Specialty Start Date End Date Lizette Lovelace PA [address] [place], [place] PCP - General Physician Transportation Refrigeration Technician 10/16/22
--- OUTSIDE RECORDS SUMMARY | 2025-03-11 06:38 | XMS_ITS | Encounter Summary ---
Author Organization [facility] Address [address] [place] [address] Care Team Providers Care Crime Scene Specialist Name Role Phone Tomer Jackson MD Primary Care Provider [phone] Encounter Details Date Type Department Care Team (Late st Contact Info) Description 03/03/2025 Lab Requisition [facility] - Main Lab [address] [place] [address] Paula Sanches MD [address] [phone] Elevated white blood cell count, unspecified Social [...] LAB MICROBIOLOGY METHOD 03/08/2025 11:[address] [facility] Blood Venipuncture / Unknown 03/03/2025 5:12 AM EDT 03/03/2025 9:00 AM EDT us Paula Sanches MD LAB MICROBIOLOGY - GENER AL ORDERABLES Final Result [place] [place] [facility] ([facility] [address] [place] [address], documented in this encounter Visit Diagnoses Diagnosis Elevated white blood cell count, unspecified documented in this encounter Care Teams Crime Scene Specialist Relationship Specialty Start Date End Date Tomer Jackson MD [address] [place] [address] PCP - General 02/18/23 documented as of this encounter
--- OUTSIDE RECORDS SUMMARY | 2025-03-11 06:38 | XMS_ITS | Encounter Summary ---
Author Organization [facility] Address [address] [place] [address] Care Team Providers Care Quantitative Consultant Name Role Phone Tomer Jackson MD Primary Care Provider [phone] [phone] Encounter Details Date Type Department Care Team (Late st Contact Info) Description 03/03/2025 Lab Requisition [facility] - Main Lab [address] [facility] [place] [address] Paula Sanches MD [address] [phone] Elevated white blood cell count, unspecified; Urinary [...] with reflex microscopic (03/02/2025 2:02 PM EDT) [facility] Specific [place] Urine 1.013 1.003 - 1.030 LAB URINALYSIS - AUTOMATED METHOD 03/03/2025 10:36 AM [facility] pH, Urine 6.0 5.0 - 8.0 pH LAB URINALYSIS - AUTOMATED METHOD 03/03/2025 10:36 AM [facility] Leukocytes, Urine Large(A) Negative LAB URINALYSIS - AUTOMATED METHOD 03/03/2025 10:36 AM [facility] Nitrite, Urine Negative Negative LAB URINALYSIS - AUTOMATED METHOD 03/03/2025 10:36 AM [facility] Protein, Urine 100(A) <=Trace mg/dL LAB URINALYSIS - AUTOMATED METHOD 03/03/2025 10:36 AM [facility] Glucose, Urine 100(A) Negative mg/dL LAB URINALYSIS - AUTOMATED METHOD 03/03/2025 10:36 AM [facility] Ketones, Urine Trace(A) Negative mg/dL LAB URINALYSIS - AUTOMATED METHOD 03/03/2025 10:36 AM [facility] Urobilinogen , Urine 0.2 0.2 - 1.0 mg/dL LAB URINALYSIS - AUTOMATED METHOD 03/03/2025 10:36 AM [facility] Bilirubin, Urine Negative Negative LAB URINALYSIS - AUTOMATED METHOD 03/03/2025 10:36 AM [facility] Blood, Urine Large(A) Negative LAB URINALYSIS - AUTOMATED METHOD 03/03/2025 10:36 AM [facility] RBC, Urine 5(H) 0 - 4 /HPF LAB URINALYSIS - AUTOMATED METHOD 03/03/2025 10:36 AM [facility] WBC, Urine >4,000(H) 0 - 4 /HPF LAB URINALYSIS - AUTOMATED METHOD 03/03/2025 10:36 AM [facility] Squamous Epithelial, Urine 73(H) 0 - 60 /LPF LAB URINALYSIS - AUTOMATED METHOD 03/03/2025 10:36 AM EDT [facility] Bacteria, Urine Many(A) Negative /HPF LAB URINALYSIS - AUTOMATED METHOD 03/03/2025 10:36 AM EDT [facility] Hyaline Casts, Urine 0.0 0 - 3 /LPF LAB URINALYSIS - AUTOMATED METHOD 03/03/2025 10:36 AM EDT [facility] Urine Urine specimen obtained by clean catch procedure / Unknown Non-blood Collection / Unknown 03/02/2025 2:02 PM EDT 03/03/2025 9:05 AM EDT us Paula Sanches MD LAB URINE ORDERABLES Fin al Result [facility] [address] [place] [address], * (ABNORMAL) Culture urine (03/02/2025 2:02 PM EDT) Culture, Urine >=100,000 CFU/mL Citrobacter werkmanii(A) MIRIAM 03/05/2025 10:20 AM EDT [facility] Comment: This is an edited result. Previous organism was Gram negative bacilli on 03/04/2025 at 0804 EDT. Urine Urine specimen obtained by clean catch procedure / Unknown Non-blood Collection / Unknown 03/02/2025 2:02 PM EDT 03/03/2025 9:05 AM EDT Narrative [facility] - 03/05/2025 10:20 AM [...] MICROBIOLOGY - GENER AL ORDERABLES Final Result [facility] [address] [place] [address], documented in this encounter Visit Diagnoses Diagnosis Elevated white blood cell count, unspecified Urinary tract infection, site not specified documented in this encounter Care Teams Quantitative Consultant Relationship Specialty Start Date End Date Tomer Jackson MD [address] [place] [address] PCP - General 02/18/23 documented as of this encounter
--- OUTSIDE RECORDS SUMMARY | 2025-03-11 06:38 | XMS_ITS | Encounter Summary ---
Author Organization [facility] Address [address] [place] [address] Care Team Providers Care Board Setter Name Role Phone Tomer Jackson MD Primary Care Provider [phone] Encounter Details Date Type Department Care Team (Late st Contact Info) Description 03/04/[address] [facility] - Main Lab 299 [facility] [email or web address] [address] Paula Sanches MD [address] [phone] Essential (primary) hypertension Social History Tobacco Use [...] LAB CHEMISTRY METHOD 03/07/2025 11:08 AM EDT [facility] ([facility]) [facility] Potassium 5.9(H) 3.5 - 5.5 mmol/L LAB CHEMISTRY METHOD 03/07/2025 11:08 AM [facility] Chloride 93(L) 96 - 110 mmol/L LAB CHEMISTRY METHOD 03/07/2025 11:08 AM [facility] CO2 29 21 - 32 mmol/L LAB CHEMISTRY METHOD 03/07/2025 11:08 AM [facility] Anion Gap 8 3 - 11 LAB CHEMISTRY METHOD 03/07/2025 11:08 AM [facility] Glucose 105(H) 70 - 100 mg/dL LAB CHEMISTRY METHOD 03/07/2025 11:08 AM [facility] BUN 54(H) 5 - 25 mg/dL LAB CHEMISTRY METHOD 03/07/2025 11:08 AM [facility] Comment:Results verified by repeat testing Creatinine 1.63(H) 0.50 - 1.10 mg/dL LAB CHEMISTRY METHOD 03/07/2025 11:08 AM [facility] Comment:Results verified by repeat testing eGFR 30(L) >=60 mL/min/1. 73m2 LAB CHEMISTRY METHOD 03/07/2025 11:08 AM [facility] Comment:Calculation based on the Chronic Kidney Disease Epidemiology Collaboration (CKD-EPI) equation refit without adjustment for race. BUN/Creatinine Ratio 33.1 LAB CHEMISTRY METHOD 03/07/2025 11:08 AM [facility] Calcium 9.0 8.5 - 10.5 mg/dL LAB CHEMISTRY METHOD 03/07/2025 11:08 AM [facility] Blood Venous blood specimen / Unknown Venipuncture / Unknown 03/07/2025 5:28 AM EDT 03/07/2025 9:49 AM EDT us Paula Sanches MD LAB BLOOD ORDERABLES Fin al Result [facility] [address] [place] [address], * (ABNORMAL) Complete blood count (03/07/2025 5:28 AM EDT) [facility] WBC 14.5(H) 4.8 - 10.8 K/mcL LAB HEMETOLOGY METHOD 03/07/2025 10:26 AM [facility] RBC 3.30(L) 3.80 - 4.80 M/mcL LAB HEMETOLOGY METHOD 03/07/2025 10:26 AM [facility] Hemoglobin 9.7(L) 11.5 - 16.0 g/dL LAB HEMETOLOGY METHOD 03/07/2025 10:26 AM [facility] Hematocrit 31.9(L) 35.0 - 47.0 % LAB HEMETOLOGY METHOD 03/07/2025 10:26 AM [facility] MCV 97.0 79.0 - 98.0 FL LAB HEMETOLOGY METHOD 03/07/2025 10:26 AM [facility] MCH 29.5 27.0 - 32.0 pcg LAB HEMETOLOGY METHOD 03/07/2025 10:26 AM [facility] MCHC 30.4(L) 32.0 - 37.0 g/dL LAB HEMETOLOGY METHOD 03/07/2025 10:26 AM [facility] RDW 19.1(H) 11.0 - 15.0 % LAB HEMETOLOGY METHOD 03/07/2025 10:26 AM [facility] Platelets 587(H) 130 - 400 K/mcL LAB HEMETOLOGY METHOD 03/07/2025 10:26 AM [facility] MPV 9.4 7.0 - 11.0 FL LAB HEMETOLOGY METHOD 03/07/2025 10:26 AM [facility] NRBC 0.0 <1.0 % LAB HEMETOLOGY METHOD 03/07/2025 10:26 AM EDT [facility] NRBC Absolute 0.00 <0.10 K/mcL LAB HEMETOLOGY METHOD 03/07/2025 10:26 AM EDT [facility] Blood Venous blood specimen / Unknown Venipuncture / Unknown 03/07/2025 5:28 AM EDT 03/07/2025 9:49 AM EDT us Paula Sanches MD LAB BLOOD ORDERABLES Fin al Result [facility] [address] [place] [address], documented in this encounter Visit Diagnoses Diagnosis Essential (primary) hypertension Unspecified essential hypertension documented in this encounter Care Teams Board Setter Relationship Specialty Start Date End Date Tomer Jackson MD [address] [place] [address] PCP - General 02/18/23 documented as of this encounter
--- OUTSIDE RECORDS SUMMARY | 2025-03-11 06:39 | XMS_ITS | Encounter Summary ---
Author Organization [facility] Address [address] [place] [address] Care Team Providers Care Day Care Provider Name Role Phone Tomer Jackosn MD Primary Care Provider [phone] Encounter Details Date Type Department Care Team (Late st Contact Info) Description 03/10/2025 Lab Requisition [facility] - Main Lab [address] [facility] [place] [address] Paula Sanches MD [address] [phone] Urinary tract infection, site not specified Social [...] and culture (03/10/2025 5:00 AM EDT) Specific [place] Urine 1.020 1.003 - 1.030 LAB URINALYSIS - AUTOMATED METHOD 03/10/2025 7:[address] [facility] pH, Urine 5.5 5.0 - 8.0 pH LAB URINALYSIS - AUTOMATED METHOD 03/10/2025 7:[address] [facility] Leukocytes, Urine Moderate(A) Negative LAB URINALYSIS - AUTOMATED METHOD 03/10/2025 7:[address] [facility] Nitrite, Urine Negative Negative LAB URINALYSIS - AUTOMATED METHOD 03/10/2025 7:[address] [facility] Protein, Urine Negative <=Trace mg/dL LAB URINALYSIS - AUTOMATED METHOD 03/10/2025 7:[address] [facility] Glucose, Urine 500(A) Negative mg/dL LAB URINALYSIS - AUTOMATED METHOD 03/10/2025 7:[address] [facility] Ketones, Urine Negative Negative mg/dL LAB URINALYSIS - AUTOMATED METHOD 03/10/2025 7:[address] [facility] Urobilinogen , Urine 0.2 0.2 - 1.0 mg/dL LAB URINALYSIS - AUTOMATED METHOD 03/10/2025 7:[address] [facility] Bilirubin, Urine Negative Negative LAB URINALYSIS - AUTOMATED METHOD 03/10/2025 7:[address] [facility] Blood, Urine Negative Negative LAB URINALYSIS - AUTOMATED METHOD 03/10/2025 7:[address] [facility] RBC, Urine 1.3 0 - 4 /HPF LAB URINALYSIS - AUTOMATED METHOD 03/10/2025 7:[address] [facility] WBC, Urine 60.1(H) 0 - 4 /HPF LAB URINALYSIS - AUTOMATED METHOD 03/10/2025 7:[address] [facility] Squamous Epithelial, Urine 18 0 - 60 /LPF LAB URINALYSIS - AUTOMATED METHOD 03/10/2025 7:56 AM EDT [facility] Bacteria, Urine Few(A) Negative /HPF LAB URINALYSIS - AUTOMATED METHOD 03/10/2025 7:56 AM EDT [facility] Hyaline Casts, Urine 0.0 0 - 3 /LPF LAB URINALYSIS - AUTOMATED METHOD 03/10/2025 7:56 AM EDT [facility] Urine Urine specimen obtained by clean catch procedure / Unknown Non-blood Collection / Unknown 03/10/2025 5:00 AM EDT 03/10/2025 7:08 AM EDT Paula Sanches MD LAB URINE ORDERABLES Fin al Result Performing Organization Address City/[facility]/ZIP Co de Phone Number [facility] [address] [place] [address], [place] [phone] * Manriquez urine culture tube (03/10/2025 5:00 AM EDT) Extra Tube Hold for add-ons. 03/10/2025 9:01 AM EDT [facility] Comment:Auto resulted. Urine Urine specimen obtained by clean catch procedure / Unknown Non-blood Collection / Unknown 03/10/2025 5:00 AM EDT 03/10/2025 7:08 AM EDT Paula Sanches MD LAB URINE ORDERABLES Fin al Result [facility] [address] [place] [address], [place] [phone] documented in this encounter Visit Diagnoses Diagnosis Urinary tract infection, site not specified documented in this encounter Care Teams Day Care Provider Relationship Specialty Start Date End Date Tomer Jackson MD Formerly named [facility] [place] [address] PCP - General 02/18/23 documented as of this encounter
--- OUTSIDE RECORDS SUMMARY | 2025-03-11 06:39 | XMS_ITS | Encounter Summary ---
Author Organization [facility] Address [id number] [place] [address] Care Team Providers Care Manager Corporate Communications Name Role Phone Tomer Jackson MD Primary Care Provider [phone] [phone] Encounter Details Date Type Department Care Team (Late st Contact Info) Description 03/02/2025 Lab Requisition [facility] - Main Lab 299 [facility] [place] [address] Paula Sanches MD [address] [phone] Essential (primary) hypertension; Hypothyroidism, unspecified; Type 2 [...] unspecified Type 2 diabetes mellitus without complications ([facility] V24, [facility] V28) documented in this encounter Results * (ABNORMAL) Thyroid stimulating hormone (03/02/2025 5:09 AM EDT) [facility] TSH 15.76(H) 0.40 - 4.00 mcIU/mL LAB CHEMISTRY METHOD 03/02/2025 9:11 AM EDT [facility] Blood Venous blood specimen / Unknown Venipuncture / Unknown 03/02/2025 5:09 AM EDT 03/02/2025 7:30 AM EDT Paula Sanches MD LAB BLOOD ORDERABLES Fin al Result Performing Organization Address [facility]/ZIP Co de Phone Number [facility] [address] [place] [address], [place] [phone] * Hemoglobin A1c (03/02/2025 5:09 AM EDT) [facility] Hemoglobin A1C 6.2 <6.5 % LAB CHEMISTRY METHOD 03/02/2025 2:03 PM EDT [facility] Mean Bld Glu Estim. 131 mg/dL LAB CHEMISTRY METHOD 03/02/2025 2:03 PM EDT [facility] Blood Venous blood specimen / Unknown Venipuncture / Unknown 03/02/2025 5:09 AM EDT 03/02/2025 7:30 AM EDT Paula Sanches MD LAB BLOOD ORDERABLES Fin al Result Performing Organization Address City/[facility]/ZIP Co de Phone Number [facility] [address] [place] [address], [place] [phone] * (ABNORMAL) Basic metabolic panel (03/02/2025 5:09 AM EDT) Sodium 135 133 - 145 mmol/L LAB CHEMISTRY METHOD 03/02/2025 8:[address] [facility] Potassium 4.5 3.5 - 5.5 mmol/L LAB CHEMISTRY METHOD 03/02/2025 8:[address] [facility] Chloride 99 96 - 110 mmol/L LAB CHEMISTRY METHOD 03/02/2025 8:[address] [facility] CO2 30 21 - 32 mmol/L LAB CHEMISTRY METHOD 03/02/2025 8:[address] [facility] Anion Gap 6 3 - 11 LAB CHEMISTRY METHOD 03/02/2025 8:[address] [facility] Glucose 146(H) 70 - 100 mg/dL LAB CHEMISTRY METHOD 03/02/2025 8:[address] [facility] BUN 19 5 - 25 mg/dL LAB CHEMISTRY METHOD 03/02/2025 8:[address] [facility] Creatinine 0.81 0.50 - 1.10 mg/dL LAB CHEMISTRY METHOD 03/02/2025 8:[address] [facility] eGFR 69 >=60 mL/min/1. 73m2 LAB CHEMISTRY METHOD 03/02/2025 8:[address] [facility] Comment:Calculation based on the Chronic Kidney Disease Epidemiology Collaboration (CKD-EPI) equation refit without adjustment for race. BUN/Creatinine Ratio 23.5 LAB CHEMISTRY METHOD 03/02/2025 8:[address] [facility] Calcium 8.7 8.5 - 10.5 mg/dL LAB CHEMISTRY METHOD 03/02/2025 8:[address] [facility] Blood Venous blood specimen / Unknown Venipuncture / Unknown 03/02/2025 5:09 AM EDT 03/02/2025 7:30 AM EDT Paula Sanches MD LAB BLOOD ORDERABLES Fin al Result [facility] [address] [place] [address], * (ABNORMAL) Complete blood count (03/02/2025 5:09 AM EDT) WBC 16.1(H) 4.8 - 10.8 K/mcL LAB HEMETOLOGY METHOD 03/02/2025 7:51 AM EDT [facility] RBC 3.20(L) 3.80 - 4.80 M/mcL LAB HEMETOLOGY [facility] Hemoglobin 9.4(L) 11.5 - 16.0 g/dL LAB HEMETOLOGY METHOD 03/02/2025 7:[address] [facility] Hematocrit 30.6(L) 35.0 - 47.0 % LAB HEMETOLOGY METHOD 03/02/2025 7:[address] [facility] MCV 96.8 79.0 - 98.0 FL LAB HEMETOLOGY METHOD 03/02/2025 7:[address] [facility] MCH 29.7 27.0 - 32.0 pcg LAB HEMETOLOGY METHOD 03/02/2025 7:[address] [facility] MCHC 30.7(L) 32.0 - 37.0 g/dL LAB HEMETOLOGY METHOD 03/02/2025 7:[address] [facility] RDW 20.6(H) 11.0 - 15.0 % LAB HEMETOLOGY METHOD 03/02/2025 7:[address] [facility] Platelets 406(H) 130 - 400 K/mcL LAB HEMETOLOGY METHOD 03/02/2025 7:[address] [facility] MPV 9.6 7.0 - 11.0 FL LAB HEMETOLOGY METHOD 03/02/2025 7:51 AM EDT [facility] NRBC 0.0 <1.0 % LAB HEMETOLOGY METHOD 03/02/2025 7:51 AM EDT [facility] NRBC Absolute 0.00 <0.10 K/mcL LAB HEMETOLOGY METHOD 03/02/2025 7:51 AM EDT [facility] Blood Venous blood specimen / Unknown Venipuncture / Unknown 03/02/2025 5:09 AM EDT 03/02/2025 7:30 AM EDT us Paula Sanches MD LAB BLOOD ORDERABLES Fin al Result [facility] [address] [place] [address], documented in this encounter Visit Diagnoses Diagnosis Essential (primary) hypertension Unspecified essential hypertension Hypothyroidism, unspecified Type 2 diabetes mellitus without complications (CMS/HCC V24, CMS/HCC V28) documented in this encounter Care Teams Manager Corporate Communications Relationship Specialty Start Date End Date Tomer Jackson MD [address] [place] [address] PCP - General 02/18/23 documented as of this encounter
[2025-03-11 06:41] LABS: Hematocrit 29.1 % (37.0-47.0); Hemoglobin 9.5 g/dl (12.0-16.0); Imm Gran Abs Auto 0.39 X10*3/uL (0.00-0.03); Imm Gran Pct Auto 2.4 % (0.0-0.4); Lymphocytes Absolute Auto 1.3 X10*3/uL (1.2-4.9); MANUAL DIFF FLAG NO; Mean Corpuscular HGB Conc 32.6 g/dl (31.0-35.0); Mean Corpuscular Hemoglobin 29.1 pg (27.0-33.0); Mean Corpuscular Volume 89.0 fL (80.0-98.0); NRBC Abs Auto 0.000 X10*3/uL (0.0-0.012); NRBC Pct Auto 0.0 /100WBC (0.0-0.2); Platelet Count 460 X10*3/uL (160-400); Red Blood Count 3.27 X10*6/uL (4.20-5.50); White Blood Count 16.3 X10*3/uL (4.8-10.8)
[2025-03-11 06:58] LABS: Alanine Aminotransferase 11 U/L (0-31); Albumin Level 2.8 g/dL (3.5-5.0); Alkaline Phosphatase 160 U/L (39-117); Anion Gap 13 (12-20); Aspartate Amino Transferase 31 U/L (5-31); Blood Urea Nitrogen 56 mg/dL (9-16); Calcium 7.8 mg/dL (8.4-10.2); Carbon Dioxide 28 mmol/L (22-29); Chloride 94 mmol/L (96-108); Creatinine Clr Calc Pharmacy 21.3; Estimated Glomerular Filt Rate 28; Magnesium 3.3 mg/dL (1.6-2.6); Potassium 3.7 mmol/L (3.3-5.1); Sodium 131 mmol/L (135-145); Total Protein 5.5 g/dL (6.5-8.0)
[2025-03-11 07:05] LABS: Appearance Urine Clear; Glucose Urine UA 500 mg/dL (Negative); PH 5.5 (5.0-9.0); Specific Gravity - Urine 1.015 (1.005-1.025); UMIC TRIGGER UACC YES
[2025-03-11 07:10] LABS: UACC Culture Trigger YES
[2025-03-11] MEDS: Calcium Gluconate/NaCl,Iso-Osm 2 GM/100 ML PLAST..BAG IV (07:42)
[2025-03-11] MEDS: Lactated Ringers 1,000 ML 999 ML IV (07:44)
--- NOTE | 2025-03-11 07:47 | PC.NURSE ---
Addendum entered by Teri Pappas RN 03/11/25 07:55: pt is in a fib not NSR, has plus 3 pitting edema to Selina knees. unlabored at resp. ls clear but dim. bruising right axilla. sling in place. 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 currently 1000 ml dary colored urine out. pt c/o right shoulder pain only. is Axox4. daughter at bedside and updated. nsr on monitor
--- NOTE | 2025-03-11 09:54 | P.HPHOSP_ITS ---
History of Present Illness Date of Service: 03/11/25 Attending physician on admission: Madhu Heath Chief Complaint: abnormal labs This is an 89-year-old female with a history of hypothyroidism hypertension, type 2 diabetes who was recently admitted from February 18 to March 01 for mechanical fall resulting in right humeral fracture and right knee periprosthetic fracture, traumatic rhabdomyolysis status post right femoral retrograde nail on February 19. During that admission she had urinary retention which was thought to be related to opioid medications. Her Vicente catheter was removed prior to discharge and she had successful voiding trial. She was discharged to rehab on March 01. She was sent to the emergency department from [facility] due to abnormal lab work. In the emergency room her creatinine was 1.69. She was bladder scan for large volume of urine, a Vicente catheter was placed with over 800 cc of urine emptied with placement. Urinalysis was negative for acute infection. Family reports difficulty with constipation since surgery. Patient denies any abdominal pain. White count elevated at 16.3, no obvious source of infection identified. Patient we will be admitted for further management of urinary retention and acute kidney injury. Review of Systems 2 Review of Systems: Yes all other systems are reviewed and are negative Constitutional: Constitutional: Denies chills and Denies fever(s) ENT: Denies dizziness Cardiovascular: Cardiovascular: Denies chest pain, Denies palpitations and Denies dyspnea Respiratory: Respiratory: Denies cough and Denies dyspnea Neurologic: Denies dizziness Endocrine: Endocrine: Denies palpitations [facility] Medical History CKD stage 3a, GFR 45-59 ml/min Osteoarthritis Numbness and tingling of both feet Hx of cardiac murmur Hypothyroidism Hypertension Diabetes mellitus Hx of breast cancer Surgical History Hx of hemorrhoidectomy History of knee replacement S/P lumpectomy, right breast Hx of colonoscopy Social History Household Members: None Housing: House Do you presently have visiting nurse or other home services: No Alcohol intake: never Comment: Tylenol 650 mg PO given at 10:45 Patient Tobacco Use Status: Never used Tobacco Advance Directives: Yes Advance Directives on File: Yes Advance Directives Date on File: 01/21/18 service: No Meds Allergies Allergy/AdvReac Type Severity Reaction Status Date / Time No Known Allergies Allergy Verified 03/11/25 06:27 Home Medications ?Medication ?Instructions ?Recorded ?Confirmed ?Last Taken ?Type anastrozole 1 mg tablet 1 mg PO DAILY 02/18/2503/11 Unknown History levothyroxine 112 mcg tablet 112 mcg PO DAILY@0600 03/11/25 Unknown History acetaminophen 500 mg tablet 1,000 mg PO QID 03/11/25 0 03/11/25 Unknown History bisacodyl 10 mg rectal suppository 10 mg WA DAILY PRN constipation is 03/11/25 03/11/25 Unknown History (Dulcolax (bisacodyl)) failed on MOM dextrose 40 % oral gel (Glucose 10 g PO Q15M PRN Hypog lycemia 03/11/25 03/11/25 Unknown History Gel) docusate sodium 100 mg capsule 100 mg PO BID 03/11/25 03/11/25 Unknown History (Colace) gabapentin 100 mg capsule 100 mg PO TID 03/11/2503/11 Unknown History glucagon 1 mg/0.2 mL subcutaneous 1 mg subcut ONCE PRN Hypoglycemia 03/11/25 03/11/25 Unknown History syringe insulin lispro 100 unit/mL See Protocol subcut QIDACHS 03/11/25 03/11/25 Unknown History subcutaneous solution (Admelog U-100 Insulin lispro) lactulose 10 gram/15 mL oral 30 ml PO BID PRN Constipa tion 03/11/25 03/11/25 Unknown History solution lidocaine 5 % topical patch 1 patch topical DAILY 02/2103/11/25 Unknown History magnesium hydroxide 400 mg/5 mL 30 ml PO DAILY PRN Con stipation if 03/11/25 03/11/25 Unknown History oral suspension (Milk of Magnesia) no BM in 3 days metoprolol tartrate 25 mg tablet 12.5 mg PO BID 03/11/25 Unknown History naloxone 0.4 mg/mL injection 0.4 mg subcut Q2M PRN Opi oid 03/11/25 03/11/25 Unknown History solution Overdose oxycodone 5 mg tablet 5 mg PO Q6H PRN Pain (Scale Score 03/11/25 03/11/25 Unknown History 1-6) oxycodone 5 mg tablet 10 mg PO Q6H PRN Pain (Scale Score 03/11/25 03/11/25 Unknown History 7-10) sennosides 8.6 mg-docusate sodium 2 tab-cap PO BEDTIME 03/11/25 03/11/25 Unknown History 50 mg tablet (Senna-S) sodium phosphates 19 gram-7 118 ml WA DAILY PRN consti pation, 03/11/25 03/11/25 Unknown History gram/118 mL enema (Fleet Enema) if failed on MOM and D ulcolax, Physical Exam 2 Vital Signs and Narrative: Vital Signs: Last Vital Signs Temp 97.4 F 03/11/25 07:38 Pulse 67 03/11/25 08:00 Resp 14 03/11/25 08:00 BP 105/42 L 03/11/25 08:00 Pulse Ox 97 03/11/25 08:00 O2 Del Method Room Air 03/11/25 08:00 BMI result Body Mass Index 30.2 Const: Other: pale, elderly General: alert and awake Nutritional Appearance: average body habitus Orientation/consciousness: patient oriented x3 Resp: Effort & Inspection: normal respiratory effort, able to speak in complete sentences, no respiratory distress and no use of accessory muscles Cardio: Rate: regular rate GI: Inspection: No distended Palpation (GI): Soft to palpation Neuro: General: patient oriented x3, moves all extremities and CN's II-XI intact bilaterally Extrem: General: Yes pedal edema Results Labs 03/11/25 06:37 03/11/25 06:37 Labs: Laboratory Results - last 24 hr 03/11/25 03/11/25 06:37 06:52 MCV 89.0 MCH 29.1 MCHC 32.6 RDW 18.5 H Plt Count 460 H D MPV 8.6 L Immature Gran % (Auto) 2.4 H Neut % (Auto) 82.6 H Lymph % (Auto) 7.8 L [place] % (Auto) 6.0 Eos % (Auto) 0.7 Baso % (Auto) 0.5 Lymph # (Auto) 1.3 [place] # (Auto) 1.0 Eos # (Auto) 0.1 Baso # (Auto) 0.1 Abs Immat Gran (auto) 0.39 H Absolute Neuts (auto) 13.5 H Absolute Nucleated RBC 0.000 Nucleated RBC % (auto) 0.0 Anion Gap 13 Estim Creat Clear Calc 21.3 Estimated GFR 28 Random Glucose 147 H Calcium 7.8 L D Magnesium 3.3 H Total Bilirubin 0.5 Direct Bilirubin 0.2 AST 31 ALT 11 Alkaline Phosphatase 160 H Total Creatine Kinase 54 Total Protein 5.5 L Albumin 2.8 L Urine Color Yellow Urine Appearance Clear Urine pH 5.5 Ur Specific Hodge 1.015 Urine Protein Trace Urine Glucose (UA) 500 H Urine Ketones Negative Urine Blood Negative Urine Nitrite Negative Ur Leukocyte Esterase Trace H Urine RBC 0-2 Urine WBC 6-10 H Ur Squamous Epith Cells 3-5 Urine Bacteria None Seen Hyaline Casts 0-2 Blood Type O Positive Antibody Screen NEGATIVE Imaging Radiologist's Impressions: Impressions Chest X-Ray 03/11/25 07:22 IMPRESSION: No acute cardiopulmonary abnormality. Electronically signed by: Quirino Nevarez MD 03/11/2025 08:13 AM EDT RP Assessment and Plan (1) KYLER (acute kidney injury): Status: Acute (2) Acute on chronic urinary retention: Status: Acute Plan This is an 89-year-old female with history of hypothyroidism, breast cancer on anastrozole, hypertension, type 2 diabetes, osteoarthritis, recent admission for periprosthetic right knee fracture and humeral fracture with rhabdomyolysis who was sent from rehab due to increasing renal function found to have recurrent urinary retention Acute kidney injury on CKD3 Likely due to urinary retention/obstructive uropathy Vicente catheter placed with 800 cc drained Continue IV fluid Avoid nephrotoxic medication Follow renal function Hypotension likely due to volume depletion will give fluid bolus and maintenence IVF hold baseline BP meds follow bp closely Urinary retention Likely due to opioid medications and constipation Vicente placed Constipation Likely due to narcotics May be contributing to above urinary retention Scheduled bowel regimen paroxysmal atrial fibrillation occurred in the post-operative setting and terminated without recurrence not on AC hold metoprolol for low bp Chronic normocytic anemia H/H above transfusion threshold Hypothyroid continue levothyroxine when med rec complete Breast cancer continue anastrozole Hypertension hold losartan/hydrochlorothiazide for KYLER/hypotension Type 2 diabetes SSI, POCs, ADA diet hold Jardiance Class 1 obesity BMI 30.2 weight loss encouraged med rec pending at the time of admission DNR/DNI as per MOLST form VTE prophylaxis: Patient will likely require 2 midnight stay in the hospital for management of acute kidney injury, urinary retention Quality Stroke Does the patient have a stroke diagnosis?: No VTE Prior VTE?: No VTE Risk Level:: Medical - moderate - high VTE Device Contraindication: N/A - Device Ordered VTE Drug Contraindication: N/A - Med Ordered
[2025-03-11] MEDS: Lactated Ringers 1,000 ML 100 ML IVCONT ×2 (11:41→22:31)
[2025-03-11 12:07] LABS: Glucose, Whole Blood 95 mg/dL (60-115)
--- NOTE | 2025-03-11 12:18 | PHA.MEDREC ---
Pharmacy Consult ? Medication Reconciliation Pharmacy has completed the medication reconciliation. Utilized list from [facility] [place] [place].
--- NOTE | 2025-03-11 14:03 | HO.NURTONUR ---
Mavis came from rehab following LLE orthopedic surgery and hardware placement as well as right humerous fx (has sling) for abnormal labs. Creat 1.69 BUN56 NaCl 131 Calcium 7.8 (given IV calcium gluconate this am). Pt was scanned for 900ml urine this am and mario placed iwth same amount dary output. Is axox3. Family present. Is DNR/DNI/no CPAP, Nutrition or IV hydration. IV hydration has been waved per patient and fam. Has LR running at 100ml/hr. Pt had low BP (80's/40's) an hour after morphine this am but was resolved with 500ml bolus. Hx of anemia with transufions but H/H stable this visit. In afib. no thinners.
[2025-03-11] MEDS: oxyCODONE HCl Immed Release 5 MG TABLET 10 MG PO ×2 (14:55→21:13)
[2025-03-11 17:17] LABS: Glucose, Whole Blood 115 mg/dL (60-115)
[2025-03-11 20:45] LABS: Glucose, Whole Blood 123 mg/dL (60-115)
[2025-03-12] VITALS (9 sets, daily range): BP systolic 120–148; BP diastolic 55–63; PULSE 67–77; RESP 18; TEMP 36–36.8; O2SAT 92–100
[2025-03-12 07:07] LABS: Anion Gap 10 (12-20); Blood Urea Nitrogen 33 mg/dL (9-16); Calcium 7.7 mg/dL (8.4-10.2); Carbon Dioxide 28 mmol/L (22-29); Chloride 104 mmol/L (96-108); Creatinine Clr Calc Pharmacy 45.1; Estimated Glomerular Filt Rate 60; Potassium 3.2 mmol/L (3.3-5.1); Sodium 139 mmol/L (135-145)
[2025-03-12 08:01] LABS: Glucose, Whole Blood 113 mg/dL (60-115)
[2025-03-12] MEDS: Lidocaine 4 % Patch ADH..PATCH 1 PATCH TRANSDERMA (09:11)
[2025-03-12] MEDS: oxyCODONE HCl Immed Release 5 MG TABLET 10 MG PO (10:48)
--- NOTE | 2025-03-12 11:00 | PC.NURSE ---
10:45 - Via [employer] informed provider Vannessa Quintanilla that patient wishes to stop all medical treatment. Patient began refusing medications, patient educated regarding medications and purpose of them and side effects if not administered, patient verbalized understanding and continued to refuse, daughter Patrizia at bedside. Patient reported that she only wants to take pain medications. Discussed with provider for need for palliative care consult. No new orders at this time, provider aware of patient refusal.
[2025-03-12 11:31] LABS: Glucose, Whole Blood 141 mg/dL (60-115)
--- NOTE | 2025-03-12 14:48 | P.PNIM_ITS ---
Subjective Subjective Date of Service: 03/12/25 Interval History: f/u on kyler and urinary retention Physical Exam 2 Vital Signs: Vital Signs: Last Vital Signs Temp 96.8 F 03/12/25 12:00 Pulse 71 03/12/25 12:00 Resp 18 03/12/25 12:00 BP 128/58 L 03/12/25 12:00 Pulse Ox 93 03/12/25 12:00 O2 Del Method Room Air 03/12/25 12:00 O2 Flow Rate 1.0 03/11/25 18:00 BMI result Body Mass Index 37.0 General: AO X 3, no acute distress Resp: CTA bilateral CVS: S1,S2,RRR GI: +BS, NT, no distention Skin: No rash Neuro: motor grossly intact Psych: appropriate affect Objective Data Active Medications Acetaminophen (Acetaminophen 325 Mg Tablet) 650 mg PO Q6H PRN PRN Reason: Pain, Mild 1-3,fever,headache Anastrozole (Anastrozole 1 Mg Tablet) 1 mg PO DAILY [facility] Last Admin: 03/12/25 10:50 Dose: Not Given Documented By: YOKASTA Non-Admin Reason: Patient Refused Aspirin (Aspirin 325 Mg Tablet) 325 mg PO DAILY [facility] Last Admin: 03/12/25 09:11 Dose: 325 mg Documented By: YOKASTA Bisacodyl (Bisacodyl 10 Mg Supp.Rect) 10 mg GA DAILY PRN PRN Reason: constipation is failed on MOM Calcium Carbonate (Calcium Carbonate 750 Mg Tab.Chew) 750 mg PO Q4H PRN PRN Reason: Heartburn Dextrose (Dextrose 50 % 25 Gm/50 Ml Syringe) 25 gm IVPUSH Q15M PRN; Protocol PRN Reason: per Hypoglycemia Standing Ord. Docusate Sodium (Docusate Sodium 100 Mg Capsule) 100 mg PO BID [facility] Last Admin: 03/12/25 09:11 Dose: 100 mg Documented By: YOKASTA Gabapentin (Gabapentin 100 Mg Capsule) 100 mg PO TID [facility] Last Admin: 03/12/25 09:11 Dose: 100 mg Documented By: YOKASTA Glucose (Glucose Gel 15 Gm Gel..Gram.) 15 gm PO Q15M PRN; Protocol PRN Reason: per Hypoglycemia Standing Ord. Insulin Human Lispro (Insulin Lispro 100 Unit/Ml 3 Ml Vial) 0 unit SUBCUT QIDACHS [facility]; Protocol Last Admin: 03/12/25 12:23 Dose: Not Given Documented By: YOKASTA Non-Admin Reason: No Insulin Coverage Lactulose (Lactulose 20 Gm/30 Ml Solution) 20 gm PO BID PRN PRN Reason: Constipation Levothyroxine Sodium (Levothyroxine Sodium 112 Mcg Tablet) 112 mcg PO DAILY@0600 [facility] Last Admin: 03/12/25 05:39 Dose: 112 mcg Documented By: MICKY Lidocaine (Lidocaine 4 % Patch Adh..Patch) 1 patch TRANSDERMA DAILY [facility] Last Admin: 03/12/25 09:11 Dose: 1 patch Documented By: YOKASTA Magnesium Hydroxide (Milk Of Magnesia 30 Ml Oral.Susp) 30 ml PO DAILY PRN PRN Reason: Constipation Metoprolol Tartrate (Metoprolol Tartrate 12.5 Mg Halftab) 12.5 mg PO BID [facility]; Protocol Last Admin: 03/12/25 10:50 Dose: Not Given Documented By: YOKASTA Non-Admin Reason: Patient Refused Oxycodone HCl (Oxycodone Hcl Immed Release 5 Mg Tablet) 10 mg PO Q6H PRN PRN Reason: Pain (Scale Score 7-10) Last Admin: 03/12/25 10:48 Dose: 10 mg Documented By: YOKASTA Oxycodone HCl (Oxycodone Hcl Immed Release 5 Mg Tablet) 5 mg PO Q6H PRN PRN Reason: Pain (Scale Score 1-6) Senna/Docusate Sodium (Sennosides/Docusate Sodium Tablet) 2 tab PO BEDTIME [facility] Last Admin: 03/11/25 21:13 Dose: 2 tab Documented By: MICKY Sodium Chloride (0.9 % Sodium Chloride Flush 3 Ml Syringe) 3 ml IVFLUSH QSHIFT [facility] Last Admin: 03/12/25 09:24 Dose: Not Given Documented By: YOKASTA Non-Admin Reason: IV Running Labs 03/11/25 06:37 03/12/25 05:27 Labs: Laboratory Results - last 24 hr 03/11/25 03/11/25 03/12/25 17:14 20:41 05:27 Anion Gap 10 L Estim Creat Clear Calc 45.1 Estimated GFR 60 POC Glucose 115 123 H Random Glucose 92 Calcium 7.7 L 03/12/25 03/12/25 07:46 11:20 Anion Gap Estim Creat Clear Calc Estimated GFR POC Glucose 113 141 H Random Glucose Calcium Microbiology Microbiology Results: Microbiology 03/11/25 Unknown Urine Culture - Final Urine Catheterized - Vicente Catheter No growth. Assessment and Plan (1) KYLER (acute kidney injury): Status: Acute (2) Acute on chronic urinary retention: Status: Acute Plan This is an 89-year-old female with history of hypothyroidism, breast cancer on anastrozole, hypertension, type 2 diabetes, osteoarthritis, recent admission for periprosthetic right knee fracture and humeral fracture with rhabdomyolysis who was sent from rehab due to increasing renal function found to have recurrent urinary retention Acute kidney injury on CKD3 Likely due to urinary retention/obstructive uropathy Vicente catheter placed with 800 cc drained -resolved Hypotension, transient not due to sepsis BP now normal Urinary retention Likely due to opioid medications and constipation Vicente placed Constipation Likely due to narcotics May be contributing to above urinary retention Scheduled bowel regimen paroxysmal atrial fibrillation occurred in the post-operative setting and terminated without recurrence not on AC hold metoprolol for low bp Chronic normocytic anemia H/H above transfusion threshold Hypothyroid continue levothyroxine when med rec complete Breast cancer continue anastrozole Hypertension hold losartan/hydrochlorothiazide for KYLER/hypotension Type 2 diabetes SSI, POCs, ADA diet hold Jardiance Class 1 obesity BMI 30.2 weight loss encouraged med rec pending at the time of admission DNR/DNI as per MOLST form VTE prophylaxis: Patient will likely require 2 midnight stay in the hospital for management of acute kidney injury, urinary retention Quality Stroke Does the patient have a stroke diagnosis?: No VTE Prior VTE?: No VTE Risk Level:: Medical - moderate - high VTE Device Contraindication: N/A - Device Ordered VTE Drug Contraindication: N/A - Med Ordered
[2025-03-12 16:12] LABS: Glucose, Whole Blood 107 mg/dL (60-115)
--- NOTE | 2025-03-12 16:17 | MHC.CM.PN ---
Addendum entered by Lizette Mancilla 03/12/25 16:26: CM SPOKE TO PTS DAUGHTERLatrell MAS, WHO STATES SHE IS IN AGREEMENT WITH PTS PLAN SHE SAYS PT HAS A SCO SO MAY BE ABLE TO GO TO A SNF WITH HOSPICE SHE IS AWARE A HOSPICE CONSULT WILL BE PLACED TO DETERMINE PTS ELIGIBILITY SNF REFERRALS OUT DCP: SNF WITH HOSPICE VS STR Original Note: PT SENT FROM [facility] WHERE SHE WENT ON 02/19/25 FOR STR SHE TYPICALLY LIVES ALONE AND IS INDEPENDENT [facility] CARE SHE USED A CANE PRIOR TO HER LAST ADMISSION COPY OF HCP REQUESTED, LUIS M ON FILE PCP: URSULA BLACKWOOD IMM DELIVERED PT REPORTS SHE WANTS TO STOP TREATMENT SHE ALSO SAYS SHE WILL NOT TAKE ANYMORE MEDS OR EAT CM WILL HAVE HOSPICE CHECK FOR ELIGIBILITY
[2025-03-12 20:24] LABS: Glucose, Whole Blood 109 mg/dL (60-115)
[2025-03-12] MEDS: Milk of Magnesia 30 ML ORAL.SUSP PO (21:51)
[2025-03-12] MEDS: 0.9 % Sodium Chloride Flush 3 ML SYRINGE IVFLUSH (21:56)
[2025-03-13 06:20] VITALS: BP 149/65; PULSE 73; RESP 18; TEMP 36.1; O2SAT 94
[2025-03-13] MEDS: oxyCODONE HCl Immed Release 5 MG TABLET 10 MG PO ×4 (07:16→21:58)
[2025-03-13] MEDS: 0.9 % Sodium Chloride Flush 3 ML SYRINGE IVFLUSH (07:17)
[2025-03-13 08:00] VITALS: BP 158/76; PULSE 67; RESP 18; TEMP 36.4; O2SAT 95
[2025-03-13 08:00] LABS: Glucose, Whole Blood 105 mg/dL (60-115)
--- NOTE | 2025-03-13 08:46 | HO.PM.IMPN ---
Subjective Subjective Date of Service: 03/13/25 Interval History: She is reporting having lot of pain and does not want anymore treatment and considering hospice Physical Exam Vital Signs: Vital Signs: Last Vital Signs Temp 97.6 F 03/13/25 08:00 Pulse 67 03/13/25 08:00 Resp 18 03/13/25 08:00 BP 158/76 H 03/13/25 08:00 Pulse Ox 95 03/13/25 08:00 O2 Del Method Room Air 03/13/25 08:00 O2 Flow Rate 1.0 03/11/25 18:00 BMI result Body Mass Index 37.0 General: AO X 3, no acute distress Resp: CTA bilateral CVS: S1,S2,RRR GI: +BS, NT, no distention Skin: No rash Neuro: motor grossly intact Psych: appropriate affect Objective Data Active Medications Acetaminophen (Acetaminophen 325 Mg Tablet) 650 mg PO Q6H PRN PRN Reason: Pain, Mild 1-3,fever,headache Anastrozole (Anastrozole 1 Mg Tablet) 1 mg PO DAILY [facility] Last Admin: 03/12/25 10:50 Dose: Not Given Documented By: YOKASTA Non-Admin Reason: Patient Refused Aspirin (Aspirin 325 Mg Tablet) 325 mg PO DAILY [facility] Last Admin: 03/12/25 09:11 Dose: 325 mg Documented By: YOKASTA Bisacodyl (Bisacodyl 10 Mg Supp.Rect) 10 mg [place] DAILY PRN PRN Reason: constipation is failed on MOM Calcium Carbonate (Calcium Carbonate 750 Mg Tab.Chew) 750 mg PO Q4H PRN PRN Reason: Heartburn Dextrose (Dextrose 50 % 25 Gm/50 Ml Syringe) 25 gm IVPUSH Q15M PRN; Protocol PRN Reason: per Hypoglycemia Standing Ord. Docusate Sodium (Docusate Sodium 100 Mg Capsule) 100 mg PO BID [facility] Last Admin: 03/12/25 21:46 Dose: Not Given Documented By: MICKY Non-Admin Reason: Patient Refused Gabapentin (Gabapentin 100 Mg Capsule) 100 mg PO TID [facility] Last Admin: 03/12/25 21:51 Dose: 100 mg Documented By: MICKY Glucose (Glucose Gel 15 Gm Gel..Gram.) 15 gm PO Q15M PRN; Protocol PRN Reason: per Hypoglycemia Standing Ord. Insulin Human Lispro (Insulin Lispro 100 Unit/Ml 3 Ml Vial) 0 unit SUBCUT QIDACHS [facility]; Protocol Last Admin: 03/13/25 08:07 Dose: Not Given Documented By: NANCY Non-Admin Reason: No Insulin Coverage Lactulose (Lactulose 20 Gm/30 Ml Solution) 20 gm PO BID PRN PRN Reason: Constipation Levothyroxine Sodium (Levothyroxine Sodium 112 Mcg Tablet) 112 mcg PO DAILY@0600 [facility] Last Admin: 03/13/25 05:35 Dose: Not Given Documented By: MICKY Non-Admin Reason: Patient Refused Lidocaine (Lidocaine 4 % Patch Adh..Patch) 1 patch TRANSDERMA DAILY [facility] Last Admin: 03/12/25 09:11 Dose: 1 patch Documented By: COLSANGITA Magnesium Hydroxide (Milk Of Magnesia 30 Ml Oral.Susp) 30 ml PO DAILY PRN PRN Reason: Constipation Last Admin: 03/12/25 21:51 Dose: 30 ml Documented By: MICKY Metoprolol Tartrate (Metoprolol Tartrate 12.5 Mg Halftab) 12.5 mg PO BID [facility]; Protocol Last Admin: 03/12/25 21:48 Dose: Not Given Documented By: MICKY Non-Admin Reason: Patient Refused Oxycodone HCl (Oxycodone Hcl Immed Release 5 Mg Tablet) 10 mg PO Q6H PRN PRN Reason: Pain (Scale Score 7-10) Last Admin: 03/13/25 07:16 Dose: 10 mg Documented By: NANCY Oxycodone HCl (Oxycodone Hcl Immed Release 5 Mg Tablet) 5 mg PO Q6H PRN PRN Reason: Pain (Scale Score 1-6) Senna/Docusate Sodium (Sennosides/Docusate Sodium Tablet) 2 tab PO BEDTIME [facility] Last Admin: 03/12/25 21:49 Dose: Not Given Documented By: MICKY Non-Admin Reason: Patient Refused Sodium Chloride (0.9 % Sodium Chloride Flush 3 Ml Syringe) 3 ml IVFLUSH QSHIFT [facility] Last Admin: 03/13/25 07:17 Dose: 3 ml Documented By: NANCY Labs 03/11/25 06:37 03/12/25 05:27 Labs: Laboratory Results - last 24 hr 03/12/25 03/12/2503/12/25 11:20 15:55 20:01 POC Glucose 141 H 107 109 03/13/25 07:44 POC Glucose 105 Microbiology Microbiology Results: Microbiology 03/11/25 Unknown Urine Culture - Final Urine Catheterized - Vicente Catheter No growth. Assessment and Plan (1) KYLER (acute kidney injury): Status: Acute (2) Acute on chronic urinary retention: Status: Acute Plan This is an 89-year-old female with history of hypothyroidism, breast cancer on anastrozole, hypertension, type 2 diabetes, osteoarthritis, recent admission for periprosthetic right knee fracture and humeral fracture with rhabdomyolysis who was sent from rehab due to increasing renal function found to have recurrent urinary retention Acute kidney injury on CKD3 Likely due to urinary retention/obstructive uropathy Vicente catheter placed with 800 cc drained -resolved Urinary retention Likely due to opioid medications and constipation Vicente placed Hypotension, transient not due to sepsis BP now normal Constipation Likely due to narcotics May be contributing to above urinary retention Scheduled bowel regimen Recent Knee surgery s/p repair, has lots of pain IV dilaudid for severe pain and oxycodone for moderate pain paroxysmal atrial fibrillation occurred in the post-operative setting and terminated without recurrence not on AC hold metoprolol for low bp Chronic normocytic anemia H/H above transfusion threshold Hypothyroid continue levothyroxine when med rec complete Breast cancer continue anastrozole Hypertension hold losartan/hydrochlorothiazide for KYLER/hypotension Type 2 diabetes SSI, POCs, ADA diet hold Jardiance Class 1 obesity BMI 30.2 weight loss encouraged med rec pending at the time of admission DNR/DNI as per MOLST form VTE prophylaxis: Patient will likely require 2 midnight stay in the hospital for management of acute kidney injury, urinary retention Quality Stroke Does the patient have a stroke diagnosis?: No VTE Prior VTE?: No VTE Risk Level:: Medical - moderate - high VTE Device Contraindication: N/A - Device Ordered VTE Drug Contraindication: N/A - Med Ordered
[2025-03-13 11:51] LABS: Glucose, Whole Blood 159 mg/dL (60-115)
[2025-03-13 13:22] LABS: Albumin Level 2.5 g/dL (3.5-5.0); Total Protein 4.9 g/dL (6.5-8.0)
[2025-03-13 15:22] VITALS: BP 135/64; PULSE 58; RESP 16; TEMP 36.6; O2SAT 93
[2025-03-13 16:17] LABS: Glucose, Whole Blood 139 mg/dL (60-115)
[2025-03-13 19:35] VITALS: BP 145/65; PULSE 81; RESP 17; TEMP 36.9; O2SAT 93
[2025-03-13 20:54] LABS: Glucose, Whole Blood 131 mg/dL (60-115)
[2025-03-14 03:36] VITALS: BP 134/67; PULSE 74; RESP 18; TEMP 36.6; O2SAT 95
[2025-03-14] MEDS: oxyCODONE HCl Immed Release 5 MG TABLET 10 MG PO ×3 (07:07→14:42)
[2025-03-14] MEDS: 0.9 % Sodium Chloride Flush 3 ML SYRINGE IVFLUSH ×2 (07:08→21:27)
[2025-03-14 07:42] VITALS: BP 143/72; PULSE 75; RESP 20; TEMP 37.1; O2SAT 93
[2025-03-14 07:59] LABS: Glucose, Whole Blood 106 mg/dL (60-115)
--- NOTE | 2025-03-14 08:59 | P.PNIM_ITS ---
Subjective Subjective Date of Service: 03/15/25 Interval History: She's c/o pain and continues to state that she want no further treatment of any kind and wants to be on hospice or paliative care Physical Exam 2 Vital Signs: Vital Signs: Last Vital Signs Temp 98.7 F 03/14/25 07:42 Pulse 75 03/14/25 07:42 Resp 20 03/14/25 07:42 BP 143/72 H 03/14/25 07:42 Pulse Ox 93 03/14/25 07:42 O2 Del Method Room Air 03/14/25 07:42 O2 Flow Rate 1.0 03/11/25 18:00 BMI result Body Mass Index 37.0 Objective Data Active Medications Acetaminophen (Acetaminophen 325 Mg Tablet) 650 mg PO Q6H PRN PRN Reason: Pain, Mild 1-3,fever,headache Last Admin: 03/13/25 08:49 Dose: 650 mg Documented By: NANCY Anastrozole (Anastrozole 1 Mg Tablet) 1 mg PO DAILY [facility] Last Admin: 03/14/25 08:02 Dose: Not Given Documented By: NANCY Non-Admin Reason: Patient Refused Aspirin (Aspirin 325 Mg Tablet) 325 mg PO DAILY [facility] Last Admin: 03/14/25 08:03 Dose: Not Given Documented By: NANCY Non-Admin Reason: Patient Refused Bisacodyl (Bisacodyl 10 Mg Supp.Rect) 10 mg [place] DAILY PRN PRN Reason: constipation is failed on MOM Calcium Carbonate (Calcium Carbonate 750 Mg Tab.Chew) 750 mg PO Q4H PRN PRN Reason: Heartburn Dextrose (Dextrose 50 % 25 Gm/50 Ml Syringe) 25 gm IVPUSH Q15M PRN; Protocol PRN Reason: per Hypoglycemia Standing Ord. Docusate Sodium (Docusate Sodium 100 Mg Capsule) 100 mg PO BID [facility] Last Admin: 03/14/25 08:03 Dose: Not Given Documented By: NANCY Non-Admin Reason: Patient Refused Gabapentin (Gabapentin 100 Mg Capsule) 100 mg PO TID [facility] Last Admin: 03/13/25 21:59 Dose: 100 mg Documented By: MICKY Glucose (Glucose Gel 15 Gm Gel..Gram.) 15 gm PO Q15M PRN; Protocol PRN Reason: per Hypoglycemia Standing Ord. Hydromorphone HCl (Hydromorphone Hcl 0.5 Mg/0.5 Ml Syringe) 0.5 mg IVPUSH Q4H PRN; Protocol PRN Reason: Pain, Severe (Pain Scale 7-10) Last Admin: 03/13/25 13:22 Dose: 0.5 mg Documented By: NANCY Insulin Human Lispro (Insulin Lispro 100 Unit/Ml 3 Ml Vial) 0 unit SUBCUT QIDACHS [facility]; Protocol Last Admin: 03/14/25 08:02 Dose: Not Given Documented By: NANCY Non-Admin Reason: Patient Refused Lactulose (Lactulose 20 Gm/30 Ml Solution) 20 gm PO BID PRN PRN Reason: Constipation Levothyroxine Sodium (Levothyroxine Sodium 112 Mcg Tablet) 112 mcg PO DAILY@0600 [facility] Last Admin: 03/14/25 06:02 Dose: Not Given Documented By: MICKY Non-Admin Reason: Patient Refused Lidocaine (Lidocaine 4 % Patch Adh..Patch) 1 patch TRANSDERMA DAILY [facility] Last Admin: 03/14/25 08:03 Dose: Not Given Documented By: NANCY Non-Admin Reason: Patient Refused Magnesium Hydroxide (Milk Of Magnesia 30 Ml Oral.Susp) 30 ml PO DAILY PRN PRN Reason: Constipation Last Admin: 03/12/25 21:51 Dose: 30 ml Documented By: MICKY Metoprolol Tartrate (Metoprolol Tartrate 12.5 Mg Halftab) 12.5 mg PO BID [facility]; Protocol Last Admin: 03/14/25 08:03 Dose: Not Given Documented By: NANCY Non-Admin Reason: Patient Refused Oxycodone HCl (Oxycodone Hcl Immed Release 5 Mg Tablet) 10 mg PO Q4H PRN PRN Reason: Pain, Moderate(Pain Scale 4-6) Last Admin: 03/14/25 07:07 Dose: 10 mg Documented By: NANCY Senna/Docusate Sodium (Sennosides/Docusate Sodium Tablet) 2 tab PO BEDTIME [facility] Last Admin: 03/13/25 20:35 Dose: Not Given Documented By: MICKY Non-Admin Reason: Patient Refused Sodium Chloride (0.9 % Sodium Chloride Flush 3 Ml Syringe) [facility] Last Admin: 03/14/25 07:08 Dose: 3 ml Documented By: NANCY Labs 03/11/25 06:37 03/12/25 05:27 Labs: Laboratory Results - last 24 hr 03/13/25 03/13/25 03/13/25 11:30 12:55 16:03 POC Glucose 159 H 139 H Total Protein 4.9 L Albumin 2.5 L 03/13/25 03/14/25 20:50 07:45 POC Glucose 131 H 106 Total Protein Albumin Assessment and Plan (1) KYLER (acute kidney injury): Status: Acute (2) Acute on chronic urinary retention: Status: Acute Plan This is an 89-year-old female with history of hypothyroidism, breast cancer on anastrozole, hypertension, type 2 diabetes, osteoarthritis, recent admission for periprosthetic right knee fracture and humeral fracture with rhabdomyolysis who was sent from rehab due to increasing renal function found to have recurrent urinary retention Acute kidney injury on CKD3 Likely due to urinary retention/obstructive uropathy Vicente catheter placed with 800 cc drained -resolved Urinary retention Likely due to opioid medications and constipation Vicente placed Hypotension, transient not due to sepsis BP now normal Constipation Likely due to narcotics May be contributing to above urinary retention Scheduled bowel regimen Recent Knee surgery s/p repair, has lots of pain IV dilaudid for severe pain and oxycodone for moderate pain paroxysmal atrial fibrillation occurred in the post-operative setting and terminated without recurrence not on AC hold metoprolol for low bp Chronic normocytic anemia H/H above transfusion threshold Hypothyroid continue levothyroxine when med rec complete Breast cancer continue anastrozole Hypertension hold losartan/hydrochlorothiazide for KYLER/hypotension Type 2 diabetes SSI, POCs, ADA diet hold Jardiance Class 1 obesity BMI 30.2 weight loss encouraged Malnutrition as evident by low Albumin and low protein nutritional support Patient Hospice consult for chronic pain management, malnutrition and failure to thrive DNR/DNI as per MOLST form VTE prophylaxis: Patient will likely require 2 midnight stay in the hospital for management of acute kidney injury, urinary retention Quality Stroke Does the patient have a stroke diagnosis?: No VTE Prior VTE?: No VTE Risk Level:: Medical - moderate - high VTE Device Contraindication: N/A - Device Ordered VTE Drug Contraindication: N/A - Med Ordered
[2025-03-14] MEDS: oxyCODONE HCl ER 10 MG TAB.ER.12H PO ×2 (10:38→21:26)
--- NOTE | 2025-03-14 11:14 | MHC.CM.PN ---
PER [facility], PT DOES QUALIFY FOR HOSPICE, HOWEVER PTS INSURANCE IS A SCO AND THE MH PART IS A SENIOR BUY IN [employer] THAT WILL NOT COVER INTERMEDIATE PLACEMENT REFERRAL SENT TO FINANCIAL SERVICES TO DETERMINE IF PT CAN TRANSITION TO [facility] STANDARD PT AND DAUGHTER UPDATED
[2025-03-14 11:21] LABS: Glucose, Whole Blood 141 mg/dL (60-115)
[2025-03-14 15:46] VITALS: BP 157/69; PULSE 62; RESP 16; TEMP 36.6; O2SAT 91
[2025-03-14 16:06] LABS: Glucose, Whole Blood 127 mg/dL (60-115)
[2025-03-14 19:05] VITALS: BP 151/65; PULSE 86; RESP 16; TEMP 37.2; O2SAT 90
[2025-03-14 19:48] VITALS: BP 155/67; PULSE 78; RESP 20; TEMP 36.2; O2SAT 91
[2025-03-14 20:23] LABS: Glucose, Whole Blood 144 mg/dL (60-115)
[2025-03-15 03:31] VITALS: BP 150/73; PULSE 75; RESP 18; TEMP 36.5; O2SAT 94
[2025-03-15 08:00] VITALS: BP 139/69; PULSE 80; RESP 18; TEMP 36.6; O2SAT 96
--- NOTE | 2025-03-15 08:03 | P.PNIM_ITS ---
Subjective Subjective Date of Service: 03/15/25 Interval History: Pain about 7/10 in left should and right leg Physical Exam 2 Vital Signs: Vital Signs: Last Vital Signs Temp 97.7 F 03/15/25 03:31 Pulse 75 03/15/25 03:31 Resp 18 03/15/25 03:31 BP 150/73 H 03/15/25 03:31 Pulse Ox 94 03/15/25 03:31 O2 Del Method Nasal Cannula 03/15/25 03:31 O2 Flow Rate 1 03/15/25 03:31 BMI result Body Mass Index 37.0 General: AO X 3, no acute distress Resp: CTA bilateral CVS: S1,S2,RRR GI: +BS, NT, no distention Skin: No rash Neuro: motor grossly intact Psych: appropriate affect Objective Data Active Medications Acetaminophen (Acetaminophen 325 Mg Tablet) 650 mg PO Q6H PRN PRN Reason: Pain, Mild 1-3,fever,headache Last Admin: 03/14/25 10:34 Dose: 650 mg Documented By: NANCY Anastrozole (Anastrozole 1 Mg Tablet) 1 mg PO DAILY [facility] Last Admin: 03/14/25 08:02 Dose: Not Given Documented By: NANCY Non-Admin Reason: Patient Refused Aspirin (Aspirin 325 Mg Tablet) 325 mg PO DAILY [facility] Last Admin: 03/14/25 08:03 Dose: Not Given Documented By: NANCY Non-Admin Reason: Patient Refused Bisacodyl (Bisacodyl 10 Mg Supp.Rect) 10 mg [place] DAILY PRN PRN Reason: constipation is failed on [facility] Calcium Carbonate (Calcium Carbonate 750 Mg Tab.Chew) 750 mg PO Q4H PRN PRN Reason: Heartburn Dextrose (Dextrose 50 % 25 Gm/50 Ml Syringe) 25 gm IVPUSH Q15M PRN; Protocol PRN Reason: per Hypoglycemia Standing Ord. Docusate Sodium (Docusate Sodium 100 Mg Capsule) 100 mg PO BID [facility] Last Admin: 03/14/25 21:09 Dose: Not Given Documented By: MATT Non-Admin Reason: Patient Refused Gabapentin (Gabapentin 100 Mg Capsule) 100 mg PO TID [facility] Last Admin: 03/14/25 21:26 Dose: 100 mg Documented By: MATT Glucose (Glucose Gel 15 Gm Gel..Gram.) 15 gm PO Q15M PRN; Protocol PRN Reason: per Hypoglycemia Standing Ord. Hydromorphone HCl (Hydromorphone Hcl 0.5 Mg/0.5 Ml Syringe) 0.5 mg IVPUSH Q4H PRN; Protocol PRN Reason: Pain, Severe (Pain Scale 7-10) Last Admin: 03/13/25 13:22 Dose: 0.5 mg Documented By: NANCY Insulin Human Lispro (Insulin Lispro 100 Unit/Ml 3 Ml Vial) 0 unit SUBCUT QIDACHS [facility]; Protocol Last Admin: 03/14/25 21:09 Dose: Not Given Documented By: MATT Non-Admin Reason: Patient Refused Lactulose (Lactulose 20 Gm/30 Ml Solution) 20 gm PO BID PRN PRN Reason: Constipation Levothyroxine Sodium (Levothyroxine Sodium 112 Mcg Tablet) 112 mcg PO DAILY@0600 [facility] Last Admin: 03/15/25 05:43 Dose: Not Given Documented By: MATT Non-Admin Reason: Patient Refused Lidocaine (Lidocaine 4 % Patch Adh..Patch) 1 patch TRANSDERMA DAILY [facility] Last Admin: 03/14/25 08:03 Dose: Not Given Documented By: NANCY Non-Admin Reason: Patient Refused Magnesium Hydroxide (Milk Of Magnesia 30 Ml Oral.Susp) 30 ml PO DAILY PRN PRN Reason: Constipation Last Admin: 03/12/25 21:51 Dose: 30 ml Documented By: MICKY Metoprolol Tartrate (Metoprolol Tartrate 12.5 Mg Halftab) 12.5 mg PO BID [facility]; Protocol Last Admin: 03/14/25 21:10 Dose: Not Given Documented By: MATT Non-Admin Reason: Patient Refused Oxycodone HCl (Oxycodone Hcl Immed Release 5 Mg Tablet) 10 mg PO Q4H PRN PRN Reason: Pain, Moderate(Pain Scale 4-6) Last Admin: 03/14/25 14:42 Dose: 10 mg Documented By: NANCY Oxycodone HCl (Oxycodone Hcl Er 10 Mg Tab.Er.12h) 10 mg PO BID [facility] Last Admin: 03/14/25 21:26 Dose: 10 mg Documented By: MATT Senna/Docusate Sodium (Sennosides/Docusate Sodium Tablet) 2 tab PO BEDTIME [facility] Last Admin: 03/14/25 21:10 Dose: Not Given Documented By: MATT Non-Admin Reason: Patient Refused Sodium Chloride (0.9 % Sodium Chloride Flush 3 Ml Syringe) 3 ml IVFLUSH QSHIFT [facility] Last Admin: 03/14/25 21:27 Dose: 3 ml Documented By: MATT Labs 03/11/25 06:37 03/12/25 05:27 Labs: Laboratory Results - last 24 hr 03/14/25 03/14/25 03/14/25 11:17 16:02 20:20 POC Glucose 141 H 127 H 144 H Assessment and Plan (1) KYLER (acute kidney injury): Status: Acute (2) Acute on chronic urinary retention: Status: Acute Plan This is an 89-year-old female with history of hypothyroidism, breast cancer on anastrozole, hypertension, type 2 diabetes, osteoarthritis, recent admission for periprosthetic right knee fracture and humeral fracture with rhabdomyolysis who was sent from rehab due to increasing renal function found to have recurrent urinary retention Acute kidney injury on CKD3 Likely due to urinary retention/obstructive uropathy Vicente catheter placed with 800 cc drained -resolved Urinary retention Likely due to opioid medications and constipation Vicente placed Hypotension, transient not due to sepsis BP now normal Constipation Likely due to narcotics May be contributing to above urinary retention Scheduled bowel regimen Recent Knee surgery s/p repair, has lots of pain IV dilaudid for severe pain and oxycodone for moderate pain paroxysmal atrial fibrillation occurred in the post-operative setting and terminated without recurrence not on AC hold metoprolol for low bp Chronic normocytic anemia H/H above transfusion threshold Hypothyroid continue levothyroxine when med rec complete Breast cancer continue anastrozole Hypertension hold losartan/hydrochlorothiazide for KYLER/hypotension Type 2 diabetes SSI, POCs, ADA diet hold Jardiance Class 1 obesity BMI 30.2 weight loss encouraged Malnutrition as evident by low Albumin and low protein nutritional support Patient Hospice consult for chronic pain management, malnutrition and failure to thrive DNR/DNI as per MOLST form VTE prophylaxis: Quality Stroke Does the patient have a stroke diagnosis?: No VTE Prior VTE?: No VTE Risk Level:: Medical - moderate - high VTE Device Contraindication: N/A - Device Ordered VTE Drug Contraindication: N/A - Med Ordered
--- NOTE | 2025-03-15 08:45 | P.DS_ITS ---
DS: Providers Provider Date of Service: 03/12/25 Date of admission: 03/11/25 08:23 Date of discharge: 03/12/25 Primary care physician: Paula Sanches MD DS: Diagnosis Discharge Diagnosis (1) KYLER (acute kidney injury): Status: Acute (2) Acute on chronic urinary retention: Status: Acute DS: Summary Hospital Course Hospital Course: Admission HPI Chief Complaint: abnormal labs This is an 89-year-old female with a history of hypothyroidism hypertension, type 2 diabetes who was recently admitted from February 18 to March 01 for mechanical fall resulting in right humeral fracture and right knee periprosthetic fracture, traumatic rhabdomyolysis status post right femoral retrograde nail on February 19. During that admission she had urinary retention which was thought to be related to opioid medications. Her Mario catheter was removed prior to discharge and she had successful voiding trial. She was discharged to rehab on March 01. [facility] due to abnormal lab work. In the emergency room her creatinine was 1.69. She was bladder scan for large volume of urine, a Mario catheter was placed with over 800 cc of urine emptied with placement. Urinalysis was negative for acute infection. Family reports difficulty with constipation since surgery. Patient denies any abdominal pain. White count elevated at 16.3, no obvious source of infection identified. Patient we will be admitted for further management of urinary retention and acute kidney injury. Hospital course; the patient presenting with abnormal lab from outpatient labs after being found to have acute renal insufficiency. She had also been experiencing urinary retention. Lab and a hospital revealed creatinine of 1.69 A CAT scan of the abdomen and pelvis showed no acute finding however reveal an existing hernia, abdominal wall anasarca. Patient was noted to have urinary retention of approximately 800 cc and a Mario catheter was inserted to drain. P gamalient was admitted for further management. It is also of note that she had episodes of hypotension with blood pressure being as low as 88 systolic and was corrected with IV fluid. She was admitted for further management of acute renal insufficiency due to obstructive uropathy. As for hypotension she was hydrated with IV fluid with improvement in blood pressure. By the following day of hospitalization her renal function has returned to normal, presently at 0.89. It is of note that she was recently admitted to the hospital for right knee periprosthetic fracture that was surgically repaired. At this point given that the patient has made rapid than expected recovery, she will return to rehab to complete her rehabilitation. A Mario catheter will remain in place and outpatient Urology evaluation she will be arranged. To continue ASA 325 daily for DVT prevention post surgery was to complete on April 03, continue all other medications Time Attestation Discharge Coordination Time (in mins): 40 Quality: Safe Use of Opioids Does Pt have an Active Cancer Diagnosis on the Problem List?: No Quality: Stroke Does the patient have a stroke diagnosis?: No Physical Exam Vital Signs: Vital Signs: Last Vital Signs Temp 97.6 F 03/12/25 08:00 Pulse 77 03/12/25 08:00 Resp 18 03/12/25 08:00 BP 148/63 H 03/12/25 08:00 Pulse Ox 92 03/12/25 08:00 O2 Del Method Room Air 03/12/25 08:00 O2 Flow Rate 1.0 03/11/25 18:00 BMI result Body Mass Index 37.0 DS: Data Data Completed and Pending Completed studies during hospitalization [Text1]: Procedures Reposition Right Lower Femur with Intramedullary Internal Fixation Device, Percutaneous Approach (02/18/25) Transfusion of Nonautologous Red Blood Cells into Peripheral Vein, Percutaneous Approach (02/18/25) Labs on day of discharge: Laboratory Results - last 24 hr 03/11/25 03/11/25 03/11/25 12:03 17:14 20:41 Sodium Potassium Chloride Carbon Dioxide Anion Gap BUN Creatinine Estim Creat Clear Calc Estimated GFR POC Glucose 95 115 123 H Random Glucose Calcium 03/12/25 03/12/25 05:27 07:46 Sodium 139 Potassium 3.2 L Chloride 104 Carbon Dioxide 28 Anion Gap 10 L BUN 33 H Creatinine 0.89 Estim Creat Clear Calc 45.1 Estimated GFR 60 POC Glucose 113 Random Glucose 92 Calcium 7.7 L Discharge Plan Discharge Patient Disposition: Xfer SNF Discharge Diagnosis: KYLER, hypokalemia, Urinary retention Referrals: Paula Sanches MD [Primary Care Provider, Physical Medicine and Rehab] - 1 Week Discharge Medications: Continued anastrozole 1 mg tablet 1 mg PO DAILY levothyroxine 112 mcg tablet 112 mcg PO DAILY@0600 Jardiance 10 mg tablet 10 mg PO DAILY Qty: 30 0RF naloxone 0.4 mg/mL Solution 0.4 mg SUBCUT Q2M PRN (Reason: Opioid Overdose) Rx Instructions: NTExceed 10 mg total dose/episode sennosides-docusate sodium [Senna-S] 8.6-50 mg Tablet 2 tab-cap PO BEDTIME dextrose [Glucose Gel] 40 % Gel 10 g PO Q15M PRN (Reason: Hypoglycemia) Rx Instructions: until symptoms of low blood sugar are controlled acetaminophen 500 mg Tablet 1,000 mg PO QID bisacodyl [Dulcolax (bisacodyl)] 10 mg Suppository 10 mg ID DAILY PRN (Reason: constipation is failed on MOM) lidocaine 5 % Adhesive Patch,Medicated 1 patch TOPICAL DAILY Rx Instructions: leave on most painful area for up to 12 hrs Fleet Enema 19-7 gram/118 mL Enema 118 ml ID DAILY PRN (Reason: constipation, if failed on MOM and Dulcolax,) docusate sodium [Colace] 100 mg Capsule 100 mg PO BID gabapentin 100 mg Capsule 100 mg PO TID oxycodone 5 mg Tablet 5 mg PO Q6H PRN (Reason: Pain (Scale Score 1-6)) metoprolol tartrate 25 mg Tablet 12.5 mg PO BID lactulose 10 gram/15 mL Solution 30 ml PO BID PRN (Reason: Constipation) glucagon 1 mg/0.2 mL Syringe 1 mg subcut ONCE PRN (Reason: Hypoglycemia) magnesium hydroxide [Milk of Magnesia] 400 mg/5 mL suspension 30 ml PO DAILY PRN (Reason: Constipation if no BM in 3 days) insulin lispro [Admelog U-100 Insulin lispro] 100 unit/mL solution See Protocol subcut QIDACHS Protocol: Insulin Correction Scale Less than or equal to 110 ---- Give (units): 0 111 to 150 Give (units): 0 151 to 200 Give (units): 2 201 to 250 Give (units): 4 251 to 300 Give (units): 6 301 to 350 Give (units): 8 Greater than 350 Give (units): 10 Call MD if Blood Glucose > : 400 Rx Instructions: BG <111 0 units, 111-150 - 0 units, 151-200 2 units, 201-250 4 units, 251-300 6 units, 301-350 8 units, >350 10 units oxycodone 5 mg tablet 10 mg PO Q6H PRN (Reason: Pain (Scale Score 7-10)) Rx Instructions: Partial Fill upon patient request. aspirin 325 mg Tablet 325 mg PO DAILY Qty: 12 0RF Rx Instructions: Ending April 03 Diet: Advance to usual diet Activity on Discharge: As tolerated Stand Alone Forms: Patient Portal Discharge page Print Language: Finnish Care Plan Goals: recovery from kidney failure Health Concerns: renal failure urinary retention hypokalemia Plan of Treatment: to keep mario in since urinary retention causing kidney mario should follow with urology in the office Assessment: see above
[2025-03-15] MEDS: Lidocaine 4 % Patch ADH..PATCH 1 PATCH TRANSDERMA (09:02)
[2025-03-15] MEDS: oxyCODONE HCl ER 10 MG TAB.ER.12H 20 MG PO ×2 (09:02→21:10)
[2025-03-15] MEDS: Metoprolol Tartrate 12.5 MG HALFTAB PO (09:02)
[2025-03-15] MEDS: 0.9 % Sodium Chloride Flush 3 ML SYRINGE IVFLUSH ×3 (09:03→21:10)
[2025-03-15 11:15] LABS: Glucose, Whole Blood 204 mg/dL (60-115)
--- NOTE | 2025-03-15 12:01 | MHC.CM.PN ---
spoke with filomena in financial who reports that pt will be a spendown but will do a ltc phillip
[2025-03-15 15:33] VITALS: BP 136/71; PULSE 73; RESP 17; TEMP 36.6; O2SAT 91
[2025-03-15 16:03] LABS: Glucose, Whole Blood 130 mg/dL (60-115)
[2025-03-15 18:20] VITALS: O2SAT 74
[2025-03-15 18:25] VITALS: BP 180/77; PULSE 133; RESP 24; O2SAT 89
[2025-03-15 19:18] VITALS: BP 156/74; PULSE 78; RESP 18; TEMP 36.7; O2SAT 92
[2025-03-15 20:14] LABS: Glucose, Whole Blood 149 mg/dL (60-115)
[2025-03-16 03:25] VITALS: BP 144/65; PULSE 78; RESP 14; TEMP 36.3; O2SAT 93
[2025-03-16] MEDS: oxyCODONE HCl ER 10 MG TAB.ER.12H 20 MG PO ×2 (06:52→20:15)
[2025-03-16] MEDS: Lidocaine 4 % Patch ADH..PATCH 1 PATCH TRANSDERMA (06:53)
[2025-03-16] MEDS: Metoprolol Tartrate 12.5 MG HALFTAB PO (06:53)
[2025-03-16] MEDS: oxyCODONE HCl Immed Release 5 MG TABLET 10 MG PO ×3 (06:53→15:28)
[2025-03-16] MEDS: 0.9 % Sodium Chloride Flush 3 ML SYRINGE IVFLUSH ×3 (06:53→20:17)
[2025-03-16 07:21] VITALS: BP 138/63; PULSE 78; RESP 14; TEMP 36.1; O2SAT 91
[2025-03-16 07:29] LABS: Glucose, Whole Blood 120 mg/dL (60-115)
--- NOTE | 2025-03-16 09:17 | HO.PM.IMPN ---
Subjective Subjective Date of Service: 03/16/25 Interval History: has little pain this morning Physical Exam Vital Signs: Vital Signs: Last Vital Signs Temp 97.0 F 03/16/25 07:21 Pulse 78 03/16/25 07:21 Resp 14 03/16/25 07:21 BP 138/63 03/16/25 07:21 Pulse Ox 91 L 03/16/25 07:21 O2 Del Method Room Air 03/16/25 07:21 O2 Flow Rate 15 03/15/25 18:25 BMI result Body Mass Index 37.0 General: AO X 3, no acute distress Resp: CTA bilateral CVS: S1,S2,RRR GI: +BS, NT, no distention Skin: No rash Neuro: motor grossly intact Psych: appropriate affect Objective Data Active Medications Acetaminophen (Acetaminophen 325 Mg Tablet) 650 mg PO Q6H PRN PRN Reason: Pain, Mild 1-3,fever,headache Last Admin: 03/14/25 10:34 Dose: 650 mg Documented By: NANCY Anastrozole (Anastrozole 1 Mg Tablet) 1 mg PO DAILY [facility] Last Admin: 03/16/25 06:56 Dose: Not Given Documented By: NANCY Non-Admin Reason: Patient Refused Aspirin (Aspirin 325 Mg Tablet) 325 mg PO DAILY [facility] Last Admin: 03/16/25 06:55 Dose: Not Given Documented By: NANCY Non-Admin Reason: Patient Refused Bisacodyl (Bisacodyl 10 Mg Supp.Rect) 10 mg CO DAILY PRN PRN Reason: constipation is failed on [facility] Calcium Carbonate (Calcium Carbonate 750 Mg Tab.Chew) 750 mg PO Q4H PRN PRN Reason: Heartburn Dextrose (Dextrose 50 % 25 Gm/50 Ml Syringe) 25 gm IVPUSH Q15M PRN; Protocol PRN Reason: per Hypoglycemia Standing Ord. Docusate Sodium (Docusate Sodium 100 Mg Capsule) 100 mg PO BID [facility] Last Admin: 03/16/25 06:56 Dose: Not Given Documented By: NANCY Non-Admin Reason: Patient Refused Gabapentin (Gabapentin 100 Mg Capsule) 100 mg PO TID [facility] Last Admin: 03/16/25 06:57 Dose: 100 mg Documented By: NANCY Glucose (Glucose Gel 15 Gm Gel..Gram.) 15 gm PO Q15M PRN; Protocol PRN Reason: per Hypoglycemia Standing Ord. Hydromorphone HCl (Hydromorphone Hcl 0.5 Mg/0.5 Ml Syringe) 0.5 mg IVPUSH Q4H PRN; Protocol PRN Reason: Pain, Severe (Pain Scale 7-10) Last Admin: 03/13/25 13:22 Dose: 0.5 mg Documented By: NANCY Insulin Human Lispro (Insulin Lispro 100 Unit/Ml 3 Ml Vial) 0 unit SUBCUT QIDACHS [facility]; Protocol Last Admin: 03/16/25 06:57 Dose: Not Given Documented By: NANCY Non-Admin Reason: Patient Refused Lactulose (Lactulose 20 Gm/30 Ml Solution) 20 gm PO BID PRN PRN Reason: Constipation Levothyroxine Sodium (Levothyroxine Sodium 112 Mcg Tablet) 112 mcg PO DAILY@0600 [facility] Last Admin: 03/16/25 05:47 Dose: Not Given Documented By: MATT Non-Admin Reason: Patient Refused Lidocaine (Lidocaine 4 % Patch Adh..Patch) 1 patch TRANSDERMA DAILY [facility] Last Admin: 03/16/25 06:53 Dose: 1 patch Documented By: NANCY Magnesium Hydroxide (Milk Of Magnesia 30 Ml Oral.Susp) 30 ml PO DAILY PRN PRN Reason: Constipation Last Admin: 03/12/25 21:51 Dose: 30 ml Documented By: MICKY Metoprolol Tartrate (Metoprolol Tartrate 12.5 Mg Halftab) 12.5 mg PO BID [facility]; Protocol Last Admin: 03/16/25 06:53 Dose: 12.5 mg Documented By: NANCY Oxycodone HCl (Oxycodone Hcl Immed Release 5 Mg Tablet) 10 mg PO Q4H PRN PRN Reason: Pain, Moderate(Pain Scale 4-6) Last Admin: 03/16/25 06:53 Dose: 10 mg Documented By: NANCY Oxycodone HCl (Oxycodone Hcl Er 10 Mg Tab.Er.12h) 20 mg PO BID [facility] Last Admin: 03/16/25 06:52 Dose: 20 mg Documented By: NANCY Senna/Docusate Sodium (Sennosides/Docusate Sodium Tablet) 2 tab PO BEDTIME [facility] Last Admin: 03/15/25 21:13 Dose: Not Given Documented By: MATT Non-Admin Reason: Patient Refused Sodium Chloride (0.9 % Sodium Chloride Flush 3 Ml Syringe) 3 ml IVFLUSH QSHIFT [facility] Last Admin: 03/16/25 06:53 Dose: 3 ml Documented By: NANCY Labs 03/11/25 06:37 03/12/25 05:27 Labs: Laboratory Results - last 24 hr 03/15/25 03/15/25 03/15/25 11:11 15:59 20:08 POC Glucose 204 H 130 H 149 H 03/16/25 07:25 POC Glucose 120 H Assessment and Plan (1) KYLER (acute kidney injury): Status: Acute (2) Acute on chronic urinary retention: Status: Acute Plan This is an 89-year-old female with history of hypothyroidism, breast cancer on anastrozole, hypertension, type 2 diabetes, osteoarthritis, recent admission for periprosthetic right knee fracture and humeral fracture with rhabdomyolysis who was sent from rehab due to increasing renal function found to have recurrent urinary retention Acute kidney injury on CKD3 Likely due to urinary retention/obstructive uropathy Vicente catheter placed with 800 cc drained -resolved Urinary retention Likely due to opioid medications and constipation Vicente placed Hypotension, transient not due to sepsis BP now normal Constipation Likely due to narcotics May be contributing to above urinary retention Scheduled bowel regimen Recent Knee surgery s/p repair, has lots of pain IV dilaudid for severe pain and oxycodone for moderate pain paroxysmal atrial fibrillation occurred in the post-operative setting and terminated without recurrence not on AC hold metoprolol for low bp Chronic normocytic anemia H/H above transfusion threshold Hypothyroid continue levothyroxine when med rec complete Breast cancer continue anastrozole Hypertension hold losartan/hydrochlorothiazide for KYLER/hypotension Type 2 diabetes SSI, POCs, ADA diet hold Jardiance Class 1 obesity BMI 30.2 weight loss encouraged Malnutrition as evident by low Albumin and low protein nutritional support Patient Hospice consult for chronic pain management, malnutrition and failure to thrive DNR/DNI as per MOLST form VTE prophylaxis: Dispo: waiting for placement home with hospice vs Snf Quality Stroke Does the patient have a stroke diagnosis?: No VTE Prior VTE?: No VTE Risk Level:: Medical - moderate - high VTE Device Contraindication: N/A - Device Ordered VTE Drug Contraindication: N/A - Med Ordered
[2025-03-16 11:31] LABS: Glucose, Whole Blood 130 mg/dL (60-115)
[2025-03-16 15:23] VITALS: BP 138/65; PULSE 74; RESP 18; TEMP 36.9; O2SAT 92
--- NOTE | 2025-03-16 15:50 | MHC.CM.PN ---
per rounds pt ready for dc barriers are financial
[2025-03-16 16:20] LABS: Glucose, Whole Blood 113 mg/dL (60-115)
[2025-03-16 19:06] VITALS: BP 140/62; PULSE 76; RESP 18; TEMP 37.1; O2SAT 92
[2025-03-16 20:31] LABS: Glucose, Whole Blood 137 mg/dL (60-115)
--- NOTE | 2025-03-17 02:56 | PC.NURSE ---
0245- Patient noted with no urine output since previous shift st cath at 1830 for 600ml. Pt denied pain or discomfort at bladder region, Bladder scanned for 70ml at this time. Will continue to monitor output.
[2025-03-17 04:00] VITALS: BP 149/68; PULSE 72; RESP 18; TEMP 36.5; O2SAT 92
--- NOTE | 2025-03-17 06:32 | PC.NURSE ---
0615-Patient remains at this time with no urine output yet, denies bladder pain or pressure, bladder scan revealed 72ml. scanned times 3 as amount didn't vary much from previous and scanner for some reason would not print. Three staff members tried, but have a picture to verify. Will continue to monitor I/O
[2025-03-17 07:48] LABS: Glucose, Whole Blood 100 mg/dL (60-115)
[2025-03-17 07:52] VITALS: BP 150/67; PULSE 72; RESP 18; TEMP 36.4; O2SAT 91
[2025-03-17] MEDS: oxyCODONE HCl ER 10 MG TAB.ER.12H 20 MG PO ×2 (08:36→20:07)
[2025-03-17] MEDS: Lidocaine 4 % Patch ADH..PATCH 1 PATCH TRANSDERMA ×2 (08:37→10:18)
--- NOTE | 2025-03-17 09:12 | P.PNIM_ITS ---
Subjective Subjective Date of Service: 03/17/25 Interval History: Although with pain control seemed to be adequate, she continued to say that she wants to Physical Exam 2 Vital Signs: Vital Signs: Last Vital Signs Temp 97.6 F 03/17/25 07:52 Pulse 72 03/17/25 07:52 Resp 18 03/17/25 07:52 BP 150/67 H 03/17/25 07:52 Pulse Ox 91 L 03/17/25 07:52 O2 Del Method Room Air 03/17/25 07:52 O2 Flow Rate 15 03/15/25 18:25 BMI result Body Mass Index 37.0 General: AO X 3, no acute distress Resp: CTA bilateral CVS: S1,S2,RRR GI: +BS, NT, no distention Skin: No rash Neuro: motor grossly intact Psych: appropriate affect Objective Data Active Medications Acetaminophen (Acetaminophen 325 Mg Tablet) 650 mg PO Q6H PRN PRN Reason: Pain, Mild 1-3,fever,headache Last Admin: 03/16/25 11:37 Dose: 650 mg Documented By: NANCY Anastrozole (Anastrozole 1 Mg Tablet) 1 mg PO DAILY [facility] Last Admin: 03/17/25 08:40 Dose: Not Given Documented By: ROSLYN Non-Admin Reason: Patient Refused Aspirin (Aspirin 325 Mg Tablet) 325 mg PO DAILY [facility] Last Admin: 03/17/25 08:40 Dose: Not Given Documented By: ROSLYN Non-Admin Reason: Patient Refused Bisacodyl (Bisacodyl 10 Mg Supp.Rect) 10 mg MA DAILY PRN PRN Reason: constipation is failed on [facility] Calcium Carbonate (Calcium Carbonate 750 Mg Tab.Chew) 750 mg PO Q4H PRN PRN Reason: Heartburn Dextrose (Dextrose 50 % 25 Gm/50 Ml Syringe) 25 gm IVPUSH Q15M PRN; Protocol PRN Reason: per Hypoglycemia Standing Ord. Docusate Sodium (Docusate Sodium 100 Mg Capsule) 100 mg PO BID [facility] Last Admin: 03/17/25 08:36 Dose: 100 mg Documented By: ROSLYN Gabapentin (Gabapentin 100 Mg Capsule) 100 mg PO TID [facility] Last Admin: 03/17/25 08:36 Dose: 100 mg Documented By: ROSLYN Glucose (Glucose Gel 15 Gm Gel..Gram.) 15 gm PO Q15M PRN; Protocol PRN Reason: per Hypoglycemia Standing Ord. Hydromorphone HCl (Hydromorphone Hcl 0.5 Mg/0.5 Ml Syringe) 0.5 mg IVPUSH Q4H PRN; Protocol PRN Reason: Pain, Severe (Pain Scale 7-10) Last Admin: 03/13/25 13:22 Dose: 0.5 mg Documented By: NANCY Insulin Human Lispro (Insulin Lispro 100 Unit/Ml 3 Ml Vial) 0 unit SUBCUT QIDACHS [facility]; Protocol Last Admin: 03/17/25 07:54 Dose: Not Given Documented By: ROSLYN Non-Admin Reason: No Insulin Coverage Lactulose (Lactulose 20 Gm/30 Ml Solution) 20 gm PO BID PRN PRN Reason: Constipation Levothyroxine Sodium (Levothyroxine Sodium 112 Mcg Tablet) 112 mcg PO DAILY@0600 [facility] Last Admin: 03/17/25 06:39 Dose: Not Given Documented By: DENISE Non-Admin Reason: Patient Refused Lidocaine (Lidocaine 4 % Patch Adh..Patch) 1 patch TRANSDERMA DAILY [facility] Last Admin: 03/17/25 08:37 Dose: 1 patch Documented By: ROSLYN Magnesium Hydroxide (Milk Of Magnesia 30 Ml Oral.Susp) 30 ml PO DAILY PRN PRN Reason: Constipation Last Admin: 03/12/25 21:51 Dose: 30 ml Documented By: MICKY Metoprolol Tartrate (Metoprolol Tartrate 12.5 Mg Halftab) 12.5 mg PO BID [facility]; Protocol Last Admin: 03/17/25 08:40 Dose: Not Given Documented By: ROSLYN Non-Admin Reason: Patient Refused Oxycodone HCl (Oxycodone Hcl Immed Release 5 Mg Tablet) 10 mg PO Q4H PRN PRN Reason: Pain, Moderate(Pain Scale 4-6) Last Admin: 03/16/25 15:28 Dose: 10 mg Documented By: LORENA Oxycodone HCl (Oxycodone Hcl Er 10 Mg Tab.Er.12h) 20 mg PO BID [facility] Last Admin: 03/17/25 08:36 Dose: 20 mg Documented By: ROSLYN Senna/Docusate Sodium (Sennosides/Docusate Sodium Tablet) 2 tab PO BEDTIME [facility] Last Admin: 03/16/25 20:15 Dose: 2 tab Documented By: DENISE Sodium Chloride (0.9 % Sodium Chloride Flush 3 Ml Syringe) 3 ml IVFLUSH QSHIFT [facility] Last Admin: 03/16/25 20:17 Dose: 3 ml Documented By: DENISE Labs 03/11/25 06:37 03/12/25 05:27 Labs: Laboratory Results - last 24 hr 03/16/25 03/16/25 03/16/25 11:27 16:16 20:26 POC Glucose 130 H 113 137 H 03/17/25 07:45 POC Glucose 100 Assessment and Plan (1) KYLER (acute kidney injury): Status: Acute (2) Acute on chronic urinary retention: Status: Acute Plan This is an 89-year-old female with history of hypothyroidism, breast cancer on anastrozole, hypertension, type 2 diabetes, osteoarthritis, recent admission for periprosthetic right knee fracture and humeral fracture with rhabdomyolysis who was sent from rehab due to increasing renal function found to have recurrent urinary retention Acute kidney injury on CKD3 Likely due to urinary retention/obstructive uropathy Mario catheter placed with 800 cc drained -resolved Urinary retention Likely due to opioid medications and constipation mario if fails vooding trial HypOtension, transient not due to sepsis BP now normal Constipation Likely due to narcotics May be contributing to above urinary retention Scheduled bowel regimen Recent Knee surgery s/p repair, has lots of pain IV dilaudid for severe pain and oxycodone for moderate pain paroxysmal atrial fibrillation occurred in the post-operative setting and terminated without recurrence not on AC hold metoprolol for low bp Chronic normocytic anemia H/H above transfusion threshold Hypothyroid continue levothyroxine when med rec complete Breast cancer continue anastrozole Hypertension hold losartan/hydrochlorothiazide for KYLER/hypotension Type 2 diabetes SSI, POCs, ADA diet hold Jardiance Class 1 obesity BMI 30.2 weight loss encouraged Malnutrition as evident by low Albumin and low protein nutritional support Patient Hospice consult for chronic pain management, malnutrition and failure to thrive and wanting to will also obtain Psych consult for possible clinical depression management DNR/DNI as per MOLST form VTE prophylaxis: Dispo: waiting for placement home with hospice vs Snf Quality Stroke Does the patient have a stroke diagnosis?: No VTE Prior VTE?: No VTE Risk Level:: Medical - moderate - high VTE Device Contraindication: N/A - Device Ordered VTE Drug Contraindication: N/A - Med Ordered
[2025-03-17] MEDS: oxyCODONE HCl Immed Release 5 MG TABLET 10 MG PO ×2 (10:23→14:54)
[2025-03-17] MEDS: 0.9 % Sodium Chloride Flush 3 ML SYRINGE IVFLUSH ×3 (10:26→20:08)
[2025-03-17 11:15] LABS: Glucose, Whole Blood 109 mg/dL (60-115)
--- NOTE | 2025-03-17 13:52 | P.CNPS_ITS ---
History of Present Illness Date of Service: 03/17/25 Chief Complaint: KYLER Reason for Consult: depression Requesting physician: Jatinder Quintanilla Discussed with referring provider: Yes Sources of Information: patient interviewed, chart reviewed and crisis/core team assessment reviewed Additional Sources of Information: Marielos [phone] [facility] Narrative: Mrs. Wilder is an 89 year-old woman who was brought via EMS from [facility] to [facility] due to increase in renal function in setting of urinary retention worsened by constipation and medications for pain. She was recently discharged from [facility] after right humeral fracture, shoulder and knee fracture. Psychiatry was asked to assess patient as she reports wishes to want to . Pt seen in her room. She is sitting in recliner, legs up. She is pleasant on approach. This insurance underwriter sales introduce herself and reason for visit. Pt quickly reported I want to ! When asked to elaborate, she reports she is in pain due to multiple fractures, can't ambulate. She reports she is 89 and has lived a good life and now is hoping that God takes her. She reports she prays to God to take her with him. She clarifies I'm not depressed, I've never been depressed, I'm just ready. When asked if she would harm herself, she reports she wouldn't and would wait for God's time. She further explains, I don't want to be on medications that are going to keep me alive longer. This insurance underwriter sales asked if what she is asking is to discuss goals of care with a focus on comfort and decreasing physical suffering, which she said this is what she is asking. Collateral information was gathered from her daughter Marielos, who reports since multiple fractures, her quality of life has significantly decline and that her mother is in severe pain and at this point bedbound. Marielos reports that patient had completed a MOSLT which actually indicate do not transfer to the hospital, DNR/DNI, no artificial nutrition or hydration and yet patient was transferred from [facility] despite MOLST. Daughter does not have concern in terms of depression or suicidality more than honoring patient's wishes in terms of interventions she consents to given her current medical situation. Past Psychiatric History: Pt denies hx of depression or psychiatric hx. No hx of suicide attempts. Medical Evaluation Reviewed: Yes [facility] Medical History CKD stage 3a, GFR 45-59 ml/min Osteoarthritis Numbness and tingling of both feet Hx of cardiac murmur Hypothyroidism Hypertension Diabetes mellitus Hx of breast cancer Surgical History Hx of hemorrhoidectomy History of knee replacement S/P lumpectomy, right breast Hx of colonoscopy Family History: unknown Social History: Pt was born in [place]. She moved to [facility] after she got . She has 4 daughters. 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 Substance History: none Trauma History: none reported. Diagnostics Vital Signs (24Hr): Vital Signs - 24 hr 03/16/25 15:23 03/16/25 19:06 03/17/25 04:00 Temperature 98.4 F 98.7 F 97.7 F Pulse Rate 74 76 72 Respiratory Rate 18 18 18 Blood Pressure 138/65 140/62 H 149/68 H Pulse Oximetry 92 92 92 Oxygen Delivery Method Room Air Room Air 03/17/25 07:52 Temperature 97.6 F Pulse Rate 72 Respiratory Rate 18 Blood Pressure 150/67 H Pulse Oximetry 91 L Oxygen Delivery Method Room Air BMI result Body Mass Index 37.0 Labs 03/11/25 06:37 03/12/25 05:27 Labs: Laboratory Results - last 48 hr 03/15/25 03/15/25 03/16/25 15:59 20:08 07:25 POC Glucose 130 H 149 H 120 H 03/16/25 03/16/25 03/16/25 11:27 16:16 20:26 POC Glucose 130 H 113 137 H 03/17/25 03/17/25 07:45 11:11 POC Glucose 100 109 Imaging Radiology Impressions: ITS Impressions Chest X-Ray 03/11/25 07:22 IMPRESSION: No acute cardiopulmonary abnormality. Electronically signed by: Quirino Nevarez MD 03/11/2025 08:13 AM EDT Abdomen/Pelvis CT 03/11/25 09:23 IMPRESSION: 1. There is no acute finding in the abdomen or pelvis. There is no abdominal mass. There is a ventral midline periumbilical hernia containing fat measuring 7.4 x 3.9 cm. 2. There is moderate abdominal wall anasarca. 3. There is mild to moderate constipation. 4. The urinary bladder is collapsed around a Vicente balloon. 5. There are additional ancillary findings as discussed in the body of the report. Electronically signed by: Daniel Engel MD 03/11/2025 09:55 AM EDT RP Mental Status Exam Mental Status Exam Narrative: Appearance: wearing hospital gown, fair hygiene, in NAD Behavior: calm, cooperative and friendly Psychomotor: no agitation or retardation noted Speech: clear, normal rate/rhythm/volume, spontaneous TP: linear TC: pertinent to context, about wanting to Mood: in pain Affect: calm, SI: passive wishes of dying, no plan nor intent to end her life. HI: none VH/AH: none Delusions: none Insight/judgment: intact x 2. Memory/cog: alert, oriented to place, situation. Medications Medications Current Medications Acetaminophen (Acetaminophen 325 Mg Tablet) 650 mg PO Q6H PRN PRN Reason: Pain, Mild 1-3,fever,headache Last Admin: 03/16/25 11:37 Dose: 650 mg Anastrozole (Anastrozole 1 Mg Tablet) 1 mg PO DAILY [facility] Last Admin: 03/17/25 08:40 Dose: Not Given Aspirin (Aspirin 325 Mg Tablet) 325 mg PO DAILY [facility] Last Admin: 03/17/25 08:40 Dose: Not Given Bisacodyl (Bisacodyl 10 Mg Supp.Rect) 10 mg NE DAILY PRN PRN Reason: constipation is failed on MOM Calcium Carbonate (Calcium Carbonate 750 Mg Tab.Chew) 750 mg PO Q4H PRN PRN Reason: Heartburn Dextrose (Dextrose 50 % 25 Gm/50 Ml Syringe) 25 gm IVPUSH Q15M PRN; Protocol PRN Reason: per Hypoglycemia Standing Ord. Docusate Sodium (Docusate Sodium 100 Mg Capsule) 100 mg PO BID [facility] Last Admin: 03/17/25 08:36 Dose: 100 mg Gabapentin (Gabapentin 100 Mg Capsule) 100 mg PO TID [facility] Last Admin: 03/17/25 08:36 Dose: 100 mg Glucose (Glucose Gel 15 Gm Gel..Gram.) 15 gm PO Q15M PRN; Protocol PRN Reason: per Hypoglycemia Standing Ord. Hydromorphone HCl (Hydromorphone Hcl 0.5 Mg/0.5 Ml Syringe) 0.5 mg IVPUSH Q4H PRN; Protocol PRN Reason: Pain, Severe (Pain Scale 7-10) Last Admin: 03/13/25 13:22 Dose: 0.5 mg Insulin Human Lispro (Insulin Lispro 100 Unit/Ml 3 Ml Vial) 0 unit SUBCUT QIDACHS [facility]; Protocol Last Admin: 03/17/25 12:18 Dose: Not Given Lactulose (Lactulose 20 Gm/30 Ml Solution) 20 gm PO BID PRN PRN Reason: Constipation Levothyroxine Sodium (Levothyroxine Sodium 112 Mcg Tablet) 112 mcg PO DAILY@0600 [facility] Last Admin: 03/17/25 06:39 Dose: Not Given Lidocaine (Lidocaine 4 % Patch Adh..Patch) 1 patch TRANSDERMA DAILY [facility] Last Admin: 03/17/25 08:37 Dose: 1 patch Lidocaine (Lidocaine 4 % Patch Adh..Patch) 1 patch TRANSDERMA DAILY [facility]; Protocol Last Admin: 03/17/25 10:18 Dose: 1 patch Magnesium Hydroxide (Milk Of Magnesia 30 Ml Oral.Susp) 30 ml PO DAILY PRN PRN Reason: Constipation Last Admin: 03/12/25 21:51 Dose: 30 ml Metoprolol Tartrate (Metoprolol Tartrate 12.5 Mg Halftab) 12.5 mg PO BID [facility]; Protocol Last Admin: 03/17/25 08:40 Dose: Not Given Oxycodone HCl (Oxycodone Hcl Immed Release 5 Mg Tablet) 10 mg PO Q4H PRN PRN Reason: Pain, Moderate(Pain Scale 4-6) Last Admin: 03/17/25 10:23 Dose: 10 mg Oxycodone HCl (Oxycodone Hcl Er 10 Mg Tab.Er.12h) 20 mg PO BID [facility] Last Admin: 03/17/25 08:36 Dose: 20 mg Senna/Docusate Sodium (Sennosides/Docusate Sodium Tablet) 2 tab PO BEDTIME [facility] Last Admin: 03/16/25 20:15 Dose: 2 tab Sodium Chloride (0.9 % Sodium Chloride Flush 3 Ml Syringe) 3 ml IVFLUSH QSHIFT [facility] Last Admin: 03/17/25 10:26 Dose: 3 ml Allergies Allergies Allergy/AdvReac Type Severity Reaction Status Date / Time No Known Allergies Allergy Verified 03/11/25 06:27 Assessment & Plan Assessment & Plan (1) Adjustment disorder with depressed mood: Status: Acute Code(s): F43.21 - Adjustment disorder with depressed mood Plan Mrs. Wilder is an 89 year-old woman who was admitted due to KYLER on CKD stage 3 due to urinary retention, worsened by pain medication and constipation. She was recently discharged from [facility] after admission for humeral/shoulder and knee fracture. She was sent from [facility] due to abnormalities in labs, including elevation in renal function which seemed to be related to urinary retention, constipation due to pain medications. Psychiatry was consulted due to patient expressed wishes to . Pt denies any plan or intent to harm herself. She explains she does not want to have medication nor medical interventions that prolonged her life. She also clarifies this is not due to depression. She worries that her quality of life has significantly declined and she is in physical pain and suffering. Daughter confirms this and denies any concerns in terms of depression or suicidality and acknowledge that pt is in pain and quality of life is poor. Pt had completed a MOLST which it appears was not honored when she was [facility]- states not to transfer to hospital, no IV hydration nor artificial nutrition. PLAN 1. Multidisciplinary team to address goals of care- decide what medications to keep or discontinued. focus on comfort. 2. Pt appears calm, do not recommend at this point medication for anxiety such as ativan, can be use for comfort. If open to consider antidepressant- although not with intent to change her goals of care- which seems like more focused on comfort. Total time managing care of this patient today ____ minutes.
[2025-03-17] MEDS: Milk of Magnesia 30 ML ORAL.SUSP PO (14:57)
[2025-03-17 15:43] VITALS: BP 143/64; PULSE 70; RESP 18; TEMP 36.6; O2SAT 92
[2025-03-17 16:21] LABS: Glucose, Whole Blood 104 mg/dL (60-115)
[2025-03-17 19:47] VITALS: BP 142/67; PULSE 80; RESP 18; TEMP 36.3; O2SAT 94
[2025-03-17 21:15] LABS: Glucose, Whole Blood 157 mg/dL (60-115)
[2025-03-18 03:49] VITALS: BP 105/62; PULSE 82; RESP 18; TEMP 36.4; O2SAT 93
[2025-03-18] MEDS: oxyCODONE HCl Immed Release 5 MG TABLET 10 MG PO ×3 (07:04→15:42)
[2025-03-18] MEDS: oxyCODONE HCl ER 10 MG TAB.ER.12H 20 MG PO ×2 (07:04→20:23)
[2025-03-18 07:38] VITALS: BP 139/61; PULSE 75; RESP 14; TEMP 36.4; O2SAT 93
[2025-03-18 07:47] LABS: Glucose, Whole Blood 110 mg/dL (60-115)
[2025-03-18] MEDS: Lidocaine 4 % Patch ADH..PATCH 1 PATCH TRANSDERMA ×2 (08:33→08:34)
--- NOTE | 2025-03-18 09:10 | HO.PM.IMPN ---
Subjective Subjective Date of Service: 03/18/25 Interval History: Reporting pain of 8/10 and stating she doesn't want meds other than pain meds daugtter at bedside and agrees with decision Physical Exam Vital Signs: Vital Signs: Last Vital Signs Temp 97.6 F 03/18/25 07:38 Pulse 75 03/18/25 07:38 Resp 14 03/18/25 07:38 BP 139/61 03/18/25 07:38 Pulse Ox 93 03/18/25 07:38 O2 Del Method Room Air 03/18/25 07:38 O2 Flow Rate 15 03/15/25 18:25 BMI result Body Mass Index 37.0 General: AO X 3, no acute distress Resp: CTA bilateral CVS: S1,S2,RRR GI: +BS, NT, no distention Skin: No rash Neuro: motor grossly intact Psych: appropriate affect Objective Data Active Medications Acetaminophen (Acetaminophen 325 Mg Tablet) 650 mg PO Q6H PRN PRN Reason: Pain, Mild 1-3,fever,headache Last Admin: 03/16/25 11:37 Dose: 650 mg Documented By: NANCY Bisacodyl (Bisacodyl 10 Mg Supp.Rect) 10 mg [place] DAILY PRN PRN Reason: constipation is failed on MOM Calcium Carbonate (Calcium Carbonate 750 Mg Tab.Chew) 750 mg PO Q4H PRN PRN Reason: Heartburn Dextrose (Dextrose 50 % 25 Gm/50 Ml Syringe) 25 gm IVPUSH Q15M PRN; Protocol PRN Reason: per Hypoglycemia Standing Ord. Docusate Sodium (Docusate Sodium 100 Mg Capsule) 100 mg PO BID [facility] Last Admin: 03/18/25 07:05 Dose: 100 mg Documented By: NANCY Gabapentin (Gabapentin 100 Mg Capsule) 100 mg PO TID [facility] Last Admin: 03/18/25 07:05 Dose: 100 mg Documented By: NANCY Glucose (Glucose Gel 15 Gm Gel..Gram.) 15 gm PO Q15M PRN; Protocol PRN Reason: per Hypoglycemia Standing Ord. Insulin Human Lispro (Insulin Lispro 100 Unit/Ml 3 Ml Vial) 0 unit SUBCUT QIDACHS [facility]; Protocol Last Admin: 03/18/25 07:08 Dose: Not Given Documented By: NANCY Non-Admin Reason: No Insulin Coverage Lactulose (Lactulose 20 Gm/30 Ml Solution) 20 gm PO BID PRN PRN Reason: Constipation Lidocaine (Lidocaine 4 % Patch Adh..Patch) 1 patch TRANSDERMA DAILY [facility] Last Admin: 03/18/25 08:33 Dose: 1 patch Documented By: NANCY Lidocaine (Lidocaine 4 % Patch Adh..Patch) 1 patch TRANSDERMA DAILY [facility]; Protocol Last Admin: 03/18/25 08:34 Dose: 1 patch Documented By: NANCY Magnesium Hydroxide (Milk Of Magnesia 30 Ml Oral.Susp) 30 ml PO DAILY PRN PRN Reason: Constipation Last Admin: 03/17/25 14:57 Dose: 30 ml Documented By: ROSLYN Oxycodone HCl (Oxycodone Hcl Er 10 Mg Tab.Er.12h) 20 mg PO BID [facility] Last Admin: 03/18/25 07:04 Dose: 20 mg Documented By: NANCY Senna/Docusate Sodium (Sennosides/Docusate Sodium Tablet) 2 tab PO BEDTIME [facility] Last Admin: 03/17/25 20:06 Dose: 2 tab Documented By: DENISE Sodium Chloride (0.9 % Sodium Chloride Flush 3 Ml Syringe) 3 ml IVFLUSH QSHIFT [facility] Last Admin: 03/18/25 07:08 Dose: Not Given Documented By: NANCY Non-Admin Reason: Previously Administered Labs 03/11/25 06:37 03/12/25 05:27 Labs: Laboratory Results - last 24 hr 03/17/25 03/17/25 03/17/25 11:11 16:14 21:07 POC Glucose 109 104 157 H 03/18/25 07:42 POC Glucose 110 Assessment and Plan (1) KYLER (acute kidney injury): Status: Resolved (2) Acute on chronic urinary retention: Status: Resolved Plan This is an 89-year-old female with history of hypothyroidism, breast cancer on anastrozole, hypertension, type 2 diabetes, osteoarthritis, recent admission for periprosthetic right knee fracture and humeral fracture with rhabdomyolysis who was sent from rehab due to increasing renal function found to have recurrent urinary retention Acute kidney injury on CKD3 Likely due to urinary retention/obstructive uropathy Mario catheter placed with 800 cc drained -resolved Urinary retention Likely due to opioid medications and constipation mario if fails vooding trial HypOtension, transient not due to sepsis BP now normal Constipation Likely due to narcotics May be contributing to above urinary retention Scheduled bowel regimen Recent Knee surgery s/p repair, has lots of pain IV dilaudid for severe pain and oxycodone for moderate pain paroxysmal atrial fibrillation occurred in the post-operative setting and terminated without recurrence not on AC hold metoprolol for low bp Chronic normocytic anemia H/H above transfusion threshold Hypothyroid continue levothyroxine when med rec complete Breast cancer continue anastrozole Hypertension hold losartan/hydrochlorothiazide for KYLER/hypotension Type 2 diabetes SSI, POCs, ADA diet hold Jardiance Class 1 obesity BMI 30.2 weight loss encouraged Malnutrition as evident by low Albumin and low protein nutritional support Patient Hospice consult for chronic pain management, malnutrition and failure to thrive and wanting to Seen by Psych, recommend ativan and multi disciplinary aproach for comfort care, ativan for anxiety DNR/DNI as per MOLST form VTE prophylaxis: Dispo: waiting for placement home with hospice vs Snf Quality Stroke Does the patient have a stroke diagnosis?: No VTE Prior VTE?: No VTE Risk Level:: Medical - moderate - high VTE Device Contraindication: N/A - Device Ordered VTE Drug Contraindication: N/A - Med Ordered
[2025-03-18 09:59] VITALS: O2SAT 85
[2025-03-18 10:00] VITALS: O2SAT 94
[2025-03-18 11:04] LABS: Glucose, Whole Blood 152 mg/dL (60-115)
--- NOTE | 2025-03-18 14:10 | MHC.CM.PN ---
per rounds pt ready for dc awaiting ltc application
[2025-03-18] MEDS: 0.9 % Sodium Chloride Flush 3 ML SYRINGE IVFLUSH ×2 (14:30→20:26)
[2025-03-18 15:43] VITALS: BP 133/61; PULSE 73; RESP 18; TEMP 36.3; O2SAT 92
[2025-03-18 16:28] LABS: Glucose, Whole Blood 118 mg/dL (60-115)
[2025-03-18 19:23] VITALS: BP 117/61; PULSE 78; RESP 16; TEMP 36.3; O2SAT 92
[2025-03-18 20:26] LABS: Glucose, Whole Blood 127 mg/dL (60-115)
[2025-03-19 03:28] VITALS: BP 135/64; PULSE 63; RESP 18; TEMP 36.4; O2SAT 92
[2025-03-19 07:10] VITALS: BP 145/66; PULSE 71; RESP 20; TEMP 36.9; O2SAT 92
[2025-03-19 07:50] LABS: Glucose, Whole Blood 96 mg/dL (60-115)
[2025-03-19] MEDS: oxyCODONE HCl ER 10 MG TAB.ER.12H 20 MG PO ×2 (08:09→20:31)
[2025-03-19] MEDS: 0.9 % Sodium Chloride Flush 3 ML SYRINGE IVFLUSH ×3 (08:10→20:34)
[2025-03-19] MEDS: Lidocaine 4 % Patch ADH..PATCH 1 PATCH TRANSDERMA ×2 (08:12→08:13)
--- NOTE | 2025-03-19 09:01 | HO.PM.IMPN ---
Subjective Subjective Date of Service: 03/19/25 Interval History: Pain is controlled c/o constipation and still insisting on be let alone to but has no plan Physical Exam Vital Signs: Vital Signs: Last Vital Signs Temp 98.5 F 03/19/25 07:10 Pulse 71 03/19/25 07:10 Resp 20 03/19/25 07:10 BP 145/66 H 03/19/25 07:10 Pulse Ox 92 03/19/25 07:10 O2 Del Method Room Air 03/19/25 07:10 O2 Flow Rate 2 03/18/25 10:00 BMI result Body Mass Index 37.0 General: AO X 3, no acute distress Resp: CTA bilateral CVS: S1,S2,RRR GI: +BS, NT, no distention Skin: No rash Neuro: motor grossly intact Psych: appropriate affect Objective Data Active Medications Acetaminophen (Acetaminophen 325 Mg Tablet) 650 mg PO Q6H PRN PRN Reason: Pain, Mild 1-3,fever,headache Last Admin: 03/18/25 15:42 Dose: 650 mg Documented By: NANCY Bisacodyl (Bisacodyl 10 Mg Supp.Rect) 10 mg [place] DAILY PRN PRN Reason: constipation is failed on MOM Calcium Carbonate (Calcium Carbonate 750 Mg Tab.Chew) 750 mg PO Q4H PRN PRN Reason: Heartburn Dextrose (Dextrose 50 % 25 Gm/50 Ml Syringe) 25 gm IVPUSH Q15M PRN; Protocol PRN Reason: per Hypoglycemia Standing Ord. Docusate Sodium (Docusate Sodium 100 Mg Capsule) 100 mg PO BID [facility] Last Admin: 03/19/25 08:09 Dose: 100 mg Documented By: MAO Gabapentin (Gabapentin 100 Mg Capsule) 100 mg PO TID [facility] Last Admin: 03/19/25 08:09 Dose: 100 mg Documented By: MAO Glucose (Glucose Gel 15 Gm Gel..Gram.) 15 gm PO Q15M PRN; Protocol PRN Reason: per Hypoglycemia Standing Ord. Insulin Human Lispro (Insulin Lispro 100 Unit/Ml 3 Ml Vial) 0 unit SUBCUT QIDACHS [facility]; Protocol Last Admin: 03/19/25 08:05 Dose: Not Given Documented By: MAO Non-Admin Reason: No Insulin Coverage Lactulose (Lactulose 20 Gm/30 Ml Solution) 20 gm PO BID PRN PRN Reason: Constipation Last Admin: 03/18/25 20:34 Dose: 20 gm Documented By: KLAUS Lidocaine (Lidocaine 4 % Patch Adh..Patch) 1 patch TRANSDERMA DAILY [facility] Last Admin: 03/19/25 08:12 Dose: 1 patch Documented By: MAO Lidocaine (Lidocaine 4 % Patch Adh..Patch) 1 patch TRANSDERMA DAILY [facility]; Protocol Last Admin: 03/19/25 08:13 Dose: 1 patch Documented By: MAO Lorazepam (Lorazepam 1 Mg Tablet) 1 mg PO Q4H PRN PRN Reason: anxiety/restlessness Magnesium Hydroxide (Milk Of Magnesia 30 Ml Oral.Susp) 30 ml PO DAILY PRN PRN Reason: Constipation Last Admin: 03/17/25 14:57 Dose: 30 ml Documented By: ROSLYN Oxycodone HCl (Oxycodone Hcl Er 10 Mg Tab.Er.12h) 20 mg PO BID [facility] Last Admin: 03/19/25 08:09 Dose: 20 mg Documented By: MAO Oxycodone HCl (Oxycodone Hcl Immed Release 5 Mg Tablet) 10 mg PO Q4H PRN PRN Reason: Pain, Severe (Pain Scale 7-10) Last Admin: 03/18/25 15:42 Dose: 10 mg Documented By: NANCY Senna/Docusate Sodium (Sennosides/Docusate Sodium Tablet) 2 tab PO BEDTIME [facility] Last Admin: 03/18/25 20:22 Dose: 2 tab Documented By: KLAUS Sodium Chloride (0.9 % Sodium Chloride Flush 3 Ml Syringe) 3 ml IVFLUSH QSHIFT [facility] Last Admin: 03/19/25 08:10 Dose: 3 ml Documented By: MOA Labs 03/11/25 06:37 03/12/25 05:27 Labs: Laboratory Results - last 24 hr 03/18/25 03/18/25 03/18/25 11:01 16:24 20:22 POC Glucose 152 H 118 H 127 H 03/19/25 07:46 POC Glucose 96 Assessment and Plan (1) KYLER (acute kidney injury): Status: Resolved (2) Acute on chronic urinary retention: Status: Resolved Plan This is an 89-year-old female with history of hypothyroidism, breast cancer on anastrozole, hypertension, type 2 diabetes, osteoarthritis, recent admission for periprosthetic right knee fracture and humeral fracture with rhabdomyolysis who was sent from rehab due to increasing renal function found to have recurrent urinary retention Acute kidney injury on CKD3 Likely due to urinary retention/obstructive uropathy Mario catheter placed with 800 cc drained -resolved Urinary retention Likely due to opioid medications and constipation mario if fails vooding trial HypOtension, transient not due to sepsis BP now normal Constipation Likely due to narcotics May be contributing to above urinary retention Scheduled bowel regimen Recent Knee surgery s/p repair, has lots of pain IV dilaudid for severe pain and oxycodone for moderate pain paroxysmal atrial fibrillation occurred in the post-operative setting and terminated without recurrence not on AC hold metoprolol for low bp Chronic normocytic anemia H/H above transfusion threshold Hypothyroid continue levothyroxine when med rec complete Breast cancer continue anastrozole Hypertension hold losartan/hydrochlorothiazide for KYLER/hypotension Type 2 diabetes SSI, POCs, ADA diet hold Jardiance Class 1 obesity BMI 30.2 weight loss encouraged Malnutrition as evident by low Albumin and low protein nutritional support Patient Constipation, bowel regimen.. Hospice consult for chronic pain management, malnutrition and failure to thrive and wanting to Seen by Psych, recommend ativan and multi disciplinary aproach for comfort care, ativan for anxiety DNR/DNI as per MOLST form VTE prophylaxis: Dispo: waiting for placement home with hospice vs Snf Quality Stroke Does the patient have a stroke diagnosis?: No VTE Prior VTE?: No VTE Risk Level:: Medical - moderate - high VTE Device Contraindication: N/A - Device Ordered VTE Drug Contraindication: N/A - Med Ordered
[2025-03-19] MEDS: oxyCODONE HCl Immed Release 5 MG TABLET 10 MG PO ×2 (11:27→16:08)
[2025-03-19 12:03] LABS: Glucose, Whole Blood 135 mg/dL (60-115)
[2025-03-19 15:05] VITALS: BP 159/61; PULSE 76; RESP 20; TEMP 36.8; O2SAT 92
[2025-03-19 16:48] LABS: Glucose, Whole Blood 144 mg/dL (60-115)
[2025-03-19 19:12] VITALS: BP 154/67; PULSE 86; RESP 16; TEMP 36.7; O2SAT 92
[2025-03-19 20:05] LABS: Glucose, Whole Blood 140 mg/dL (60-115)
[2025-03-19] MEDS: Milk of Magnesia 30 ML ORAL.SUSP PO (20:39)
[2025-03-20 03:42] VITALS: BP 136/68; PULSE 67; RESP 18; TEMP 36.2; O2SAT 92
[2025-03-20 07:43] LABS: Glucose, Whole Blood 107 mg/dL (60-115)
[2025-03-20 08:00] VITALS: BP 143/65; PULSE 66; RESP 18; TEMP 36.8; O2SAT 91
[2025-03-20] MEDS: oxyCODONE HCl ER 10 MG TAB.ER.12H 20 MG PO (08:09)
[2025-03-20] MEDS: Lidocaine 4 % Patch ADH..PATCH 1 PATCH TRANSDERMA ×2 (08:11→08:12)
[2025-03-20] MEDS: 0.9 % Sodium Chloride Flush 3 ML SYRINGE IVFLUSH ×3 (08:15→19:40)
--- NOTE | 2025-03-20 10:15 | P.PNIM_ITS ---
Subjective Subjective Date of Service: 03/20/25 Interval History: No change Physical Exam 2 Vital Signs: Vital Signs: Last Vital Signs Temp 98.3 F 03/20/25 08:00 Pulse 66 03/20/25 08:00 Resp 18 03/20/25 08:00 BP 143/65 H 03/20/25 08:00 Pulse Ox 91 L 03/20/25 08:00 O2 Del Method Room Air 03/20/25 08:00 O2 Flow Rate 2 03/18/25 10:00 BMI result Body Mass Index 37.0 General: AO X 3, no acute distress Resp: CTA bilateral CVS: S1,S2,RRR GI: +BS, NT, no distention Skin: No rash Neuro: motor grossly intact Psych: appropriate affect Objective Data Active Medications Acetaminophen (Acetaminophen 325 Mg Tablet) 650 mg PO Q6H PRN PRN Reason: Pain, Mild 1-3,fever,headache Last Admin: 03/18/25 15:42 Dose: 650 mg Documented By: NANCY Bisacodyl (Bisacodyl 10 Mg Supp.Rect) 10 mg [place] DAILY PRN PRN Reason: constipation is failed on MOM Last Admin: 03/19/25 22:16 Dose: 10 mg Documented By: KLAUS Calcium Carbonate (Calcium Carbonate 750 Mg Tab.Chew) 750 mg PO Q4H PRN PRN Reason: Heartburn Dextrose (Dextrose 50 % 25 Gm/50 Ml Syringe) 25 gm IVPUSH Q15M PRN; Protocol PRN Reason: per Hypoglycemia Standing Ord. Docusate Sodium (Docusate Sodium 100 Mg Capsule) 100 mg PO BID [facility] Last Admin: 03/20/25 08:09 Dose: 100 mg Documented By: MAO Gabapentin (Gabapentin 100 Mg Capsule) 100 mg PO TID [facility] Last Admin: 03/20/25 08:09 Dose: 100 mg Documented By: MAO Glucose (Glucose Gel 15 Gm Gel..Gram.) 15 gm PO Q15M PRN; Protocol PRN Reason: per Hypoglycemia Standing Ord. Insulin Human Lispro (Insulin Lispro 100 Unit/Ml 3 Ml Vial) 0 unit SUBCUT QIDACHS [facility]; Protocol Last Admin: 03/20/25 07:17 Dose: Not Given Documented By: MAO Non-Admin Reason: No Insulin Coverage Lactulose (Lactulose 20 Gm/30 Ml Solution) 20 gm PO BID PRN PRN Reason: Constipation Last Admin: 03/18/25 20:34 Dose: 20 gm Documented By: KLAUS Lidocaine (Lidocaine 4 % Patch Adh..Patch) 1 patch TRANSDERMA DAILY [facility] Last Admin: 03/20/25 08:11 Dose: 1 patch Documented By: MAO Lidocaine (Lidocaine 4 % Patch Adh..Patch) 1 patch TRANSDERMA DAILY [facility]; Protocol Last Admin: 03/20/25 08:12 Dose: 1 patch Documented By: MAO Lorazepam (Lorazepam 1 Mg Tablet) 1 mg PO Q4H PRN PRN Reason: anxiety/restlessness Magnesium Hydroxide (Milk Of Magnesia 30 Ml Oral.Susp) 30 ml PO DAILY PRN PRN Reason: Constipation Last Admin: 03/17/25 14:57 Dose: 30 ml Documented By: ROSLYN Magnesium Hydroxide (Milk Of Magnesia 30 Ml Oral.Susp) 30 ml PO BID PRN PRN Reason: Constipation Last Admin: 03/19/25 20:39 Dose: 30 ml Documented By: KLAUS Oxycodone HCl (Oxycodone Hcl Immed Release 5 Mg Tablet) 10 mg PO Q4H PRN PRN Reason: Pain, Severe (Pain Scale 7-10) Last Admin: 03/19/25 16:08 Dose: 10 mg Documented By: MAO Polyethylene Glycol (Polyethylene Glycol 3350 17 Gm Powd.Pack) 17 gm PO DAILY PRN PRN Reason: Constipation Senna/Docusate Sodium (Sennosides/Docusate Sodium Tablet) 2 tab PO BEDTIME [facility] Last Admin: 03/19/25 20:31 Dose: 2 tab Documented By: KLAUS Sodium Chloride (0.9 % Sodium Chloride Flush 3 Ml Syringe) 3 ml IVFLUSH QSHIFT [facility] Last Admin: 03/20/25 08:15 Dose: 3 ml Documented By: MAO Labs 03/11/25 06:37 03/12/25 05:27 Labs: Laboratory Results - last 24 hr 03/19/25 03/19/25 03/19/25 11:58 16:39 20:01 POC Glucose 135 H 144 H 140 H 03/20/25 07:09 POC Glucose 107 Assessment and Plan (1) KYLER (acute kidney injury): Status: Resolved (2) Acute on chronic urinary retention: Status: Resolved Plan This is an 89-year-old female with history of hypothyroidism, breast cancer on anastrozole, hypertension, type 2 diabetes, osteoarthritis, recent admission for periprosthetic right knee fracture and humeral fracture with rhabdomyolysis who was sent from rehab due to increasing renal function found to have recurrent urinary retention Acute kidney injury on CKD3 Likely due to urinary retention/obstructive uropathy Mario catheter placed with 800 cc drained -resolved Urinary retention Likely due to opioid medications and constipation mario if fails vooding trial HypOtension, transient not due to sepsis BP now normal Constipation Likely due to narcotics May be contributing to above urinary retention Scheduled bowel regimen Recent Knee surgery s/p repair, has lots of pain IV dilaudid for severe pain and oxycodone for moderate pain paroxysmal atrial fibrillation occurred in the post-operative setting and terminated without recurrence not on AC hold metoprolol for low bp Chronic normocytic anemia H/H above transfusion threshold Hypothyroid continue levothyroxine when med rec complete Breast cancer continue anastrozole Hypertension hold losartan/hydrochlorothiazide for KYLER/hypotension Type 2 diabetes SSI, POCs, ADA diet hold Jardiance Class 1 obesity BMI 30.2 weight loss encouraged Malnutrition as evident by low Albumin and low protein nutritional support Patient Constipation, bowel regimen.. Hospice consult for chronic pain management, malnutrition and failure to thrive and wanting to Seen by Psych, recommend ativan and multi disciplinary aproach for comfort care, ativan for anxiety DNR/DNI as per MOLST form VTE prophylaxis: Dispo: waiting for placement home with hospice vs Snf Quality Stroke Does the patient have a stroke diagnosis?: No VTE Prior VTE?: No VTE Risk Level:: Medical - moderate - high VTE Device Contraindication: N/A - Device Ordered VTE Drug Contraindication: N/A - Med Ordered
[2025-03-20 11:35] LABS: Glucose, Whole Blood 116 mg/dL (60-115)
[2025-03-20 15:26] VITALS: BP 140/65; PULSE 70; RESP 16; TEMP 36.5; O2SAT 93
[2025-03-20] MEDS: oxyCODONE HCl Immed Release 5 MG TABLET 10 MG PO ×2 (15:43→19:39)
[2025-03-20 16:40] LABS: Glucose, Whole Blood 123 mg/dL (60-115)
[2025-03-20 20:00] VITALS: BP 157/70; PULSE 74; RESP 16; TEMP 36.6; O2SAT 95
[2025-03-20 21:37] LABS: Glucose, Whole Blood 128 mg/dL (60-115)
[2025-03-21 04:00] VITALS: BP 140/50; PULSE 68; RESP 18; TEMP 36; O2SAT 97
--- NOTE | 2025-03-21 05:27 | PC.NURSE ---
Pt seen on a chair at shift change alert and oriented, c/o right shoulder pain, right arm on a sling, teresa steady assist to bed by staff, sched meds and prn Oxycodone tolerated, slept thereafter, foely draining clear yellow urine.
[2025-03-21] MEDS: oxyCODONE HCl Immed Release 5 MG TABLET 10 MG PO ×3 (06:42→16:01)
[2025-03-21] MEDS: oxyCODONE HCl ER 10 MG TAB.ER.12H 20 MG PO ×3 (06:42→21:08)
[2025-03-21 07:59] VITALS: BP 144/74; PULSE 60; RESP 18; TEMP 36.2; O2SAT 93
[2025-03-21 08:05] LABS: Glucose, Whole Blood 108 mg/dL (60-115)
--- NOTE | 2025-03-21 08:13 | P.PNIM_ITS ---
Subjective Subjective Date of Service: 03/21/25 Interval History: no new Issues, she is feeling super on wanting to Physical Exam 2 Vital Signs: Vital Signs: Last Vital Signs Temp 97.2 F 03/21/25 07:59 Pulse 60 03/21/25 07:59 Resp 18 03/21/25 07:59 BP 144/74 H 03/21/25 07:59 Pulse Ox 93 03/21/25 07:59 O2 Del Method Room Air 03/21/25 07:59 O2 Flow Rate 2 03/18/25 10:00 BMI result Body Mass Index 37.0 Objective Data Active Medications Acetaminophen (Acetaminophen 325 Mg Tablet) 650 mg PO Q6H PRN PRN Reason: Pain, Mild 1-3,fever,headache Last Admin: 03/18/25 15:42 Dose: 650 mg Documented By: NANCY Bisacodyl (Bisacodyl 10 Mg Supp.Rect) 10 mg [place] DAILY PRN PRN Reason: constipation is failed on MOM Last Admin: 03/19/25 22:16 Dose: 10 mg Documented By: KLAUS Calcium Carbonate (Calcium Carbonate 750 Mg Tab.Chew) 750 mg PO Q4H PRN PRN Reason: Heartburn Dextrose (Dextrose 50 % 25 Gm/50 Ml Syringe) 25 gm IVPUSH Q15M PRN; Protocol PRN Reason: per Hypoglycemia Standing Ord. Docusate Sodium (Docusate Sodium 100 Mg Capsule) 100 mg PO BID [facility] Last Admin: 03/20/25 19:40 Dose: 100 mg Documented By: NICKO Gabapentin (Gabapentin 100 Mg Capsule) 100 mg PO TID [facility] Last Admin: 03/20/25 19:40 Dose: 100 mg Documented By: NICKO Glucose (Glucose Gel 15 Gm Gel..Gram.) 15 gm PO Q15M PRN; Protocol PRN Reason: per Hypoglycemia Standing Ord. Insulin Human Lispro (Insulin Lispro 100 Unit/Ml 3 Ml Vial) 0 unit SUBCUT QIDACHS [facility]; Protocol Last Admin: 03/21/25 08:11 Dose: Not Given Documented By: XAVIER Non-Admin Reason: No Insulin Coverage Lactulose (Lactulose 20 Gm/30 Ml Solution) 20 gm PO BID PRN PRN Reason: Constipation Last Admin: 03/20/25 19:41 Dose: 20 gm Documented By: NICKO Lidocaine (Lidocaine 4 % Patch Adh..Patch) 1 patch TRANSDERMA DAILY [facility] Last Admin: 03/20/25 08:11 Dose: 1 patch Documented By: MAO Lidocaine (Lidocaine 4 % Patch Adh..Patch) 1 patch TRANSDERMA DAILY [facility]; Protocol Last Admin: 03/20/25 08:12 Dose: 1 patch Documented By: MAO Lorazepam (Lorazepam 1 Mg Tablet) 1 mg PO Q4H PRN PRN Reason: anxiety/restlessness Magnesium Hydroxide (Milk Of Magnesia 30 Ml Oral.Susp) 30 ml PO DAILY PRN PRN Reason: Constipation Last Admin: 03/17/25 14:57 Dose: 30 ml Documented By: ROSLYN Magnesium Hydroxide (Milk Of Magnesia 30 Ml Oral.Susp) 30 ml PO BID PRN PRN Reason: Constipation Last Admin: 03/19/25 20:39 Dose: 30 ml Documented By: KLAUS Oxycodone HCl (Oxycodone Hcl Immed Release 5 Mg Tablet) 10 mg PO Q4H PRN PRN Reason: Pain, Severe (Pain Scale 7-10) Last Admin: 03/21/25 06:42 Dose: 10 mg Documented By: NANCY Oxycodone HCl (Oxycodone Hcl Er 10 Mg Tab.Er.12h) 20 mg PO BID [facility] Last Admin: 03/21/25 06:42 Dose: 20 mg Documented By: NANCY Polyethylene Glycol (Polyethylene Glycol 3350 17 Gm Powd.Pack) 17 gm PO DAILY PRN PRN Reason: Constipation Senna/Docusate Sodium (Sennosides/Docusate Sodium Tablet) 2 tab PO BEDTIME [facility] Last Admin: 03/20/25 19:40 Dose: 2 tab Documented By: NICKO Sodium Chloride (0.9 % Sodium Chloride Flush 3 Ml Syringe) 3 ml IVFLUSH QSHIFT [facility] Last Admin: 03/20/25 19:40 Dose: 3 ml Documented By: NICKO Labs 03/11/25 06:37 03/12/25 05:27 Labs: Laboratory Results - last 24 hr 03/20/25 03/20/25 03/20/25 11:21 16:34 21:33 POC Glucose 116 H 123 H 128 H 03/21/25 07:57 POC Glucose 108 Assessment and Plan (1) KYLER (acute kidney injury): Status: Resolved (2) Acute on chronic urinary retention: Status: Resolved Plan This is an 89-year-old female with history of hypothyroidism, breast cancer on anastrozole, hypertension, type 2 diabetes, osteoarthritis, recent admission for periprosthetic right knee fracture and humeral fracture with rhabdomyolysis who was sent from rehab due to increasing renal function found to have recurrent urinary retention Acute kidney injury on CKD3 Likely due to urinary retention/obstructive uropathy Mario catheter placed with 800 cc drained -resolved Urinary retention Likely due to opioid medications and constipation mario if fails vooding trial HypOtension, transient not due to sepsis BP now normal Constipation Likely due to narcotics May be contributing to above urinary retention Scheduled bowel regimen Recent Knee surgery s/p repair, has lots of pain IV dilaudid for severe pain and oxycodone for moderate pain paroxysmal atrial fibrillation occurred in the post-operative setting and terminated without recurrence not on AC hold metoprolol for low bp Chronic normocytic anemia H/H above transfusion threshold Hypothyroid continue levothyroxine when med rec complete Breast cancer continue anastrozole Hypertension hold losartan/hydrochlorothiazide for KYLER/hypotension Type 2 diabetes SSI, POCs, ADA diet hold Jardiance Class 1 obesity BMI 30.2 weight loss encouraged Malnutrition as evident by low Albumin and low protein nutritional support Patient Constipation, bowel regimen.. Hospice consult for chronic pain management, malnutrition and failure to thrive and wanting to Seen by Psych, recommend ativan and multi disciplinary aproach for comfort care, ativan for anxiety DNR/DNI as per MOLST form VTE prophylaxis: Dispo: waiting for placement home with hospice vs Snf Quality Stroke Does the patient have a stroke diagnosis?: No VTE Prior VTE?: No VTE Risk Level:: Medical - moderate - high VTE Device Contraindication: N/A - Device Ordered VTE Drug Contraindication: N/A - Med Ordered
[2025-03-21] MEDS: 0.9 % Sodium Chloride Flush 3 ML SYRINGE IVFLUSH ×3 (08:41→21:09)
[2025-03-21] MEDS: Lidocaine 4 % Patch ADH..PATCH 1 PATCH TRANSDERMA ×2 (08:43→08:44)
[2025-03-21] MEDS: Milk of Magnesia 30 ML ORAL.SUSP PO (08:44)
[2025-03-21 11:18] LABS: Glucose, Whole Blood 112 mg/dL (60-115)
[2025-03-21 15:15] VITALS: BP 180/82; PULSE 80; RESP 14; TEMP 36.5; O2SAT 93
--- NOTE | 2025-03-21 15:22 | MHC.CM.PN ---
per rounds pt is dc ready barrier is finacial dc plan remains ltc
[2025-03-21 16:09] LABS: Glucose, Whole Blood 137 mg/dL (60-115)
[2025-03-21 19:38] VITALS: BP 152/72; PULSE 78; RESP 14; TEMP 36.7; O2SAT 92
[2025-03-21 20:25] LABS: Glucose, Whole Blood 123 mg/dL (60-115)
[2025-03-22 07:15] VITALS: BP 150/70; PULSE 74; RESP 18; TEMP 37; O2SAT 92
[2025-03-22 07:36] LABS: Glucose, Whole Blood 113 mg/dL (60-115)
[2025-03-22] MEDS: 0.9 % Sodium Chloride Flush 3 ML SYRINGE IVFLUSH ×3 (09:10→20:36)
[2025-03-22] MEDS: oxyCODONE HCl ER 10 MG TAB.ER.12H 20 MG PO ×2 (09:10→20:34)
[2025-03-22] MEDS: Lidocaine 4 % Patch ADH..PATCH 1 PATCH TRANSDERMA ×2 (09:17→09:18)
--- NOTE | 2025-03-22 11:00 | HO.PM.IMPN ---
Subjective Subjective Date of Service: 03/22/25 Interval History: No change in status Physical Exam Vital Signs: Vital Signs: Last Vital Signs Temp 98.6 F 03/22/25 07:15 Pulse 74 03/22/25 07:15 Resp 18 03/22/25 07:15 BP 150/70 H 03/22/25 07:15 Pulse Ox 92 03/22/25 07:15 O2 Del Method Room Air 03/22/25 07:15 O2 Flow Rate 2 03/18/25 10:00 BMI result Body Mass Index 37.0 Objective Data Active Medications Acetaminophen (Acetaminophen 325 Mg Tablet) 650 mg PO Q6H PRN PRN Reason: Pain, Mild 1-3,fever,headache Last Admin: 03/18/25 15:42 Dose: 650 mg Documented By: NANCY Bisacodyl (Bisacodyl 10 Mg Supp.Rect) 10 mg [place] DAILY PRN PRN Reason: constipation is failed on MOM Last Admin: 03/19/25 22:16 Dose: 10 mg Documented By: KLAUS Calcium Carbonate (Calcium Carbonate 750 Mg Tab.Chew) 750 mg PO Q4H PRN PRN Reason: Heartburn Dextrose (Dextrose 50 % 25 Gm/50 Ml Syringe) 25 gm IVPUSH Q15M PRN; Protocol PRN Reason: per Hypoglycemia Standing Ord. Docusate Sodium (Docusate Sodium 100 Mg Capsule) 100 mg PO BID [facility] Last Admin: 03/22/25 09:11 Dose: 100 mg Documented By: XAVIER Gabapentin (Gabapentin 100 Mg Capsule) 100 mg PO TID [facility] Last Admin: 03/22/25 09:11 Dose: 100 mg Documented By: XAVIER Glucose (Glucose Gel 15 Gm Gel..Gram.) 15 gm PO Q15M PRN; Protocol PRN Reason: per Hypoglycemia Standing Ord. Insulin Human Lispro (Insulin Lispro 100 Unit/Ml 3 Ml Vial) 0 unit SUBCUT QIDACHS [facility]; Protocol Last Admin: 03/22/25 07:42 Dose: Not Given Documented By: XAVIER Non-Admin Reason: No Insulin Coverage Lactulose (Lactulose 20 Gm/30 Ml Solution) 20 gm PO BID PRN PRN Reason: Constipation Last Admin: 03/20/25 19:41 Dose: 20 gm Documented By: CASTILBob Lidocaine (Lidocaine 4 % Patch Adh..Patch) 1 patch TRANSDERMA DAILY [facility] Last Admin: 03/22/25 09:17 Dose: 1 patch Documented By: XAVIER Lidocaine (Lidocaine 4 % Patch Adh..Patch) 1 patch TRANSDERMA DAILY [facility]; Protocol Last Admin: 03/22/25 09:18 Dose: 1 patch Documented By: XAVIER Lorazepam (Lorazepam 1 Mg Tablet) 1 mg PO Q4H PRN PRN Reason: anxiety/restlessness Magnesium Hydroxide (Milk Of Magnesia 30 Ml Oral.Susp) 30 ml PO DAILY PRN PRN Reason: Constipation Last Admin: 03/21/25 08:44 Dose: 30 ml Documented By: XAVIER Magnesium Hydroxide (Milk Of Magnesia 30 Ml Oral.Susp) 30 ml PO BID PRN PRN Reason: Constipation Last Admin: 03/19/25 20:39 Dose: 30 ml Documented By: KLAUS Oxycodone HCl (Oxycodone Hcl Immed Release 5 Mg Tablet) 10 mg PO Q4H PRN PRN Reason: Pain, Severe (Pain Scale 7-10) Last Admin: 03/21/25 16:01 Dose: 10 mg Documented By: XAVIER Oxycodone HCl (Oxycodone Hcl Er 10 Mg Tab.Er.12h) 20 mg PO BID [facility] Last Admin: 03/22/25 09:10 Dose: 20 mg Documented By: XAVIER Polyethylene Glycol (Polyethylene Glycol 3350 17 Gm Powd.Pack) 17 gm PO DAILY PRN PRN Reason: Constipation Senna/Docusate Sodium (Sennosides/Docusate Sodium Tablet) 2 tab PO BEDTIME [facility] Last Admin: 03/21/25 21:08 Dose: 2 tab Documented By: EARL Sodium Chloride (0.9 % Sodium Chloride Flush 3 Ml Syringe) 3 ml IVFLUSH QSHIFT [facility] Last Admin: 03/22/25 09:10 Dose: 3 ml Documented By: XAVIER Labs 03/11/25 06:37 03/12/25 05:27 Labs: Laboratory Results - last 24 hr 03/21/25 03/21/25 03/21/25 11:10 16:03 20:17 POC Glucose 112 137 H 123 H 03/22/25 07:20 POC Glucose 113 Assessment and Plan (1) KYLER (acute kidney injury): Status: Resolved (2) Acute on chronic urinary retention: Status: Resolved Plan This is an 89-year-old female with history of hypothyroidism, breast cancer on anastrozole, hypertension, type 2 diabetes, osteoarthritis, recent admission for periprosthetic right knee fracture and humeral fracture with rhabdomyolysis who was sent from rehab due to increasing renal function found to have recurrent urinary retention Acute kidney injury on CKD3 Likely due to urinary retention/obstructive uropathy She failed a voiding trial and Mario catheter has to be reinserted Urinary retention Likely due to opioid medications and constipation mario if fails vooding trial HypOtension, transient not due to sepsis BP now normal Constipation Likely due to narcotics May be contributing to above urinary retention Scheduled bowel regimen Recent Knee surgery s/p repair, has lots of pain IV dilaudid for severe pain and oxycodone for moderate pain paroxysmal atrial fibrillation occurred in the post-operative setting and terminated without recurrence not on AC hold metoprolol for low bp Chronic normocytic anemia H/H above transfusion threshold Hypothyroid continue levothyroxine when med rec complete Breast cancer continue anastrozole Hypertension hold losartan/hydrochlorothiazide for KYLER/hypotension Type 2 diabetes SSI, POCs, ADA diet hold Jardiance Class 1 obesity BMI 30.2 weight loss encouraged Malnutrition as evident by low Albumin and low protein nutritional support Patient Constipation, bowel regimen.. Hospice consult for chronic pain management, malnutrition and failure to thrive and wanting to Seen by Psych, recommend ativan and multi disciplinary aproach for comfort care, ativan for anxiety Disposition hindered by financial issues. DNR/DNI as per MOLST form VTE prophylaxis: Dispo: waiting for placement home with hospice vs Snf Quality Stroke Does the patient have a stroke diagnosis?: No VTE Prior VTE?: No VTE Risk Level:: Medical - moderate - high VTE Device Contraindication: N/A - Device Ordered VTE Drug Contraindication: N/A - Med Ordered
[2025-03-22 11:28] LABS: Glucose, Whole Blood 122 mg/dL (60-115)
[2025-03-22] MEDS: oxyCODONE HCl Immed Release 5 MG TABLET 10 MG PO (12:53)
[2025-03-22 15:48] VITALS: BP 121/72; PULSE 72; RESP 18; TEMP 36.9; O2SAT 92
[2025-03-22 16:33] LABS: Glucose, Whole Blood 119 mg/dL (60-115)
[2025-03-22 20:00] VITALS: BP 144/73; PULSE 72; RESP 18; TEMP 36.6; O2SAT 93
[2025-03-22 21:20] LABS: Glucose, Whole Blood 131 mg/dL (60-115)
[2025-03-23 04:00] VITALS: BP 126/63; PULSE 65; RESP 18; TEMP 36.5; O2SAT 93
[2025-03-23] MEDS: oxyCODONE HCl ER 10 MG TAB.ER.12H 20 MG PO (07:06)
[2025-03-23] MEDS: oxyCODONE HCl Immed Release 5 MG TABLET 10 MG PO ×3 (07:06→16:53)
[2025-03-23] MEDS: 0.9 % Sodium Chloride Flush 3 ML SYRINGE IVFLUSH (07:07)
[2025-03-23 07:50] VITALS: BP 160/74; PULSE 77; RESP 18; TEMP 36.4; O2SAT 95
[2025-03-23 07:51] LABS: Glucose, Whole Blood 114 mg/dL (60-115)
[2025-03-23] MEDS: Lidocaine 4 % Patch ADH..PATCH 1 PATCH TRANSDERMA ×2 (09:23)
[2025-03-23 11:40] LABS: Glucose, Whole Blood 141 mg/dL (60-115)
--- NOTE | 2025-03-23 12:52 | PM.DS ---
DS: Providers Provider Date of Service: 03/23/25 Date of admission: 03/11/25 08:23 Date of discharge: 03/23/25 Primary care physician: Paula Sanches MD Consults: 03/17/25 09:16 Consult to Psychiatry Routine Consulting Provider: [facility] Psych Covering Reason for consultation: depression, med management please Has provider been notified: No Attending physician on discharge: Bert Olvera Discharging clinician: Bert Olvera DS: Diagnosis Discharge Diagnosis (1) KYLER (acute kidney injury): Status: Resolved (2) Acute on chronic urinary retention: Status: Resolved DS: Summary Hospital Course Hospital Course: Admission HPI Chief Complaint: abnormal labs This is an 89-year-old female with a history of hypothyroidism hypertension, type 2 diabetes who was recently admitted from February 18 to March 01 for mechanical fall resulting in right humeral fracture and right knee periprosthetic fracture, traumatic rhabdomyolysis status post right femoral retrograde nail on February 19. During that admission she had urinary retention which was thought to be related to opioid medications. Her Mario catheter was removed prior to discharge and she had successful voiding trial. She was discharged to rehab on March 01. She was sent to the emergency department from [facility] due to abnormal lab work. In the emergency room her creatinine was 1.69. She was bladder scan for large volume of urine, a Mario catheter was placed with over 800 cc of urine emptied with placement. Urinalysis was negative for acute infection. Family reports difficulty with constipation since surgery. Patient denies any abdominal pain. White count elevated at 16.3, no obvious source of infection identified. Patient we will be admitted for further management of urinary retention and acute kidney injury. Hospital course; the patient presenting with abnormal lab from outpatient labs after being found to have acute renal insufficiency. She had also been experiencing urinary retention. Lab and a hospital revealed creatinine of 1.69 A CAT scan of the abdomen and pelvis showed no acute finding however reveal an existing hernia, abdominal wall anasarca. Patient was noted to have urinary retention of approximately 800 cc and a Mario catheter was inserted to drain. Patient was admitted for further management. It is also of note that she had episodes of hypotension with blood pressure being as low as 88 systolic and was corrected with IV fluid. She was admitted for further management of acute renal insufficiency due to obstructive uropathy. As for hypotension she was hydrated with IV fluid with improvement in blood pressure. By the following day of hospitalization her renal function has returned to normal, presently at 0.89. It is of note that she was recently admitted to the hospital for right knee periprosthetic fracture that was surgically repaired. At this point given that the patient has made rapid than expected recovery, she will return to rehab to complete her rehabilitation. A Mario catheter will remain in place and outpatient Urology evaluation she will be arranged. To continue ASA 325 daily for DVT prevention post surgery was to complete on April 03, continue all other medications Physical Exam Vital Signs: Vital Signs: Last Vital Signs Temp 97.5 F 03/23/25 07:50 Pulse 77 03/23/25 07:50 Resp 18 03/23/25 07:50 BP 160/74 H 03/23/25 07:50 Pulse Ox 95 03/23/25 07:50 O2 Del Method Room Air 03/23/25 07:50 O2 Flow Rate 2 03/18/25 10:00 BMI result Body Mass Index 37.0 DS: Data Data Completed and Pending Completed studies during hospitalization [Text1]: Procedures Reposition Right Lower Femur with Intramedullary Internal Fixation Device, Percutaneous Approach (02/18/25) Transfusion of Nonautologous Red Blood Cells into Peripheral Vein, Percutaneous Approach (02/18/25) Labs on day of discharge: Laboratory Results - last 24 hr 03/22/25 03/22/25 03/23/25 16:26 21:14 07:47 POC Glucose 119 H 131 H 114 03/23/25 11:36 POC Glucose 141 H Discharge Plan Discharge Anticipated Discharge Date/Time: 03/23/25 12:48 Patient Disposition: Xfer SNF Discharge Diagnosis: KYLER, hypokalemia, Urinary retention Referrals: Paula Sanches MD [Primary Care Provider, Physical Medicine and Rehab] - 1 Week Discharge Medications: Continued anastrozole 1 mg tablet 1 mg PO DAILY levothyroxine 112 mcg tablet 112 mcg PO DAILY@0600 Jardiance 10 mg tablet 10 mg PO DAILY Qty: 30 0RF naloxone 0.4 mg/mL Solution 0.4 mg SUBCUT Q2M PRN (Reason: Opioid Overdose) Rx Instructions: NTExceed 10 mg total dose/episode sennosides-docusate sodium [Senna-S] 8.6-50 mg Tablet 2 tab-cap PO BEDTIME dextrose [Glucose Gel] 40 % Gel 10 g PO Q15M PRN (Reason: Hypoglycemia) Rx Instructions: until symptoms of low blood sugar are controlled acetaminophen 500 mg Tablet 1,000 mg PO QID bisacodyl [Dulcolax (bisacodyl)] 10 mg Suppository 10 mg [place] DAILY PRN (Reason: constipation is failed on MOM) lidocaine 5 % Adhesive Patch,Medicated 1 patch TOPICAL DAILY Rx Instructions: leave on most painful area for up to 12 hrs Fleet Enema 19-7 gram/118 mL Enema 118 ml [place] DAILY PRN (Reason: constipation, if failed on MOM and Dulcolax,) docusate sodium [Colace] 100 mg Capsule 100 mg PO BID gabapentin 100 mg Capsule 100 mg PO TID oxycodone 5 mg Tablet 5 mg PO Q6H PRN (Reason: Pain (Scale Score 1-6)) metoprolol tartrate 25 mg Tablet 12.5 mg PO BID lactulose 10 gram/15 mL Solution 30 ml PO BID PRN (Reason: Constipation) glucagon 1 mg/0.2 mL Syringe 1 mg subcut ONCE PRN (Reason: Hypoglycemia) magnesium hydroxide [Milk of Magnesia] 400 mg/5 mL suspension 30 ml PO DAILY PRN (Reason: Constipation if no BM in 3 days) insulin lispro [Admelog U-100 Insulin lispro] 100 unit/mL solution See Protocol subcut QIDACHS Protocol: Insulin Correction Scale Less than or equal to 110 ---- Give (units): 0 111 to 150 Give (units): 0 151 to 200 Give (units): 2 201 to 250 Give (units): 4 251 to 300 Give (units): 6 301 to 350 Give (units): 8 Greater than 350 Give (units): 10 Call MD if Blood Glucose > : 400 Rx Instructions: BG <111 0 units, 111-150 - 0 units, 151-200 2 units, 201-250 4 units, 251-300 6 units, 301-350 8 units, >350 10 units oxycodone 5 mg tablet 10 mg PO Q6H PRN (Reason: Pain (Scale Score 7-10)) Rx Instructions: Partial Fill upon patient request. aspirin 325 mg Tablet 325 mg PO DAILY Qty: 12 0RF Rx Instructions: Ending April 03 Discharge Orders: Discharge Order (Routine); Ordered 03/23/25 Ordered By: Bert Olvera Diet: Advance to usual diet Activity on Discharge: As tolerated Stand Alone Forms: Patient Portal Discharge page Print Language: Serbian Care Plan Goals: recovery from kidney failure Health Concerns: renal failure urinary retention hypokalemia Plan of Treatment: to keep mario in since urinary retention causing kidney mario should follow with urology in the office Assessment: see above
--- NOTE | 2025-03-23 15:14 | PM.DS ---
DS: Providers Provider Date of Service: 03/23/25 Date of admission: 03/11/25 08:23 Date of discharge: 03/23/25 Primary care physician: Paula Sanches MD Consults: 03/17/25 09:16 Consult to Psychiatry Routine Consulting Provider: [facility] [place] [facility] Covering Reason for consultation: depression, med management please Has provider been notified: No Attending physician on discharge: Bert Olvera Discharging clinician: Bert Olvera DS: Diagnosis Discharge Diagnosis (1) KYLER (acute kidney injury): Status: Resolved (2) Acute on chronic urinary retention: Status: Resolved DS: Summary Hospital Course Hospital Course: Admission HPI Chief Complaint: abnormal labs This is an 89-year-old female with a history of hypothyroidism hypertension, type 2 diabetes who was recently admitted from February 18 to March 01 for mechanical fall resulting in right humeral fracture and right knee periprosthetic fracture, traumatic rhabdomyolysis status post right femoral retrograde nail on February 19. During that admission she had urinary retention which was thought to be related to opioid medications. Her Mario catheter was removed prior to discharge and she had successful voiding trial. She was discharged to rehab on March 01. She was sent to the emergency department from [facility] due to abnormal lab work. In the emergency room her creatinine was 1.69. She was bladder scan for large volume of urine, a Mario catheter was placed with over 800 cc of urine emptied with placement. Urinalysis was negative for acute infection. Family reports difficulty with constipation since surgery. Patient denies any abdominal pain. White count elevated at 16.3, no obvious source of infection identified. Patient we will be admitted for further management of urinary retention and acute kidney injury. Hospital course: the patient presenting with abnormal lab from outpatient labs after being found to have acute renal insufficiency. She had also been experiencing urinary retention. Lab and a hospital revealed creatinine of 1.69 A CAT scan of the abdomen and pelvis showed no acute finding however reveal an existing hernia, abdominal wall anasarca. Patient was noted to have urinary retention of approximately 800 cc and a Mario catheter was inserted to drain. Patient was admitted for further management. she had episodes of hypotension with blood pressure being as low as 88 systolic and was corrected with IV fluid. She was admitted for further management of acute renal insufficiency due to obstructive uropathy. As for hypotension she was hydrated with IV fluid with improvement in blood pressure. By the following day of hospitalization her renal function has returned to normal. In addition she was recently admitted to the hospital for right knee periprosthetic fracture that was surgically repaired. At this point given that the patient has made rapid than expected recovery, she will return to rehab to complete her rehabilitation. A Mario catheter will remain in place and outpatient Urology evaluation she will be arranged. continue ASA 325 daily for DVT prevention post surgery was to complete on April 03, continue all other medications. Hypertension; also has episode of hypotension initially which resolved with IV fluids. Continue metoprolol, blood pressure fluctuating-can adjust Metoprolol for blood pressure. hold losartan/hydrochlorothiazide for KYLER/hypotension. consider reintroducing slowly if needed for blood pressure after checking BMP. Leukocytosis: Fluctuating WBC count, no new symptoms-possible reactive to recent fracture/surgery(please see dc summary note from 03/01/25). Monitor CBC outpatient. Constipation: Continue laxatives, patient was given enema today and last BM. May need p.r.n. enema if laxative does not help. acute hypokalemia seems to be resolved. Hospice consult for chronic pain management, malnutrition and failure to thrive and wanting to . Seen by Psych, recommend ativan and multi disciplinary approach for hospice /comfort focus care which can be adressed with family in rehab. plan: Limited OxyContin 20 mg b.i.d. supply given, continue oxycodone p.r.n. Continue laxatives, p.r.n. enemas as needed for constipation. Voiding trial in rehab, follow-up with Urology. KYLER and hypokalemia resolved. Encouraged for p.o. hydration and p.o. intake. Monitor CBC and BMP outpatient. daughter is leaning towards hospice care. Above management discussed with the patient daughter in detail length, assessment and plan total time spent 45 minute, all questions answered. Time Attestation Total time managing care of this patient today: 45 mintues. Discharge Coordination Time (in mins): 45 min Quality: Safe Use of Opioids Does Pt have an Active Cancer Diagnosis on the Problem List?: No Quality: Stroke Does the patient have a stroke diagnosis?: No Physical Exam Exam: Exam: General: AO X 3, no acute distress Resp: CTA bilateral CVS: S1,S2,RRR GI: +BS, NT, no distention Skin: No rash Neuro: motor grossly intact Psych: appropriate affect Vital Signs: Vital Signs: Last Vital Signs Temp 97.5 F 03/23/25 07:50 Pulse 77 03/23/25 07:50 Resp 18 03/23/25 07:50 BP 160/74 H 03/23/25 07:50 Pulse Ox 95 03/23/25 07:50 O2 Del Method Room Air 03/23/25 07:50 O2 Flow Rate 2 03/18/25 10:00 BMI result Body Mass Index 37.0 DS: Data Data Completed and Pending Completed studies during hospitalization [Text1]: Procedures Reposition Right Lower Femur with Intramedullary Internal Fixation Device, Percutaneous Approach (02/18/25) Transfusion of Nonautologous Red Blood Cells into Peripheral Vein, Percutaneous Approach (02/18/25) Labs on day of discharge: Laboratory Results - last 24 hr 03/22/25 03/22/25 03/23/25 16:26 21:14 07:47 POC Glucose 119 H 131 H 114 03/23/25 11:36 POC Glucose 141 H Imaging Chest x-ray: Radiologist's impression: ITS Impressions Chest X-Ray 03/11/25 07:22 IMPRESSION: No acute cardiopulmonary abnormality. Abdomen/Pelvis CT 03/11/25 09:23 IMPRESSION: 1. There is no acute finding in the abdomen or pelvis. There is no abdominal mass. There is a ventral midline periumbilical hernia containing fat measuring 7.4 x 3.9 cm. 2. There is moderate abdominal wall anasarca. 3. There is mild to moderate constipation. 4. The urinary bladder is collapsed around a Mario balloon. 5. There are additional ancillary findings as discussed in the body of the report. Discharge Plan Discharge Anticipated Discharge Date/Time: 03/23/25 12:48 Patient Disposition: Xfer SNF Discharge Diagnosis: KYLER, hypokalemia, Urinary retention Referrals: [facility] [Other] - 1 Week Paula Sanches MD [Primary Care Provider, Physical Medicine and Rehab] - 1 Week Discharge Medications: New oxycodone [OxyContin] 10 mg Tablet,Oral Only,Ext.Rel.12 Hr 20 mg PO BID Qty: 10 0RF Rx Instructions: Partial Fill upon patient request. lorazepam 1 mg Tablet 1 mg PO Q4H PRN (Reason: Anxiety/Restlessness) Qty: 10 0RF magnesium hydroxide [Milk of Magnesia] 400 mg/5 mL Suspension 30 ml PO BID PRN (Reason: Constipation) Qty: 1 0RF polyethylene glycol 3350 17 gram Powder In Packet 17 g PO DAILY PRN (Reason: Constipation) Qty: 1 0RF Continued anastrozole 1 mg tablet 1 mg PO DAILY levothyroxine 112 mcg tablet 112 mcg PO DAILY@0600 Jardiance 10 mg tablet 10 mg PO DAILY Qty: 30 0RF naloxone 0.4 mg/mL Solution 0.4 mg SUBCUT Q2M PRN (Reason: Opioid Overdose) Rx Instructions: NTExceed 10 mg total dose/episode sennosides-docusate sodium [Senna-S] 8.6-50 mg Tablet 2 tab-cap PO BEDTIME dextrose [Glucose Gel] 40 % Gel 10 g PO Q15M PRN (Reason: Hypoglycemia) Rx Instructions: until symptoms of low blood sugar are controlled acetaminophen 500 mg Tablet 1,000 mg PO QID bisacodyl [Dulcolax (bisacodyl)] 10 mg Suppository 10 mg AZ DAILY PRN (Reason: constipation is failed on MOM) lidocaine 5 % Adhesive Patch,Medicated 1 patch TOPICAL DAILY Rx Instructions: leave on most painful area for up to 12 hrs Fleet Enema 19-7 gram/118 mL Enema 118 ml AZ DAILY PRN (Reason: constipation, if failed on MOM and Dulcolax,) docusate sodium [Colace] 100 mg Capsule 100 mg PO BID gabapentin 100 mg Capsule 100 mg PO TID oxycodone 5 mg Tablet 5 mg PO Q6H PRN (Reason: Pain (Scale Score 1-6)) metoprolol tartrate 25 mg Tablet 12.5 mg PO BID lactulose 10 gram/15 mL Solution 30 ml PO BID PRN (Reason: Constipation) glucagon 1 mg/0.2 mL Syringe 1 mg subcut ONCE PRN (Reason: Hypoglycemia) magnesium hydroxide [Milk of Magnesia] 400 mg/5 mL suspension 30 ml PO DAILY PRN (Reason: Constipation if no BM in 3 days) insulin lispro [Admelog U-100 Insulin lispro] 100 unit/mL solution See Protocol subcut QIDACHS Protocol: Insulin Correction Scale Less than or equal to 110 ---- Give (units): 0 111 to 150 Give (units): 0 151 to 200 Give (units): 2 201 to 250 Give (units): 4 251 to 300 Give (units): 6 301 to 350 Give (units): 8 Greater than 350 Give (units): 10 Call MD if Blood Glucose > : 400 Rx Instructions: BG <111 0 units, 111-150 - 0 units, 151-200 2 units, 201-250 4 units, 251-300 6 units, 301-350 8 units, >350 10 units oxycodone 5 mg tablet 10 mg PO Q6H PRN (Reason: Pain (Scale Score 7-10)) Rx Instructions: Partial Fill upon patient request. aspirin 325 mg Tablet 325 mg PO DAILY Qty: 12 0RF Rx Instructions: Ending April 03 Discharge Orders: Discharge Order (Routine); Ordered 03/23/25 Ordered By: Bert Olvera Diet: Advance to usual diet Activity on Discharge: As tolerated Stand Alone Forms: Patient Portal Discharge page Print Language: Latvian Care Plan Goals: recovery from kidney failure Health Concerns: renal failure urinary retention hypokalemia Plan of Treatment: to keep mario in since urinary retention causing kidney mario should follow with urology in the office Assessment: see above
[2025-03-23 15:45] VITALS: BP 156/66; PULSE 80; RESP 18; TEMP 37; O2SAT 93
[2025-03-23 15:53] LABS: Anion Gap 8 (12-20); Blood Urea Nitrogen 10 mg/dL (9-16); Calcium 8.2 mg/dL (8.4-10.2); Carbon Dioxide 31 mmol/L (22-29); Chloride 104 mmol/L (96-108); Creatinine Clr Calc Pharmacy 55.8; Estimated Glomerular Filt Rate > 60; Potassium 4.2 mmol/L (3.3-5.1); Sodium 139 mmol/L (135-145)
[2025-03-23 15:58] LABS: Glucose, Whole Blood 158 mg/dL (60-115)
[2025-03-23 17:30] VITALS: BP 141/85; PULSE 83; RESP 14; TEMP 36.6; O2SAT 93
== END 2025-03-23 17:54 | disposition skilled nursing facility (03) | DRG 683 ==
LOC: HO.ED 07:50 → HO.EDOVER 08:35 → HO.S3 13:27
PROVIDERS: Hospitalist; Internal Medicine; Admitting Provider Physician Assistant Medical; Emergency Provider Emergency Medicine; PCP Internal Medicine; Visit Provider Internal Medicine
DX: N17.9 Acute kidney failure, unspecified (principal); E46 Unspecified protein-calorie malnutrition; N18.30 Chronic kidney disease, stage 3 unspecified; E11.22 Type 2 diabetes mellitus with diabetic chronic kidney disease; E03.9 Hypothyroidism, unspecified; I12.9 Hypertensive chronic kidney disease with stage 1 through stage 4 chronic kidney disease, or unspecified chronic kidney disease; I95.9 Hypotension, unspecified; Z66 Do not resuscitate; I48.0 Paroxysmal atrial fibrillation; E66.811 Obesity, class 1; D63.1 Anemia in chronic kidney disease; Z68.30 Body mass index [BMI] 30.0-30.9, adult; R33.0 Drug induced retention of urine; G89.29 Other chronic pain; F43.21 Adjustment disorder with depressed mood; Z68.37 Body mass index [BMI] 37.0-37.9, adult; K59.03 Drug induced constipation; T40.2X5A Adverse effect of other opioids, initial encounter; C50.919 Malignant neoplasm of unspecified site of unspecified female breast; E87.6 Hypokalemia; Z71.6 Tobacco abuse counseling; Z96.653 Presence of artificial knee joint, bilateral; Z79.4 Long term (current) use of insulin; Z79.811 Long term (current) use of aromatase inhibitors; Z79.890 Hormone replacement therapy; Z79.899 Other long term (current) drug therapy
CPT/HCPCS: 36415; 71045; 74176; 80048; 80076; 81001; 82040; 82550; 82947; 83735; 84155; 85025; 86850; 86900; 86901; 87086; 93005; 99221; 99285; J0613; J1171; J2270; J7120

== ENCOUNTER → 2025-03-11 06:23 | Outpatient (BNV) | payer OTHER, SELFPAY | PROVIDERS: Admitting Provider Physician Assistant Medical; Emergency Provider Emergency Medicine; PCP Internal Medicine; Visit Provider Internal Medicine | DX: I49.1 Atrial premature depolarization (principal) | CPT/HCPCS: 93010 ==

== ENCOUNTER → 2025-03-11 07:16 | Outpatient (BNV) | payer OTHER, SELFPAY | PROVIDERS: Admitting Provider Physician Assistant Medical; Emergency Provider Emergency Medicine; PCP Internal Medicine; Visit Provider Radiology Diagnostic Radiology | DX: K43.9 Ventral hernia without obstruction or gangrene (principal); K59.00 Constipation, unspecified | CPT/HCPCS: 71045; 74176 ==

== ENCOUNTER → 2025-03-11 08:23 | Outpatient (BNV) | payer OTHER, SELFPAY | PROVIDERS: Admitting Provider Physician Assistant Medical; Emergency Provider Emergency Medicine; PCP Internal Medicine; Visit Provider Internal Medicine | DX: N17.9 Acute kidney failure, unspecified (principal); R33.9 Retention of urine, unspecified | CPT/HCPCS: 99223; 99232 ==

== ENCOUNTER → 2025-03-11 08:23 | Outpatient (BNV) | payer OTHER, SELFPAY | PROVIDERS: Admitting Provider Physician Assistant Medical; Emergency Provider Emergency Medicine; PCP Internal Medicine; Visit Provider Social Worker | DX: F43.21 Adjustment disorder with depressed mood (principal) | CPT/HCPCS: 99223 ==